=== PATIENT | male | born 1940 | race Caucasian/White ===

== ENCOUNTER 2020-07-24 15:45 | Outpatient (CLI) | payer OTHER, SELFPAY ==
--- NOTE | ~2020-07-24 | MR_ITS ---
EXAMINATION: MR hip RT wo con DATE: 07/24/2020 16:58 INDICATION: Right hip pain. TECHNIQUE: Magnetic resonance imaging (MRI) of the right hip was performed without intravenous contr ast. Sequences included full-field axial PD-weighted FS FSE and T1-weighted FSE, coronal of the pelvi s with PD-weighted FS FSE, small field of view of the affected hip with axial PD-weighted FS FSE, sa gittal PD-weighted FS FSE and coronal PD weighted FS FSE. Additional radial T1-weighted FGR oriented orthogonal to the acetabular rim were obtained for evaluation of the labrum. COMPARISON: Right hip radiographs dated 03/20/2020 FINDINGS: Bones/labrum/cartilage: Alignment is normal. No fracture, avascular necrosis or pathologic marrow replacing process. Severe lumbar spondylosis. There is delamination at the chondral labral junction beginning at the anterosupe rior labrum and extending to the posterior superior glenoid with more diffuse degenerative tearing of the right acetabular labrum. There is adjacent chondral fissuring along the superolateral aspect of the acetabulum and partial thickness cartilage loss with chondral surface regularity anterosuperiorly . Small marginal osteophytes about the acetabulum extending to the base of the labrum. Fluid: Symmetric physiologic amount of fluid within both hip joints. Soft tissues: There is mild fatty atrophy in the bilateral gluteus medius minimus muscles without evident associate d tendinopathy or tear. The iliopsoas, gluteal and proximal hamstring tendons are normal. Multiple di verticula along the sigmoid colon without adjacent inflammatory change to suggest diverticulitis. [place] ited evaluation of visceral organs of the pelvis is otherwise unremarkable. No pathologically enlarg ed pelvic/inguinal lymphadenopathy. IMPRESSION: 1. Mild right hip osteoarthritis with degenerative tearing of the labrum and delamination at the bernie dral labral junction. 2. Severe lumbar spondylosis. 3. Sigmoid diverticulosis. Reviewed, dictated and finalized at location H. SPRING INSPECTOR IMPRESSION: 1. Mild right hip osteoarthritis with degenerative tearing of the labrum and de lamination at the chondral labral junction. 2. Severe lumbar spondylosis. 3. Sigmoid diverticulosis.
== END 2020-07-24 15:46 | disposition home or self-care (01) ==
PROVIDERS: Visit Provider Nurse Practitioner Family
DX: M16.11 Unilateral primary osteoarthritis, right hip (principal); M47.896 Other spondylosis, lumbar region; K57.30 Diverticulosis of large intestine without perforation or abscess without bleeding
CPT/HCPCS: 73721

== ENCOUNTER 2020-07-29 13:51 | Outpatient (CLI) | payer OTHER, SELFPAY ==
--- NOTE | ~2020-07-29 | US_ITS ---
US art doppler w press LE BI INDICATION: Lower extremity edema TECHNIQUE: Segmental pressures and plethysmographic and Doppler waveforms of the brachial and lower e xtremity arteries were obtained. COMPARISON: None. FINDINGS: Right and left brachial artery pressures of 148 mm Hg and 138 mm Hg, respectively, are concordant (no rmal difference <= 30 mmHg). The right ankle-brachial index (MORGAN) is 1.08 (normal >= 0.9-1.0). The right great toe-brachial index (TBI) is 0.9 (normal >= 0.60). The left MORGAN is 1.04. The left TBI is 0.64. IMPRESSION: 1. Normal bilateral ankle-brachial indices. Reviewed, dictated and finalized at location A. DCAST MAINTENANCE TECHNICIAN
== END 2020-07-29 13:52 | disposition home or self-care (01) ==
PROVIDERS: PCP Internal Medicine; Visit Provider Internal Medicine
DX: R60.0 Localized edema (principal); I73.9 Peripheral vascular disease, unspecified
CPT/HCPCS: 93923

== ENCOUNTER 2020-08-07 11:08 | Outpatient (CLI) | payer OTHER, SELFPAY ==
--- NOTE | ~2020-08-07 | XR_ITS ---
EXAMINATION: XR lg joint inject/asp w image DATE: 08/07/2020 12:20 INDICATION: Right hip arthritis and pain. TECHNIQUE: A time-out was performed to verify the patient's name, date of , and procedure to b e performed. The procedure including the risks, benefits, and alternatives was discussed with the pat ient. Risks discussed included bleeding and infection. The patient understood the risks and agreed to proceed. The skin overlying the right hip joint was prepped and draped in usual sterile fashion. A nesthetic was administered with 1% lidocaine subcutaneously. A 22 G needle was advanced under fluoro scopic guidance into the joint. Injection of 1 mL of Omnipaque 240 confirmed intra-articular positio n of the needle. Subsequently, injectate consisting of 2 mL 0.5% bupivacaine and 1 mL 80 mg/mL was i nstilled. The needle was removed and the entry site was cleaned and dressed. There were no immediat e complications. Fluoroscopy exposure time was 0.0 minutes. The total number of images was 2. FINDINGS: Real-time fluoroscopy demonstrates the needle in the right hip joint. Patient's pain prior to procedure:2/10. Patient's pain following the procedure: 0/10. IMPRESSION: 1. Fluoroscopy guided right hip joint injection of local anesthetic and steroid with decrease in the patient's presenting pain. Reviewed, dictated and finalized at location A. IRATORY THERAPIST
== END 2020-08-07 11:09 | disposition home or self-care (01) ==
PROVIDERS: PCP Internal Medicine; Visit Provider Orthopaedic Surgery
DX: M16.11 Unilateral primary osteoarthritis, right hip (principal)
CPT/HCPCS: 20610; 77002; J1040; Q9966

== ENCOUNTER 2020-09-01 14:35 | Outpatient (CLI) | payer OTHER, SELFPAY ==
--- NOTE | ~2020-09-01 | MR_ITS ---
EXAMINATION: MR lumbar spine wo [facility] EXAM DATE: 09/01/2020 15:53 INDICATION: Right sided low back pain, cory buttock pain since 10/2019, no trauma. TECHNIQUE: Multi-sequential, multiplanar MR images of the lumbar spine were obtained without contrast . Sagittal T1, T2, T2 fat saturation images. Axial T2 weighted images. There is no prior study for comparison. FINDINGS: There is severe disc disease at L2-3 with 3 mm retrolisthesis, moderate to severe disc dise ase at L3-4. There is moderate disc disease L4-5 with 4 mm anterolisthesis. Mild to moderate disc dis ease L1-2 and L5-S1. The conus medullaris terminates at the L1/2 level and has normal signal intensit y and morphology. Mild diffuse loss of vertebral body heights, chronic compressions. There are no sagrario picious marrow signal abnormalities. Paraspinal soft tissue is unremarkable. Level by level evaluation: T12-L1: There is a minimal diffuse disc bulge. Facet arthropathy: Mild to moderate bilateral. Neural foraminal stenosis: No stenosis. Central canal stenosis: No stenosis. L1-L2: There is a mild diffuse disc bulge. Facet arthropathy: Mild to moderate. Neural foraminal stenosis: Mild bilateral. Central canal stenosis: Mild. L2-L3: There is a moderate diffuse disc bulge. Facet arthropathy: Moderate. Neural foraminal stenosis: Moderate bilateral. Central canal stenosis: Mild to moderate. L3-L4: There is a moderate diffuse disc bulge. Facet arthropathy: Moderate to severe . Ligamentum flavum enlargement. Neural foraminal stenosis: Moderate bilateral. Central canal stenosis: Moderate. L4-L5: There is a moderate to large diffuse disc bulge. Facet arthropathy: Severe right, moderate to severe left. Neural foraminal stenosis: Moderate to severe right, moderate left. Central canal stenosis: Moderate, particularly right lateral recess. L5-S1: There is a moderate diffuse disc bulge. Facet arthropathy: Mild to moderate. Neural foraminal stenosis: Moderate to severe right, moderate left. Central canal stenosis: Mild to moderate. IMPRESSION: 1. Moderate to severe lumbar spondylosis. 2. Right L4-5 and L5-S1 neural foramen most narrowed on exam. Reviewed, dictated and finalized at location D. CLEANER OPERATOR
== END 2020-09-01 14:36 | disposition home or self-care (01) ==
PROVIDERS: PCP Internal Medicine; Visit Provider Nurse Practitioner Family
DX: M47.896 Other spondylosis, lumbar region (principal)
CPT/HCPCS: 72148

== ENCOUNTER 2020-12-18 09:11 | Outpatient (CLI) | payer OTHER, SELFPAY ==
--- NOTE | ~2020-12-18 | XR_ITS ---
EXAMINATION: XR lumbar spine min 4V EXAM DATE: 12/18/2020 10:20 INDICATION: Neurogenic claudication due to lumbar spinal stenosis. TECHNIQUE: Lumber spine frontal, lateral, bilateral oblique projections. Coned down frontal and lat eral L5-S1 lumbar projections for interpretation. Additional lateral flexion and lateral extension p rojections obtained. Correlation was made with lumbar MRI examination 09/01/2020. FINDINGS: There is mild lumbar dextroscoliosis. Moderate to severe disc disease at L1-S2 and L5-S1, m oderate at the other lumbar levels. Again there is grade 1 anterolisthesis L4 on L5, without spondylo lysis suspected. Difficult to appreciate any additional subluxation between the lateral extension and flexion projections. There is severe lumbar facet arthropathy. There are no acute fractures identifi ed. Sacrum, sacroiliac joints, sacral arcuate lines are intact. IMPRESSION: 1. Moderate to severe lumbar spondylosis. 2. Grade 1 anterolisthesis L4 on L5. Reviewed, dictated and finalized at location A.
--- NOTE | 2020-12-18 11:30 | NEURO_ITS ---
Impression: # Complains of pain and numbness lower extremities. 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 # Asymmetrical sensory responses. # Needle/EMG exam revealed decreased motor unit potentials but no active denervation. # Most likely neuropathy with superimposed higher involvement. Nerve Conduction Studies Anti Sensory Summary Table Stim Site NR Peak (ms) P-T Amp (?V) Site1 Site2 Delta-P (ms) Dist (cm) Brandin (m/s) Left Sup Fibular Anti Sensory (Ant Lat Mall) 14 cm 3.9 24.0 14 cm Ant Lat Mall 3.9 16.0 41 Right Sup Fibular Anti Sensory (Ant Lat Mall) NO RESPONSE 14 cm NR 14 cm Ant Lat Mall 16.0 Left Sural Anti Sensory (Lat Mall) NO RESPONSE Calf NR Calf Lat Mall 16.0 Right Sural Anti Sensory (Lat Mall) NO RESPONSE Calf NR Calf Lat Mall 16.0 Motor Summary Table Stim Site NR Onset (ms) O-P Amp (mV) Site1 Site2 Delta-0 (ms) Dist (cm) Brandin (m/s) Left Peroneal Motor (Vastus Med) MINIMAL RESPONSE Ankle NR Popit Ankle 0.0 Popit NR Right Peroneal Motor (Vastus Med) Ankle 4.8 1.5 Popit Ankle 10.7 39.0 36 Popit 15.5 1.5 Left Tibial Motor (Abd Cole Brev) Ankle 5.2 3.2 Knee Ankle 12.1 46.0 38 Knee 17.3 1.8 Right Tibial Motor (Abd Cole Brev) Ankle 4.9 0.9 Knee Ankle 11.4 42.0 37 Knee 16.3 0.9 F Wave Studies NR F-Lat (ms) L-R F-Lat (ms) Left Peroneal (Mrkrs) (EDB) DISPERSED RESPONSE NR Right Peroneal (Mrkrs) (EDB) 62.55 Left Tibial (Mrkrs) (Abd Hallucis) 63.56 0.01 Right Tibial (Mrkrs) (Abd Hallucis) 63.57 0.01 EMG Side Muscle Nerve Root Ins Act Fibs Amp Dur Recrt Comment Right AntTibialis Dp Br Fibular L4-5 Nml Nml Nml Nml Reduced Right Gastroc Tibial S1-2 Nml Nml Nml Nml Reduced Right Fibularis Long Sup Br Fibular L5-S1 Nml Nml Nml Nml Reduced Right Flex Dig Long Tibial L5-S2 Nml Nml Nml Nml Reduced Right Ext Dig Brev Dp Br Fibular L5, S1 Nml Nml Nml Nml Reduced Left AntTibialis Dp Br Fibular L4-5 Nml Nml Nml Nml Reduced Left Gastroc Tibial S1-2 Nml Nml Nml Nml Reduced Left Fibularis Long Sup Br Fibular L5-S1 Nml Nml Nml Nml Reduced Left Flex Dig Long Tibial L5-S2 Nml Nml Nml Nml Reduced Left Ext Dig Brev Dp Br Fibular L5, S1 Nml Nml Nml Nml Reduced Right QuadratusFem QuadFemoris L4-5, S1 Nml Nml Nml Nml Reduced Left QuadratusFem QuadFemoris L4-5, S1 Nml Nml Nml Nml Reduced MTDD
== END 2020-12-18 09:12 | disposition home or self-care (01) ==
PROVIDERS: PCP Internal Medicine; Visit Provider Neurological Surgery
DX: M48.062 Spinal stenosis, lumbar region with neurogenic claudication (principal); G62.9 Polyneuropathy, unspecified; M47.816 Spondylosis without myelopathy or radiculopathy, lumbar region
CPT/HCPCS: 72110; 95886; 95910

== ENCOUNTER 2021-05-06 13:48 | Outpatient (CLI) | payer OTHER, SELFPAY ==
--- NOTE | ~2021-05-06 | US_ITS ---
EXAMINATION: US art doppler w press LE DATE: 05/06/2021 14:39 INDICATION: Peripheral arterial disease. TECHNIQUE: Segmental pressures and plethysmographic and Doppler waveforms of the brachial and lower e xtremity arteries were obtained. COMPARISON: Segmental pressures and arterial Doppler 07/29/2020 FINDINGS: Right and left brachial artery pressures of 132 mm Hg and 140 mm Hg, respectively, are concordant (no rmal difference <= 30 mmHg). The right high-thigh pressure index is 1.25 (normal > 1.2). The right ankle-brachial index (MORGAN) is 1 .13 (normal >= 0.9-1.0). The right great toe-brachial index (TBI) is 0.70 (normal >= 0.65). Arterial Doppler waveforms are at least triphasic in common femoral artery and superficial femoral artery and biphasic in popliteal artery and at the ankle. The left high-thigh pressure index is 1.19. The left MORGAN is 0.99. The left TBI is 0.71. Arterial Dopp ler waveforms are at least triphasic in common femoral artery, biphasic from superficial femoral marta ry to posterior tibial artery, and triphasic in dorsalis pedis. IMPRESSION: 1. No significant arterial occlusive disease. Reviewed, dictated and finalized at location A.
== END 2021-05-06 13:49 | disposition home or self-care (01) ==
LOC: ANHIMG 13:53
PROVIDERS: PCP Internal Medicine; Visit Provider Registered Nurse
DX: R09.89 Other specified symptoms and signs involving the circulatory and respiratory systems (principal)
CPT/HCPCS: 93923

== ENCOUNTER 2023-11-11 09:32 | Outpatient (CLI) | payer OTHER, SELFPAY ==
--- NOTE | ~2023-11-11 | MR_ITS ---
MRI of the lumbar spine Clinical History: Radiculopathy Technique: Axial T2-weighted images, and sagittal T1-weighted, T2-weighted, and T2 fat-sat images wer e acquired. COMPARISON: 09/01/2020 Findings: No acute fracture seen. Stable grade 1 retrolisthesis of L2 over L3. Stable grade 1 anterol isthesis of L4 over L5. No suspicious bone marrow signal seen. There are reactive marrow signal prescott es due to degenerative disc disease. At L1-L2, there is moderate degenerative disc narrowing. There is mild disc bulge with moderate to se titus facet arthropathy. No central canal stenosis. There is moderate left neural foraminal narrowing, with minimal right neural foraminal narrowing. At L2-L3, there is severe degenerative disc narrowing. Disc bulge and advanced facet arthropathy are present, with minimal central canal stenosis. There is severe bilateral neural foraminal narrowing, l eft worse than right. At L3-L4, there is severe degenerative disc narrowing. Disc bulge and severe facet arthropathy result in moderate to severe spinal canal stenosis/thecal sac compression. There is severe bilateral neural foraminal compromise. At L4-L5, there is moderate degenerative disc narrowing. Disc bulge and severe facet arthropathy resu lt in mild central canal stenosis. There is severe right neural foraminal compromise, and minimal lef t neural foraminal compromise. At L5-S1, there is mild degenerative disc narrowing. There is disc bulge and moderate facet arthropat hy. No central canal stenosis. There is severe bilateral neural foraminal compromise. Paravertebral soft tissues are unremarkable. Impression: Severe degenerative spondylosis throughout the lumbar spine, as detailed above. Stable grade 1 listhesis, as above. Reviewed, dictated and finalized at [facility]. ING SEWING MACHINE OPERATOR Impression: Severe degenerative spondylosis throughout the lumbar spine, as detailed above. Stable grade 1 listhesis, as above.
== END 2023-11-11 09:33 | disposition home or self-care (01) ==
PROVIDERS: PCP Internal Medicine; Visit Provider Internal Medicine
DX: M47.26 Other spondylosis with radiculopathy, lumbar region (principal)
CPT/HCPCS: 72148

== ENCOUNTER 2024-09-28 16:18 | Emergency (ER) | payer OTHER, SELFPAY ==
[2024-09-28 16:22] VITALS: BP 130/46; PULSE 57; RESP 20; TEMP 36.4; O2SAT 98
--- OUTSIDE RECORDS SUMMARY | 2024-09-28 16:22 | XMS_ITS | Encounter Summary ---
Author Organization [facility] Address [address] [place] [address]. [place] [address] [place] [address] Care Team Providers Care Medical Management Trainer Name Role Phone Nolan Marcos MD Primary Care Provider [phone] Reason for Referral * Imaging (Emergency) - New Request Specialty Diagnoses / Procedures Referred By Contac t Referred To Contact RADIOLOGY Procedures CT PEL WO Anil Driscoll MD [address] [address] Phone: tel: fax: Referral ID Status Reason Start Date Expiration Date V isits Requested Visits Authorized [id number] New Request 09/27/2024 09/27/2025 1 1 R CRANE OPERATOR * Imaging (Emergency) - New Request Specialty Diagnoses / Procedures Referred By Contac t Referred To Contact RADIOLOGY Procedures CT LUMB SPINE WO Anil Driscoll MD [address] [address] Phone: tel: fax: Referral ID Status Reason Start Date Expiration Date V isits Requested Visits Authorized [id number] New Request 09/27/2024 09/27/2025 1 1 R CRANE OPERATOR Reason for Visit * Reason Comments Back Pain Encounter Details Date Type Department Care Team (Late st Contact Info) Description 09/27/2024 4:11 AM POWER CRANE OPERATOR - 09/27/2024 9:02 AM POWER CRANE OPERATOR Emergency [facility] Emergency [place] [address] Anil Ramirez MD [address] [id number] Back Pain Discharge Disposition: Home or Self Care (Routine Discharge) Social History Tobacco Use Types Packs/Day Years Used Date Smoking Tobacco: Every Day Cigarettes 0.3 60 Smokeless Tobacco: Never Comments:I now smoke 3 cigs per day Alcohol Use Standard Drinks/Week Comments No 0 (1 standard drink = 0.6 oz pur e alcohol) AUDIT-C Answer Date Recorded Frequency of Alcohol Consumption Never 11/07/2018 Average Number of Drinks Not on file 019 Frequency of Binge Drinking Not on file 01/2019 PHQ-2 Answer Date Recorded Patient Health Questionnaire-2 Score 0 10/20/2023 Sex and Gender Information Value Date Recorded Sex Assigned at Male 11/07/2018 3:30 PM POWER CRANE OPERATOR Legal Sex Male 5:59 PM CDT Gender Identity Male 11/07/2018 3:30 PM POWER CRANE OPERATOR Sexual Orientation Straight 11/07/2018 3: 30 PM POWER CRANE OPERATOR documented as of this encounter Last Filed Vital Signs Vital Sign Reading Time Taken Comments Blood Pressure 175/83 09/27/2024 3:55 AM POWER CRANE OPERATOR Pulse 61 09/27/2024 3:55 AM POWER CRANE OPERATOR Temperature 36.6 ??C (97.9 ??F) 09/27/2024 3:55 AM CS T Respiratory Rate 18 09/27/2024 3:55 AM POWER CRANE OPERATOR Oxygen Saturation 99% 09/27/2024 3:55 AM POWER CRANE OPERATOR Inhaled Oxygen Concentration - - Weight 103.4 kg (228 lb) 09/27/2024 3:55 AM POWER CRANE OPERATOR Height 180.3 cm (5' 11 ) 09/27/2024 3:55 AM POWER CRANE OPERATOR Body Mass Index 31.8 09/27/2024 3:55 AM POWER CRANE OPERATOR documented in this encounter Discharge Instructions * Discharge Instructions* Anil Ramirez MD - 09/27/2024 8:04 AM POWER CRANE OPERATOR Thank you for entrusting your health with me. I have obtained information about your health and reviewed your work-up. Please access [facility] to see my note and work-up. Medical care is complex and your health is important to me. I encourage you to ask questions for further understanding of today's visit and return if something changes. Sincerely, Dr. Ramirez R CRANE OPERATOR * Attachments The following attachments cannot be sent through Care Everywhere. * Low Back Pain ED (Slovak) documented in this encounter Medications at Time of Discharge CONTOUR NEXT TEST test stripIndications:Con trolled type 2 diabetes mellitus without complication, without long-term current use of insulin ([facility]) USE ONE STRIP IN METER THREE TIMES A DAY 100 strip 2 06/15/2024 cyclobenzaprine (FLEXERIL) 5 MG tabletIndications:Se titus low back pain Take 1 tablet (5 mg total) by mouth 3 (three) times daily as needed for Muscle Spasms. 30 tablet 09/18/2024 5 cycloSPORINE (RESTASIS) 0.05 % ophthalmic emulsion Place 1 drop into both eyes 2 (two) times daily. diazePAM (VALIUM) 5 MG tabletIndications:An xiety,Benign familial tremor TAKE 1 TABLET BY MOUTH EVERY 8 HOURS NEEDED FOR ANXIETY (USE SPARINGLY) 90 tablet 07/31/2024 DULoxetine (CYMBALTA) 60 MG capsuleIndications:P rimary osteoarthritis involving multiple joints TAKE 1 CAPSULE BY MOUTH EVERY DAY 30 capsule 5 09/11/2024 Glucose Blood (FREESTYLE LITE) test stripIndications:Typ e 2 diabetes mellitus with stage 3a chronic kidney disease, without long-term current use of insulin ([facility]) 1 strip by Other route daily. 100 strip 3 09/25/2024 hydroCHLOROthiazide (MICROZIDE) 12.5 MG capsuleIndications:G eneralized edema Take 1 capsule (12.5 mg total) by mouth every morning. 30 capsule 3 04/19/2024 HYDROcodone-acetamin ophen (NORCO) 7.5-325 MG tabletIndications:Ch ronic Pain Take 1 tablet by mouth every 8 (eight) hours as needed for Pain. Indications: Chronic Pain 30 tablet 09/14/2024 Lancets MiscIndications:Diab etes mellitus (CMS/HCC [facility]) Use 1 lancet TID 300 Container 1 07/25/2018 levothyroxine (SYNTHROID) 50 MCG tabletIndications:Hy pothyroidism TAKE 1 TABLET BY MOUTH EVERY DAY IN THE MORNING 90 tablet 1 07/10/2024 melatonin 5 MG tablet Take 1 tablet (5 mg total) by mouth daily. multi vitamin/minerals tablet Take 1 tablet by mouth daily. naproxen (NAPROSYN) 500 MG tabletIndications:Sp asmodic torticollis take 1 tablet by mouth twice a day with food 60 tablet 5 04/16/2024 tffqkwfn-xhrozbhzi-l examethasone (MAXITROL) 3.5-14990-2.1 Ointment APPLY A THIN LAYER INTO BOTH EYES EVERY NIGHT 01/14/2023 ofloxacin (FLOXIN) 0.3 % otic solution APPLY 4 DROPS INTO THE RIGHT EAR 2 TIMES PER DAY FOR 7 DAYS 10/30/2023 onabotulinumtoxinA (BOTULINUM TOXIN TYPE A) 100 units injection Inject 200 Units into the muscle. 01/19/2024 oxyCODONE-acetaminop hen (PERCOCET) 5-325 MG tabletIndications:Ac huslia Pain < 7 Day Supply Take 1 tablet by mouth every 8 (eight) hours as needed for Pain. Indications: Acute Pain < 7 Day Supply 10 tablet 09/19/2024 propranolol LA (INDERAL LA) 80 MG 24 hr capsuleIndications:B enign familial tremor take 1 capsule by mouth every day 30 capsule 11 03/14/2024 tamsulosin (FLOMAX) 0.4 MG CapIndications:Benig n prostatic hyperplasia, unspecified whether lower urinary tract symptoms present TAKE 1 CAPSULE BY MOUTH NIGHTLY AT BEDTIME. 30 capsule 8 08/13/2024 timolol 0.25 % ophthalmic solution Place 1 drop into both eyes daily. 2021 documented as of this encounter ED Notes * Carla Quinn RN - 09/27/2024 9:01 AM CST Provider discussed today's findings with the patient/family. The patient has been given informationregarding their treatment, follow up and concerning symptoms for which they should seek urgent or emergent attention. I have expressed the the importance of seeking attention should there be any new,or worsening symptoms or persistence of their condition. Patient verbalized understanding of the discharge instructions. R CRANE OPERATOR * Carla Quinn RN - 09/27/2024 8:56 AM CST Sister kierra coming to get pt from R CRANE OPERATOR * Carla Quinn RN - 09/27/2024 8:51 AM CST Called daughter twice, no answer, for pt ride home R CRANE OPERATOR * Anil Ramirez MD - 09/27/2024 6:41 AM CST Emergency Department Note Chief Complaint Patient presents with Back Pain 84-year-old male presenting to the emergency department with back pain. Patient reports to have hada fall 12 days ago in which he saw his PCP at that time. He states all of his X rays to be negativeand that he was prescribed hydrocodone for pain. Pain has worsened so he presents today for furtherevaluation. Patient reports pain to shoot across his lower back and to feel like a spasm. He reports pain to beworse with movement and standing. Hx of sciatica. Per medication at bedside, patient has hydrocodone, diazepam, and naproxen. No urinary incontinence. No saddle anesthesia. No fevers. No weakness. Hx obtained by pt. MEDICATIONS: Prior to Admission medications Medication Sig Start Date End Date Taking? Authorizing Provider CONTOUR NEXT TEST test strip USE ONE STRIP IN METER THREE TIMES A DAY 06/15/24 Nolan Marcos MD cyclobenzaprine (FLEXERIL) 5 MG tablet Take 1 tablet (5 mg total) by mouth 3 (three) times daily asneeded for Muscle Spasms. 09/18/24 09/28/24 Nolan Marcos MD cycloSPORINE (RESTASIS) 0.05 % ophthalmic emulsion Place 1 drop into both eyes 2 (two) times daily.Doc [facility] diazePAM (VALIUM) 5 MG tablet TAKE 1 TABLET BY MOUTH EVERY 8 HOURS NEEDED FOR ANXIETY (USE SPARINGLY) 07/31/24 Nolan Marcos MD DULoxetine (CYMBALTA) 60 MG capsule TAKE 1 CAPSULE BY MOUTH EVERY DAY 09/11/24 Nolan Marcos MD Glucose Blood (FREESTYLE LITE) test strip 1 strip by Other route daily. 09/25/24 Nolan Marcos MD hydroCHLOROthiazide (MICROZIDE) 12.5 MG capsule Take 1 capsule (12.5 mg total) by mouth every morning. 04/19/24 Nolan Marcos MD HYDROcodone-acetaminophen (NORCO) 7.5-325 MG tablet Take 1 tablet by mouth every 8 (eight) hours asneeded for Pain. Indications: Chronic Pain 09/14/24 RK Traore Lancets Misc Use 1 lancet TID 07/25/18 Nolan Marcos MD levothyroxine (SYNTHROID) 50 MCG tablet TAKE 1 TABLET BY MOUTH EVERY DAY IN THE MORNING 07/10/24 Nolan Marcos MD melatonin 5 MG tablet Take 1 tablet (5 mg total) by mouth daily. Doc [facility] multi vitamin/minerals tablet Take 1 tablet by mouth daily. Doc [facility] naproxen (NAPROSYN) 500 MG tablet take 1 tablet by mouth twice a day with food 04/16/24 Nolan Marcos MD huguqxxy-ioovcpwpc-gtiteqqlrfykf (MAXITROL) 3.5-97869-9.1 Ointment APPLY A THIN LAYER INTO BOTH EYES EVERY NIGHT 01/14/23 Default History Genericprovider ofloxacin (FLOXIN) 0.3 % otic solution APPLY 4 DROPS INTO THE RIGHT EAR 2 TIMES PER DAY FOR 7 DAYS 10/30/23 Default History Genericprovider onabotulinumtoxinA (BOTULINUM TOXIN TYPE A) 100 units injection Inject 200 Units into the muscle. 01/19/24 01/17/25 Default History Genericprovider oxyCODONE-acetaminophen (PERCOCET) 5-325 MG tablet Take 1 tablet by mouth every 8 (eight) hours as needed for Pain. Indications: Acute Pain < 7 Day Supply 09/19/24 Nolan Marcos MD propranolol LA (INDERAL LA) 80 MG 24 hr capsule take 1 capsule by mouth every day 03/14/24 Nolan Marcos MD tamsulosin (FLOMAX) 0.4 MG Cap TAKE 1 CAPSULE BY MOUTH NIGHTLY AT BEDTIME. 08/13/24 Nolan Marcos MD timolol 0.25 % ophthalmic solution Place 1 drop into both eyes daily. 06/01/21 Doc [facility] PAST MEDICAL HISTORY: Past Medical History: Diagnosis Date Anxiety disorder, unspecified Arthritis RHEUMATOID Depression Diabetes mellitus ([facility]) Glaucoma PAST SURGICAL HISTORY: Past Surgical History: Procedure Laterality Date APPENDECTOMY APPENDECTOMY BRAIN SURGERY CRANIOTOMY TO REMOVE CONGEALED BLOOD CATARACT EXTRACTION Bilateral JOINT REPLACEMENT Right KNEE REPLACEMENT KNEE SURGERY MYRINGOTOMY Bilateral OTHER PROCEDURE Left DUPYTRON RELEASE RING FINGER SEPTOPLASTY Vital 24 Hour Range Most Recent Value Temperature Temp Min: 97.9 ??F (36.6 ??C) Max: 97.9 ??F (36.6 ??C) 97.9 ??F (36.6 ??C) Pulse Pulse Min: 61 Max: 61 61 Respiratory Resp Min: 18 Max: 18 18 Blood Pressure BP Min: 175/83 Max: 175/83 (!) 175/83 Pulse Oximetry SpO2 Min: 99 % Max: 99 % 99 % O2 No data recorded Constitutional: Well developed, Well nourished, No acute distress, Non-toxic appearance. HEENT: Normocephalic, Atraumatic, Bilateral external ears normal, EOMI, Conjunctiva normal, No discharge.Oropharynx moist, Nose normal. Respiratory: Normal breath sounds, No respiratory distress. Cardiovascular: Normal heart rate, Normal rhythm GI: Soft, No tenderness Neck/back: Normal range of motion, No stridor, Mild lumbar tenderness on palpation Extremities: Intact distal pulses, No edema, No tenderness, Good range of motion in all major joints. Skin: Warm, Dry, No erythema, No rash. Neurologic: Alert & oriented x 3, Normal motor function, Normal sensory function, No focal deficits noted. Psychiatric: Affect normal, Judgment normal, Mood normal. Medical Decision Making/ ED course: Problem list: Lower back pain Differentials: Fracture, contusion, muscle strain, other Imaging: CT PEL WO CON Result Date: 09/27/2024 IMPRESSION: No appreciable acute fracture or dislocation. Degenerative changes of the lumbosacral spine, pelvis, and hips. Potential soft tissue contusion in the left hip region. Correlate with clinical exam. Ordered By: ANIL RAMIREZ Electronically Signed By: Toi Mar on 58:01 AM Interpreted By: Toi Mar, 09/27/2024 7:[address] LUMB SPINE WO CON Result Date: 09/27/2024 IMPRESSION: 1. No acute fracture or dislocation. Chronic healed fractures of the left transverse processes of L2 and L3. 2. 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 Moderate central canal stenosis at L2/L3. 3. Severe bilateral foraminal stenosis at L2/L3 L3/L4, L4/L5 and L5/S1. Moderate bilateral foraminal stenosis at L1/L2. 4. Osteopenia with 13 degrees of lumbar dextroscoliosis. Referred By: Interpreted By: Vivek Hood MD, 09/27/2024 7:28 AM My independent interpretation of labs/imaging: Imaging without signs of acute traumatic injuries. My independent interpretation of pulse ox: Normal Consults: no emergent consult indicated Communication: I discussed the workup as well as plan of care when possible. I discussed medications as well as other therapies as needed. Patient overall feeling much better after medications. Patient ambulatory in the ER with stable gait. Will plan to discharge patient with outpatient follow-up. Patient has prescriptions for benzos, [place], NSAIDs. Medications HYDROmorphone (DILAUDID) injection 1 mg (1 mg Intramuscular Given 09/27/24 0711) Clinical Impression Back pain (Primary) Current Discharge Medication List Disposition: Discharge Follow-Up: Nolan Marcos MD [address] [place] [id number] Call in 1 day Please excuse any grammatical or spelling errors as this chart was likely documented using a dictation software. I, Radha Arriola acting as a scribe, am personally taking down the notes in the presence of Dr. Anil Ramirez,*. Take no action on this note until reviewed and authenticated by the physician. Anil Ramirez MD 09/27/24 0891 R CRANE OPERATOR * Ashkan De La Cruz RN - 09/27/2024 3:50 AM CST Pt to the ed via ems with c/o lower back pain. Pt had a fall on 09/17 and was seen by PCP on 09/19. XR were negative at that time and pt was given script for 10 tablets of Oxy. Pt ambulatory to restroom on arrival to ED. Pt states the pain has worsened and he used up all of his pain meds. R CRANE OPERATOR documented in this encounter Plan of Treatment Upcoming Encounters Date Type Department Care Team (Late st Contact Info) Description 10/23/2024 2:40 PM POWER CRANE OPERATOR Office Visit [facility] Family [facility] Internal Medicine [address] [phone] Nolan Marcos MD [address] [place] [id number] documented as of this encounter Procedures Procedure Name Priority Date/Time Associated Diagnosis Comments CT PEL WO CON STAT 09/27/2024 7:03 AM POWER CRANE OPERATOR CT LUMB SPINE WO CON STAT 09/27/2024 7:03 AM POWER CRANE OPERATOR documented in this encounter Results * CT PEL WO CON (09/27/2024 7:03 AM POWER CRANE OPERATOR) Anatomical Region Laterality Modality Pelvis Computed Tomogra phy 09/27/2024 7:45 AM POWER CRANE OPERATOR Impressions 09/27/2024 8:01 AM POWER CRANE OPERATOR IMPRESSION: No appreciable acute fracture or dislocation. Degenerative changes of the lumbosacral spine, pelvis, and hips. Potential soft tissue contusion in the left hip region. Correlate with clinical exam. Ordered By: ANIL RAMIREZ Interpreted By: Toi Mar, 09/27/2024 7:45 AM Narrative 09/27/2024 8:01 AM POWER CRANE OPERATOR [address] [place], [place] [address] IMAGING STUDIES: ??CT PEL WO CON ? DATE: ??09/27/2024 6:40 AM HISTORY: ??trauma ? 84-year-old male. Patient reportedly fell on 09/17/2024 and evaluated by primary care provider on 09/19/2024 with reported negative radiographs at that time. Patient provided prescription for hydrocodone and has finished his medications. Patient reports shooting spasm-like pain across his lower back which is worse with movement and standing. Reported history of sciatica. COMPARISON: ??CT lumbar spine without contrast 09/27/2024. DISCUSSION: CT pelvis without intravenous contrast. Coronal and sagittal reconstructions. No enteric contrast. Automated exposure control with radiation dose reduction techniques used. Cardiovascular: Atherosclerotic calcification of the aorta, iliac arteries, and femoral arteries. Genitourinary: ??Prostate dystrophic calcifications. Mild indentation of the inferior urinary bladder by the prostate. No acute urinary bladder abnormality. Mild fat within the left inguinal canal. Lymphatic: No apparent adenopathy. Gastrointestinal: Colonic diverticulosis. No apparent bowel obstruction or focal inflammation. ??No free fluid in the pelvis. Musculoskeletal: Mild bilateral soft tissue edema. Slightly more prominent soft tissue edema in the left hip region (axial image [id number]) and clinical correlation recommended for contusion given the history of fall. Degenerative changes of the lumbosacral spine. Refer to dedicated lumbar spine CT. Degenerative changes symphysis pubis and bilateral sacroiliac joints. Degenerative changes bilateral hips. Hypertrophic changes at the femoral greater trochanters bilaterally, left greater than right. Procedure Note Toi Mar MD - 09/27/2024 [facility] [address] [address] IMAGING STUDIES: CT PEL WO CONDATE: 09/27/2024 6:40 AM HISTORY: trauma 84-year-old male. Patient reportedly fell on09/17/2024 and evaluated by primary care provider on 09/19/2024 withreported negative radiographs at that time. Patient provided prescriptionfor hydrocodone and has finished his medications. Patient reports shootingspasm-like pain across his lower back which is worse with movement andstanding. Reported history of sciatica. COMPARISON: CT lumbar spine without contrast 09/27/2024. DISCUSSION: CT pelvis without intravenous contrast. Coronal and sagittalreconstructions. No enteric contrast. Automated exposure control withradiation dose reduction techniques used. Cardiovascular: Atherosclerotic calcification of the aorta, iliacarteries, and femoral arteries. Genitourinary: Prostate dystrophic calcifications. Mild indentation ofthe inferior urinary bladder by the prostate. No acute urinary bladderabnormality. Mild fat within the left inguinal canal. Lymphatic: No apparent adenopathy. Gastrointestinal: Colonic diverticulosis. No apparent bowel obstruction orfocal inflammation. No free fluid in the pelvis. Musculoskeletal: Mild bilateral soft tissue edema. Slightly more prominentsoft tissue edema in the left hip region (axial image [id number]) andclinical correlation recommended for contusion given the history of fall. Degenerative changes of the lumbosacral spine. Refer to dedicated lumbarspine CT. Degenerative changes symphysis pubis and bilateral sacroiliac joints.Degenerative changes bilateral hips. Hypertrophic changes at the femoralgreater trochanters bilaterally, left greater than right. IMPRESSION: No appreciable acute fracture or dislocation. Degenerative changes of thelumbosacral spine, pelvis, and hips. Potential soft tissue contusion inthe left hip region. Correlate with clinical exam. Ordered By: ANIL RAMIREZ Interpreted By: Toi Mar, 09/27/2024 7:45 AM Anil Ramirez MD CT Final Result * CT LUMB SPINE WO CON (09/27/2024 7:03 AM POWER CRANE OPERATOR) Anatomical Region Laterality Modality Spine Computed Tomogra phy 09/27/2024 7:28 AM POWER CRANE OPERATOR Impressions 09/27/2024 7:35 AM POWER CRANE OPERATOR IMPRESSION: 1. ??No acute fracture or dislocation. ??Chronic healed fractures of the left transverse processes of L2 and L3. 2. ??Severe central canal stenosis at L3/L4. ??Moderate central canal stenosis at L2/L3. 3. ??Severe bilateral foraminal stenosis at L2/L3 L3/L4, L4/L5 and L5/S1. ??Moderate bilateral foraminal stenosis at L1/L2. 4. ??Osteopenia with 13 degrees of lumbar dextroscoliosis. Referred By: ?? Interpreted By: Vivek Hood MD, 09/27/2024 7:28 AM Narrative 09/27/2024 7:35 AM POWER CRANE OPERATOR [address] [address] EXAMINATION:Lumbar spine CT without contrast 09/27/2024 INDICATION:Lower back pain, fall on 09/17/2024 TECHNIQUE: Axial CT images of the lumbar spine were acquired without intravenous contrast. ??Sagittal coronal reformats were constructed. Radiation dose reduction techniques were used. COMPARISON: Lumbar radiographs 09/19/2024 FINDINGS:The last fully formed disc space is presumed represent L5/S1. ??The osseous structures appear diffusely demineralized. ??There is 13 degrees of lumbar dextroscoliosis, unchanged. ??There is preservation of vertebral body heights and disc spaces. There is 2 mm retrolisthesis at L1/L2, L2/L3 L3/L4. ??There is 5 mm anterolisthesis at L4/L5. No acute fracture or dislocation. ??The sacroiliac joint spaces are unremarkable. There is mild cortical regularity of the left transverse processes of L2 and L3 T11/T12: Disc space narrowing, facet arthropathy and moderate bilateral foraminal stenosis. T12/L1: Disc space narrowing with small right paracentral disc protrusion causing no significant stenosis L1/L2: Disc space narrowing and vacuum disc phenomena with grade 1 retrolisthesis and facet arthropathy causing moderate bilateral foraminal stenosis. L2/L3: Disc space narrowing with grade 1 retrolisthesis small posterior disc/osteophyte complex, facet arthropathy, thickening of ligamentum flavum and bilateral foraminal osteophytes causing moderate central canal stenosis and severe bilateral foraminal stenosis L3/4: Disc space narrowing, vacuum disc phenomena, posterior disc/osteophyte complex, facet arthropathy and bilateral foraminal osteophytes with thickening of the ligamentum flavum causing severe central canal stenosis and severe bilateral foraminal stenosis L4/L5: Disc space narrowing with grade 1 anterolisthesis, vacuum disc phenomena, facet arthropathy and bilateral foraminal disc/osteophyte complexes causing mild central canal stenosis and severe bilateral foraminal stenosis L5/S1: Disc space narrowing, facet arthropathy and bilateral foraminal disc/osteophyte complexes causing severe bilateral neural foraminal stenosis. Constipation is noted throughout the abdominal aorta. ??There is a 9 obstructing 5 mm calculus within the right kidney near the corticomedullary junction. Procedure Note Vivek Hood MD - 09/27/[address] [address] EXAMINATION:Lumbar spine CT without contrast 09/27/2024 INDICATION:Lower back pain, fall on 09/17/2024 TECHNIQUE: Axial CT images of the lumbar spine were acquired withoutintravenous contrast. Sagittal coronal reformats were constructed.Radiation dose reduction techniques were used. COMPARISON: Lumbar radiographs 09/19/2024 FINDINGS:The last fully formed disc space is presumed represent L5/S1.The osseous structures appear diffusely demineralized. There is 13degrees of lumbar dextroscoliosis, unchanged. There is preservation ofvertebral body heights and disc spaces. There is 2 mm retrolisthesis at L1/L2, L2/L3 L3/L4. There is 5 mmanterolisthesis at L4/L5. No acute fracture or dislocation. The sacroiliac joint spaces areunremarkable. There is mild cortical regularity of the left transverse processes of L2and L3 T11/T12: Disc space narrowing, facet arthropathy and moderate bilateralforaminal stenosis. T12/L1: Disc space narrowing with small right paracentral disc protrusioncausing no significant stenosis L1/L2: Disc space narrowing and vacuum disc phenomena with grade 1retrolisthesis and facet arthropathy causing moderate bilateral foraminalstenosis. L2/L3: Disc space narrowing with grade 1 retrolisthesis small posteriordisc/osteophyte complex, facet arthropathy, thickening of ligamentumflavum and bilateral foraminal osteophytes causing moderate central canalstenosis and severe bilateral foraminal stenosis L3/4: Disc space narrowing, vacuum disc phenomena, posteriordisc/osteophyte complex, facet arthropathy and bilateral foraminalosteophytes with thickening of the ligamentum flavum causing severecentral canal stenosis and severe bilateral foraminal stenosis L4/L5: Disc space narrowing with grade 1 anterolisthesis, vacuum discphenomena, facet arthropathy and bilateral foraminal disc/osteophytecomplexes causing mild central canal stenosis and severe bilateralforaminal stenosis L5/S1: Disc space narrowing, facet arthropathy and bilateral foraminaldisc/osteophyte complexes causing severe bilateral neural foraminalstenosis. Constipation is noted throughout the abdominal aorta. There is a 9obstructing 5 mm calculus within the right kidney near thecorticomedullary junction. IMPRESSION: 1. No acute fracture or dislocation. Chronic healed fractures of theleft transverse processes of L2 and L3. 2. 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 Moderate central canalstenosis at L2/L3. 3. 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 4. Osteopenia with 13 degrees of lumbar dextroscoliosis. Referred By: Interpreted By: Vivek Hood MD, 09/27/2024 7:28 AM us Anil Ramirez MD CT Final Result documented in this encounter Visit Diagnoses Diagnosis Back pain- Primary Backache, unspecified documented in this encounter Administered Medications Inactive Administered Medications - up to 3 most recent administrations Medication Order MAR Action Action Date Dose Rate Site HYDROmorphone (DILAUDID) injection 1 mg 1 mg, Intramuscular, Once, 1 dose, On Kelly 09/27/24 at 0645, Administer slowly over at least 2-3 minutes. Given 09/27/2024 7:11 AM POWER CRANE OPERATOR 1 mg Right Dorsal Gluteal documented in this encounter Active and Recently Administered Medications Times are shown in POWER CRANE OPERATOR. Scheduled Medication Order 09/25/2024 09/26/2024 09/27/2024 HYDROmorphone (DILAUDID) injection 1 mg (COMPLETED) 1 mg, Intramuscular, Once, 1 dose, On Kelly 09/27/24 at 0645, Administer slowly over at least 2-3 minutes. 0711 (Given - Provid er: Carla Quinn RN) documented in this encounter Additional Health Concerns Assessment Noted Time PHQ-9 Depression Total Score: 8 02/17/20 23 2:09 PM CDT documented as of this encounter Care Teams Medical Management Trainer Relationship Specialty Start Date End Date Nolan Marcos MD [address] [place] [id number] PCP - General INTERNAL MEDICINE 08/31/18 documented as of this encounter
--- OUTSIDE RECORDS SUMMARY | 2024-09-28 16:22 | XMS_ITS | Encounter Summary ---
Author Organization [facility] Address [facility] [place] [address] [place] [address] Care Team Providers Care Quality Assurance Group Leader Name Role Phone Nolan Marcos MD Primary Care Provider [phone] Encounter Details Date Type Department Care Team (Latest Contact Info) Description 09/27/2024 Travel Social History Tobacco Use Types Packs/Day Years [...] Sex Assigned at Male 11/07/2018 3:30 PM CREDIT INTERN Legal Sex Male 5:59 PM CDT Gender Identity Male 11/07/2018 3:30 PM CREDIT INTERN Sexual Orientation Straight 11/07/2018 3: 30 PM CREDIT INTERN documented as of this encounter Plan of Treatment Upcoming Encounters Date Type Department Care Team (Late st Contact Info) Description 10/23/2024 2:40 PM CREDIT INTERN Office Visit [facility] Family & Internal Medicine [id number] [place] [address] Nolan Marcos MD [address] [place] [id number] documented as of this encounter Visit Diagnoses Not on filedocumented in this encounter Additional Health Concerns Assessment Noted Time PHQ-9 Depression Total Score: 8 02/17/20 23 2:09 PM CDT documented as of this encounter Care Teams Quality Assurance Group Leader Relationship Specialty Start Date End Date Nolan Marcos MD [address] [place] [id number] PCP - General INTERNAL MEDICINE 08/31/18 documented as of this encounter
--- OUTSIDE RECORDS SUMMARY | 2024-09-28 16:22 | XMS_ITS | Encounter Summary ---
Author Organization [facility] Address [facility] [facility] [place] [address] [place] [address] Care Team Providers Care Cardiology Coordinator Name Role Phone Nolan Marcos MD Primary Care Provider [phone] Encounter Details Date Type Department Care Team (Latest Contact Info) Description 05/05/2018 Abstract [facility] , Enrrique Gould MD Social History Tobacco Use Types Packs/Day Years Used Date Smoking Tobacco: Never Assessed Sex and Gender Information Value Date Recorded Sex Assigned at Male 11/07/2018 3:30 PM KILN PULLER Legal Sex Male 5:59 PM CDT Gender Identity Male 11/07/2018 3:30 PM KILN PULLER Sexual Orientation Straight 11/07/2018 3: 30 PM KILN PULLER documented as of this encounter Plan of Treatment Upcoming Encounters Date Type Department Care Team (Late st Contact Info) Description 10/23/2024 2:40 PM KILN PULLER Office Visit [facility] Family & Internal Medicine [facility] [address] [place] [address] Nolan Marcos MD [address] [place] [address] documented as of this encounter Visit Diagnoses Not on filedocumented in this encounter Care Teams Cardiology Coordinator Relationship Specialty Start Date End Date Nolan Marcos MD [address] [place] [id number] PCP - General INTERNAL MEDICINE 08/31/18 documented as of this encounter
--- OUTSIDE RECORDS SUMMARY | 2024-09-28 16:22 | XMS_ITS | Clinical Summary ---
Author Organization [facility] Address [facility] [place] [address] [place] [address] Care Team Providers Care Finish Rolls Operator Name Role Phone Nolan Marcos MD Primary Care Provider [phone] Allergies Active Allergy Reactions Criticality Noted Date Comments Penicillins Dizziness,Hives,Itching 09/24/2015 Medications Lancets MiscIndications:D iabetes mellitus ([facility]) Use 1 lancet TID 300 Container 1 07/25/20 18 Active multi vitamin/minerals tablet Take 1 tablet by mouth daily. Active melatonin 5 MG tablet Take 1 tablet (5 mg total) by mouth daily. Active timolol 0.25 % ophthalmic solution Place 1 drop into both eyes daily. 06/01/20 21 Active cycloSPORINE (RESTASIS) 0.05 % ophthalmic emulsion Place 1 drop into both eyes 2 (two) times daily. Active neomycin-polymyxi n-dexamethasone (MAXITROL) 3.5-10341-2.1 Ointment APPLY A THIN LAYER INTO BOTH EYES EVERY NIGHT 01/15/20 23 Active ofloxacin (FLOXIN) 0.3 % otic solution APPLY 4 DROPS INTO THE RIGHT EAR 2 TIMES PER DAY FOR 7 DAYS 10/30/19 24 Active onabotulinumtoxin A (BOTULINUM TOXIN TYPE A) 100 units injection Inject 200 Units into the muscle. 01/19/20 24 025 Active propranolol LA (INDERAL LA) 80 MG 24 hr capsuleIndication s:Benign familial tremor take 1 capsule by mouth every day 30 capsule 11 03/14/20 24 Active naproxen (NAPROSYN) 500 MG tabletIndications :Spasmodic torticollis take 1 tablet by mouth twice a day with food 60 tablet 5 04/16/20 24 Active hydroCHLOROthiazi de (MICROZIDE) 12.5 MG capsuleIndication s:Generalized edema Take 1 capsule (12.5 mg total) by mouth every morning. 30 capsule 3 04/19/20 24 Active CONTOUR NEXT TEST test stripIndications: Controlled type 2 diabetes mellitus without complication, without long-term current use of insulin ([facility]) USE ONE STRIP IN METER THREE TIMES A DAY 100 strip 2 06/15/20 24 Active levothyroxine (SYNTHROID) 50 MCG tabletIndications :Hypothyroidism TAKE 1 TABLET BY MOUTH EVERY DAY IN THE MORNING 90 tablet 1 07/10/20 24 Active diazePAM (VALIUM) 5 MG tabletIndications :Anxiety,Benign familial tremor TAKE 1 TABLET BY MOUTH EVERY 8 HOURS NEEDED FOR ANXIETY (USE SPARINGLY) 90 tablet 07/31/20 24 Active tamsulosin (FLOMAX) 0.4 MG CapIndications:Be nign prostatic hyperplasia, unspecified whether lower urinary tract symptoms present TAKE 1 CAPSULE BY MOUTH NIGHTLY AT BEDTIME. 30 capsule 8 08/13/20 24 Active DULoxetine (CYMBALTA) 60 MG capsuleIndication s:Primary osteoarthritis involving multiple joints TAKE 1 CAPSULE BY MOUTH EVERY DAY 30 capsule 5 09/11/19 25 Active HYDROcodone-aceta minophen (NORCO) 7.5-325 MG tabletIndications :Chronic Pain Take 1 tablet by mouth every 8 (eight) hours as needed for Pain. Indication s: Chronic Pain 30 tablet 09/14/19 25 Active cyclobenzaprine (FLEXERIL) 5 MG tabletIndications :Severe low back pain Take 1 tablet (5 mg total) by mouth 3 (three) times daily as needed for Muscle Spasms. 30 tablet 09/18/19 25 025 Active oxyCODONE-acetami nophen (PERCOCET) 5-325 MG tabletIndications :Acute Pain < 7 Day Supply Take 1 tablet by mouth every 8 (eight) hours as needed for Pain. Indication s: Acute Pain < 7 Day Supply 10 tablet 09/19/19 25 Active Glucose Blood (FREESTYLE LITE) test stripIndications: Type 2 diabetes mellitus with stage 3a chronic kidney disease, without long-term current use of insulin ([facility]) 1 strip by Other route daily. 100 strip 3 09/25/19 25 Active DULoxetine (CYMBALTA) 60 MG capsuleIndication s:Primary osteoarthritis involving multiple joints take 1 capsule by mouth every day 30 capsule 5 03/14/20 24 025 Discontinued oxyCODONE-acetami nophen (PERCOCET) 5-325 MG tabletIndications :Acute Pain < 7 Day Supply Take 1 tablet by mouth every 8 (eight) hours as needed for Pain. Indication s: Acute Pain < 7 Day Supply 10 tablet 03/26/20 24 025 Discontinued(R eorder) diazePAM (VALIUM) 5 MG tabletIndications :Anxiety,Benign familial tremor TAKE 1 TABLET BY MOUTH EVERY 8 HOURS NEEDED FOR ANXIETY (USE SPARINGLY) 90 tablet 08/01/20 24 025 Discontinued(D uplicate Med) HYDROcodone-aceta minophen (NORCO) 7.5-325 MG tabletIndications :Chronic Pain Take 1 tablet by mouth every 8 (eight) hours as needed for Pain. Indication s: Chronic Pain 30 tablet 08/14/20 24 025 Discontinued(R eorder) Blood Glucose Monitoring Suppl (FREESTYLE LITE) w/Device KitIndications:Ty pe 2 diabetes mellitus with stage 3a chronic kidney disease, without long-term current use of insulin ([facility]) 1 Device by Does not apply route once for 1 dose. 1 kit 09/21/19 25 025 Discontinued Glucose Blood (FREESTYLE LITE) test stripIndications: Type 2 diabetes mellitus with stage 3a chronic kidney disease, without long-term current use of insulin ([facility]) 1 strip by Other route daily. 100 strip 3 09/21/19 25 025 Discontinued Blood Glucose Monitoring Suppl (FREESTYLE LITE) w/Device KitIndications:Ty pe 2 diabetes mellitus with stage 3a chronic kidney disease, without long-term current use of insulin ([facility]) 1 Device by Does not apply route once for 1 dose. 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 ([facility]) 07/15/2022 Primary osteoarthritis involving multiple joints 05/22/2020 Primary insomnia 10/03/2018 Spasmodic torticollis 07/18/2017 Dystonia 04/22/2017 Allergic rhinitis 10/21/2016 Obstructive sleep apnea 04/20/2016 Benign familial tremor 09/24/2015 Arthritis 09/24/2015 BPH (benign prostatic hyperplasia) 09/24/2015 Type 2 diabetes mellitus wit h chronic kidney disease, without long-term current use of insulin ([facility]) 09/24/2015 Glaucoma 09/24/2015 Gout 09/24/2015 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 Resolved Problems Problem Noted Date Diagnosed Date Resolved Date Screening PSA (prostate specific antigen) 04/20/2016 11/15/2019 Encounters Date Type Department Care Team Description 09/28/2024 Patient Outreach [facility] Family & Internal [address] [phone] Tila Moreno BSW ER F/U 09/27/2024 4:11 AM TITLE CURATOR - 09/27/2024 9:02 AM [facility] Emergency [facility] [place] [address] Anil Ramirez MD Back Pain Discharge Disposition: Home or Self Care (Routine Discharge) 09/27/2024 Travel 09/20/2024 Telephone [facility] & Internal [address] [address] Nolan Marcos MD Medication Problem (Contour Next Test Strips) 09/19/2024 1:40 PM TITLE CURATOR Office Visit [facility] & Internal [address] [phone] Nolan Marcos MD Fall (Patient c/o fall 2 days. Having pain on RT side buttocks and across low back. ) 09/19/2024 Travel 09/18/2024 Telephone [facility] Internal [address] [address] Nolan Marcos MD Prior Authorization (cyclobenzaprine (FLEXERIL) 5 MG tablet) 09/17/2024 Telephone [facility] Internal [address] [address] Nolan Marcos MD Medication Request 09/14/2024 Weibuhart Message Enc [facility] Internal [address] [phone] Oriana Card, JULIANONP Hydrocodone-acetamin 08/09/2024 Scan [facility] INFO SRVCS Scanned, [facility] 07/31/[address] [phone] Nolan Marcos MD Medication Request 07/31/2024 Telephone [facility] Internal [address] [phone] Nolan Marcos MD Lab Results 07/17/2024 Scan [facility] HEALTH INFO SRVCS Scanned, [facility] 07/16/2024 Orders Only [address] [phone] Nolan Marcos MD 07/16/2024 GetBack Message Enc [facility] Internal [address] [address] Nolan Marcos MD MEDS 07/06/[address] [phone] Nolan Marcos MD Referral Request from Last 3 Months Immunizations Name Administration Dates Next Due Arexvy Respiratory Syncytial Virus (RSV, adjuvanted) 0.5 mL, PF 04/16/2024 Fluzone 6 Months+ Quad (0.5 mL Prefilled Syringe) 11/03/2023 Fluzone High Dose - >Age 65 (Prefilled Syringe) 07/15/2022,05/23/2020,06/29/2018,2015 Influenza (Generic) 07/16/2014,07/27/2013,2011 Influenza Adult (Generic) 08/10/2024,07/06/2019 MODERNA COVID-19 (12+) MRNA, LNP-S, PF, 100 MCG/ 0.5 ML DOSE 08/09/2024 PFIZER COVID-19 (JUAN CAP), MRNA, LNP-S, PF, 30 MCG/0.3 ML SANAZ-SUCROSE, IM 04/14/2022 PFIZER COVID-19 (ORIGINAL FORMULATION, PURPLE CAP) mRNA, LNP-S, PF, 30 MCG/0.3 ML DOSE 09/28/2021,11/06/2020 Pneumococcal (Pneumovax 23) 05/10/2019 Pneumococcal (Prevnar 13) 06/08/2016 Zoster (Zostavax) 68553 Unt/0.65Ml 10/21/2013 Family History Medical History Relation Comments Diabetes Brother Heart Disease Brother Neurological Disease Brother Tremor Heart Disease Father Cancer Mother stomach cancer Diabetes Mother Neurological Disease Mother tremor Relation Status Comments Brother Father Mother Social History Tobacco Use Types Packs/Day Years Used Date Smoking Tobacco: Every Day Cigarettes 0.3 60 Smokeless Tobacco: Never Tobacco Cessation:Ready to Q uit: No; Counseling Given: Yes Comments:I now smoke 3 cigs per day [...] Sex Assigned at Male 11/07/2018 3:30 PM TITLE CURATOR Legal Sex Male 5:59 PM CDT Gender Identity Male 11/07/2018 3:30 PM TITLE CURATOR Sexual Orientation Straight 11/07/2018 3: 30 PM TITLE CURATOR Last Filed Vital Signs Vital Sign Reading Time Taken Comments Blood Pressure 175/83 09/27/2024 3:55 AM TITLE CURATOR Pulse 61 09/27/2024 3:55 AM TITLE CURATOR Temperature 36.6 ??C (97.9 ??F) 09/27/2024 3:55 AM CS T Respiratory Rate 18 09/27/2024 3:55 AM TITLE CURATOR Oxygen Saturation 99% 09/27/2024 3:55 AM TITLE CURATOR Inhaled Oxygen Concentration - - Weight 103.4 kg (228 lb) 09/27/2024 3:55 AM TITLE CURATOR Height 180.3 cm (5' 11 ) 09/27/2024 3:55 AM TITLE CURATOR Body Mass Index 31.8 09/27/2024 3:55 AM TITLE CURATOR Plan of Treatment Upcoming Encounters Date Type Department Care Team (Late st Contact Info) Description 10/23/2024 2:40 PM TITLE CURATOR Office Visit [facility] Family & Internal Medicine - [address] [phone] Nolan Marcos MD [address] [place] [phone] Health Maintenance Due Date Last Done Comments Annual Medicare Wellness Visit 2005 Diabetes: Retinopathy Eye Exam 08/25/2022 08/25/2021, 2021, 11/19/2019 PHQ-2 (Physician [place]) 09/05/2024 10/20/2023 COVID-19 Vaccine ( season) 2024 08/09/2024, 04/14/2022, 09/28/2021, Additional history exists Hemoglobin A1C 10/20/2024 04/19/2024, 10/06, 02/16/2023, Additional history exists DTaP, Tdap and Td Vaccines (1 - Tdap) 11/02/2024 Postponed from 1959 (No Insurance Coverage) Zoster Vaccines (2 of 3) 11/02/2024 10/21/2013 Pos tponed from 12/16/2013 (Going to Outside Clinic) Kidney Health Evaluation 04/23/2025 04/23/2024 Lipid Panel 04/23/2025 04/23/2024, 02/04, 12/31/2021, Additional history exists Pneumococcal Vaccine: 65+ Years Completed 05/10/2019, 06/08/2016 RSV Immunization or 60+ Years Completed 04/16/2024 Influenza Adult Completed 08/10/2024, 01/2024, 11/03/2023, Additional history exists Meningococcal B Vaccine Aged Out No l onger eligible based on patient's age to complete this topic Meningococcal Vaccine Aged Out No alfreda mi eligible based on patient's age to complete this topic RSV Immunizations Under 20 Months Aged Out No longer eligible based on patient's age to complete this topic Procedures Procedure Name Priority Date/Time Associated Diagnosis Comments CT PEL WO CON STAT 09/27/2024 7:[address] LUMB SPINE WO CON STAT 09/27/2024 7:03 AM TITLE CURATOR XR LUMB SPINE 3V Routine 09/19/2024 3:11 PM TITLE CURATOR Fall, initial encounter Low back pain XR PELVIS AP+RT HIP 2V Routine 09/19/2024 3:11 PM TITLE CURATOR Fall, initial encounter Acute buttock pain THYROID STIM HORMONE TSH Routine 07/16/2024 3:46 PM TITLE CURATOR THYROXINE, FREE (FT4) Routine 07/16/2024 3:46 PM TITLE CURATOR LIPID PANEL Routine 04/23/2024 11:10 AM CDT Type 2 diabetes mellitus with stage 3a chronic kidney disease, without long-term current use of insulin ([facility]/HCC) HEMOGLOBIN, GLYCOSYLATED Routine 04/19/2024 Type 2 diabetes mellitus with stage 3a chronic kidney disease, without long-term current use of insulin ([facility]) DIABETIC RETINOPATHY EXAM (NEGATIVE)(SCAN ORDER) Routine 08/25/2021 from Last 3 Months or Most Recently Relevant to Health Maintenance Results * CT PEL WO CON (09/27/2024 7:03 AM TITLE CURATOR) Anatomical Region Laterality Modality Pelvis Computed Tomogra phy 09/27/2024 7:45 AM TITLE CURATOR Impressions 09/27/2024 8:01 AM TITLE CURATOR IMPRESSION: No appreciable acute fracture or dislocation. Degenerative changes of the lumbosacral spine, pelvis, and hips. Potential soft tissue contusion in the left hip region. Correlate with clinical exam. Ordered By: ANIL RAMIREZ Interpreted By: Toi Mar, 09/27/2024 7:45 AM Narrative 09/27/2024 8:01 AM TITLE CURATOR [address] [address] IMAGING STUDIES: ??CT PEL WO CON ? [...] Procedure Note Toi Mar MD - 09/27/2024 [facility] [address] [place], [place] [address] IMAGING STUDIES: CT PEL WO CONDATE: 09/27/2024 [...] Interpreted By: Toi Mar, 09/27/2024 7:45 AM us Anil Ramirez MD CT Final Result * CT LUMB SPINE WO CON (09/27/2024 7:03 AM TITLE CURATOR) Anatomical Region Laterality Modality Spine Computed Tomogra phy 09/27/2024 7:28 AM TITLE CURATOR Impressions 09/27/2024 7:35 AM TITLE CURATOR IMPRESSION: 1. ??No acute fracture or dislocation. [...] 09/27/2024 7:28 AM Narrative 09/27/2024 7:35 AM TITLE CURATOR [address] [address] EXAMINATION:Lumbar spine CT without contrast 09/27/2024 INDICATION:Lower [...] Procedure Note Vivek Hood MD - 09/27/[address] [address] EXAMINATION:Lumbar spine CT without contrast 09/27/2024 INDICATION:Lower [...] us Anil Ramirez MD CT Final Result * XR PELVIS AP+RT HIP 2V (09/19/2024 3:11 PM TITLE CURATOR) Anatomical Region Laterality Modality Pelvis, Hip Radiographic Rocío ging 09/20/2024 2:02 PM TITLE CURATOR Impressions 09/20/2024 2:03 PM TITLE CURATOR IMPRESSION: No acute abnormality. Ordered By: NOLAN MARCOS Interpreted By: Dipesh Draper MD, 09/20/2024 2:02 PM Narrative 09/20/2024 2:03 PM TITLE CURATOR [facility] Family and Internal Medicine [address] ??[address] Examination: XR PELVIS AP+RT HIP 2V Exam time: 09/19/2024 2:53 PM Clinical history: Fall. Right posterior buttock pain. Comparison: 07/06/2021 right hip Technique: AP view of the pelvis and each hip joint was obtained. Small [id number]-[id number] AP and lateral right hip joint. Findings: Sacroiliac joints and pubic symphysis appear within normal limits. No evidence of fracture or acute osseous abnormality throughout the pelvis. Single AP view left hip joint is unremarkable. Prominent degenerative changes lumbar spine. No evidence of fracture or acute osseous abnormality right acetabulum or right proximal femur. Right hip joint space maintained. Chronic appearing calcifications are present within each inguinal region. Rounded calcifications are present within the pelvis and are indeterminate, although, may represent phleboliths. Procedure Note Dipesh Draper MD - 09/20/2024 [facility] - [address] [address] Examination: XR PELVIS AP+RT HIP 2V Exam time: 09/19/2024 2:53 PM Clinical history: Fall. Right posterior buttock pain. Comparison: 07/06/2021 right hip Technique: AP view of the pelvis and each hip joint was obtained. Kkusntkkys-pe-hsuj AP and lateral right hip joint. Findings: Sacroiliac joints and pubic symphysis appear within normallimits. No evidence of fracture or acute osseous abnormality throughoutthe pelvis. Single AP view left hip joint is unremarkable. Prominent degenerative changes lumbar spine. No evidence of fracture or acute osseous abnormality right acetabulum orright proximal femur. Right hip joint space maintained. Chronic appearingcalcifications are present within each inguinal region. Roundedcalcifications are present within the pelvis and are indeterminate,although, may represent phleboliths. IMPRESSION: No acute abnormality. Ordered By: NOLAN MARCOS Interpreted By: Dipesh Draper MD, 09/20/2024 2:02 PM Nolan Marcos MD GENERAL IMAGING Final Result * XR LUMB SPINE 3V (09/19/2024 3:11 PM TITLE CURATOR) Anatomical Region Laterality Modality Spine Radiographic Rocío ging 09/20/2024 1:59 PM TITLE CURATOR Impressions 09/20/2024 2:01 PM TITLE CURATOR IMPRESSION: 1. No evidence of fracture or acute osseous abnormality. 2. Degenerative changes as described. Ordered By: NOLAN MARCOS Interpreted By: Dipesh Draper MD, 09/20/2024 1:59 PM Narrative 09/20/2024 2:01 PM TITLE CURATOR [facility] Family and Internal Medicine - [address] ??[address] Examination: XR LUMB SPINE 3V Exam time: 09/19/2024 2:53 PM Clinical history: Fall. Low back pain. Comparison: No prior exam Technique: AP, lateral, lumbosacral views Findings: There are 5 lumbar-type vertebra. There is prominent spondylosis throughout the lumbar spine. Intervertebral disc heights are maintained at the T12-L1 and L1-2 levels, although, there is anterior vertebral body endplate spurring at each level. Vacuum disc phenomenon is present consistent with disc degeneration at the L1-2 level. There is prominent decrease intervertebral disc heights from the L2-3 level inferiorly to the L5-S1 level with vacuum disc phenomenon at each level consistent with disc degeneration. Anterior and posterior vertebral body endplate spurring is present. There is prominent facet joint arthropathy at the L4-5 and L5-S1 levels with minimal anterolisthesis of L4 on L5 which most likely secondary to facet joint arthropathy. Sacroiliac joints appear unremarkable. Visualized sacral ala appear intact. No evidence of fracture or acute osseous abnormality. Procedure Note Dipesh Draper MD - 09/20/2024 [facility] Family [place] [address] Examination: XR LUMB SPINE 3V Exam time: 09/19/2024 2:53 PM Clinical history: Fall. Low back pain. Comparison: No prior exam Technique: AP, lateral, lumbosacral views Findings: There are 5 lumbar-type vertebra. There is prominent spondylosisthroughout the lumbar spine. Intervertebral disc heights are maintained atthe T12-L1 and L1-2 levels, although, there is anterior vertebral bodyendplate spurring at each level. Vacuum disc phenomenon is presentconsistent with disc degeneration at the L1-2 level. There is prominent decrease intervertebral disc heights from the L2-3level inferiorly to the L5-S1 level with vacuum disc phenomenon at eachlevel consistent with disc degeneration. Anterior and posterior vertebralbody endplate spurring is present. There is prominent facet jointarthropathy at the L4-5 and L5-S1 levels with minimal anterolisthesis ofL4 on L5 which most likely secondary to facet joint arthropathy. Sacroiliac joints appear unremarkable. Visualized sacral ala appearintact. No evidence of fracture or acute osseous abnormality. IMPRESSION: 1. No evidence of fracture or acute osseous abnormality. 2. Degenerative changes as described. Ordered By: NOLAN MARCOS Interpreted By: Dipesh Draper MD, 09/20/2024 1:59 PM Nolan Marcos MD GENERAL IMAGING Final Result * THYROXINE, FREE (FT4) (07/16/2024 3:46 PM TITLE CURATOR) FREE T4 1.0 0.8 - 1.8 ng/dL [employer] [facility], [place] 07/16/2024 3:46 PM TITLE CURATOR 07/16/2024 3:48 PM TITLE CURATOR Narrative Resulting Agency Comment Performing Organization Information: ?Site ID: SL ?Name: [facility] ?Address: [address] [place] [address] [place] [address] ?Director: Charity Kruger Nolan Marcos MD LABORATORY Final Result Performing Organization Address City/[facility]/ZIP Co de Phone Number [employer] [facility] - [place] [address] [phone] * THYROID STIM HORMONE TSH (07/16/2024 3:46 PM TITLE CURATOR) Pathologist [facility] TSH 0.87 0.40 - 4.50 mIU/L [place] 07/16/2024 3:46 PM TITLE CURATOR 07/16/2024 3:48 PM TITLE CURATOR Narrative Resulting Agency Comment Performing Organization Information: ?Site ID: SL ?Name: [facility] ?Address: [facility] [address] [place] [address] ?Director: Charity Kruger Nolan Marcos MD LABORATORY Final Result Performing Organization Address [facility] Co de Phone Number [employer] [facility] [place] [address] [phone] * (ABNORMAL) LIPID PANEL (04/23/2024 11:10 AM CDT) CHOLESTEROL 171 <200 MG/DL 04/23/2024 2:47 PM CDT [facility] [place] TRIGLYCERIDES 142 <150 MG/DL 04/23/2024 2:47 PM CDT [facility] [place] HDL 39(L) >40 MG/DL 04/23/2024 2:47 PM CDT [facility] LDL-C 104(H) <100 MG/DL 04/23/2024 2:47 PM CDT [facility] EASTRTHUClarisa [place] VLDL CALCULATION 28 5 - 28 MG/DL 04/23/2024 2:47 PM CDT [facility] CHOL/HDL RATIO 4.4(H) 0.0 - 4.0 04/23/2024 2:47 PM CDT [facility] [place] LDL/HDL 2.7(H) 0.41 - 2.13 04/23/2024 2:47 PM CDT [facility] [place] NON HDL CHOLESTEROL 132 <140 MG/DL 04/23/2024 2:47 PM CDT [facility] HARVEY [place] 04/23/2024 11:1 0 AM CDT Nolan Marcos MD LABORATORY Final Result Performing Organization Address City/[facility]/ZIP Co de Phone Number [facility] [address] [place] [address], * HEMOGLOBIN, GLYCOSYLATED (04/19/2024) HGB A1C 5.7 % [facility] 04/19/2024 Nolan Marcos MD LABORATORY Final Result Performing Organization Address City/[facility]/ZIP Co de Phone Number [facility] [address] [place] [address], [place] * DIABETIC RETINOPATHY EXAM (NEGATIVE)(SCAN) (08/25/2021) Documents Scanned SCANNING Final Result [facility] ONBASE from Last 3 Months or Most Recently Relevant to Health Maintenance Insurance [employer] Care Teams Finish Rolls Operator Relationship Specialty Start Date End Date Nolan Marcos MD [address] [place] [phone] PCP - General INTERNAL MEDICINE 08/31/18
--- OUTSIDE RECORDS SUMMARY | 2024-09-28 16:22 | XMS_ITS | Continuity of Care Document ---
Author Organization [facility] Address [address] [place] [address] Phone Care Team Providers Care Preparation Plant Supervisor Name Role Phone Altman OD, Braden Unavailable Unavailable Procedures Procedure Date Visual Field Examination(s) Eye Exam & Treatment Refraction Visual Field Examination(s) Eye Exam, New Patient Refraction Advance Directives Directive Yes / No Effective Date File Name No Information Encounters Encounter Description Practice Location Reason(s) For Visit Diagnoses Date Provider Providers Copied on Encounter [facility], [id number] [place] [address] [address], [place], [place], [address], tel:[phone] [facility] No Information 9-201 0 Altman OD Braden. [address] , [address], [place], [place], [facility], . tel:[phone] Referring Provider: Braden Agapito OD A, [address], [place], [place], [facility]. tel:[phone] 8419 [facility], [address], [place], [place], [address], tel:[phone] [facility] No Information 0-201 0 Altman OD Braden. [address] , [address], [place], [place], [facility], . tel:[phone] Referring Provider: Guille Cameron MD F, [address] [place], [address]. tel:[phone] [facility], [address] [place], [place] [address] [address], [place], [place], [address], tel:[phone] [place] [address] No Information Nov-0 2-200 9 Krishnasmateo Earnest. [address] [place] [address], [facility], . tel:[phone] Referring Provider: Earnest العراقي, [address] [place] [address], [place], [facility]. tel:[phone] 5714 [facility], [address] [place] [address] [facility], [place], [place], [address], tel:[phone] [place] [address] No Information Sep-0 2-200 9 Krishnasamy Earnest. [address] [place] [address], [facility], . tel:[phone] Family History Family Member Type Diagnosis Age At Onset No Information Payers Payer name Insurance type Covered libertarian ID Authoriza tion(s) [employer] Adv CI [id number] Social History Type Description Quantity Date Captured Comments Sex Male Smoking Status No Information Chief Complaint And Reason For Visit No Information Reason For Referral Reason For Referral No Information History Of Present Illness Encounter Date Complaint History Of Prese nt Illness No Information Functional Status Date Functional Assessmen t No Information Instructions Date Instruction Additional Infor mation No Information Assessments Type Assessment Date No Information Patient Care Teams Name Effective Dates (start - stop) Status Members No Information
--- OUTSIDE RECORDS SUMMARY | 2024-09-28 16:22 | XMS_ITS | Continuity of Care Document ---
Author Organization [facility] Address [address] [place] [address] Phone Care Team Providers Care Auto Damage Estimator Name Role Phone Vivek Abbasi MD Unavailable Unavailable Allergies, Adverse Reactions, Alerts Substance Reaction Status Criticality penicillin G Other Active No Information Medications Medication Instructions Dosage Effective Dates (start - stop) Status Comments METFORMIN HCL ER 500 MG TAB 2 DAILY - Active ATENOLOL 50 MG TABLET 1 QD-daily - Act jareth NAPROSYN 500 MG TABLET 1 BID - Act jareth INDOMETHACIN 50 MG CAPSULE 1 TID - Active Advance Directives Directive Yes / No Effective Date File Name No Information Encounters Encounter Description Practice Location Reason(s) For Visit Diagnoses Date Provider Providers Copied on Encounter [facility], [address], [place], [place], [address] , tel: [phone] [facility] No Information 3 Elroy Doyle. [address] [place] [address], [address], [place], [place], [address], . tel:[phone] [facility], [address], [place], [place], [address] , tel: [phone] Conversion Department No Information 1 Conversion Doctor. [facility] [place], [address], . [facility], [address], [place], [place], [address] , tel: [phone] [facility] SCRN MALIG NEOP-PROSTATETEST ICULAR HYPOFUNC NECBENIGN HYPERTENSIONTRAUM ATIC BRAIN HEM NECDMII WO CMP NT ST UNCNTR 8 Elroy Doyle. [address] [place] [address], [address], [place], [place], [address], [place]. tel: [phone] [facility], [address], [place], [place], [address] , tel: [phone] [facility] DERMATITIS DUE TO PLANT 8 Conversion Doctor. [facility], [facility] [place], [place], [facility], . [facility], [address], [place], [place], [address] , [place] tel: [phone] [facility] JOINT PAIN-SHLDER Sep-0 200 8 Elroy Doyle. [address] [place] [address], [address], [place], [place], [address], [place]. tel: [phone] [facility], [address], [place], [place], [address] , [place] tel: [phone] [facility] OTITIS MEDIA NOS 8 Elroy Doyle. [address] [place] [address], [address], [place], [place], [address], [place]. tel: [phone] [facility], [address], [place], [place], [address] , [place] tel:[phone] [facility] GOUT NOS 8 Conversion Doctor. [address] [place] [address], [address], [place]. [facility], [address], [place], [place], [address] , [place] tel: [phone] [facility] ABN INVOLUN MOVEMENT NECHYPERLIPIDEMIA NEC/NOSCHRO KIDNEY DIS STAGE IIMALAISE AND FATIGUE NECDMII RENL NT ST UNCNTRLD Nov0 200 7 Elroy Doyle. [address] [place] [address], [address], [place], [place], [address], [place]. tel: [phone] [facility], [address], [place], [place], [address] , [place] tel: [phone] [facility] DERMATITIS NOS 2-200 7 Conversion Doctor. [address] [place] [address], [facility], . [facility], [address], [place], [place], [address] , [place] tel: [phone] [facility] IMPOTENCE, ORGANIC ORIGNPURE HYPERCHOLESTEROLE MSLEEP APNEA NOS 6 Abbasilouise Doyle. [address] [place] [address], [address], [place], [place], [address], . tel:[phone] [facility], [address], [place], [place], [address] , tel: [phone] [facility] ND VAC STRPTCS PNEUMNI BLOC PRIM OSTEOART-L/LEGGEN ERAL OSTEOARTHROSISROU BLANCA MEDICAL EXAMABNORMAL GLUCOSE NEC 6 Abbasilouise Doyle. [address] [place] [address], [address], [place], [place], [address], . tel:[phone] [facility], [address], [place], [place], [address] , tel: [phone] [facility] THROMBOCYTOPENIA NOSJOINT PAIN-L/LEG 5 Abbasilouise Doyle. [address] [place] [address], [address] , [place], [place], [address], . tel:[phone] [facility], [address], [place], [place], [address] , tel: [phone] [facility] MIXED HYPERLIPIDEMIA 4 Abbasi Vivek. [address] [place] [address], [address], [place], [place], [address], . tel:[phone] Family History Family Member Type Diagnosis Age At Onset No Information Immunizations Vaccine Date Status Comments 65320 - Pneumococcal_PPV23 administered S ource: Source Unspecified Payers Payer name Insurance type Covered alliance party ID Authoriza tion(s) No Information Social History Type Description Quantity Date Captured [...]
--- OUTSIDE RECORDS SUMMARY | 2024-09-28 16:22 | XMS_ITS | Encounter Summary ---
Author Organization [facility] Address [facility] [place] [address] [place] [address] Care Team Providers Care Slat Basket Top Maker Name Role Phone Nolan Marcos MD Primary Care Provider [phone] Reason for Visit * Reason Onset Date Comments ER F/U 09/28/2024 Encounter Details Date Type Department Care Team (Late st Contact Info) Description 09/28/2024 Patient Outreach [facility] Family & Internal Medicine [address] [address] Tila Moreno, MIXING MACHINE ATTENDANT [address] [place], [place] [address] ER F/U Social History Tobacco Use Types Packs/Day Years [...] Sex Assigned at Male 11/07/2018 3:30 PM MOLDING MACHINE OPERATOR Legal Sex Male 5:59 PM CDT Gender Identity Male 11/07/2018 3:30 PM MOLDING MACHINE OPERATOR Sexual Orientation Straight 11/07/2018 3: 30 PM MOLDING MACHINE OPERATOR documented as of this encounter Progress Notes * Tila Jones Tiffanie, MIXING MACHINE ATTENDANT - 09/28/2024 1:39 PM CST Emergency Room Visit Follow Up Phone Call Date of ER Visit: 09/27/24 Location: [facility] Brief Description of ER Visit: Patient presented to the ED with back pain. Please see notes for details. PCP: Priti Review D/C instructions: No, patient refused to review AVS with with commercial real estate underwriter stated that he is stillin excruciating pain and is getting ready to return to the ER. Follow up appointments: No Follow up appointments made: Yes. See below Future Appointments Date Time Provider Department Center 10/23/2024 2:40 PM Nolan Marcos MD [id number] Follow up labs needed: No none Medication changes: No Current Outpatient Medications Medication Sig Dispense Refill CONTOUR NEXT TEST test strip USE ONE STRIP IN METER THREE TIMES A DAY 100 strip 2 cyclobenzaprine (FLEXERIL) 5 MG tablet Take 1 tablet (5 mg total) by mouth 3 (three) times daily asneeded for Muscle Spasms. 30 tablet 0 cycloSPORINE (RESTASIS) 0.05 % ophthalmic emulsion Place 1 drop into both eyes 2 (two) times daily. diazePAM (VALIUM) 5 MG tablet TAKE 1 TABLET BY MOUTH EVERY 8 HOURS NEEDED FOR ANXIETY (USE SPARINGLY) 90 tablet 0 DULoxetine (CYMBALTA) 60 MG capsule TAKE 1 CAPSULE BY MOUTH EVERY DAY 30 capsule 5 Glucose Blood (FREESTYLE LITE) test strip 1 strip by Other route daily. 100 strip 3 hydroCHLOROthiazide (MICROZIDE) 12.5 MG capsule Take 1 capsule (12.5 mg total) by mouth every morning. 30 capsule 3 HYDROcodone-acetaminophen (NORCO) 7.5-325 MG tablet Take 1 tablet by mouth every 8 (eight) hours asneeded for Pain. Indications: Chronic Pain 30 tablet 0 Lancets Misc Use 1 lancet TID 300 Container 1 levothyroxine (SYNTHROID) 50 MCG tablet TAKE 1 TABLET BY MOUTH EVERY DAY IN THE MORNING 90 tablet 1 melatonin 5 MG tablet Take 1 tablet (5 mg total) by mouth daily. multi vitamin/minerals tablet Take 1 tablet by mouth daily. naproxen (NAPROSYN) 500 MG tablet take 1 tablet by mouth twice a day with food 60 tablet 5 axieomck-vlrsoooxw-lnbvemtsycnvl (MAXITROL) 3.5-60734-8.1 Ointment APPLY A THIN LAYER INTO BOTH EYES EVERY NIGHT ofloxacin (FLOXIN) 0.3 % otic solution APPLY 4 DROPS INTO THE RIGHT EAR 2 TIMES PER DAY FOR 7 DAYS onabotulinumtoxinA (BOTULINUM TOXIN TYPE A) 100 units injection Inject 200 Units into the muscle. oxyCODONE-acetaminophen (PERCOCET) 5-325 MG tablet Take 1 tablet by mouth every 8 (eight) hours as needed for Pain. Indications: Acute Pain < 7 Day Supply 10 tablet 0 propranolol LA (INDERAL LA) 80 MG 24 hr capsule take 1 capsule by mouth every day 30 capsule 11 tamsulosin (FLOMAX) 0.4 MG Cap TAKE 1 CAPSULE BY MOUTH NIGHTLY AT BEDTIME. 30 capsule 8 timolol 0.25 % ophthalmic solution Place 1 drop into both eyes daily. No current facility-administered medications for this visit. Medications needing refills: No Explain appropriateness of ER use and alternatives: Yes Educate on use of [facility] Facilities: Yes Barriers to successful self-management as listed below Transportation: no Financial: no Medical equipment or service: no Home and personal safety: no Behavioral health: no Medication adherence: no Other: no Transition Patient To CDM: No Follow up phone call: No Plan of Care: Follow up with PCP. ING MACHINE OPERATOR documented in this encounter Plan of Treatment Upcoming Encounters Date Type Department Care Team (Late st Contact Info) Description 10/23/2024 2:40 PM MOLDING MACHINE OPERATOR Office Visit [facility] Family & Internal Medicine [address] [address] Nolan Marcos MD [address] [place] [address] documented as of this encounter Visit Diagnoses Not on filedocumented in this encounter Additional Health Concerns Assessment Noted Time PHQ-9 Depression Total Score: 8 02/17/20 23 2:09 PM CDT documented as of this encounter Care Teams Slat Basket Top Maker Relationship Specialty Start Date End Date Nolan Marcos MD [address] [place] [address] PCP - General INTERNAL MEDICINE 08/31/18 documented as of this encounter
--- OUTSIDE RECORDS SUMMARY | 2024-09-28 16:22 | XMS_ITS | Clinical Summary ---
Author Organization [facility] Address [address] [place] [address] Care Team Providers Care Supervisor Insulation Name Role Phone Nolan Marcos MD Primary Care Provider [phone] Allergies Active Allergy Reactions Criticality Noted Date Comments Penicillins Hives,Itching High 09/30/2020 Medications propranoloL (INDERAL) 80 mg tablet Take 80 mg by mouth daily after breakfast. Active naproxen (NAPROSYN) 500 mg tablet Take 500 mg by mouth 2 times daily with meals. Active diazePAM (VALIUM) 5 mg tablet Take 5 mg by mouth 3 times daily as needed for Anxiety. Active dorzolamide (TRUSOPT) 2 % solution Administer 1 Drop in both eyes 2 times daily. Active tamsulosin (FLOMAX) 0.4 mg capsule Take 0.4 mg by mouth daily before supper. Active clindamycin HCL (CLEOCIN) 300 mg Capsule Take 300 mg by mouth 1 time daily as needed. Prior to dental procedures Active HYDROcodone-teresa taminophen (NORCO) 7.5-325 mg Tablet Take 1 Tablet by mouth every 8 hours as needed for Pain, Moderate. Only takes as needed Active gabapentin (Neurontin) 300 mg capsule Take 1 Capsule (300 mg) by mouth 3 times daily. 60 Capsule Active DULoxetine (CYMBALTA) 60 mg Capsule, Delayed Release(E.C.) Take 60 mg by mouth daily. 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 09/30/2020 Spondylolisthesis at L4-L5 level 09/30/2020 Degeneration of lumbar intervertebral disc 09/30 Social History Tobacco Use Types Packs/Day Years Used Date Smoking Tobacco: Every Day Cigarettes Smokeless Tobacco: Never Tobacco Cessation:Ready to Q uit: No; Counseling Given: Yes Comments:3 cigarettes per day Alcohol Use Standard Drinks/Week Comments Never 0 (1 standard drink = 0.6 oz pur e alcohol) Sex and Gender Information Value Date Recorded Sex Assigned at Not on file Legal Sex Male 2:42 PM MANAGEMENT ADVISOR Gender Identity Not on file Sexual Orientation Not on file Last Filed Vital Signs Vital Sign Reading Time Taken Comments Blood Pressure - - Pulse - - Temperature - - Respiratory Rate - - Oxygen Saturation - - Inhaled Oxygen Concentration - - Weight 102.1 kg (225 lb) 09/30/2020 2:39 PM MANAGEMENT ADVISOR Height 182.9 cm (6') 09/30/2020 2:39 PM MANAGEMENT ADVISOR Body Mass Index 30.52 09/30/2020 2:39 PM MANAGEMENT ADVISOR Plan of Treatment Health Maintenance Due Date Last Done Comments DIABETES ANNUAL FOOT EXAM 1958 DIABETES ANNUAL RETINAL EXAM 1958 DIABETES MICROALBUMIN ANNUAL SCREEN 1958 LDL CHOLESTEROL ANNUAL 1958 DTAP/TDAP/TD VACCINES (1 - Tdap) 1959 ZOSTER VACCINE (1 of 2) 1990 RSV VACCINE (60+ or ) (1 - 1-dose 75+ series) 2015 DIABETES HBA1C Q 6 MONTHS 05/23/2021 11/20/2020, INFLUENZA VACCINE (#1) 2024 COVID-19 Vaccine (2 - season) 05/06/202412/2020 PNEUMOCOCCAL VACCINE 65+ YEARS Completed 05/10/2019 , 06/08/2016 Insurance [facility] Care Teams Supervisor Insulation Relationship Specialty Start Date End Date Nolan Marcos MD [address] [place] [address] PCP - General Internal Medicine 09/18/20
--- NOTE | 2024-09-28 16:32 | ECG_ITS ---
Test Date: 2024-09-28 17:14:04 Measurements Intervals [place] Rate: 58 P: 16 RI: 220 QRS: -19 QRSD: 110 T: 39 QT: 416 QTc: 411 Interpretive Statements SINUS BRADYCARDIA WITH FIRST DEGREE AV BLOCK INCOMPLETE RIGHT BUNDLE BRANCH BLOCK [90+ ms QRS DURATION, TERMINAL R IN V1/V2, 40+ ms S IN I/aVL/V4/V5/V6] SEPTAL MYOCARDIAL INFARCTION , OF INDETERMINATE AGE [40+ ms Q WAVE IN V1/V2] No previous ECG available for comparison Electronically Signed On 09-28-2024 23:50:59 TROUBLE TRACER by Aislinn Blanchard M.D.
--- NOTE | 2024-09-28 16:40 | ED_ITS ---
HPI - Back Pain/Injury General Chief Complaint: Back Pain/Injury <Liza Hernandez, ENERGY ATTORNEY - Last Filed: 09/28/24 19:51> Stated Complaint: chronic back pain flare <Liza Hernandez ENERGY ATTORNEY - Last Filed: 09/28/24 19:51> Time Seen by Provider: 09/28/24 16:30 <Liza Hernandez ENERGY ATTORNEY - Last Filed: 09/28/24 19:51> Focused HPI: Patient is an 84-year-old male who presents to the ER with back pain. She reports chronic back pain that has been going on for about 10 years. He reports slipped on the ice and fell backwards approximately 2 weeks ago which caused his back pain to become more acute. Patient reports he was seen at [facility] yesterday, where they did a lumbar CT and pelvis CT scan, which indicated no acute abnormalities per patient and his . He reports he took Aleve and hydrocodone at noon today. Patient reports he has a history of sciatica. He also states if I can get his pain under control and going to kill myself. Patient endorses he has had thoughts of hurting himself with the most recent being last night. He has not made any attempts to end his life. GENERAL: Well-appearing, well-nourished, and in no acute distress. HEAD: Normocephalic, atraumatic. CHEST: Clear to auscultation. ?No respiratory distress. HEART: Bradycardia, regular rhythm. ? NEURO: ?Alert and oriented x3. Patient is very hostile during time of examination. Patient screened in triage and initial orders placed.? ?Additional care and disposition to be based upon?diagnostic testing and treatment. <Liza Hernandez ENERGY ATTORNEY - Last Filed: 09/28/24 19:51> Focused HPI: Patient is an 84-year-old male who presents to the ER with back pain. She reports chronic back pain that has been going on for about 10 years. He reports slipped on the ice and fell backwards approximately 2 weeks ago which caused his back pain to become more acute. Patient reports he was seen at [facility] yesterday, where they did of lumbar CT and pelvis CT scan, which indicated no acute abnormalities per patient and his . He reports he took Aleve and hydrocodone at noon today. Patient reports he has a history of sciatica. He also states if I can get his pain under control and going to kill myself. Patient endorses he has had thoughts of hurting himself with the most recent being last night. He has not made any attempts to end his life. GENERAL: Well-appearing, well-nourished, and in no acute distress. HEAD: Normocephalic, atraumatic. CHEST: Clear to auscultation. ?No respiratory distress. HEART: Bradycardia, regular rhythm. ? NEURO: ?Alert and oriented x3. Patient is very hostile during time of examination. Patient screened in triage and initial orders placed.? ?Additional care and disposition to be based upon?diagnostic testing and treatment. <JIE Powell Last Filed: 09/29/24 01:23> Source: patient and family <JIE Powell Last Filed: 09/29/24 01:23> Mode of arrival: ambulatory <JIE Powell Last Filed: 09/29/24 01:23> Limitations: no limitations <JIE Powell Last Filed: 09/29/24 01:23> History of Present Illness HPI Narrative: Agree with above HPI. Daughter at bedside. Typically takes naproxen BID, norco, duloxetine. Sees pain management with [facility]. Denies numbness, weakness, saddle anesthesia, bowel or bladder incontinence. <JIE Powell Last Filed: 09/29/24 01:23> Related Data Home Medications: Home Medications ?Medication ?Instructions ?Recorded ?Confirmed ?Last Taken ?Type diazepam 5 mg tablet 5 mg PO BID PRN Anxiety 10/22/19 12/22/22 Unknown History naproxen 500 mg tablet 500 mg PO BID 10/22/19 12/22/22 Unknown History propranolol 80 mg capsule,24 80 mg PO DAILY 10/22/19 12/22/22 Unknown History hr,extended release tamsulosin 0.4 mg capsule 0.4 mg PO DAILY 10/22/19 12/22/22 Unknown History hydrocodone 7.5 mg-acetaminophen 1 tablet PO Q8H PRN Pain 03/20/20 12/22/22 Unknown History 325 mg tablet ([place]) cyclosporine 0.05 % eye drops 1 drp BID 12/22/22 12/22/22 Unknown History (Restasis MultiDose) duloxetine 60 mg capsule,delayed 60 mg PO DAILY 12/22/22 12/22/22 Unknown History release melatonin 5 mg tablet 5 mg PO HS PRN Sleep 12/22/22 12/22/22 Unknown History timolol maleate 0.25 % eye drops 1 drp QAM 12/22/22 12/22/22 Unknown History <Liza Hernandez APRN - Last Filed: 09/28/24 19:51> Allergies/Adverse Reactions: Allergies Allergy/AdvReac Type Severity Reaction Status Date / Time Penicillins Allergy Unknown Rash Verified 09/28/24 16:37 <Liza Hernandez APRN - Last Filed: 09/28/24 19:51> Review of Systems 2 Review of Systems: All systems reviewed & are unremarkable except as noted in HPI. 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 2013 History of right knee joint replacement 01/26/14 History of surgery Turbinate coblation, 07/05/12 Hx of myringotomy Bilateral, without tube, 02/01/12 Right ear with tube, 05/24/12 Hx of nasal septoplasty Endoscopic, bilateral, 11/25/11 H/O craniotomy left side, 07/17/08 History of hand surgery Dupytron's release left fourth digit. 2006 History of right knee surgery Cartilage removal, 1995 History of appendectomy 1953 <Liza Hernandez, ENERGY ATTORNEY - Last Filed: 09/28/24 19:51> Family History Family History: Family History Sibling Family history of diabetes mellitus in first degree relative Family history of heart disease in male family member before age 55 Mother Family history of diabetes mellitus in first degree relative Father Family history of diabetes mellitus in first degree relative Family history of heart disease in male family member before age 55 Other Arthritis Cancer <Liza Hernandez, ENERGY ATTORNEY - Last Filed: 09/28/24 19:51> Social History Social History: Social History Smoking status: Current every day smoker Tobacco type: cigarettes Second hand tobacco smoke exposure: Yes Additional smoking assessment comments: 1PK/DAY/50YRS, NOW 3 CIGARRETTES DAILY Alcohol intake: current Alcohol use details: 1 SHOT YEARLY ON Substance use: never Substance use type: does not use Living arrangements: alone Spiritual care concerns: No <Liza Hernandez, ENERGY ATTORNEY - Last Filed: 09/28/24 19:51> Exam 2 Narrative: GENERAL: Elderly, obese with BMI of 31.8, non-toxic, in no acute distress. HEAD: Normocephalic, atraumatic. RESPIRATORY: Airway patent, respirations nonlabored. Clear to auscultation bilaterally, no rales, rhonchi, wheezing. CARDIOVASCULAR: Regular rate and rhythm without murmurs, rubs, or gallops. MUSCULOSKELETAL: Moves all extremities. No gross deformities. Minimal tenderness throughout lumbosacral region. No significant midline spinal tenderness. No palpable bony deformities or step offs. Sensation intact. SKIN: Warm, dry, normal color. NEURO: A&O X3. Speech clear. Cranial nerves II-XII grossly intact. Steady gait. No ataxic movements. PSYCHIATRIC: Appropriate mood and affect. Normal interaction. <Chiquita Gomes PA-C - Last Filed: 09/29/24 01:23> Course Vital Signs Vital signs: Vital Signs Temperature 97.6 F 09/28/24 16:22 Pulse Rate 57 L 09/28/24 16:22 Respiratory Rate 20 09/28/24 16:22 Blood Pressure 130/46 L 09/28/24 16:22 Pulse Oximetry 98 09/28/24 16:22 Oxygen Delivery Room Air 09/28/24 16:22 Temperature 97.6 F 09/28/24 16:22 Pulse Rate 57 L 09/28/24 16:22 Respiratory Rate 20 09/28/24 16:22 Blood Pressure 130/46 L 09/28/24 16:22 Pulse Oximetry 98 09/28/24 16:22 Oxygen Delivery Room Air 09/28/24 16:22 <Liza Hernandez, ENERGY ATTORNEY - Last Filed: 09/28/24 19:51> Vital Signs Temperature 97.6 F 09/28/24 16:22 Pulse Rate 57 L 09/28/24 16:22 Respiratory Rate 20 09/28/24 16:22 Blood Pressure 130/46 L 09/28/24 16:22 Pulse Oximetry 98 09/28/24 16:22 Oxygen Delivery Room Air 09/28/24 16:22 Temperature 97.6 F 09/28/24 16:22 Pulse Rate 57 L 09/28/24 16:22 Respiratory Rate 20 09/28/24 16:22 Blood Pressure 130/46 L 09/28/24 16:22 Pulse Oximetry 98 09/28/24 16:22 Oxygen Delivery Room Air 09/28/24 16:22 <Chiquita Gomes PA-C - Last Filed: 09/29/24 01:23> MDM - Back Pain/Injury MDM Narrative Medical decision making narrative: Patient presented to ED with acute on chronic lower back pain after recent fall, reporting suicidal thoughts because this pain is unable to be controlled. Patient's vitals are stable upon arrival. Patient is neurologically intact. No focal deficits. No red flag symptoms, evidence of cord compression or cauda equina. Patient had CT imaging performed yesterday at outside hospital which did not show any acute abnormalities/fractures. He denies any injury since yesterday. Do not feel repeat imaging is necessary at this time. Symptoms are consistent with lumbar strain. No midline spinal tenderness appreciated on exam. Given pain medication in the ED with improvement of pain. He has been ambulatory to and from the bathroom without issue. ED psych workup was initiated. Laboratory studies are unremarkable. Patient is medically cleared to undergo psychiatric evaluation by crisis. Crisis team evaluated patient and determine him to meet criteria for safety plan and discharge home. I do feel this is appropriate disposition. Family at bedside is in agreement. Given plenty of resources. Discussed strict return precautions. Will discharge patient with lidocaine patches and muscle relaxers for continued home use in addition to continuing his naproxen and home [place]. Recommended that patient follow-up with his primary care doctor and painter and paperhanger apprentice for further evaluation. Given strict return precautions regarding back pain. D/C in stable condition. <Chiquita Gomes PA-C - Last Filed: 09/29/24 01:23> Medical Records Attestation: I reviewed the patient's medical records. <Chiquita Gomes PA-C - Last Filed: 09/29/24 01:23> Lab Data Attestation: I reviewed the patient's lab results. <Chiquita Gomes PA-C - Last Filed: 09/29/24 01:23> Result diagrams: 09/28/24 17:18 09/28/24 17:18 <Liza Hernandez APRN - Last Filed: 09/28/24 19:51> Labs: Lab Results 09/28/24 09/28/24 09/28/24 Range/Units 17:16 17:18 18:46 WBC 9.5 (4.5-10.0) K/mm3 RBC 4.38 L (4.6-6.20) M/mm3 Hgb 13.4 L (14.0-18.0) g/dL Hct 40.3 L (42.0-52.0) % MCV 92.0 (80-100) fl MCH 30.6 (26-34) pg MCHC 33.3 (32-36) g/dl RDW 13.1 (11.5-14.5) % Plt Count 164 (150-375) k/mm3 MPV 11.1 H (7.4-10.4) fl Immature Gran % (Auto) 0.4 (0-0.5) % Neut % (Auto) 83.0 H (45.5-73.1) % Lymph % (Auto) 7.9 L (18.3-44.2) % Motley % (Auto) 7.8 (2.6-8.5) % Eos % (Auto) 0.6 (0-4.4) % Baso % (Auto) 0.3 (0.2-1.2) % Lymph # (Auto) 0.75 L (0.9-3.2) K/mm3 Motley # (Auto) 0.7 H (0.1-0.6) K/mm3 Eos # (Auto) 0.1 (0-0.3) K/mm3 Baso # (Auto) 0.0 (0.0-0.1) K/mm3 Abs Immat Gran (auto) 0.04 H (0.00-0.031) K/mm3 Absolute Neuts (auto) 7.9 H (1.3-6.7) K/mm3 Absolute Nucleated RBC 0.000 (0.0-0.012) K/mm3 Nucleated RBC % 0.0 (0.0-0.2) % Sodium 135 L (137-145) mmol/L Potassium 4.7 (3.4-5.0) mmol/L Chloride 98 (98-107) mmol/L Carbon Dioxide 28 (22-30) mmol/L Anion Gap 9 (4-12) mmol/L BUN 27 H (9-20) mg/dL Creatinine 1.21 (0.7-1.3) mg/dL Estim Creat Clear Calc 50 ml/min Estimated GFR 57 L (59 - ) Glucose 104 (65-110) mg/dL POC Capillary Glucose 101 93 (65-105) mg/dl Calcium 8.6 (8.4-10.2) mg/dL Total Bilirubin 1.3 (0.2-1.3) mg/dL AST 34 (17-59) U/L ALT 29 (6-50) U/L Alkaline Phosphatase 136 H (38-126) U/L Total Protein 7.0 (6.3-8.2) g/dL Albumin 3.9 (3.5-5.1) g/dL TSH (Reflex) 1.740 (0.465-4.68) uIU/mL Urine Color Yellow (Yellow) Urine Appearance Clear (Clear) Urine pH 6.5 (5.0-9.0) Ur Specific [place] 1.020 (1.001-1.035) Urine Protein Negative (Negative) mg/dL Urine Glucose (UA) Negative (Negative) mg/dL Urine Ketones Negative (Negative) mg/dL Ur Blood (Man) Negative (Negative) Urine Nitrate Negative (Negative) Urine Bilirubin Negative (Negative) Urine Urobilinogen 1.0 (<2.0) mg/dL Leukocyte Esterase Rfl Negative (Negative) DIAMANTE/UL Urine Opiates Screen Positive A (Negative) Urine Methadone Screen Negative (Negative) Ur Barbiturates Screen Negative (Negative) Ur Phencyclidine Scrn Negative (Negative) Ur Amphetamine Screen Negative (Negative) U Benzodiazepines Scrn Positive A (Negative) Urine Cocaine Screen Negative (Negative) U Cannabinoids Screen Negative (Negative) Ethyl Alcohol < 10 (<10) mg/dL Influenza A (RT-PCR) Negative (Negative) Influenza B (RT-PCR) Negative (Negative) RSV (RT-PCR) Negative (Negative) SARS-CoV-2 RNA (RT-PCR) Negative (Negative) 09/28/24 Range/Units 21:43 WBC (4.5-10.0) K/mm3 RBC (4.6-6.20) M/mm3 Hgb (14.0-18.0) g/dL Hct (42.0-52.0) % MCV (80-100) fl MCH (26-34) pg MCHC (32-36) g/dl RDW (11.5-14.5) % Plt Count (150-375) k/mm3 MPV (7.4-10.4) fl Immature Gran % (Auto) (0-0.5) % Neut % (Auto) (45.5-73.1) % Lymph % (Auto) (18.3-44.2) % Motley % (Auto) (2.6-8.5) % Eos % (Auto) (0-4.4) % Baso % (Auto) (0.2-1.2) % Lymph # (Auto) (0.9-3.2) K/mm3 Motley # (Auto) (0.1-0.6) K/mm3 Eos # (Auto) (0-0.3) K/mm3 Baso # (Auto) (0.0-0.1) K/mm3 Abs Immat Gran (auto) (0.00-0.031) K/mm3 Absolute Neuts (auto) (1.3-6.7) K/mm3 Absolute Nucleated RBC (0.0-0.012) K/mm3 Nucleated RBC % (0.0-0.2) % Sodium (137-145) mmol/L Potassium (3.4-5.0) mmol/L Chloride (98-107) mmol/L Carbon Dioxide (22-30) mmol/L Anion Gap (4-12) mmol/L BUN (9-20) mg/dL Creatinine (0.7-1.3) mg/dL Estim Creat Clear Calc ml/min Estimated GFR (59 - ) Glucose (65-110) mg/dL POC Capillary Glucose 123 H (65-105) mg/dl Calcium (8.4-10.2) mg/dL Total Bilirubin (0.2-1.3) mg/dL AST (17-59) U/L ALT (6-50) U/L Alkaline Phosphatase (38-126) U/L Total Protein (6.3-8.2) g/dL Albumin (3.5-5.1) g/dL TSH (Reflex) (0.465-4.68) uIU/mL Urine Color (Yellow) Urine Appearance (Clear) Urine pH (5.0-9.0) Ur Specific [place] (1.001-1.035) Urine Protein (Negative) mg/dL Urine Glucose (UA) (Negative) mg/dL Urine Ketones (Negative) mg/dL Ur Blood (Man) (Negative) Urine Nitrate (Negative) Urine Bilirubin (Negative) Urine Urobilinogen (<2.0) mg/dL Leukocyte Esterase Rfl (Negative) DIAMANTE/UL Urine Opiates Screen (Negative) Urine Methadone Screen (Negative) Ur Barbiturates Screen (Negative) Ur Phencyclidine Scrn (Negative) Ur Amphetamine Screen (Negative) U Benzodiazepines Scrn (Negative) Urine Cocaine Screen (Negative) U Cannabinoids Screen (Negative) Ethyl Alcohol (<10) mg/dL Influenza A (RT-PCR) (Negative) Influenza B (RT-PCR) (Negative) RSV (RT-PCR) (Negative) SARS-CoV-2 RNA (RT-PCR) (Negative) <Liza Hernandez, ENERGY ATTORNEY - Last Filed: 09/28/24 19:51> Lab Results 09/28/24 09/28/24 09/28/24 Range/Units 17:16 17:18 18:46 WBC 9.5 (4.5-10.0) K/mm3 RBC 4.38 L (4.6-6.20) M/mm3 Hgb 13.4 L (14.0-18.0) g/dL Hct 40.3 L (42.0-52.0) % MCV 92.0 (80-100) fl MCH 30.6 (26-34) pg MCHC 33.3 (32-36) g/dl RDW 13.1 (11.5-14.5) % Plt Count 164 (150-375) k/mm3 MPV 11.1 H (7.4-10.4) fl Immature Gran % (Auto) 0.4 (0-0.5) % Neut % (Auto) 83.0 H (45.5-73.1) % Lymph % (Auto) 7.9 L (18.3-44.2) % [place] % (Auto) 7.8 (2.6-8.5) % Eos % (Auto) 0.6 (0-4.4) % Baso % (Auto) 0.3 (0.2-1.2) % Lymph # (Auto) 0.75 L (0.9-3.2) K/mm3 [place] # (Auto) 0.7 H (0.1-0.6) K/mm3 Eos # (Auto) 0.1 (0-0.3) K/mm3 Baso # (Auto) 0.0 (0.0-0.1) K/mm3 Abs Immat Gran (auto) 0.04 H (0.00-0.031) K/mm3 Absolute Neuts (auto) 7.9 H (1.3-6.7) K/mm3 Absolute Nucleated RBC 0.000 (0.0-0.012) K/mm3 Nucleated RBC % 0.0 (0.0-0.2) % Sodium 135 L (137-145) mmol/L Potassium 4.7 (3.4-5.0) mmol/L Chloride 98 (98-107) mmol/L Carbon Dioxide 28 (22-30) mmol/L Anion Gap 9 (4-12) mmol/L BUN 27 H (9-20) mg/dL Creatinine 1.21 (0.7-1.3) mg/dL Estim Creat Clear Calc 50 ml/min Estimated GFR 57 L (59 - ) Glucose 104 (65-110) mg/dL POC Capillary Glucose 101 93 (65-105) mg/dl Calcium 8.6 (8.4-10.2) mg/dL Total Bilirubin 1.3 (0.2-1.3) mg/dL AST 34 (17-59) U/L ALT 29 (6-50) U/L Alkaline Phosphatase 136 H (38-126) U/L Total Protein 7.0 (6.3-8.2) g/dL Albumin 3.9 (3.5-5.1) g/dL TSH (Reflex) 1.740 (0.465-4.68) uIU/mL Urine Color Yellow (Yellow) Urine Appearance Clear (Clear) Urine pH 6.5 (5.0-9.0) Ur Specific [place] 1.020 (1.001-1.035) Urine Protein Negative (Negative) mg/dL Urine Glucose (UA) Negative (Negative) mg/dL Urine Ketones Negative (Negative) mg/dL Ur Blood (Man) Negative (Negative) Urine Nitrate Negative (Negative) Urine Bilirubin Negative (Negative) Urine Urobilinogen 1.0 (<2.0) mg/dL Leukocyte Esterase Rfl Negative (Negative) DIAMANTE/UL Urine Opiates Screen Positive A (Negative) Urine Methadone Screen Negative (Negative) Ur Barbiturates Screen Negative (Negative) Ur Phencyclidine Scrn Negative (Negative) Ur Amphetamine Screen Negative (Negative) U Benzodiazepines Scrn Positive A (Negative) Urine Cocaine Screen Negative (Negative) U Cannabinoids Screen Negative (Negative) Ethyl Alcohol < 10 (<10) mg/dL Influenza A (RT-PCR) Negative (Negative) Influenza B (RT-PCR) Negative (Negative) RSV (RT-PCR) Negative (Negative) SARS-CoV-2 RNA (RT-PCR) Negative (Negative) 09/28/24 Range/Units 21:43 WBC (4.5-10.0) K/mm3 RBC (4.6-6.20) M/mm3 Hgb (14.0-18.0) g/dL Hct (42.0-52.0) % MCV (80-100) fl MCH (26-34) pg MCHC (32-36) g/dl RDW (11.5-14.5) % Plt Count (150-375) k/mm3 MPV (7.4-10.4) fl Immature Gran % (Auto) (0-0.5) % Neut % (Auto) (45.5-73.1) % Lymph % (Auto) (18.3-44.2) % [place] % (Auto) (2.6-8.5) % Eos % (Auto) (0-4.4) % Baso % (Auto) (0.2-1.2) % Lymph # (Auto) (0.9-3.2) K/mm3 [place] # (Auto) (0.1-0.6) K/mm3 Eos # (Auto) (0-0.3) K/mm3 Baso # (Auto) (0.0-0.1) K/mm3 Abs Immat Gran (auto) (0.00-0.031) K/mm3 Absolute Neuts (auto) (1.3-6.7) K/mm3 Absolute Nucleated RBC (0.0-0.012) K/mm3 Nucleated RBC % (0.0-0.2) % Sodium (137-145) mmol/L Potassium (3.4-5.0) mmol/L Chloride (98-107) mmol/L Carbon Dioxide (22-30) mmol/L Anion Gap (4-12) mmol/L BUN (9-20) mg/dL Creatinine (0.7-1.3) mg/dL Estim Creat Clear Calc ml/min Estimated GFR (59 - ) Glucose (65-110) mg/dL POC Capillary Glucose 123 H (65-105) mg/dl Calcium (8.4-10.2) mg/dL Total Bilirubin (0.2-1.3) mg/dL AST (17-59) U/L ALT (6-50) U/L Alkaline Phosphatase (38-126) U/L Total Protein (6.3-8.2) g/dL Albumin (3.5-5.1) g/dL TSH (Reflex) (0.465-4.68) uIU/mL Urine Color (Yellow) Urine Appearance (Clear) Urine pH (5.0-9.0) Ur Specific [place] (1.001-1.035) Urine Protein (Negative) mg/dL Urine Glucose (UA) (Negative) mg/dL Urine Ketones (Negative) mg/dL Ur Blood (Man) (Negative) Urine Nitrate (Negative) Urine Bilirubin (Negative) Urine Urobilinogen (<2.0) mg/dL Leukocyte Esterase Rfl (Negative) DIAMANTE/UL Urine Opiates Screen (Negative) Urine Methadone Screen (Negative) Ur Barbiturates Screen (Negative) Ur Phencyclidine Scrn (Negative) Ur Amphetamine Screen (Negative) U Benzodiazepines Scrn (Negative) Urine Cocaine Screen (Negative) U Cannabinoids Screen (Negative) Ethyl Alcohol (<10) mg/dL Influenza A (RT-PCR) (Negative) Influenza B (RT-PCR) (Negative) RSV (RT-PCR) (Negative) SARS-CoV-2 RNA (RT-PCR) (Negative) <Chiquita Gomes PA-C - Last Filed: 09/29/24 01:23> ECG Data EKG #1: Attestation: I personally reviewed and interpreted this ECG as follows: <Chiquita Gomes PA-C - Last Filed: 09/29/24 01:23> ECG completion date: 09/28/24 <Chiquita Gomes PA-C - Last Filed: 09/29/24 01:23> ECG completion time: 17:14 <JIE Powell Last Filed: 09/29/24 01:23> EKG Interpretation: bradycardia (58), sinus rhythm, non-specific ST changes, RBBB (incomplete) and other (first degree AV block) <Chiquita Gomes PA-C - Last Filed: 09/29/24 01:23> Discharge Plan Discharge Clinical Impression: Passive suicidal ideations Strain of lumbar region Qualifiers: Encounter type: initial encounter Qualified Code(s): S39.012A - Strain of muscle, fascia and tendon of lower back, initial encounter <Liza Hernandez APRN - Last Filed: 09/28/24 19:51> Patient Disposition: Home, Self-Care <Liza Hernandez APRN - Last Filed: 09/28/24 19:51> Condition: Stable <Liza Hernandez APRN - Last Filed: 09/28/24 19:51> Instructions: Antibiotic Form, Acute Low Back Pain (ED), Lumbar Radiculopathy (ED), Lower Back Exercises (ED) <Liza Hernandez APRN - Last Filed: 09/28/24 19:51> Additional Instructions: Continue Tylenol and Ibuprofen/naproxen as needed for pain. Continue your home [place] as needed for more severe pain. You may use ice/heat, lidocaine patches to area of pain. Take muscle relaxers as needed and prescribed. Recommend taking these at night as they may cause sedation. Do not drive, operate heavy machinery, drink alcohol while on muscle relaxers as this may cause further sedation. Follow-up with your primary care doctor and painter and paperhanger apprentice for further evaluation. Call offices to make appointment. Return to the ED if you experience worsening or severe pain, recurrent injury, numbness in groin or legs, going to the bathroom without meaning to, unable to keep down food or drink, thoughts of wanting to harm yourself or anyone else, or any other symptoms of concern. Follow safety plan and utilize resources given to you by crisis team. <Liaz Hernandez APRN - Last Filed: 09/28/24 19:51> Patient Language: Monegasque <Liza Hernandez APRN - Last Filed: 09/28/24 19:51> Prescriptions: New lidocaine 5 % adhesive patch,medicated 1 patch topical DAILY Qty: 15 0RF Rx Instructions: leave on most painful area for up to 12 hrs cyclobenzaprine 5 mg tablet 5 mg PO TID PRN (Reason: muscle spasm) Qty: 15 0RF No Action propranolol 80 mg capsule,extended release 24 hr 80 mg PO DAILY Patient Comments: TAKES AT 1200 NOON naproxen 500 mg tablet 500 mg PO BID diazepam 5 mg tablet 5 mg PO BID PRN (Reason: Anxiety) tamsulosin 0.4 mg capsule 0.4 mg PO DAILY hydrocodone-acetaminophen [[place]] 7.5-325 mg tablet 1 tablet PO Q8H PRN (Reason: Pain) timolol maleate 0.25 % drops 1 drp QAM Rx Instructions: EACH EYE duloxetine 60 mg capsule,delayed release(DR/EC) 60 mg PO DAILY Patient Comments: TAKES AT MIDNIGHT melatonin 5 mg Tablet 5 mg PO HS PRN (Reason: Sleep) Restasis MultiDose 0.05 % drops 1 drp BID Rx Instructions: EACH EYE <Liza Hernandez APRN - Last Filed: 09/28/24 19:51> Follow-up/Referrals: Priti,Nolan Cisneros MD [Primary Care Provider] - <Liza Hernandez APRN - Last Filed: 09/28/24 19:51> Time of Disposition: 01:17 <Liza Hernandez APRN - Last Filed: 09/28/24 19:51> 01:17 <Chiquita Gomes PA-C - Last Filed: 09/29/24 01:23>
[2024-09-28 17:27] LABS: Glucose Point of Care 101 mg/dl (65-105)
[2024-09-28 17:27] LABS: Basophils Percent Auto 0.3 % (0.2-1.2); Eosinophils Absolute Auto 0.1 K/mm3 (0-0.3); Eosinophils Percent Auto 0.6 % (0-4.4); Hematocrit 40.3 % (42.0-52.0); Hemoglobin 13.4 g/dL (14.0-18.0); Immature Granulocyte Absolute 0.04 K/mm3 (0.00-0.031); Immature Granulocyte Percent A 0.4 % (0-0.5); Lymphocytes Absolute Auto 0.75 K/mm3 (0.9-3.2); Lymphocytes Percent Auto 7.9 % (18.3-44.2); Mean Corpuscular HGB Conc 33.3 g/dl (32-36); Mean Corpuscular Hemoglobin 30.6 pg (26-34); Mean Platelet Volume 11.1 fl (7.4-10.4); Monocytes Absolute Auto 0.7 K/mm3 (0.1-0.6); Monocytes Percent Auto 7.8 % (2.6-8.5); Neutrophils Absolute Auto 7.9 K/mm3 (1.3-6.7); Platelet Count Result 164 k/mm3 (150-375); Red Blood Count 4.38 M/mm3 (4.6-6.20); Red Cell Distribution Width 13.1 % (11.5-14.5); White Blood Count 9.5 K/mm3 (4.5-10.0)
[2024-09-28 17:30] LABS: Add Urine Microscopic? NO; Appearance Urine Clear (Clear); Bilirubin Urine Negative (Negative); Blood Urine Negative (Negative); Color Urine Yellow (Yellow); Glucose Urine UA Negative (Negative); Ketones Urine Negative (Negative); Leukocyte Esterase Ur Negative LEU/UL (Negative); Nitrate Urine Negative (Negative); Protein Urine Negative (Negative); pH Urine 6.5 (5.0-9.0)
--- NOTE | 2024-09-28 17:36 | PC.NURSE ---
Patient states 'I want to because of this pain . Patient denies plan, but states he has history of depression and takes medication
[2024-09-28 17:40] LABS: Ethanol < 10 mg/dL (<10)
[2024-09-28 17:43] LABS: Alanine Aminotransferase 29 U/L (6-50); Albumin Level 3.9 g/dL (3.5-5.1); Alkaline Phosphatase 136 U/L (38-126); Anion Gap 9 mmol/L (4-12); Aspartate Amino Transferase 34 U/L (17-59); Bilirubin,Total 1.3 mg/dL (0.2-1.3); Blood Urea Nitrogen 27 mg/dL (9-20); Calcium 8.6 mg/dL (8.4-10.2); Carbon Dioxide 28 mmol/L (22-30); Chloride 98 mmol/L (98-107); Estimated CRCL calculation 50 ml/min; Estimated Glomerular Filt Rate 57; Glucose 104 mg/dL (65-110); Potassium 4.7 mmol/L (3.4-5.0); Sodium 135 mmol/L (137-145)
[2024-09-28 17:45] LABS: Amphetamine Screen Urine Negative (Negative); Barbiturate Screen Urine Negative (Negative); Benzodiazepines Screen Urine Positive (Negative); Cannabinoid Screen Urine Negative (Negative); Cocaine Screen Urine Negative (Negative); Methadone Screen Urine Negative (Negative); Opiate Screen Urine Positive (Negative); Phencyclidine Screen Urine Negative (Negative)
[2024-09-28 18:04] LABS: Influenza A QL RT-PCR Negative (Negative); Influenza B QL RT-PCR Negative (Negative); RSV RNA, RT-PCR Negative (Negative); SARS-CoV-2 RNA PCR Negative (Negative)
--- OUTSIDE RECORDS SUMMARY | 2024-09-28 18:27 | XMS_ITS | Encounter Summary ---
Author Organization [facility] Address [facility]ly [facility] [place] [address] [place] [address] Care Team Providers Care Shearer Printed Circuit Boards Name Role Phone Nolan Marcos MD Primary Care Provider [phone] Reason for Visit * Reason Onset Date Comments ER F/U 09/28/2024 Encounter Details Date Type Department Care Team (Late st Contact Info) Description 09/28/2024 Patient Outreach [facility] Family & Internal Medicine [address] [address] Tila Moreno, SITE MANAGER [address] [place], [place] [id number] ER F/U Social History Tobacco Use Types [...] Sex Assigned at Male 11/07/2018 3:30 PM AUTOMATION QA LEAD Legal Sex Male 5:59 PM CDT Gender Identity Male 11/07/2018 3:30 PM AUTOMATION QA LEAD Sexual Orientation Straight 11/07/2018 3: 30 PM AUTOMATION QA LEAD documented as of this encounter Progress Notes * Tila Jones Tiffanie, SITE MANAGER - 09/28/2024 1:39 PM CST Emergency Room Visit Follow Up Phone Call Date of ER Visit: 09/27/24 Location: [facility] Brief Description of ER Visit: Patient presented to the ED with back pain. Please see notes for details. PCP: Priti Review D/C instructions: No, patient refused to review AVS with with commercial loan underwriter stated that he is stillin excruciating [...] a day with food 60 tablet 5 gmxvxmqc-vrngkjrdq-utftnbpeadpxi (MAXITROL) 3.5-56690-5.1 Ointment APPLY A THIN LAYER INTO BOTH [...] and alternatives: Yes Educate on use of [facility] Facilities: Yes Barriers to successful self-management as listed below Transportation: no Financial: no Medical equipment or service: no Home and personal safety: no Behavioral health: no Medication adherence: no Other: no Transition Patient To CDM: No Follow up phone call: No Plan of Care: Follow up with PCP. MATION QA LEAD documented in this encounter Plan of Treatment Upcoming Encounters Date Type Department Care Team (Late st Contact Info) Description 10/23/2024 2:40 PM AUTOMATION QA LEAD Office Visit [facility] Family & Internal Medicine [address] [address] Nolan Marcos MD [address] [place] [address] documented as of this encounter Visit Diagnoses Not on filedocumented in this encounter Additional Health Concerns Assessment Noted Time PHQ-9 Depression Total Score: 8 02/17/20 23 2:09 PM CDT documented as of this encounter Care Teams [employer] Relationship Specialty Start Date End Date Nolan Marcos MD [address] [place] [address] PCP - General INTERNAL MEDICINE 08/31/18 documented as of this encounter
--- OUTSIDE RECORDS SUMMARY | 2024-09-28 18:27 | XMS_ITS | Continuity of Care Document ---
Author Organization [facility] Address [address] [place] [address] Phone Care Team Providers Care It Sales Representative Name Role Phone Altman OD, Braden Unavailable Unavailable Procedures Procedure Date Visual Field Examination(s) Eye Exam & Treatment Refraction Visual Field Examination(s) Eye Exam, New Patient Refraction Advance Directives Directive Yes / No Effective Date File Name No Information Encounters Encounter Description Practice Location Reason(s) For Visit Diagnoses Date Provider Providers Copied on Encounter [facility], [id number] [place] [address] [address], [place], [place], [address], tel:[phone] [facility] No Information 9-201 0 Altman OD Braden. [address], [place], [place], [facility], . tel:[phone] Referring Provider: Braden Agapito OD A, [address], [place], [place], [facility]. tel:[phone] 9543 [facility], [address], [place], [place], [address], tel:[phone] [facility] No Information 0-201 0 Altman OD Braden. [address] , [address], [place], [place], [facility], . tel:[phone] Referring Provider: Guille Cameron MD F, [address] [place], [address]. tel:[phone] [facility] Eye [facility], [address] [place], [place] [address] [address], [place], [place], [address], tel:[phone] [place] [address] No Information Nov-0 2-200 9 Krishnasmateo Earnest. [address] [place] [address], [facility], . tel:[phone] Referring Provider: Earnest العراقي, [address] [place] [address], [place], [facility]. tel:[phone] 8916 [facility], [address] [place] [address] [address], [place], [place], [address], tel:[phone] [place] [address] No Information Sep-0 2-200 9 Krishnasamy Earnest. [address] [place] [address], [facility], . tel:[phone] Family History Family Member Type Diagnosis Age At Onset No Information Payers Payer name Insurance type Covered libertarian ID Authoriza tion(s) [employer] Md[employer] Adv CI [id number] Social History Type Description Quantity Date Captured [...]
--- OUTSIDE RECORDS SUMMARY | 2024-09-28 18:27 | XMS_ITS | Clinical Summary ---
Author Organization [facility] Address [facility] [address] [place] [address] Care Team Providers Care Cable Splicer Apprentice Name Role Phone Nolan Marcos MD Primary Care Provider [phone] Allergies Active Allergy Reactions Criticality Noted Date Comments Penicillins Dizziness,Hives,Itching 09/24/2015 Medications Lancets MiscIndications:D iabetes mellitus ([facility]) Use 1 lancet TID 300 Container 1 [...] (two) times daily. Active neomycin-polymyxi n-dexamethasone (MAXITROL) 3.5-74766-2.1 Ointment APPLY A THIN LAYER INTO BOTH [...] complication, without long-term current use of insulin ([facility]) USE ONE STRIP IN METER THREE TIMES [...] disease, without long-term current use of insulin ([facility]) 1 strip by Other route daily. 100 [...] disease, without long-term current use of insulin ([facility]) 1 Device by Does not apply route once for 1 dose. 1 kit 09/21/19 25 025 Discontinued Glucose Blood (FREESTYLE LITE) test stripIndications: Type 2 diabetes mellitus with stage 3a chronic kidney disease, without long-term current use of insulin ([facility]) 1 strip by Other route daily. 100 strip 3 09/21/19 25 025 Discontinued Blood Glucose Monitoring Suppl (FREESTYLE LITE) w/Device KitIndications:Ty pe 2 diabetes mellitus with stage 3a chronic kidney disease, without long-term current use of insulin ([facility]) 1 Device by Does not apply route once for 1 dose. 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 ([facility]) 07/15/2022 Primary osteoarthritis involving multiple joints 05/22/2020 Primary insomnia 10/03/2018 Spasmodic torticollis 07/18/2017 Dystonia 04/22/2017 Allergic rhinitis 10/21/2016 Obstructive sleep apnea 04/20/2016 Benign familial tremor 09/24/2015 Arthritis 09/24/2015 BPH (benign prostatic hyperplasia) 09/24/2015 Type 2 diabetes mellitus wit h chronic kidney disease, without long-term current use of insulin ([facility]) 09/24/2015 Glaucoma 09/24/2015 Gout 09/24/2015 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 Resolved Problems Problem Noted Date Diagnosed Date Resolved Date Screening PSA (prostate specific antigen) 04/20/2016 11/15/2019 Encounters Date Type Department Care Team Description 09/28/2024 Telephone [facility] [place] [place] [address] [id number] Noa Byers RN Follow Up (/) 09/28/2024 Patient Outreach [facility] Family Internal [address] [address] Tila Moreno, GOLD LEAF GILDER ER F/U 09/27/2024 4:11 AM FOOD SAFETY SPECIALIST - 09/27/2024 9:02 AM FOOD SAFETY SPECIALIST Emergency [facility] [place] [address] Anil Ramirez MD Back Pain Discharge Disposition: Home or Self Care (Routine Discharge) 09/27/2024 Travel 09/20/2024 Telephone [facility] Internal [address] [address] Nolan Marcos MD Medication Problem (Contour Next Test Strips) 09/19/2024 1:40 PM FOOD SAFETY SPECIALIST Office Visit [facility] Family & Internal [address] [place] [address] Nolan Marcos MD Fall (Patient c/o fall 2 days. Having pain on RT side buttocks and across low back. ) 09/19/2024 Travel 09/18/2024 Telephone [facility] Family Internal [address] [address] Nolan Marcos MD Prior Authorization (cyclobenzaprine (FLEXERIL) 5 MG tablet) 09/17/2024 Telephone [facility] Internal [address] [address] Nolan Marcos MD Medication Request 09/14/2024 MyChart Message Enc [facility] Internal [address] [address] Oriana Card, JULIANONP Hydrocodone-acetamin 08/09/2024 Scan [facility] SRVCS Scanned, [facility] 07/31/2024 Telephone [facility] Internal [address] [address] Nolan Marcos MD Medication Request 07/31/[address] [address] Nolan Marcos MD Lab Results 07/17/2024 Scan [facility] INFO SRVCS Scanned, [facility] 07/16/2024 Orders Only [facility] [address] [address] Nolan Marcos MD 07/16/2024 MyChart Message Enc [facility] Internal [address] [address] Nolan Marcos MD MEDS 07/06/2024 Telephone [facility] Internal [address] [address] Nolan Marcos MD Referral Request from Last [...] 05/10/2019 Pneumococcal (Prevnar 13) 06/08/2016 Zoster (Zostavax) 99392 Unt/0.65Ml 10/21/2013 Family History Medical History Relation [...] Sex Assigned at Male 11/07/2018 3:30 PM FOOD SAFETY SPECIALIST Legal Sex Male 5:59 PM CDT Gender Identity Male 11/07/2018 3:30 PM FOOD SAFETY SPECIALIST Sexual Orientation Straight 11/07/2018 3: 30 PM FOOD SAFETY SPECIALIST Last Filed Vital Signs Vital Sign Reading Time Taken Comments Blood Pressure 175/83 09/27/2024 3:55 AM FOOD SAFETY SPECIALIST Pulse 61 09/27/2024 3:55 AM FOOD SAFETY SPECIALIST Temperature 36.6 ??C (97.9 ??F) 09/27/2024 3:55 AM CS T Respiratory Rate 18 09/27/2024 3:55 AM FOOD SAFETY SPECIALIST Oxygen Saturation 99% 09/27/2024 3:55 AM FOOD SAFETY SPECIALIST Inhaled Oxygen Concentration - - Weight 103.4 kg (228 lb) 09/27/2024 3:55 AM FOOD SAFETY SPECIALIST Height 180.3 cm (5' 11 ) 09/27/2024 3:55 AM FOOD SAFETY SPECIALIST Body Mass Index 31.8 09/27/2024 3:55 AM FOOD SAFETY SPECIALIST Plan of Treatment Upcoming Encounters Date Type Department Care Team (Late st Contact Info) Description 10/23/2024 2:40 PM FOOD SAFETY SPECIALIST Office Visit [facility] Family & Internal Medicine [address] [place] [address] Nolan Marcos MD [address] [place] [address] Health Maintenance Due Date Last Done Comments Annual Medicare Wellness Visit 2005 Diabetes: Retinopathy Eye Exam 08/25/2022 08/25/2021, 2021, 11/19/2019 PHQ-2 (Physician [place]) 09/05/2024 10/20/2023 COVID-19 Vaccine ( season) 2024 [...] PEL WO CON STAT 09/27/2024 7:[address] LUMB SPINE WO CON STAT 09/27/2024 7:03 AM FOOD SAFETY SPECIALIST XR LUMB SPINE 3V Routine 09/19/2024 3:11 PM FOOD SAFETY SPECIALIST Fall, initial encounter Low back pain XR PELVIS AP+RT HIP 2V Routine 09/19/2024 3:11 PM FOOD SAFETY SPECIALIST Fall, initial encounter Acute buttock pain THYROID STIM HORMONE TSH Routine 07/16/2024 3:46 PM FOOD SAFETY SPECIALIST THYROXINE, FREE (FT4) Routine 07/16/2024 3:46 PM FOOD SAFETY SPECIALIST LIPID PANEL Routine 04/23/2024 11:10 AM CDT Type 2 diabetes mellitus with stage 3a chronic kidney disease, without long-term current use of insulin ([facility]) HEMOGLOBIN, GLYCOSYLATED Routine 04/19/2024 Type 2 diabetes mellitus with stage 3a chronic kidney disease, without long-term current use of insulin ([facility]) DIABETIC RETINOPATHY EXAM (NEGATIVE)(SCAN ORDER) Routine 08/25/2021 from Last 3 Months or Most Recently Relevant to Health Maintenance Results * CT PEL WO CON (09/27/2024 7:03 AM FOOD SAFETY SPECIALIST) Anatomical Region Laterality Modality Pelvis Computed Tomogra phy 09/27/2024 7:45 AM FOOD SAFETY SPECIALIST Impressions 09/27/2024 8:01 AM FOOD SAFETY SPECIALIST IMPRESSION: No appreciable acute fracture or dislocation. Degenerative changes of the lumbosacral spine, pelvis, and hips. Potential soft tissue contusion in the left hip region. Correlate with clinical exam. Ordered By: ANIL RAMIREZ Interpreted By: Toi Mar, 09/27/2024 7:45 AM Narrative 09/27/2024 8:01 AM FOOD SAFETY SPECIALIST [address] [address] IMAGING STUDIES: ??CT PEL WO CON ? [...] Procedure Note Toi Mar MD - 09/27/[address] [address] IMAGING STUDIES: CT PEL WO CONDATE: 09/27/2024 [...] LUMB SPINE WO CON (09/27/2024 7:03 AM FOOD SAFETY SPECIALIST) Anatomical Region Laterality Modality Spine Computed Tomogra phy 09/27/2024 7:28 AM FOOD SAFETY SPECIALIST Impressions 09/27/2024 7:35 AM FOOD SAFETY SPECIALIST IMPRESSION: 1. ??No acute fracture or dislocation. [...] 09/27/2024 7:28 AM Narrative 09/27/2024 7:35 AM FOOD SAFETY SPECIALIST [address] [address] EXAMINATION:Lumbar spine CT without contrast 09/27/2024 INDICATION:Lower [...] Procedure Note Vivek Hood MD - 09/27/[address] [address] EXAMINATION:Lumbar spine CT without contrast 09/27/2024 INDICATION:Lower [...] PELVIS AP+RT HIP 2V (09/19/2024 3:11 PM FOOD SAFETY SPECIALIST) Anatomical Region Laterality Modality Pelvis, Hip Radiographic Rocío ging 09/20/2024 2:02 PM FOOD SAFETY SPECIALIST Impressions 09/20/2024 2:03 PM FOOD SAFETY SPECIALIST IMPRESSION: No acute abnormality. Ordered By: NOLAN MARCOS Interpreted By: Dipesh Draper MD, 09/20/2024 2:02 PM Narrative 09/20/2024 2:03 PM FOOD SAFETY SPECIALIST [facility] Family and Internal Medicine - [address] ??[address] Examination: XR PELVIS AP+RT HIP 2V Exam time: 09/19/2024 2:53 PM Clinical history: Fall. Right posterior buttock pain. Comparison: 07/06/2021 right hip Technique: AP view of the pelvis and each hip joint was obtained. Small hejaw-kh-iauf AP and lateral right hip joint. Findings: [...] Procedure Note Dipesh Draper MD - 09/20/2024 [facility] and Internal Medicine - [address] [address] Examination: XR PELVIS AP+RT HIP 2V Exam time: 09/19/2024 2:53 PM Clinical history: Fall. Right posterior buttock pain. Comparison: 07/06/2021 right hip Technique: AP view of the pelvis and each hip joint was obtained. Fnuzatodlt-by-hiss AP and lateral right hip joint. Findings: [...] XR LUMB SPINE 3V (09/19/2024 3:11 PM FOOD SAFETY SPECIALIST) Anatomical Region Laterality Modality Spine Radiographic Rocío ging 09/20/2024 1:59 PM FOOD SAFETY SPECIALIST Impressions 09/20/2024 2:01 PM FOOD SAFETY SPECIALIST IMPRESSION: 1. No evidence of fracture or acute osseous abnormality. 2. Degenerative changes as described. Ordered By: NOLAN MARCOS Interpreted By: Dipesh Draepr MD, 09/20/2024 1:59 PM Narrative 09/20/2024 2:01 PM FOOD SAFETY SPECIALIST [facility] Family and Internal Medicine - [address] ??[address] Examination: XR LUMB SPINE 3V Exam time: [...] Procedure Note Dipesh Draper MD - 09/20/2024 [facility] Family [place] [address] Examination: XR LUMB SPINE 3V Exam time: [...] By: Dipesh Draper MD, 09/20/2024 1:59 PM us Nolan Marcos MD GENERAL IMAGING Final Result * THYROXINE, FREE (FT4) (07/16/2024 3:46 PM FOOD SAFETY SPECIALIST) FREE T4 1.0 0.8 - 1.8 ng/dL [facility] [place] 07/16/2024 3:46 PM FOOD SAFETY SPECIALIST 07/16/2024 3:48 PM FOOD SAFETY SPECIALIST Narrative Resulting Agency Comment Performing Organization Information: ?Site ID: [id number] ?Name: [facility] ?Address: On license of [facility] [place] [address] ?Director: Charity Kruger Nolan Marcos MD LABORATORY Final Result Performing Organization Address City/[facility] Co de Phone Number Who Can [employer] My Car - EBER ORDERS [facility] [employer] Customer [employer] [address], [place] * THYROID STIM HORMONE TSH (07/16/2024 3:46 PM FOOD SAFETY SPECIALIST) Pathologist [facility] TSH 0.87 0.40 - 4.50 mIU/L [facility] Customer Support[place], [place] 07/16/2024 3:46 PM FOOD SAFETY SPECIALIST 07/16/2024 3:48 PM FOOD SAFETY SPECIALIST Narrative Resulting Agency Comment Performing Organization Information: ?Site ID: [id number] ?Name: [facility] ?Address: [address] [place] [address] [place] [address] ?Director: Charity Kruger Nolan Marcos MD LABORATORY Final Result [facility] - EBER ORDERS [employer] Can [employer] My Car[address] [address] * (ABNORMAL) LIPID PANEL (04/23/2024 11:10 AM CDT) CHOLESTEROL 171 <200 MG/DL 04/23/2024 2:47 PM CDT [facility] TRIGLYCERIDES 142 <150 MG/DL 04/23/2024 2:47 PM CDT [facility] HDL 39(L) >40 MG/DL 04/23/2024 2:47 PM CDT [facility] [place] LDL-C 104(H) <100 MG/DL 04/23/2024 2:47 PM CDT [facility] [place], [place] VLDL CALCULATION 28 5 - 28 MG/DL 04/23/2024 2:47 PM CDT [facility] [place] CHOL/HDL RATIO 4.4(H) 0.0 - 4.0 04/23/2024 2:47 PM CDT [facility] [place] LDL/HDL 2.7(H) 0.41 - 2.13 04/23/2024 2:47 PM CDT [facility] [place] NON HDL CHOLESTEROL 132 <140 MG/DL 04/23/2024 2:47 PM CDT [facility] 04/23/2024 11:1 0 AM CDT Nolan Marcos MD LABORATORY Final Result [facility] G[facility]RIEL [place] [address] [place] [address], * HEMOGLOBIN, GLYCOSYLATED (04/19/2024) HGB A1C 5.7 % [facility] 04/19/2024 Nolan Marcos MD LABORATORY Final Result [facility] [address] [place] [address], * DIABETIC RETINOPATHY EXAM (NEGATIVE)(SCAN) (08/25/2021) us Documents Scanned SCANNING Final Result [facility] ONBASE from Last 3 Months or Most Recently Relevant to Health Maintenance Insurance [employer] Care Teams Cable Splicer Apprentice Relationship Specialty Start Date End Date Nolan Marcos MD [address] [place] [phone] PCP - General INTERNAL MEDICINE 08/31/18
--- OUTSIDE RECORDS SUMMARY | 2024-09-28 18:27 | XMS_ITS | Continuity of Care Document ---
Author Organization [facility] Address [address] [place] [address] Phone Care Team Providers Care Petroleum Plant Operator Name Role Phone Vivek Abbasi MD Unavailable [...] Diagnoses Date Provider Providers Copied on Encounter [email or web address], [address], [place], [place], [address] , tel: [phone] [facility] No Information 3 Elroy Doyle. [address] [place] [address], [address], [place], [place], [address], . tel:[phone] [employer], [address], [place], [place], [address] , tel: [phone] Conversion Department No Information 1 Conversion Doctor. [place], [address], . [employer], [address], [place], [place], [address] , tel: [phone] [facility] SCRN MALIG NEOP-PROSTATETEST ICULAR HYPOFUNC NECBENIGN HYPERTENSIONTRAUM ATIC BRAIN HEM NECDMII WO CMP NT ST UNCNTR 8 Elroy Doyle[address] [place] [address], [address], [place], [place], [address], [place]. tel: [phone] [employer], [address], [place], [place], [address] , tel: [phone] [facility] DERMATITIS DUE TO PLANT 8 Conversion Doctor. [facility]4 [place], [place], [facility], . [facility], [address], [place], [place], [address] , [place] tel: [phone] [facility] JOINT PAIN-SHLDER Sep-0 200 8 Elroy Doyle. [address] [place] [address], [address], [place], [place], [address], [place]. tel: [phone] [facility], [address], [place], [place], [address] , [place] tel: [phone] [facility] OTITIS MEDIA NOS 8 Elroy Doyle. [address] [place] [address], [address], [place], [place], [address], [place]. tel: [phone] [facility], [address], [place], [place], [address] , [place] tel:[phone] [facility] GOUT NOS 8 Conversion Doctor. [address] [place] [address], [address], [place]. [facility], [address], [place], [place], [address] , [place] tel: [phone] [facility] ABN INVOLUN MOVEMENT NECHYPERLIPIDEMIA NEC/NOSCHRO KIDNEY DIS STAGE IIMALAISE AND FATIGUE NECDMII RENL NT ST UNCNTRLD Nov0 200 7 Elroy Doyle. [address] [place] [address], [address], [place], [place], [address], [place]. tel: [phone] [facility] [employer], [address], [place], [place], [address] , [place] tel: [phone] [facility] DERMATITIS NOS 2-200 7 Conversion Doctor. [address] [place] [address], [facility], . [employer], [address], [place], [place], [address] , [place] tel: [phone] [facility] IMPOTENCE, ORGANIC ORIGNPURE HYPERCHOLESTEROLE MSLEEP APNEA NOS 6 Abbasilouise Doyle. [address] [place] [address], [address], [place], [place], [address], . tel:[phone] [employer], [address], [place], [place], [address] , tel: [phone] [facility] ND VAC STRPTCS PNEUMNI BLOC PRIM OSTEOART-L/LEGGEN ERAL OSTEOARTHROSISROU BLANCA MEDICAL EXAMABNORMAL GLUCOSE NEC 6 Abbasilouise Doyle. [address] [place] [address], [address], [place], [place], [address], . tel:[phone] [employer], [address], [place], [place], [address] , tel: [phone] [facility] THROMBOCYTOPENIA NOSJOINT PAIN-L/LEG 5 Abbasilouise Doyle. [address] [place] [address], [address] , [place], [place], [address], . tel:[phone] [employer], [address], [place], [place], [address] , tel: [phone] [facility] MIXED HYPERLIPIDEMIA 4 Abbasi Vivek. [address] [place] [address], [address], [place], [place], [address], . tel:[phone] Family History Family Member Type Diagnosis Age At Onset No Information Immunizations Vaccine Date Status Comments 06454 - Pneumococcal_PPV23 administered S ource: Source Unspecified Payers Payer name Insurance type Covered libertarian ID Authoriza tion(s) No Information Social History [...]
--- OUTSIDE RECORDS SUMMARY | 2024-09-28 18:27 | XMS_ITS | Encounter Summary ---
Author Organization [facility] Address [facility]ly [facility] [place] [address] [place] [address] Care Team Providers Care Promotions Assistant Name Role Phone Nolan Marcos MD Primary Care Provider [phone] Encounter Details Date Type Department Care Team (Latest Contact Info) Description 05/05/2018 Abstract [facility] , Enrrique Gould MD Social History Tobacco Use Types Packs/Day Years Used Date Smoking Tobacco: Never Assessed Sex and Gender Information Value Date Recorded Sex Assigned at Male 11/07/2018 3:30 PM ORCHARD WORKER Legal Sex Male 5:59 PM CDT Gender Identity Male 11/07/2018 3:30 PM ORCHARD WORKER Sexual Orientation Straight 11/07/2018 3: 30 PM ORCHARD WORKER documented as of this encounter Plan of Treatment Upcoming Encounters Date Type Department Care Team (Late st Contact Info) Description 10/23/2024 2:40 PM ORCHARD WORKER Office Visit [facility] Family & Internal Medicine [facility] [address] [place] [address] Nolan Marcos MD [address] [place] [address] documented as of this encounter Visit Diagnoses Not on filedocumented in this encounter Care Teams Promotions Assistant Relationship Specialty Start Date End Date Nolan Marcos MD [address] [place] [address] PCP - General INTERNAL MEDICINE 08/31/18 documented as of this encounter
--- OUTSIDE RECORDS SUMMARY | 2024-09-28 18:27 | XMS_ITS | Encounter Summary ---
Author Organization [facility] Address [facility] [place] [address] [place] [address] Care Team Providers Care Supervisor [employer] Name Role Phone Nolan Marcos MD Primary Care Provider [phone] Encounter Details Date Type Department Care Team [...] Sex Assigned at Male 11/07/2018 3:30 PM IMAGE ARCHIVIST Legal Sex Male 5:59 PM CDT Gender Identity Male 11/07/2018 3:30 PM IMAGE ARCHIVIST Sexual Orientation Straight 11/07/2018 3: 30 PM IMAGE ARCHIVIST documented as of this encounter Plan of Treatment Upcoming Encounters Date Type Department Care Team (Late st Contact Info) Description 10/23/2024 2:40 PM IMAGE ARCHIVIST Office Visit [facility] Family & Internal Medicine [place] [address] [place] [address] Nolan Marcos MD [address] [place] [address] documented as of this encounter Visit Diagnoses Not on filedocumented in this encounter Additional Health Concerns Assessment Noted Time PHQ-9 Depression Total Score: 8 02/17/20 23 2:09 PM CDT documented as of this encounter Care Teams Supervisor [employer] Relationship Specialty Start Date End Date Nolan Marcos MD [address] [place] [address] PCP - General INTERNAL MEDICINE 08/31/18 documented as of this encounter
--- OUTSIDE RECORDS SUMMARY | 2024-09-28 18:27 | XMS_ITS | Encounter Summary ---
Author Organization [facility] Address [address] [place] [address]. [place] [address] [place] [address] Care Team Providers Care Nematology Teacher Name Role Phone Nolan Marcos MD Primary Care Provider [phone] Reason for Referral * Imaging (Emergency) - New Request Specialty Diagnoses / Procedures Referred By Contac t Referred To Contact RADIOLOGY Procedures CT PEL WO Anil Driscoll MD [address] [address] Phone: tel: fax: Referral ID Status Reason Start Date Expiration Date V isits Requested Visits Authorized [id number] New Request 09/27/2024 09/27/2025 1 1 GER PRODUCT DESIGN * Imaging (Emergency) - New Request Specialty Diagnoses / Procedures Referred By Contac t Referred To Contact RADIOLOGY Procedures CT LUMB SPINE WO Anil Driscoll MD [address] [address] Phone: tel: fax: Referral ID Status Reason Start Date Expiration Date V isits Requested Visits Authorized [id number] New Request 09/27/2024 09/27/2025 1 1 GER PRODUCT DESIGN Reason for Visit * Reason Comments Back Pain Encounter Details Date Type Department Care Team (Late st Contact Info) Description 09/27/2024 4:11 AM MANAGER PRODUCT DESIGN - 09/27/2024 9:02 AM MANAGER PRODUCT DESIGN Emergency [facility] [place] [address] Anil Ramirez MD [address] 8[address] Back Pain Discharge Disposition: Home or Self [...] Sex Assigned at Male 11/07/2018 3:30 PM MANAGER PRODUCT DESIGN Legal Sex Male 5:59 PM CDT Gender Identity Male 11/07/2018 3:30 PM MANAGER PRODUCT DESIGN Sexual Orientation Straight 11/07/2018 3: 30 PM MANAGER PRODUCT DESIGN documented as of this encounter Last Filed Vital Signs Vital Sign Reading Time Taken Comments Blood Pressure 175/83 09/27/2024 3:55 AM MANAGER PRODUCT DESIGN Pulse 61 09/27/2024 3:55 AM MANAGER PRODUCT DESIGN Temperature 36.6 ??C (97.9 ??F) 09/27/2024 3:55 AM CS T Respiratory Rate 18 09/27/2024 3:55 AM MANAGER PRODUCT DESIGN Oxygen Saturation 99% 09/27/2024 3:55 AM MANAGER PRODUCT DESIGN Inhaled Oxygen Concentration - - Weight 103.4 kg (228 lb) 09/27/2024 3:55 AM MANAGER PRODUCT DESIGN Height 180.3 cm (5' 11 ) 09/27/2024 3:55 AM MANAGER PRODUCT DESIGN Body Mass Index 31.8 09/27/2024 3:55 AM MANAGER PRODUCT DESIGN documented in this encounter Discharge Instructions * Discharge Instructions* Anil Ramirez MD - 09/27/2024 8:04 AM MANAGER PRODUCT DESIGN Thank you for entrusting your health with me. I have obtained information about your health and reviewed your work-up. Please access Qluet to see my note and work-up. Medical care is complex and your health is important to me. I encourage you to ask questions for further understanding of today's visit and return if something changes. Sincerely, Dr. Ramirez GER PRODUCT DESIGN * Attachments The following attachments cannot be sent through Care Everywhere. * Low Back Pain ED (Haitian) documented in this encounter Medications at Time of Discharge CONTOUR NEXT TEST test stripIndications:Con trolled type 2 diabetes mellitus without complication, without long-term current use of insulin ([facility] HHS/[facility]) USE ONE STRIP IN METER THREE TIMES [...] disease, without long-term current use of insulin ([facility] HHS/[facility]) 1 strip by Other route daily. 100 strip 3 09/25/2024 hydroCHLOROthiazide (MICROZIDE) 12.5 MG capsuleIndications:G eneralized edema Take 1 capsule (12.5 mg total) by mouth every morning. 30 capsule 3 04/19/2024 HYDROcodone-acetamin ophen (NORCO) 7.5-325 MG tabletIndications:Ch ronic Pain Take 1 tablet by mouth every 8 (eight) hours as needed for Pain. Indications: Chronic Pain 30 tablet 09/14/2024 Lancets MiscIndications:Diab etes mellitus (CMS/HCC [facility]) Use 1 lancet TID 300 Container 1 [...] day with food 60 tablet 5 04/16/2024 wadzhzlk-twbgjansn-h examethasone (MAXITROL) 3.5-50781-6.1 Ointment APPLY A THIN LAYER INTO BOTH EYES EVERY NIGHT 01/14/2023 ofloxacin (FLOXIN) 0.3 % otic solution APPLY 4 DROPS INTO THE RIGHT EAR 2 TIMES PER DAY FOR 7 DAYS 10/30/2023 onabotulinumtoxinA (BOTULINUM TOXIN TYPE A) 100 units injection Inject 200 Units into the muscle. 01/19/2024 oxyCODONE-acetaminop hen (PERCOCET) 5-325 MG tabletIndications:Ac [place] Pain < 7 Day Supply Take 1 [...] Patient verbalized understanding of the discharge instructions. GER PRODUCT DESIGN * Carla Quinn RN - 09/27/2024 8:56 AM CST Sister kierra coming to get pt from GER PRODUCT DESIGN * Carla Quinn RN - 09/27/2024 8:51 AM CST Called daughter twice, no answer, for pt ride home GER PRODUCT DESIGN * Anil Ramirez MD - 09/27/2024 6:41 [...] 1 CAPSULE BY MOUTH EVERY DAY 09/11/24 Noaln Marcos MD Glucose Blood (FREESTYLE LITE) test [...] day with food 04/16/24 Nolan Marcos MD kggsaocz-uffztiduf-jmxpqxvpxcqsa (MAXITROL) 3.5-45446-2.1 Ointment APPLY A THIN LAYER INTO BOTH [...] disorder, unspecified Arthritis RHEUMATOID Depression Diabetes mellitus ([facility]/HCC HHS/HCC) Glaucoma PAST SURGICAL HISTORY: Past Surgical [...] outpatient follow-up. Patient has prescriptions for benzos, [place], NSAIDs. Medications HYDROmorphone (DILAUDID) injection 1 mg (1 mg Intramuscular Given 09/27/24 0711) Clinical Impression Back pain (Primary) Current Discharge Medication List Disposition: Discharge Follow-Up: Nolan Marcos MD [address] [place] [address] Call in 1 day Please excuse any grammatical or spelling errors as this chart was likely documented using a dictation software. I, Radha Arriola acting as a scribe, am personally taking down the notes in the presence of Dr. Anil Ramirez,*. Take no action on this note until reviewed and authenticated by the physician. Anil Ramirez MD 09/27/24 0856 GER PRODUCT DESIGN * Ashkan De La Cruz RN - [...] used up all of his pain meds. GER PRODUCT DESIGN documented in this encounter Plan of Treatment Upcoming Encounters Date Type Department Care Team (Late st Contact Info) Description 10/23/2024 2:40 PM MANAGER PRODUCT DESIGN Office Visit [facility] Family & Internal Medicine [address] [address] Nolan Marcos MD [address] [place] [address] documented as of this encounter Procedures Procedure Name Priority Date/Time Associated Diagnosis Comments CT PEL WO CON STAT 09/27/2024 7:[address] LUMB SPINE WO CON STAT 09/27/2024 7:03 AM MANAGER PRODUCT DESIGN documented in this encounter Results * CT PEL WO CON (09/27/2024 7:03 AM MANAGER PRODUCT DESIGN) Anatomical Region Laterality Modality Pelvis Computed Tomogra phy 09/27/2024 7:45 AM MANAGER PRODUCT DESIGN Impressions 09/27/2024 8:01 AM MANAGER PRODUCT DESIGN IMPRESSION: No appreciable acute fracture or dislocation. Degenerative changes of the lumbosacral spine, pelvis, and hips. Potential soft tissue contusion in the left hip region. Correlate with clinical exam. Ordered By: ANIL RAMIREZ Interpreted By: Toi Mar, 09/27/2024 7:45 AM Narrative 09/27/2024 8:01 AM MANAGER PRODUCT DESIGN [address] [place], [place] [address] IMAGING STUDIES: ??CT PEL WO CON ? [...] Note Toi Mar MD - 09/27/2024 [facility] [address] [address] IMAGING STUDIES: CT PEL WO CONDATE: 09/27/2024 [...] LUMB SPINE WO CON (09/27/2024 7:03 AM MANAGER PRODUCT DESIGN) Anatomical Region Laterality Modality Spine Computed Tomogra phy 09/27/2024 7:28 AM MANAGER PRODUCT DESIGN Impressions 09/27/2024 7:35 AM MANAGER PRODUCT DESIGN IMPRESSION: 1. ??No acute fracture or dislocation. [...] 09/27/2024 7:28 AM Narrative 09/27/2024 7:35 AM MANAGER PRODUCT DESIGN [address] [address] EXAMINATION:Lumbar spine CT without contrast 09/27/2024 INDICATION:Lower [...] Procedure Note Vivek Hood MD - 09/27/[address] [address] EXAMINATION:Lumbar spine CT without contrast 09/27/2024 INDICATION:Lower [...] least 2-3 minutes. Given 09/27/2024 7:11 AM MANAGER PRODUCT DESIGN 1 mg Right Dorsal Gluteal documented in this encounter Active and Recently Administered Medications Times are shown in MANAGER PRODUCT DESIGN. Scheduled Medication Order 09/25/2024 09/26/2024 09/27/2024 HYDROmorphone [...] documented as of this encounter Care Teams Nematology Teacher Relationship Specialty Start Date End Date Nolan Marcos MD [address] [place] [address] PCP - General INTERNAL MEDICINE 08/31/18 documented as of this encounter
--- OUTSIDE RECORDS SUMMARY | 2024-09-28 18:27 | XMS_ITS | Clinical Summary ---
Author Organization [employer] [address] [facility] Address [address] [place] [address] Care Team Providers Care Vault Manager Name Role Phone Nolan Marcos MD Primary Care Provider [phone] Allergies Active Allergy Reactions Criticality Noted Date [...] on file Legal Sex Male 2:42 PM HEALTH SERVICE COORDINATOR Gender Identity Not on file Sexual Orientation Not on file Last Filed Vital Signs Vital Sign Reading Time Taken Comments Blood Pressure - - Pulse - - Temperature - - Respiratory Rate - - Oxygen Saturation - - Inhaled Oxygen Concentration - - Weight 102.1 kg (225 lb) 09/30/2020 2:39 PM HEALTH SERVICE COORDINATOR Height 182.9 cm (6') 09/30/2020 2:39 PM HEALTH SERVICE COORDINATOR Body Mass Index 30.52 09/30/2020 2:39 PM HEALTH SERVICE COORDINATOR Plan of Treatment Health Maintenance Due Date [...] 65+ YEARS Completed 05/10/2019 , 06/08/2016 Insurance [facility] Care Teams Vault Manager Relationship Specialty Start Date End Date Nolan Marcos MD [address] [place] [address] PCP - General Internal Medicine 09/18/20
--- OUTSIDE RECORDS SUMMARY | 2024-09-28 18:27 | XMS_ITS | Encounter Summary ---
Author Organization [facility] Address [address] [place] [address]. [place] [address] [place] [address] Care Team Providers Care Grooming Salon Manager Name Role Phone Nolan Marcos MD Primary Care Provider [phone] Reason for Visit * Reason Onset Date Comments Follow Up 09/28/2024 Encounter Details Date Type Department Care Team (Late st Contact Info) Description 09/28/2024 Telephone [facility] Interventional [place] [address] [phone] Noa Byers RN Follow Up (/) Social History Tobacco Use Types Packs/Day Years [...] Sex Assigned at Male 11/07/2018 3:30 PM ADVANCED ANALYTICS ASSOCIATE Legal Sex Male 5:59 PM CDT Gender Identity Male 11/07/2018 3:30 PM ADVANCED ANALYTICS ASSOCIATE Sexual Orientation Straight 11/07/2018 3: 30 PM ADVANCED ANALYTICS ASSOCIATE documented as of this encounter Progress Notes * Noa Byers RN - 09/28/2024 5:13 PM CST I CALLED HIM BACK AND LEFT VM THAT SOMEONE WILL CALL HIM BACK ON TUESDAY. NCED ANALYTICS ASSOCIATE documented in this encounter Plan of Treatment Upcoming Encounters Date Type Department Care Team (Late st Contact Info) Description 10/23/2024 2:40 PM ADVANCED ANALYTICS ASSOCIATE Office Visit [facility] Family & Internal Medicine [address] [address] Nolan Marcos MD [address] [place] [address] documented as of this encounter Visit Diagnoses Not on filedocumented in this encounter Additional Health Concerns Assessment Noted Time PHQ-9 Depression Total Score: 8 02/17/20 23 2:09 PM CDT documented as of this encounter Care Teams Grooming Salon Manager Relationship Specialty Start Date End Date Nolan Marcos MD [address] [place] [address] PCP - General INTERNAL MEDICINE 08/31/18 documented as of this encounter
[2024-09-28 18:49] LABS: Glucose Point of Care 93 mg/dl (65-105)
[2024-09-28 20:00] VITALS: BP 128/60; PULSE 66; RESP 17; O2SAT 98
[2024-09-28] MEDS: methylPREDNISolone SOD SUCC 125 MG VIAL IM (20:57)
[2024-09-28] MEDS: CYCLOBENZAPRINE HCL 5 MG TABLET PO (20:57)
[2024-09-28] MEDS: HYDROcodone/acetaminophen (*CRX) 5-325 MG TABLET 1 TAB PO (20:57)
[2024-09-28] MEDS: LIDOCAINE 5% PATCH 1 PATCH TRANSDERM (21:20)
[2024-09-28 21:52] LABS: Glucose Point of Care 123 mg/dl (65-105)
[2024-09-28 23:30] VITALS: BP 132/53; PULSE 62; RESP 18; O2SAT 99
--- NOTE | 2024-09-29 00:37 | PC.NURSE ---
Crisis here to evaluate patient.
[2024-09-29 02:01] VITALS: BP 133/62; PULSE 63; RESP 18; O2SAT 99
[2024-09-29 02:04] VITALS: BP 133/62; PULSE 63; RESP 18; O2SAT 99
== END 2024-09-29 02:05 | disposition home or self-care (01) ==
PROVIDERS: Registered Nurse; Emergency Provider Physician Assistant; PCP Internal Medicine
DX: S39.012A Strain of muscle, fascia and tendon of lower back, initial encounter (principal); R45.851 Suicidal ideations; Z11.52 Encounter for screening for COVID-19; M19.90 Unspecified osteoarthritis, unspecified site; G47.30 Sleep apnea, unspecified; G89.29 Other chronic pain; F32.A Depression, unspecified; F17.210 Nicotine dependence, cigarettes, uncomplicated; Z96.651 Presence of right artificial knee joint; Z79.899 Other long term (current) drug therapy; I44.0 Atrioventricular block, first degree; I45.10 Unspecified right bundle-branch block; R00.1 Bradycardia, unspecified; W00.0XXA Fall on same level due to ice and snow, initial encounter
CPT/HCPCS: 36415; 80053; 80307; 81003; 82077; 82948; 84443; 85025; 87637; 93005; 96372; 99283; A9270; J2919

== ENCOUNTER 2024-10-15 03:56 | Emergency (ER) | payer OTHER, SELFPAY ==
--- NOTE | ~2024-10-15 | CT_ITS ---
Noncontrast CT scan of the lumbar spine CLINICAL HISTORY: Bilateral sciatica TECHNIQUE: Axial noncontrast imaging of the lumbar spine was performed. Sagittal and coronal reformat jacquelyn images were constructed. Dose reduction technique was used on this scan by utilizing automated ex posure control and iterative reconstruction technique. The dose-length product (DLP) was 1291.64 mGy- cm. FINDINGS: No definite acute fracture identified. Probable mild chronic loss of height of L4. There is 6 mm anterolisthesis of L4 over L5. At L1-L2, there is severe degenerative disc 9. There is minimal disc bulge with moderate facet arthro jesus. There is mild central canal stenosis/thecal sac compression. There is severe right neural fora doreen narrowing, and mild to moderate left neural foraminal narrowing. At L2-L3, there is severe degenerative disc narrowing. There is moderate facet arthropathy. There is moderate central canal stenosis/thecal sac compression. There is severe bilateral neural foraminal na rrowing. At L3-L4, there is severe degenerative disc narrowing. Disc bulge and severe facet arthropathy result in severe spinal canal stenosis/thecal sac compression. There is severe bilateral neural foraminal c ompromise, right worse than left. At L4-L5, there is diffuse disc bulge with severe facet arthropathy. There is moderate to severe spin al canal stenosis/thecal sac compression. There is severe bilateral neural foraminal, otherwise, righ t worse than left. At L5-S1, there is moderate to advanced degenerative disc narrowing. There is mild disc bulge with mi ld facet arthropathy. No britt central canal stenosis. There is severe bilateral neural foraminal bj rowing. Paravertebral soft tissues are unremarkable. Impression: Severe degenerative spondylosis, as above, with multilevel spinal canal stenosis and neural foraminal narrowing. Probable mild chronic loss of height of L4. 6 mm anterolisthesis of L4 over L5. Reviewed, dictated and finalized at location M. TIC PARTS DESIGNER Impression: Severe degenerative spondylosis, as above, with multilevel spinal canal stenosi s and neural foraminal narrowing. Probable mild chronic loss of height of L4. 6 mm anterolisthesis of L4 over L5.
--- OUTSIDE RECORDS SUMMARY | 2024-10-15 03:58 | XMS_ITS | Clinical Summary ---
Author Organization [employer] [address] [facility] Address [address] [place] [address] Care Team Providers Care Communications Maintainer Name Role Phone Nolan Marcos MD Primary Care Provider [phone] Allergies Active Allergy Reactions Criticality Noted Date [...] on file Legal Sex Male 2:42 PM BALLOON DESIGN PRINTER Gender Identity Not on file Sexual Orientation Not on file Last Filed Vital Signs Vital Sign Reading Time Taken Comments Blood Pressure - - Pulse - - Temperature - - Respiratory Rate - - Oxygen Saturation - - Inhaled Oxygen Concentration - - Weight 102.1 kg (225 lb) 09/30/2020 2:39 PM BALLOON DESIGN PRINTER Height 182.9 cm (6') 09/30/2020 2:39 PM BALLOON DESIGN PRINTER Body Mass Index 30.52 09/30/2020 2:39 PM BALLOON DESIGN PRINTER Plan of Treatment Health Maintenance Due Date Last Done Comments DIABETES ANNUAL FOOT EXAM 1958 DIABETES ANNUAL RETINAL EXAM 1958 DIABETES MICROALBUMIN ANNUAL SCREEN 1958 LDL CHOLESTEROL ANNUAL 1958 DTAP/TDAP/TD VACCINES (1 - Tdap) 1959 ZOSTER VACCINE (1 of 2) 1990 RSV VACCINE (60+ or ) (1 - 1-dose 75+ series) 2015 DIABETES HBA1C Q 6 MONTHS 05/20/2021 11/17/2020 INFLUENZA VACCINE (#1) 2024 COVID-19 Vaccine (2 - 2023- season) 05/06/202412/2020 PNEUMOCOCCAL VACCINE 65+ YEARS Completed 05/10/2019 , 06/08/2016 Insurance [facility] Care Teams Communications Maintainer Relationship Specialty Start Date End Date Nolan Marcos MD [address] [place] [address] PCP - General Internal Medicine 09/18/20
--- OUTSIDE RECORDS SUMMARY | 2024-10-15 03:58 | XMS_ITS | Continuity of Care Document ---
Author Organization [facility] Address [address] [place] [address] Phone Care Team Providers Care Floral Merchandiser Name Role Phone Vivek Abbasi MD Unavailable Unavailable Allergies, Adverse Reactions, Alerts Substance Reaction Status Criticality penicillin G Other Active No Information Medications Medication Instructions Dosage Effective Dates (start - stop) Status Comments NAPROSYN 500 MG TABLET 1 BID - Act jareth ATENOLOL 50 MG TABLET 1 QD-daily - Act jareth METFORMIN HCL ER 500 MG TAB 2 DAILY - Active INDOMETHACIN 50 MG CAPSULE 1 TID - Active Advance Directives Directive Yes / No Effective Date File Name No Information Encounters Encounter Description Practice Location Reason(s) For Visit Diagnoses Date Provider Providers Copied on Encounter [facility], [address], [place], [place], [address] , tel: [phone] [facility] No Information 3 Elroy Doyle. [address] [place] [address], [address], [place], [place], [address], . tel:[phone] [facility], [address], [place], [place], [address] , tel: [phone] Conversion Department No Information 1 Conversion Doctor. [facility] [place], [address], . [facility], [address], [place], [place], [address] , tel: [phone] [facility] SCRN MALIG NEOP-PROSTATETEST ICULAR HYPOFUNC NECBENIGN HYPERTENSIONTRAUM ATIC BRAIN HEM NECDMII WO CMP NT ST UNCNTR [address] [place] [address], [address], [place], [place], [address], [place]. tel: [phone] [employer], [address], [place], [place], [address] , tel: [phone] [facility] DERMATITIS DUE TO PLANT 8 Conversion Doctor. [facility] [place], [place], [facility], . [facility], [address], [place], [place], [address] , [place] tel: [phone] [facility] JOINT PAIN-SHLDER Sep-0 200 8 Elroy Doyle. [address] [place] [address], [address], [place], [place], [address], [place]. tel: [phone] [facility], [address], [place], [place], [address] , [place] tel: [phone] [facility] OTITIS MEDIA NOS 8 Elroy Doyle. [address] [place] [address], [address], [place], [place], [address], [place]. tel: [phone] [facility], [address], [place], [place], [address] , [place] tel:[phone] [facility] GOUT NOS 8 Conversion Doctor. [address] [place] [address], [address], [place]. [facility], [address], [place], [place], [address] , [place] tel: [phone] [facility] ABN INVOLUN MOVEMENT NECHYPERLIPIDEMIA NEC/NOSCHRO KIDNEY DIS STAGE IIMALAISE AND FATIGUE NECDMII RENL NT ST UNCNTRLD Nov0 200 7 Elroy Doyle. [address] [place] [address], [address], [place], [place], [address], [place]. tel: [phone] [facility] [employer], [address], [place], [place], [address] , [place] tel: [phone] [facility] DERMATITIS NOS 2-200 7 Conversion Doctor. [address] [place] [address], [facility], . [employer], [address], [place], [place], [address] , [place] tel: [phone] [facility] IMPOTENCE, ORGANIC ORIGNPURE HYPERCHOLESTEROLE MSLEEP APNEA NOS 6 Abbasilouise Doyle. [address] [place] [address], [address], [place], [place], [address], . tel:[phone] [facility], [address], [place], [place], [address] , tel: [phone] [facility] ND VAC STRPTCS PNEUMNI BLOC PRIM OSTEOART-L/LEGGEN ERAL OSTEOARTHROSISROU BLANCA MEDICAL EXAMABNORMAL GLUCOSE NEC 6 Abbasilouise Doyle. [address] [place] [address], [address], [place], [place], [address], . tel:[phone] [facility], [address], [place], [place], [address] , tel: [phone] [facility] THROMBOCYTOPENIA NOSJOINT PAIN-L/LEG 5 Abbasilouise Doyle. [address] [place] [address], [address] , [place], [place], [address], . tel: [phone] [facility], [address], [place], [place], [address] , tel: [phone] [facility] MIXED HYPERLIPIDEMIA 4 Abbasi Vivek. [address] [place] [address], [address], [place], [place], [address], . tel:[phone] Family History Family Member Type Diagnosis Age At Onset No Information Immunizations Vaccine Date Status Comments 01575 - Pneumococcal_PPV23 administered S ource: Source Unspecified Payers Payer name Insurance type Covered constitution party ID Authoriza tion(s) No Information Social [...]
--- OUTSIDE RECORDS SUMMARY | 2024-10-15 03:58 | XMS_ITS | Continuity of Care Document ---
Author Organization [facility] Address [address] [place] [address] Phone Care Team Providers Care Pit Crew Support Worker Name Role Phone Altman OD, Braden Unavailable Unavailable Procedures Procedure Date Visual Field Examination(s) Eye Exam & Treatment Refraction Visual Field Examination(s) Eye Exam, New Patient Refraction Advance Directives Directive Yes / No Effective Date File Name No Information Encounters Encounter Description Practice Location Reason(s) For Visit Diagnoses Date Provider Providers Copied on Encounter [facility], [address] [place] [address] [address], [place], [place], [address], tel:[phone] [facility] No Information 9-201 0 Altman OD Braden. [address], [place], [place], [facility], . tel:[phone] Referring Provider: Braden Agapito OD A, [address], [place], [facility]. tel:[phone] 6027 [facility], [address], [place], [place], [address], tel:[phone] [facility] No Information 0-201 0 Altman OD Braden. [address] , [address], [place], [place], [facility], . tel:[phone] Referring Provider: Guille Cameron MD F, [address] [place], [address]. tel:[phone] 2820 [facility], [address] [place], [place] [address] [address], [place], [place], [address], tel:[phone] [place] [address] No Information Nov-0 2-200 9 Krishnasmateo Earnest. [address] [place] [address], [facility], . tel:[phone] Referring Provider: Earnest العراقي, [address] [place] [address], [place], [facility]. tel:[phone] 6761 [facility], [address] [place] [address] [facility] [address], [place], [place], [address], tel:[phone] [place] [address] No Information Sep-0 2-200 9 Krishnasamy Earnest. [address] [place] [address], [facility], . tel:[phone] Family History Family Member Type Diagnosis Age At Onset No Information Payers Payer name Insurance type Covered libertarian ID Authoriza tion(s) [employer] Adv CI [id number] Social History Type Description Quantity Date Captured [...]
--- OUTSIDE RECORDS SUMMARY | 2024-10-15 03:58 | XMS_ITS | Clinical Summary ---
Author Organization [facility] Address [facility] [place] [address] Care Team Providers Care Linen Room Houseperson Name Role Phone Nolan Marcos MD Primary Care Provider [phone] Allergies Active Allergy Reactions Criticality Noted Date Comments Penicillins Dizziness,Hives,Itching 09/24/2015 Medications Lancets MiscIndications:D iabetes mellitus ([facility]) Use 1 lancet TID 300 Container 1 [...] (two) times daily. Active neomycin-polymyxi n-dexamethasone (MAXITROL) 3.5-85233-7.1 Ointment APPLY A THIN LAYER INTO BOTH [...] complication, without long-term current use of insulin ([facility]) USE ONE STRIP IN METER THREE TIMES [...] DAY 30 capsule 5 09/11/19 25 Active oxyCODONE-acetami nophen (PERCOCET) 5-325 MG tabletIndications :Acute Pain < 7 Day Supply Take 1 tablet by mouth every 8 (eight) hours as needed for Pain. Indication s: Acute Pain < 7 Day Supply 10 tablet 09/19/19 25 Active Glucose Blood (FREESTYLE LITE) test stripIndications: Type 2 diabetes mellitus with stage 3a chronic kidney disease, without long-term current use of insulin ([facility]) 1 strip by Other route daily. 100 strip 3 09/25/19 25 Active HYDROcodone-aceta minophen (NORCO) 7.5-325 MG tabletIndications :Chronic Pain Take 1 tablet by mouth every 8 (eight) hours as needed for Pain. Indication s: Chronic Pain 30 tablet 10/04/19 25 Active oxyCODONE-acetami nophen (PERCOCET) 5-325 MG tabletIndications [...] s: Chronic Pain 30 tablet 09/14/19 25 025 Discontinued(R eorder) cyclobenzaprine (FLEXERIL) 5 MG tabletIndications :Severe low back pain Take 1 tablet (5 mg total) by mouth 3 (three) times daily as needed for Muscle Spasms. 30 tablet 09/18/19 25 025 Blood Glucose Monitoring Suppl (FREESTYLE LITE) w/Device KitIndications:Ty pe 2 diabetes mellitus with stage 3a chronic kidney disease, without long-term current use of insulin ([facility]) 1 Device by Does not apply route once for 1 dose. 1 kit 09/21/19 25 025 Discontinued Glucose Blood (FREESTYLE LITE) test stripIndications: Type 2 diabetes mellitus with stage 3a chronic kidney disease, without long-term current use of insulin ([facility]) 1 strip by Other route daily. 100 strip 3 09/21/19 25 025 Discontinued Blood Glucose Monitoring Suppl (FREESTYLE LITE) w/Device KitIndications:Ty pe 2 diabetes mellitus with stage 3a chronic kidney disease, without long-term current use of insulin ([facility]) 1 Device by Does not apply route once for 1 dose. 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 ([facility] HHS/HCC) 07/15/2022 Primary osteoarthritis involving multiple joints 05/22/2020 Primary insomnia 10/03/2018 Spasmodic torticollis 07/18/2017 Dystonia 04/22/2017 Allergic rhinitis 10/21/2016 Obstructive sleep apnea 04/20/2016 Benign familial tremor 09/24/2015 Arthritis 09/24/2015 BPH (benign prostatic hyperplasia) 09/24/2015 Type 2 diabetes mellitus wit h chronic kidney disease, without long-term current use of insulin ([facility]) 09/24/2015 Glaucoma 09/24/2015 Gout 09/24/2015 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 Resolved Problems Problem Noted Date Diagnosed Date Resolved Date Screening PSA (prostate specific antigen) 04/20/2016 11/15/2019 Encounters Date Type Department Care Team Description 09/28/2024 Scan [facility] Scanned, Doc [facility] Lab (SCAN) 09/28/2024 Scan [facility] Scanned, Doc [facility] Lab (SCAN) 09/28/2024 Telephone [facility] [place] [address] [id number] Noa Byers RN Follow Up (/) 09/28/2024 Patient Outreach [facility] Family & Internal [address] [phone] Tila Moreno BSW ER F/U 09/27/2024 4:11 AM HEALTH CARE ADMINISTRATOR - 09/27/2024 9:02 AM [facility] Emergency [facility] [place] [address] Anil Ramirez MD Back Pain Discharge Disposition: Home or Self Care (Routine Discharge) 09/27/2024 Travel 09/25/2024 Scan [facility] Scanned, Doc Med Group 09/20/2024 Telephone [facility] Internal [address] [phone] Nolan Marcos MD Medication Problem (Contour Next Test Strips) 09/19/2024 1:40 PM HEALTH CARE ADMINISTRATOR Office Visit [facility] Internal [address] [phone] Nolan Marcos MD Fall (Patient c/o fall 2 days. Having pain on RT side buttocks and across low back. ) 09/19/2024 Travel 09/18/[address] [phone] Nolan Marcos MD Prior Authorization (cyclobenzaprine (FLEXERIL) 5 MG tablet) 09/17/[address] [phone] Nolan Marcos MD Medication Request 09/14/2024 MyChart Message Enc [address] [phone] Oriana Card, APNP Hydrocodone-acetamin 08/09/2024 Scan [facility] Scanned, Doc Med Group 07/31/[address] [phone] Nolan Marcos MD Medication Request 07/31/[address] [phone] Nolan Marcos MD Lab Results 07/17/2024 Scan [facility] Scanned, Doc [facility] Group 07/16/2024 Orders Only [address] [phone] Nolan Marcos MD 07/16/2024 MyChart Message Enc [facility] Internal [address] [phone] Nolan Marcos MD MY MEDS from Last 3 Months Immunizations Name Administration [...] 05/10/2019 Pneumococcal (Prevnar 13) 06/08/2016 Zoster (Zostavax) 24186 Unt/0.65Ml 10/21/2013 Family History Medical History Relation [...] Sex Assigned at Male 11/07/2018 3:30 PM HEALTH CARE ADMINISTRATOR Legal Sex Male 5:59 PM CDT Gender Identity Male 11/07/2018 3:30 PM HEALTH CARE ADMINISTRATOR Sexual Orientation Straight 11/07/2018 3: 30 PM HEALTH CARE ADMINISTRATOR Last Filed Vital Signs Vital Sign Reading Time Taken Comments Blood Pressure 175/83 09/27/2024 3:55 AM HEALTH CARE ADMINISTRATOR Pulse 61 09/27/2024 3:55 AM HEALTH CARE ADMINISTRATOR Temperature 36.6 C (97.9 F) 09/27/2024 3:55 AM HEALTH CARE ADMINISTRATOR Respiratory Rate 18 09/27/2024 3:55 AM HEALTH CARE ADMINISTRATOR Oxygen Saturation 99% 09/27/2024 3:55 AM HEALTH CARE ADMINISTRATOR Inhaled Oxygen Concentration - - Weight 103.4 kg (228 lb) 09/27/2024 3:55 AM HEALTH CARE ADMINISTRATOR Height 180.3 cm (5' 11 ) 09/27/2024 3:55 AM HEALTH CARE ADMINISTRATOR Body Mass Index 31.8 09/27/2024 3:55 AM HEALTH CARE ADMINISTRATOR Plan of Treatment Upcoming Encounters Date Type Department Care Team (Late st Contact Info) Description 10/23/2024 2:40 PM HEALTH CARE ADMINISTRATOR Office Visit [facility] Medical Group Family & Internal Medicine [address] [phone] Nolan Marcos MD [address] [place] [address] [phone] Health Maintenance Due Date Last Done Comments Annual Medicare Wellness Visit 2005 Diabetes: Retinopathy Eye Exam 08/25/2022 08/25/2021, 2021, 11/19/2019 PHQ-2 (Physician Council) 09/05/2024 10/20/2023 COVID-19 Vaccine ( season) 2024 [...] Procedure Name Priority Date/Time Associated Diagnosis Comments OUTSIDE LAB COVID-19 (SCAN ORDER) Routine 09/28/2024 OUTSIDE LAB (SCAN ORDER) 09/28/2024 OUTSIDE LAB (SCAN ORDER) 09/28/2024 OUTSIDE LAB (SCAN ORDER) 09/28/2024 OUTSIDE LAB (SCAN ORDER) 09/28/2024 OUTSIDE LAB (SCAN ORDER) 09/28/2024 OUTSIDE LAB (SCAN ORDER) 09/28/2024 OUTSIDE LAB (SCAN ORDER) 09/28/2024 CT PEL WO CON STAT 09/27/2024 7:03 AM [address] ADMIN[address] LUMB SPINE WO CON STAT 09/27/2024 7:03 AM HEALTH CARE ADMINISTRATOR XR LUMB SPINE 3V Routine 09/19/2024 3:11 PM HEALTH CARE ADMINISTRATOR Fall, initial encounter Low back pain XR PELVIS AP+RT HIP 2V Routine 09/19/2024 3:11 PM HEALTH CARE ADMINISTRATOR Fall, initial encounter Acute buttock pain THYROID STIM HORMONE TSH Routine 07/16/2024 3:46 PM HEALTH CARE ADMINISTRATOR THYROXINE, FREE (FT4) Routine 07/16/2024 3:46 PM HEALTH CARE ADMINISTRATOR LIPID PANEL Routine 04/23/2024 11:10 AM CDT Type 2 diabetes mellitus with stage 3a chronic kidney disease, without long-term current use of insulin ([facility]) HEMOGLOBIN, GLYCOSYLATED Routine 04/19/2024 Type 2 diabetes mellitus with stage 3a chronic kidney disease, without long-term current use of insulin ([facility]) DIABETIC RETINOPATHY EXAM (NEGATIVE)(SCAN ORDER) Routine 08/25/2021 from Last 3 Months or Most Recently Relevant to Health Maintenance Results * OUTSIDE LAB COVID-19 (09/28/2024) CORONAVIRUS SARS COV 2 PCR (RESP) NOT DETECTED NOT DETECTED [facility] ONBASE 09/28/2024 Result [employer] Scanned SCANNING Final Resu lt [facility] ONBASE * OUTSIDE LAB (SCAN ORDER) (09/28/2024) Only the most recent of7 resultswithin the time period is included. 09/28/2024 [employer] Scanned SCANNING Final Resu lt * CT PEL WO CON (09/27/2024 7:03 AM HEALTH CARE ADMINISTRATOR) Anatomical Region Laterality Modality Pelvis Computed Tomogra phy 09/27/2024 7:45 AM HEALTH CARE ADMINISTRATOR Impressions 09/27/2024 8:01 AM HEALTH CARE ADMINISTRATOR IMPRESSION: No appreciable acute fracture or dislocation. Degenerative changes of the lumbosacral spine, pelvis, and hips. Potential soft tissue contusion in the left hip region. Correlate with clinical exam. Ordered By: ANIL RAMIREZ Interpreted By: Toi Mar, 09/27/2024 7:45 AM Narrative 09/27/2024 8:01 AM HEALTH CARE ADMINISTRATOR [address] [address] IMAGING STUDIES: CT PEL WO CON DATE: 09/27/2024 6:40 AM HISTORY: trauma 84-year-old male. Patient reportedly fell on 09/17/2024 and evaluated by primary care provider on 09/19/2024 with reported negative radiographs at that time. Patient provided prescription for hydrocodone and has finished his medications. Patient reports shooting spasm-like pain across his lower back which is worse with movement and standing. Reported history of sciatica. COMPARISON: CT lumbar spine without contrast 09/27/2024. DISCUSSION: CT pelvis without intravenous contrast. Coronal and sagittal reconstructions. No enteric contrast. Automated exposure control with radiation dose reduction techniques used. Cardiovascular: Atherosclerotic calcification of the aorta, iliac arteries, and femoral arteries. Genitourinary: Prostate dystrophic calcifications. Mild indentation of the inferior urinary bladder by the prostate. No acute urinary bladder abnormality. Mild fat within the left inguinal canal. Lymphatic: No apparent adenopathy. Gastrointestinal: Colonic diverticulosis. No apparent bowel obstruction or focal inflammation. No free fluid in the pelvis. [...] Procedure Note Toi Mar MD - 09/27/[address] [address] IMAGING STUDIES: CT PEL WO CONDATE: 09/27/2024 [...] LUMB SPINE WO CON (09/27/2024 7:03 AM HEALTH CARE ADMINISTRATOR) Anatomical Region Laterality Modality Spine Computed Tomogra phy 09/27/2024 7:28 AM HEALTH CARE ADMINISTRATOR Impressions 09/27/2024 7:35 AM HEALTH CARE ADMINISTRATOR IMPRESSION: 1. No acute fracture or dislocation. Chronic healed fractures of the left transverse processes of L2 and L3. 2. 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 Moderate central canal stenosis at L2/L3. 3. Severe bilateral foraminal stenosis at L2/L3 L3/L4, L4/L5 and L5/S1. Moderate bilateral foraminal stenosis at L1/L2. 4. Osteopenia with 13 degrees of lumbar dextroscoliosis. Referred By: Interpreted By: Vivke Hood MD, 09/27/2024 7:28 AM Narrative 09/27/2024 7:35 AM HEALTH CARE ADMINISTRATOR [address] [address] EXAMINATION:Lumbar spine CT without contrast 09/27/2024 INDICATION:Lower back pain, fall on 09/17/2024 TECHNIQUE: Axial CT images of the lumbar spine were acquired without intravenous contrast. Sagittal coronal reformats were constructed. Radiation dose reduction techniques were used. COMPARISON: Lumbar radiographs 09/19/2024 FINDINGS:The last fully formed disc space is presumed represent L5/S1. The osseous structures appear diffusely demineralized. There is 13 degrees of lumbar dextroscoliosis, unchanged. There is preservation of vertebral body heights and disc spaces. There is 2 mm retrolisthesis at L1/L2, L2/L3 L3/L4. There is 5 mm anterolisthesis at L4/L5. No acute fracture or dislocation. The sacroiliac joint spaces are unremarkable. There is [...] throughout the abdominal aorta. There is a 9 obstructing 5 mm calculus within the right kidney near the corticomedullary junction. Procedure Note Vivek Hood MD - 09/27/2024 [facility] [address] [place], [place] [address] EXAMINATION:Lumbar spine CT without contrast 09/27/2024 INDICATION:Lower [...] PELVIS AP+RT HIP 2V (09/19/2024 3:11 PM HEALTH CARE ADMINISTRATOR) Anatomical Region Laterality Modality Pelvis, Hip Radiographic Rocío ging 09/20/2024 2:02 PM HEALTH CARE ADMINISTRATOR Impressions 09/20/2024 2:03 PM HEALTH CARE ADMINISTRATOR IMPRESSION: No acute abnormality. Ordered By: NOLAN MARCOS Interpreted By: Dipesh Draper MD, 09/20/2024 2:02 PM Narrative 09/20/2024 2:03 PM HEALTH CARE ADMINISTRATOR [facility] Medical Group Family and Internal Medicine - [address] [address] Examination: XR PELVIS AP+RT HIP 2V Exam time: 09/19/2024 2:53 PM Clinical history: Fall. Right posterior buttock pain. Comparison: 07/06/2021 right hip Technique: AP view of the pelvis and each hip joint was obtained. Small khpja-[id number] AP and lateral right hip joint. Findings: [...] Procedure Note Dipesh Draper MD - 09/20/2024 [facility] Medical Group Family [place] [address] Examination: XR PELVIS AP+RT HIP 2V Exam time: 09/19/2024 2:53 PM Clinical history: Fall. Right posterior buttock pain. Comparison: 07/06/2021 right hip Technique: AP view of the pelvis and each hip joint was obtained. Zfvhenrffg-qa-[id number] AP and lateral right hip joint. Findings: [...] XR LUMB SPINE 3V (09/19/2024 3:11 PM HEALTH CARE ADMINISTRATOR) Anatomical Region Laterality Modality Spine Radiographic Rocío ging 09/20/2024 1:59 PM HEALTH CARE ADMINISTRATOR Impressions 09/20/2024 2:01 PM HEALTH CARE ADMINISTRATOR IMPRESSION: 1. No evidence of fracture or acute osseous abnormality. 2. Degenerative changes as described. Ordered By: NOLAN MARCOS Interpreted By: Dipesh Draper MD, 09/20/2024 1:59 PM Narrative 09/20/2024 2:01 PM HEALTH CARE ADMINISTRATOR [facility] Family [place] [address] Examination: XR LUMB SPINE 3V Exam time: [...] Procedure Note Dipesh Draper MD - 09/20/2024 [facility] Family and Internal [facility] [place] [address] Examination: XR LUMB SPINE 3V Exam time: [...] * THYROXINE, FREE (FT4) (07/16/2024 3:46 PM HEALTH CARE ADMINISTRATOR) FREE T4 1.0 0.8 - 1.8 ng/dL [facility], [place] 07/16/2024 3:46 PM HEALTH CARE ADMINISTRATOR 07/16/2024 3:48 PM HEALTH CARE ADMINISTRATOR Narrative Resulting Agency Comment Performing Organization Information: Site ID: Name: [email or web address] Address: [facility] [place] [address] Director: Charity Kruger Nolan Marcos MD LABORATORY Final Result Performing Organization Address City/[facility] Co de Phone Number [facility] [place] [facility] [phone] [place] [address] * THYROID STIM HORMONE TSH (07/16/2024 3:46 PM HEALTH CARE ADMINISTRATOR) TSH 0.87 0.40 - 4.50 mIU/L [facility] [place] 07/16/2024 3:46 PM HEALTH CARE ADMINISTRATOR 07/16/2024 3:48 PM HEALTH CARE ADMINISTRATOR Narrative Resulting Agency Comment Performing Organization Information: Site ID: Name: [email or web address] Address: [facility] [place] [address] Director: Charity Kruger Nolan Marcos MD LABORATORY Final Result Performing Organization Address City/[facility]/ZIP Co de Phone Number [facility] [place] [facility] [phone], [place] * (ABNORMAL) LIPID PANEL (04/23/2024 11:10 AM CDT) CHOLESTEROL 171 <200 MG/DL 04/23/2024 2:47 PM CDT [facility] TRIGLYCERIDES 142 <150 MG/DL 04/23/2024 2:47 PM CDT [facility] HDL 39(L) >40 MG/DL 04/23/2024 2:47 PM CDT [facility] LDL-C 104(H) <100 MG/DL 04/23/2024 2:47 PM CDT [facility] VLDL CALCULATION 28 5 - 28 MG/DL 04/23/2024 2:47 PM CDT [facility] CHOL/HDL RATIO 4.4(H) 0.0 - 4.0 04/23/2024 2:47 PM CDT [facility] LDL/HDL 2.7(H) 0.41 - 2.13 04/23/2024 2:47 PM CDT [facility] NON HDL CHOLESTEROL 132 <140 MG/DL 04/23/2024 2:47 PM CDT [facility] 04/23/2024 11:1 0 AM CDT Nolan Marcos MD LABORATORY Final Result [facility] [address] [place] [address], [place] [phone] * HEMOGLOBIN, GLYCOSYLATED (04/19/2024) HGB A1C 5.7 % [facility] 04/19/2024 Nolan Marcos MD LABORATORY Final Result [facility] [address] [place] [address], [place] * DIABETIC RETINOPATHY EXAM (NEGATIVE)(SCAN) (08/25/2021) us Documents Scanned SCANNING Final Result [facility] from Last 3 Months or Most Recently Relevant to Health Maintenance Insurance [employer] Care Teams Linen Room Houseperson Relationship Specialty Start Date End Date Nolan Marcos MD [address] [place] [id number] PCP - General INTERNAL MEDICINE 08/31/18
--- OUTSIDE RECORDS SUMMARY | 2024-10-15 03:58 | XMS_ITS | Encounter Summary ---
Author Organization [facility] Address [facility] [place] [address] Care Team Providers Care Director Of Clinical Services Name Role Phone Nolan Marcos MD Primary Care Provider [phone] Encounter Details Date Type Department Care Team (Latest Contact Info) Description 05/05/2018 Abstract [facility] , Enrrique Gould MD Social History Tobacco Use Types Packs/Day Years Used Date Smoking Tobacco: Never Assessed Sex and Gender Information Value Date Recorded Sex Assigned at Male 11/07/2018 3:30 PM SOCIAL MEDIA MANAGER Legal Sex Male 5:59 PM CDT Gender Identity Male 11/07/2018 3:30 PM SOCIAL MEDIA MANAGER Sexual Orientation Straight 11/07/2018 3: 30 PM SOCIAL MEDIA MANAGER documented as of this encounter Plan of Treatment Upcoming Encounters Date Type Department Care Team (Late st Contact Info) Description 10/23/2024 2:40 PM SOCIAL MEDIA MANAGER Office Visit [facility] Medical Group Family & Internal Medicine [address] [phone] Nolan Marcos MD [address] [place] [phone] documented as of this encounter Visit Diagnoses Not on filedocumented in this encounter Care Teams Director Of Clinical Services Relationship Specialty Start Date End Date Nolan Marcos MD [address] [place] [phone] PCP - General INTERNAL MEDICINE 08/31/18 documented as of this encounter
[2024-10-15 04:13] VITALS: BP 170/76; PULSE 62; RESP 19; TEMP 36.6; O2SAT 100
--- OUTSIDE RECORDS SUMMARY | 2024-10-15 04:29 | XMS_ITS | Clinical Summary ---
Author Organization [employer] [id number] [facility] Address [address] [place] [address] Care Team Providers Care Dietetic Assistant Name Role Phone Nolan Marcos MD Primary Care Provider [phone] Allergies Active Allergy Reactions Criticality Noted Date [...] on file Legal Sex Male 2:42 PM KIDNEY TRIMMER Gender Identity Not on file Sexual Orientation Not on file Last Filed Vital Signs Vital Sign Reading Time Taken Comments Blood Pressure - - Pulse - - Temperature - - Respiratory Rate - - Oxygen Saturation - - Inhaled Oxygen Concentration - - Weight 102.1 kg (225 lb) 09/30/2020 2:39 PM KIDNEY TRIMMER Height 182.9 cm (6') 09/30/2020 2:39 PM KIDNEY TRIMMER Body Mass Index 30.52 09/30/2020 2:39 PM KIDNEY TRIMMER Plan of Treatment Health Maintenance Due Date [...] 65+ YEARS Completed 05/10/2019 , 06/08/2016 Insurance [facility] MCR Care Teams Dietetic Assistant Relationship Specialty Start Date End Date Nolan Marcos MD [address] [place] [address] PCP - General Internal Medicine 09/18/20
--- OUTSIDE RECORDS SUMMARY | 2024-10-15 04:29 | XMS_ITS | Continuity of Care Document ---
Author Organization [facility] Address [address] [place] [address] Phone Care Team Providers Care Pocket Creaser Name Role Phone Vivek Abbasi MD Unavailable [...] Diagnoses Date Provider Providers Copied on Encounter [facility], [address], [place], [place], [address] , tel: [phone] [facility] No Information 3 Elroy Doyle. [address] [place] [address], [address], [place], [place], [address], . tel:[phone] [facility], [address], [place], [place], [address] , tel: [phone] Conversion Department No Information 1 Conversion Doctor. [facility] [place], [address], . [employer] [facility], [address], [place], [place], [address] , tel: [phone] [facility] SCRN MALIG NEOP-PROSTATETEST ICULAR HYPOFUNC NECBENIGN HYPERTENSIONTRAUM ATIC BRAIN HEM NECDMII WO CMP NT ST UNCNTR 8 Elroy Doyle[address] [place] [address], [address], [place], [place], [address], [place]. tel: [phone] [employer], [address], [place], [place], [address] , tel: [phone] [facility] DERMATITIS DUE TO PLANT 8 Conversion Doctor. [facility] [place], [place], [facility], . [facility], [address], [place], [place], [address] , [place] tel: [phone] [facility] JOINT PAIN-SHLDER Sep-0 200 8 Elroy Doyle. [address] [place] [address], [address], [place], [place], [address], [place]. tel: [phone] [facility], [address], [place], [place], [address] , [place] tel: [phone] [facility] OTITIS MEDIA NOS 8 Elroy Doyle. [address] [place] [address], [address], [place], [place], [address], [place]. tel: [phone] [facility], [address], [place], [place], [address] , [place] tel:[phone] [facility] GOUT NOS 8 Conversion Doctor. [address] [place] [address], [address], [place]. [facility], [address], [place], [place], [address] , [place] tel: [phone] [facility] ABN INVOLUN MOVEMENT NECHYPERLIPIDEMIA NEC/NOSCHRO KIDNEY DIS STAGE IIMALAISE AND FATIGUE NECDMII RENL NT ST UNCNTRLD Nov0 200 7 Elroy Doyle. [address] [place] [address], [address], [place], [place], [address], [place]. tel: [phone] [facility] [employer], [address], [place], [place], [address] , [place] tel: [phone] [facility] DERMATITIS NOS 2-200 7 Conversion Doctor. [address] [place] [address], [facility], . [employer], [address], [place], [place], [address] , [place] tel: [phone] [facility] IMPOTENCE, ORGANIC ORIGNPURE HYPERCHOLESTEROLE MSLEEP APNEA NOS 6 Abbasilouise Doyle. [address] [place] [address], [address], [place], [place], [address], . tel:[phone] [facility], [address], [place], [place], [address] , tel: [phone] [facility] ND VAC STRPTCS PNEUMNI BLOC PRIM OSTEOART-L/LEGGEN ERAL OSTEOARTHROSISROU BLANCA MEDICAL EXAMABNORMAL GLUCOSE NEC 6 Abbasilouise Doyle. [address] [place] [address], [address], [place], [place], [address], . tel:[phone] [facility], [address], [place], [place], [address] , tel: [phone] [facility] THROMBOCYTOPENIA NOSJOINT PAIN-L/LEG 5 Abbasilouise Doyle. [address] [place] [address], [address] , [place], [place], [address], . tel:[phone] [facility], [address], [place], [place], [address] , tel: [phone] [facility] MIXED HYPERLIPIDEMIA 4 Abbasi Vivek. [address] [place] [address], [address], [place], [place], [address], . tel:[phone] Family History Family Member Type Diagnosis Age At Onset No Information Immunizations Vaccine Date Status Comments 37111 - Pneumococcal_PPV23 administered S ource: Source Unspecified Payers Payer name Insurance type Covered republican ID Authoriza tion(s) No Information Social History [...]
--- OUTSIDE RECORDS SUMMARY | 2024-10-15 04:29 | XMS_ITS | Encounter Summary ---
Author Organization [facility] Address [facility] [place] [address] Care Team Providers Care District Wire Chief Name Role Phone Nloan Marcos MD Primary Care Provider Encounter Details Date Type Department Care Team (Latest Contact Info) Description 05/05/2018 Abstract [facility] , Enrrique Gould MD Social History Tobacco Use Types Packs/Day Years Used Date Smoking Tobacco: Never Assessed Sex and Gender Information Value Date Recorded Sex Assigned at Male 11/07/2018 3:30 PM PERSONAL BANKING OFFICER Legal Sex Male 5:59 PM CDT Gender Identity Male 11/07/2018 3:30 PM PERSONAL BANKING OFFICER Sexual Orientation Straight 11/07/2018 3: 30 PM PERSONAL BANKING OFFICER documented as of this encounter Plan of Treatment Upcoming Encounters Date Type Department Care Team (Late st Contact Info) Description 10/23/2024 2:40 PM PERSONAL BANKING OFFICER Office Visit [facility] Medical [facility] Family & Internal Medicine [address] [phone] Nolan Marcos MD [address] [place] [address] documented as of this encounter Visit Diagnoses Not on filedocumented in this encounter Care Teams District Wire Chief Relationship Specialty Start Date End Date Nolan Marcos MD [address] [place] [address] PCP - General INTERNAL MEDICINE 08/31/18 documented as of this encounter
--- OUTSIDE RECORDS SUMMARY | 2024-10-15 04:29 | XMS_ITS | Clinical Summary ---
Author Organization [facility] Address [facility] [place] [address] Care Team Providers Care Teaching Dietitian Name Role Phone Nolan Marcos MD Primary Care Provider [phone] Allergies Active Allergy Reactions Criticality Noted Date Comments Penicillins Dizziness,Hives,Itching 09/24/2015 Medications Lancets MiscIndications:D iabetes mellitus ([facility]) Use 1 lancet TID 300 [...] (two) times daily. Active neomycin-polymyxi n-dexamethasone (MAXITROL) 3.5-56638-3.1 Ointment APPLY A THIN LAYER INTO BOTH [...] complication, without long-term current use of insulin ([facility]) USE ONE STRIP IN METER [...] disease, without long-term current use of insulin ([facility]) 1 strip by Other route [...] disease, without long-term current use of insulin ([facility]) 1 Device by Does not apply route once for 1 dose. 1 kit 09/21/19 25 025 Discontinued Glucose Blood (FREESTYLE LITE) test stripIndications: Type 2 diabetes mellitus with stage 3a chronic kidney disease, without long-term current use of insulin ([facility]) 1 strip by Other route daily. 100 strip 3 09/21/19 25 025 Discontinued Blood Glucose Monitoring Suppl (FREESTYLE LITE) w/Device KitIndications:Ty pe 2 diabetes mellitus with stage 3a chronic kidney disease, without long-term current use of insulin ([facility]) 1 Device by Does not apply route once for 1 dose. 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 ([facility] HHS/HCC) 07/15/2022 Primary osteoarthritis involving multiple joints 05/22/2020 Primary insomnia 10/03/2018 Spasmodic torticollis 07/18/2017 Dystonia 04/22/2017 Allergic rhinitis 10/21/2016 Obstructive sleep apnea 04/20/2016 Benign familial tremor 09/24/2015 Arthritis 09/24/2015 BPH (benign prostatic hyperplasia) 09/24/2015 Type 2 diabetes mellitus wit h chronic kidney disease, without long-term current use of insulin ([facility]) 09/24/2015 Glaucoma 09/24/2015 Gout 09/24/2015 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 Resolved Problems Problem Noted Date Diagnosed Date Resolved Date Screening PSA (prostate specific antigen) 04/20/2016 11/15/2019 Encounters Date Type Department Care Team Description 09/28/2024 Scan [facility] Scanned, Doc [facility] Lab (SCAN) 09/28/2024 Scan [facility] INFO SRVCS Scanned, Doc [facility] Lab (SCAN) 09/28/2024 Telephone [facility] [place] [place] [address] [phone] Noa Byers RN Follow Up (/) 09/28/2024 Patient Outreach [facility] [address] [phone] Tila Moreno BSW ER F/U 09/27/2024 4:11 AM SUPPORT SERVICES COORDINATOR - 09/27/2024 9:02 AM [facility] Emergency [facility] [place] [address] Anil Ramirez MD Back Pain Discharge Disposition: Home or Self Care (Routine Discharge) 09/27/2024 Travel 09/25/2024 Scan [facility] INFO SRVCS Scanned, Doc Med Group 09/20/2024 Telephone [facility] [address] [phone] Nolan Marcos MD Medication Problem (Contour Next Test Strips) 09/19/2024 1:40 PM SUPPORT SERVICES COORDINATOR Office Visit [facility] Internal [address] [phone] Nolan Marcos MD Fall (Patient c/o fall 2 days. Having pain on RT side buttocks and across low back. ) 09/19/2024 Travel 09/18/[address] [phone] Nolan Marcos MD Prior Authorization (cyclobenzaprine (FLEXERIL) 5 MG tablet) 09/17/[address] [phone] Nolan Marcos MD Medication Request 09/14/2024 MyChart Message Enc [address] [phone] Oriana Card, APNP Hydrocodone-acetamin 08/09/2024 Scan [facility] SRVCS Scanned, Doc Med Group 07/31/[address] [phone] Nolan Marcos MD Medication Request 07/31/[address] [phone] Nolan Marcos MD Lab Results 07/17/2024 Scan [facility] INFO SRVCS Scanned, Doc Med Group 07/16/2024 Orders Only [address] [phone] Nolan Marcos MD 07/16/2024 MyChart Message Enc [facility] Internal [address] [phone] Nolan Marcos MD MY MEDS from Last [...] 05/10/2019 Pneumococcal (Prevnar 13) 06/08/2016 Zoster (Zostavax) 60561 Unt/0.65Ml 10/21/2013 Family History Medical History Relation [...] Sex Assigned at Male 11/07/2018 3:30 PM SUPPORT SERVICES COORDINATOR Legal Sex Male 5:59 PM CDT Gender Identity Male 11/07/2018 3:30 PM SUPPORT SERVICES COORDINATOR Sexual Orientation Straight 11/07/2018 3: 30 PM SUPPORT SERVICES COORDINATOR Last Filed Vital Signs Vital Sign Reading Time Taken Comments Blood Pressure 175/83 09/27/2024 3:55 AM SUPPORT SERVICES COORDINATOR Pulse 61 09/27/2024 3:55 AM SUPPORT SERVICES COORDINATOR Temperature 36.6 C (97.9 F) 09/27/2024 3:55 AM SUPPORT SERVICES COORDINATOR Respiratory Rate 18 09/27/2024 3:55 AM SUPPORT SERVICES COORDINATOR Oxygen Saturation 99% 09/27/2024 3:55 AM SUPPORT SERVICES COORDINATOR Inhaled Oxygen Concentration - - Weight 103.4 kg (228 lb) 09/27/2024 3:55 AM SUPPORT SERVICES COORDINATOR Height 180.3 cm (5' 11 ) 09/27/2024 3:55 AM SUPPORT SERVICES COORDINATOR Body Mass Index 31.8 09/27/2024 3:55 AM SUPPORT SERVICES COORDINATOR Plan of Treatment Upcoming Encounters Date Type Department Care Team (Late st Contact Info) Description 10/23/2024 2:40 PM SUPPORT SERVICES COORDINATOR Office Visit [facility] Medical Group Family & Internal Medicine [address] [phone] Nolan Marcos MD [address] [place] [address] [phone] Health Maintenance Due Date Last Done Comments Annual Medicare Wellness Visit 2005 Diabetes: Retinopathy Eye Exam 08/25/2022 08/25/2021, 2021, 11/19/2019 PHQ-2 (Physician Solomon) 09/05/2024 10/20/2023 COVID-19 Vaccine ( season) 2024 [...] PEL WO CON STAT 09/27/2024 7:03 AM SUPPORT SERVICES COORDINATOR CT LUMB SPINE WO CON STAT 09/27/2024 7:03 AM SUPPORT SERVICES COORDINATOR XR LUMB SPINE 3V Routine 09/19/2024 3:11 PM SUPPORT SERVICES COORDINATOR Fall, initial encounter Low back pain XR PELVIS AP+RT HIP 2V Routine 09/19/2024 3:11 PM SUPPORT SERVICES COORDINATOR Fall, initial encounter Acute buttock pain THYROID STIM HORMONE TSH Routine 07/16/2024 3:46 PM SUPPORT SERVICES COORDINATOR THYROXINE, FREE (FT4) Routine 07/16/2024 3:46 PM SUPPORT SERVICES COORDINATOR LIPID PANEL Routine 04/23/2024 11:10 AM CDT Type 2 diabetes mellitus with stage 3a chronic kidney disease, without long-term current use of insulin ([facility]) HEMOGLOBIN, GLYCOSYLATED Routine 04/19/2024 Type 2 diabetes mellitus with stage 3a chronic kidney disease, without long-term current use of insulin ([facility]) DIABETIC RETINOPATHY EXAM (NEGATIVE)(SCAN ORDER) Routine 08/25/2021 from Last 3 Months or Most Recently Relevant to Health Maintenance Results * OUTSIDE LAB COVID-19 (09/28/2024) CORONAVIRUS SARS COV 2 PCR (RESP) NOT DETECTED NOT DETECTED [facility] 09/28/2024 Result [employer] Scanned SCANNING Final Resu lt [facility] ONBASE * OUTSIDE LAB (SCAN ORDER) (09/28/2024) Only the most recent of7 resultswithin the time period is included. 09/28/2024 [employer] Scanned SCANNING Final Resu lt * CT PEL WO CON (09/27/2024 7:03 AM SUPPORT SERVICES COORDINATOR) Anatomical Region Laterality Modality Pelvis Computed Tomogra phy 09/27/2024 7:45 AM SUPPORT SERVICES COORDINATOR Impressions 09/27/2024 8:01 AM SUPPORT SERVICES COORDINATOR IMPRESSION: No appreciable acute fracture or dislocation. Degenerative changes of the lumbosacral spine, pelvis, and hips. Potential soft tissue contusion in the left hip region. Correlate with clinical exam. Ordered By: ANIL RAMIREZ Interpreted By: Toi Mar, 09/27/2024 7:45 AM Narrative 09/27/2024 8:01 AM SUPPORT SERVICES COORDINATOR [address] [address] IMAGING STUDIES: CT PEL WO CON DATE: [...] Procedure Note Toi Mar MD - 09/27/[address] [address] IMAGING STUDIES: CT PEL WO CONDATE: 09/27/2024 [...] LUMB SPINE WO CON (09/27/2024 7:03 AM SUPPORT SERVICES COORDINATOR) Anatomical Region Laterality Modality Spine Computed Tomogra phy 09/27/2024 7:28 AM SUPPORT SERVICES COORDINATOR Impressions 09/27/2024 7:35 AM SUPPORT SERVICES COORDINATOR IMPRESSION: 1. No acute fracture or dislocation. [...] 09/27/2024 7:28 AM Narrative 09/27/2024 7:35 AM SUPPORT SERVICES COORDINATOR [address] [address] EXAMINATION:Lumbar spine CT without contrast 09/27/2024 INDICATION:Lower [...] Procedure Note Vivek Hood MD - 09/27/2024 [facility] [address] [place], [place] [address] EXAMINATION:Lumbar spine CT without contrast 09/27/2024 INDICATION:Lower [...] PELVIS AP+RT HIP 2V (09/19/2024 3:11 PM SUPPORT SERVICES COORDINATOR) Anatomical Region Laterality Modality Pelvis, Hip Radiographic Rocío ging 09/20/2024 2:02 PM SUPPORT SERVICES COORDINATOR Impressions 09/20/2024 2:03 PM SUPPORT SERVICES COORDINATOR IMPRESSION: No acute abnormality. Ordered By: NOLAN MARCOS Interpreted By: Dipesh Draper MD, 09/20/2024 2:02 PM Narrative 09/20/2024 2:03 PM SUPPORT SERVICES COORDINATOR [facility] Medical Group Family and Internal Medicine - [address] [address] Examination: XR PELVIS AP+RT HIP 2V Exam time: 09/19/2024 2:53 PM Clinical history: Fall. Right posterior buttock pain. Comparison: 07/06/2021 right hip Technique: AP view of the pelvis and each hip joint was obtained. Small uvuvy-qo-bfuy AP and lateral right hip joint. Findings: [...] Procedure Note Dipesh Draper MD - 09/20/2024 [facility] Medical Group [place] [address] Examination: XR PELVIS AP+RT HIP 2V Exam time: 09/19/2024 2:53 PM Clinical history: Fall. Right posterior buttock pain. Comparison: 07/06/2021 right hip Technique: AP view of the pelvis and each hip joint was obtained. Ggdeauvoku-hd-vwdb AP and lateral right hip joint. Findings: [...] XR LUMB SPINE 3V (09/19/2024 3:11 PM SUPPORT SERVICES COORDINATOR) Anatomical Region Laterality Modality Spine Radiographic Rocío ging 09/20/2024 1:59 PM SUPPORT SERVICES COORDINATOR Impressions 09/20/2024 2:01 PM SUPPORT SERVICES COORDINATOR IMPRESSION: 1. No evidence of fracture or acute osseous abnormality. 2. Degenerative changes as described. Ordered By: NOLAN MARCOS Interpreted By: Dipesh Draper MD, 09/20/2024 1:59 PM Narrative 09/20/2024 2:01 PM SUPPORT SERVICES COORDINATOR [facility] [place] [address] Examination: XR LUMB SPINE 3V Exam time: [...] Procedure Note Dipesh Draper MD - 09/20/2024 [facility] [place] [address] Examination: XR LUMB SPINE 3V Exam time: [...] * THYROXINE, FREE (FT4) (07/16/2024 3:46 PM SUPPORT SERVICES COORDINATOR) FREE T4 1.0 0.8 - 1.8 ng/dL [place] 07/16/2024 3:46 PM SUPPORT SERVICES COORDINATOR 07/16/2024 3:48 PM SUPPORT SERVICES COORDINATOR Narrative Resulting Agency Comment Performing Organization Information: Site ID: Name: [facility] Address: [facility] [place] [address] Director: Charity Kruger Nolan Marcos MD LABORATORY Final Result Performing Organization Address City/[facility] Co de Phone Number [employer] - [place] [facility] [phone] [place] [address] * THYROID STIM HORMONE TSH (07/16/2024 3:46 PM SUPPORT SERVICES COORDINATOR) TSH 0.87 0.40 - 4.50 mIU/L [place] 07/16/2024 3:46 PM SUPPORT SERVICES COORDINATOR 07/16/2024 3:48 PM SUPPORT SERVICES COORDINATOR Narrative Resulting Agency Comment Performing Organization Information: Site ID: Name: [facility] Address: [facility] [place] [address] Director: Charity Kruger Nolan Marcos MD LABORATORY Final Result Performing Organization Address City/[facility]/ZIP Co de Phone Number [employer] - [place] [facility] [address], [place] * (ABNORMAL) LIPID PANEL (04/23/2024 11:10 AM CDT) CHOLESTEROL 171 <200 MG/DL 04/23/2024 2:47 PM CDT [facility] TRIGLYCERIDES 142 <150 MG/DL 04/23/2024 2:47 PM CDT [facility] HDL 39(L) >40 MG/DL 04/23/2024 2:47 PM CDT [facility] LDL-C 104(H) <100 MG/DL 04/23/2024 2:47 PM CDT [facility] VLDL CALCULATION 28 5 - 28 MG/DL 04/23/2024 2:47 PM CDT [facility] CHOL/HDL RATIO 4.4(H) 0.0 - 4.0 04/23/2024 2:47 PM CDT [facility] LDL/HDL 2.7(H) 0.41 - 2.13 04/23/2024 2:47 PM CDT [facility] NON HDL CHOLESTEROL 132 <140 MG/DL 04/23/2024 2:47 PM CDT [facility] 04/23/2024 11:1 0 AM CDT Nolan Marcos MD LABORATORY Final Result [facility] [address] [place] [address], [place] [phone] * HEMOGLOBIN, GLYCOSYLATED (04/19/2024) HGB A1C 5.7 % [facility] 04/19/2024 Nolan Marcso MD LABORATORY Final Result [facility] [address] [place] [address], [place] * DIABETIC RETINOPATHY EXAM (NEGATIVE)(SCAN) (08/25/2021) us Documents Scanned SCANNING Final Result [facility] from Last 3 Months or Most Recently Relevant to Health Maintenance Insurance [employer] Care Teams Teaching Dietitian Relationship Specialty Start Date End Date Nolan Marcos MD [address] [place] [id number] PCP - General INTERNAL MEDICINE 08/31/18
--- OUTSIDE RECORDS SUMMARY | 2024-10-15 04:29 | XMS_ITS | Continuity of Care Document ---
Author Organization [facility] Address [address] [place] [address] Phone Care Team Providers Care Gluing Machine Operator Automatic Name Role Phone Altman OD, Braden Unavailable Unavailable Procedures Procedure Date Visual Field Examination(s) Eye Exam & Treatment Refraction Visual Field Examination(s) Eye Exam, New Patient Refraction Advance Directives Directive Yes / No Effective Date File Name No Information Encounters Encounter Description Practice Location Reason(s) For Visit Diagnoses Date Provider Providers Copied on Encounter [facility], [address] [place] [address] [address], [place], [place], [address], tel:[phone] [facility] No Information 9-201 0 Altman OD Braden. [address] , [address], [place], [place], [facility], . tel:[phone] Referring Provider: Braden Agapito OD A, [address], [place], [place], [facility]. tel:[phone] 7509 [facility], [address], [place], [place], [address], tel:[phone] [facility] No Information 0-201 0 Altman OD Braden. [address] , [address], [place], [place], [facility], . tel:[phone] Referring Provider: Guille Cameron MD F, [address] [place], [address]. tel:[phone] [facility], [address] [place], [place] [address], [place], [place], [address], tel:[phone] [place] [address] No Information Nov-0 2-200 9 Krishnasmateo Earnest. [address] [place] [address], [facility], . tel:[phone] Referring Provider: Earnest العراقي, [address] [place] [address], [place], [facility]. tel:[phone] 2469 [facility], [address] [place] [address] [address], [place], [place], [address], tel:[phone] [place] [address] No Information Sep-0 2-200 9 Krishnasamy Earnest. [address] [place] [address], [facility], . tel:[phone] Family History Family Member Type Diagnosis Age At Onset No Information Payers Payer name Insurance type Covered libertarian ID Authoriza tion(s) [employer] Adv [place] [id number] Social History Type Description Quantity Date Captured [...]
--- NOTE | 2024-10-15 04:37 | ED.EXTPRO ---
HPI - Extremity Problem General Chief complaint: Extremity Problem,Nontraumatic Stated complaint: leg pain Time Seen by Provider: 10/15/24 04:10 Source: patient Mode of arrival: ambulatory Limitations: no limitations History of Present Illness HPI Narrative: Patient presents with bilateral low back pain/buttock pain with radiation into bilateral thighs, stopping before knees. States he sees/has previously seen Dr Katey Paul for pain epidurals in sciatic nerve as well as x4 pain epidurals in his back for chronic back pain. He tried calling but was unable to make an appointment. At home takes propranolol (asks 'is that for pain? ) and had been taking naproxen regularly BID but ran out. He was seen 2 weeks ago for this and prescribed lidocaine patches but they ran out. No history DVT or PE. Trauma approximately 1 month ago preceded this episode, no interval acute trauma. States this has been the worst pain ever. Denies incontinence of bowel/bladder. He has been experiencing paresthesias in his back but not in his groin or legs (No saddle anestesia). No history cancer, IVDU, fevers. Not on anticoagulation. Has some suprapubic tenderness occasionally when he urinates but no other abdominal pain. Related Data Home Medications ?Medication ?Instructions ?Recorded ?Confirmed ?Last Taken ?Type diazepam 5 mg tablet 5 mg PO BID PRN Anxiety 10/22/19 12/22/22 Unknown History naproxen 500 mg tablet 500 mg PO BID 10/22/19 12/22/22 Unknown History propranolol 80 mg capsule,24 80 mg PO DAILY 10/22/19 12/22/22 Unknown History hr,extended release tamsulosin 0.4 mg capsule 0.4 mg PO DAILY 10/22/19 12/22/22 Unknown History hydrocodone 7.5 mg-acetaminophen 1 tablet PO Q8H PRN Pain 03/20/20 12/22/22 Unknown History 325 mg tablet (Union) cyclosporine 0.05 % eye drops 1 drp BID 12/22/22 12/22/22 Unknown History (Restasis MultiDose) duloxetine 60 mg capsule,delayed 60 mg PO DAILY 12/22/22 12/22/22 Unknown History release melatonin 5 mg tablet 5 mg PO HS PRN Sleep 12/22/22 12/22/22 Unknown History timolol maleate 0.25 % eye drops 1 drp QAM 12/22/22 12/22/22 Unknown History Allergies Allergy/AdvReac Type Severity Reaction Status Date / Time Penicillins Allergy Unknown Rash Verified 09/28/24 16:37 [facility] Past Medical History Medical History Lumbar radiculopathy Right hip pain Arthritis Depression Urinary hesitancy Urinary frequency Sleep apnea Hearing loss Vision abnormalities Trochanteric bursitis of right hip Surgical History Surgical History H/O blepharoplasty 04/01/16 History of surgery 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 & May. 2013 History of right knee joint replacement 01/26/14 History of surgery Turbinate coblation, 07/05/12 Hx of myringotomy Bilateral, without tube, 02/01/12 Right ear with tube, 05/24/12 Hx of nasal septoplasty Endoscopic, bilateral, 11/25/11 H/O craniotomy left side, 07/17/08 History of hand surgery Dupytron's release left fourth digit. 2006 History of right knee surgery Cartilage removal, 1995 History of appendectomy 1953 Family History Family History Sibling Family history of diabetes mellitus in first degree relative Family history of heart disease in male family member before age 55 Mother Family history of diabetes mellitus in first degree relative Father Family history of diabetes mellitus in first degree relative Family history of heart disease in male family member before age 55 Other Arthritis Cancer Social History Social History (Updated 10/15/24 @ 08:38 by Kerrie Oseguera MD) Smoking status: Current every day smoker Tobacco type: cigarettes Second hand tobacco smoke exposure: Yes Additional smoking assessment comments: 1PK/DAY/50YRS, NOW 3 CIGARRETTES DAILY Alcohol intake: current Alcohol use details: 1 SHOT YEARLY ON NEW YEARS DAY Substance use: never Substance use type: does not use Other substance usage details: denies IVDU Living arrangements: alone Spiritual care concerns: No Exam Narrative: GENERAL: Well-appearing, well-nourished, and in no acute distress. HEAD: Normocephalic, atraumatic. EYES: Non injected, non icteric ENT: Nares clear, no rhinorrhea or epistaxis. NECK: Supple. CHEST: Speaking in full sentences. No respiratory distress. HEART: Regular rate and rhythm. . ABDOMEN: Soft, nondistended. BACK: Nontender to palpation of spinous processes which are midline. No tenderness to palpation of paraspinal muscles. Patient demonstrates flexion and extension as well as rotational movemement about lumbar spine but has reported increased pain with flexion. Unable to perform straight leg raise assessment as patient will not tolerate lying flat. EXTREMITIES: Normal range of motion. No lower extremity edema. SKIN: Warm, dry, no rash. Venous stasis bilateral anterior lower extremities. NEURO: No focal deficits. Alert and oriented x3. Sensation intact to gross touch throughout bilateral lower extremities including in thighs and calves. 5/5 strength bilateral dorsi/plantarflexion, knee flexion/extension, and hip flexion/abduction/adduction though states pain in left side is exacerbated by performing right hip flexion. PSYCH: Congruent mood and affect. Course Vital Signs Vital signs: Vital Signs Temperature 97.9 F 10/15/24 04:13 Pulse Rate 62 10/15/24 04:13 Respiratory Rate 19 10/15/24 04:13 Blood Pressure 170/76 H 10/15/24 04:13 Pulse Oximetry 100 10/15/24 04:13 Oxygen Delivery Room Air 10/15/24 04:13 Temperature 97.5 F L 10/15/24 08:17 Pulse Rate 56 L 10/15/24 08:17 Respiratory Rate 16 10/15/24 08:17 Blood Pressure 165/76 H 10/15/24 08:17 Pulse Oximetry 100 10/15/24 08:17 Oxygen Delivery Room Air 10/15/24 04:13 MDM - Extremity (Nontraumatic) MDM Narrative Medical decision making narrative: Patient with reported history of chronic back pain s/p multiple epidurals in sciatia and pain epidurals in the back presents with acute on chronic low back pain radiating into buttocks and bilateral posterior thighs terminating at the knees. In the emergency department he is afebrile with vital signs notable for hypertension. Back has no deformities, external skin changes, or signs of trauma. Curvature is within normal limits. No tenderness is noted on palpation of the spinous processes which are midline. Lumbar paraspinal muscles are not tender and are without spasm. States you can't re-create the pain just by pressing on it, but I can (procedes to flex at lumbar). Patient demonstrates flexion, extension, and [id number] rotation of the lumbar spine. Sensation to the lower extremities is normal bilaterally. Dorsi/plantar flexion is normal bilaterally. They do not have any other red flags for infection (e.g. spinal epidural abscess): no cancer, no fever, IV drug use. He does occasionally have suprapubic abdominal pain. However, this is his second presentation for the same and unable to assess Straight leg raise test due to pain. Will proceed with CT imaging and give norco. Patient urinated but there was unfortunately a significant delay in obtaining a post void residual at which time there was 100cc. For this reason, I do have low suspicion for cauda equina . He also has both urinary hesitancy and frequency listed in his PMH. Patient reassessed. States moving in the right direction but not quite there. Discussed multimodal pain management strategy and he is in agreement. Given Ketorolac IM, lidocaine patch, and Steroid in ED and provided Rx for OTC analgesic medications, lidcaine patches, and small dose muscle relaxer to use only at night after discussing that at increased risk of falls and thus to only take as directed. Verifies understanding. Advised to f/u with pain specialist he had been seeing and given ED return precautions. Medical Records Attestation: I reviewed the patient's medical records. Medical records narrative: Reviewed recent ED note that shows this episode had been preceded by trauma/fall and imaging had been done at outside location. No imaging performed when seen recently in [place] ED. Lab Data Labs: Lab Results 10/15/24 10/15/24 Range/Units 05:32 05:56 POC Capillary Glucose 109 H (65-105) mg/dl Urine Color Dark yellow (Yellow) Urine Appearance Clear (Clear) Urine pH 5.5 (5.0-9.0) Ur Specific Hamilton 1.033 (1.001-1.035) Urine Protein Trace (Negative) mg/dL Urine Glucose (UA) Negative (Negative) mg/dL Urine Ketones 1+ H (Negative) mg/dL Ur Blood (Man) Negative (Negative) Urine Nitrate Negative (Negative) Urine Bilirubin 1+ H (Negative) Urine Urobilinogen 1.0 (<2.0) mg/dL Leukocyte Esterase Rfl Negative (Negative) DIAMANTE/UL Urine RBC 0-2 (0-2) /hpf Urine WBC 0-5 (0-3) /hpf Ur Squamous Epith Cells None seen (Few) /hpf Urine Bacteria None seen /hpf Urine Casts 3-5 Imaging Data Radiologist's impression: Impressions Lumbar Spine CT 10/15/24 07:10 Impression: Severe degenerative spondylosis, as above, with multilevel spinal canal stenosis and neural foraminal narrowing. Probable mild chronic loss of height of L4. 6 mm anterolisthesis of L4 over L5. Discharge Plan Discharge Clinical Impression: Spondylosis, Spinal stenosis of lumbar region, Anterolisthesis of lumbar spine, Chronic low back pain with bilateral sciatica Patient Disposition: Home, Self-Care Condition: Stable Instructions: Antibiotic Form, Sciatica (ED), Lumbar Spinal Stenosis (ED), Lumbar Radiculopathy (ED), Chronic Back Pain (DC), Lower Back Exercises (ED) Additional Instructions: As we discussed, you are being prescribed combination of medications each work on different reasons why you may be having pain. There medications for pain, inflammation, muscle relaxation, and topical approaches. They are to be used in combination to help make your pain more manageable so that you can balance some rest with maintaining movement and strenghthening exercises. Follow-up with your primary care physician as well as Dr Katey Paul, the doctor who you have seen before for injections/pain management. Return to the ER if you have increased pain in your back, you develop lower extremity weakness/numbness/paralysis, you have numbness or tingling in your private parts, or you are unable to control your ability to urinate/stool. Patient Language: B[place] Prescriptions: New lidocaine 4 % adhesive patch,medicated 1 patch topical DAILY PRN (Reason: pain) Qty: 10 0RF methocarbamol 750 mg tablet 750 mg PO HS Qty: 7 0RF ibuprofen 600 mg tablet 600 mg PO TID PRN (Reason: pain) Qty: 30 0RF acetaminophen 500 mg capsule 1,000 mg PO Q6H PRN (Reason: pain) Qty: 30 0RF No Action propranolol 80 mg capsule,extended release 24 hr 80 mg PO DAILY Patient Comments: TAKES AT 1200 NOON naproxen 500 mg tablet 500 mg PO BID diazepam 5 mg tablet 5 mg PO BID PRN (Reason: Anxiety) tamsulosin 0.4 mg capsule 0.4 mg PO DAILY hydrocodone-acetaminophen [Union] 7.5-325 mg tablet 1 tablet PO Q8H PRN (Reason: Pain) timolol maleate 0.25 % drops 1 drp QAM Rx Instructions: EACH EYE duloxetine 60 mg capsule,delayed release(DR/EC) 60 mg PO DAILY Patient Comments: TAKES AT MIDNIGHT melatonin 5 mg Tablet 5 mg PO HS PRN (Reason: Sleep) Restasis MultiDose 0.05 % drops 1 drp BID Rx Instructions: EACH EYE lidocaine 5 % adhesive patch,medicated 1 patch topical DAILY Qty: 15 0RF Rx Instructions: leave on most painful area for up to 12 hrs cyclobenzaprine 5 mg tablet 5 mg PO TID PRN (Reason: muscle spasm) Qty: 15 0RF Follow-up/Referrals: Priti,Nolan Cisneros MD [Primary Care Provider] - Time of Disposition: 07:42
[2024-10-15] MEDS: HYDROcodone/acetaminophen (*CRX) 5-325 MG TABLET 1 TAB PO (05:33)
[2024-10-15 05:48] LABS: Add Urine Microscopic? YES; Appearance Urine Clear (Clear); Bacteria Urine None Seen /hpf; Bilirubin Urine 1+ (Negative); Blood Urine Negative (Negative); Color Urine Dark Yellow (Yellow); Glucose Urine UA Negative (Negative); Ketones Urine 1+ mg/dL (Negative); Leukocyte Esterase Ur Negative LEU/UL (Negative); Nitrate Urine Negative (Negative); Protein Urine Trace mg/dL (Negative); RBC Urine 0-2 /hpf (0-2); Specific Grav Ur 1.033 (1.001-1.035); Squamous Epithelial Cell Urine None Seen /hpf (Few); WBC Urine 0-5 /hpf (0-3); pH Urine 5.5 (5.0-9.0)
[2024-10-15 05:59] LABS: Glucose Point of Care 109 mg/dl (65-105)
[2024-10-15 07:01] VITALS: BP 173/77; PULSE 56; RESP 17; O2SAT 97
[2024-10-15] MEDS: KETOROLAC 30 MG/ML VIAL (*BKC) 5 MG IM (07:41)
[2024-10-15] MEDS: LIDOCAINE 5% PATCH 1 PATCH TRANSDERM (07:42)
[2024-10-15] MEDS: diazePAM (*CRX) 2.5 MG TABLET PO (07:42)
[2024-10-15] MEDS: predniSONE 20 MG TABLET PO (07:47)
[2024-10-15 08:17] VITALS: BP 165/76; PULSE 56; RESP 16; TEMP 36.4; O2SAT 100
[2024-10-15 08:31] VITALS: BP 165/76; PULSE 56; RESP 16; TEMP 36.4; O2SAT 100
== END 2024-10-15 08:32 | disposition home or self-care (01) ==
PROVIDERS: Emergency Provider Student in an Organized Health Care Education/Training Program; PCP Internal Medicine
DX: M47.816 Spondylosis without myelopathy or radiculopathy, lumbar region (principal); M48.061 Spinal stenosis, lumbar region without neurogenic claudication; M43.16 Spondylolisthesis, lumbar region; M54.42 Lumbago with sciatica, left side; M54.41 Lumbago with sciatica, right side; M19.90 Unspecified osteoarthritis, unspecified site; G47.30 Sleep apnea, unspecified; Z96.651 Presence of right artificial knee joint; F17.210 Nicotine dependence, cigarettes, uncomplicated; Z79.899 Other long term (current) drug therapy
CPT/HCPCS: 72131; 81001; 82948; 96372; 99284; A9270; J1885; J7512

== ENCOUNTER 2024-10-26 10:09 | Inpatient (IN) | payer OTHER, SELFPAY ==
[2024-10-26] VITALS (70 sets, daily range): BP systolic 124–194; BP diastolic 71–110; PULSE 92–123; RESP 12–39; TEMP 36.4; O2SAT 71–100
--- NOTE | ~2024-10-26 | XR_ITS ---
XR chest 1V portable 10/26/2024 13:30 Indication: Shortness of breath Procedure: AP portable chest Comparison: 02/15/2014 Findings: Shallow inspiration with crowding of the pulmonary vessels. No focal air space disease, pul monary edema, pleural effusion or suspected pneumothorax. Impression: 1: No acute cardiopulmonary disease. Reviewed, dictated and finalized at location L. PRESIDENT MARKETING [employer] DEVELOPMENT Impression: 1: No acute cardiopulmonary disease.
--- NOTE | ~2024-10-26 | CT_ITS ---
EXAMINATION: CT abdomen pelvis wo con DATE: 10/26/2024 14:12 INDICATION: Flank pain. TECHNIQUE: Computed tomography (CT) of the abdomen and pelvis was performed without intravenous contr ast. Automated exposure control and iterative reconstruction technique were employed. The dose-length product was 1355.25 mGy-cm. COMPARISON: CT lumbar spine 10/15/2024, MRI 11/11/2023 FINDINGS: The visualized portions of the lung bases demonstrate chronic appearing septal thickening w ith a peripheral predominance. There is mild bronchiectasis bilaterally. Calcified right lung nodules and calcified right hilar lymph nodes are consistent with old granulomatous disease. No pleural effu marco. There is a trace right pleural effusion. There is elevation of right hemidiaphragm. The heart s ize is normal. There are coronary artery calcifications. No pericardial effusion. The liver and splee n are normal. The gallbladder is distended. The pancreas and adrenal glands are normal. There is a 7 mm stone in right kidney. There is mild bilateral hydronephrosis and hydroureter. The bladder is kari edly distended. Stool distends the rectum. There is diverticulosis of the colon without evidence of d iverticulitis. There are no dilated loops of bowel. The appendix is not visualized. There are no path ologically enlarged lymph nodes. There is no free intraperitoneal fluid. There is a left inguinal her lopez containing fat. There is severe lumbar spondylosis. At L1-L2, there are erosions of L1 inferior e ndplate. There is a fracture of L2 superior endplate without significant height loss. There is worsen ed severe height loss of the L1-L2 disc. Again seen is vacuum disc phenomenon at L1-L2. There is para spinal soft tissue swelling at L1-L2. There are bridging endplate osteophytes at multiple levels in t he thoracic spine, consistent with diffuse idiopathic skeletal hyperostosis (DISH). IMPRESSION: 1. Discitis/osteomyelitis at L1-L2. 2. Mild bilateral hydronephrosis and hydroureter, new from 10/15/2024, which may be secondary to the m arkedly distended bladder. 3. Stool distends the rectum. 4. Gallbladder distention, which may be secondary to fasting. Correlate with physical exam to exclude acute cholecystitis. Reviewed, dictated and finalized at location A. ING AND ASSEMBLING SUPERVISOR IMPRESSION: 1. Discitis/osteomyelitis at L1-L2. 2. Mild bilateral hydronephrosis and hydroureter, new from 10/15/2024, which may be secondary to the markedly distended bladder. 3. Stool distends the rectum. 4. Gallbladder distention, which may be secondary to fasting. Correlate with ph ysical exam to exclude acute cholecystitis.
--- NOTE | ~2024-10-26 | US_ITS ---
Duplex Sonography of the left upper extremity: Indication: Swelling Sagittal and transverse B-mode images as well as color-flow imaging were performed on the left pr internship al jugular, subclavian, axillary, brachial, basilic, cephalic, radial, and ulnar veins. B-mode exami nation was done without and with compression in the transverse plane. There is good visualization of the internal jugular, subclavian, axillary, brachial, and basilic veins. There is thrombosis of the left cephalic vein, which is filled with echogenic clot. No fluoroscopy compressibility evident. Remaining venous structures seen in the left ovary showing demonstrate normal flow and compressibilit y.. Impression: Thrombosis involving the left cephalic vein. No other thromboses identified in the remaining visualized venous structures in the left upper extrem ity. Reviewed, dictated and finalized at [facility]. [place] [employer] Impression: Thrombosis involving the left cephalic vein. No other thromboses identified in the remaining visualized venous structures in the left upper extremity.
--- OUTSIDE RECORDS SUMMARY | 2024-10-26 10:46 | XMS_ITS | Clinical Summary ---
Author Organization [employer] [id number] [facility] Address [address] [place] [address] Care Team Providers Care Generator Repairer Name Role Phone Nolan Marcos MD Primary Care Provider [phone] Allergies Active Allergy Reactions Criticality Noted Date [...] on file Legal Sex Male 2:42 PM EPIC APPLICATION COORDINATOR Gender Identity Not on file Sexual Orientation Not on file Last Filed Vital Signs Vital Sign Reading Time Taken Comments Blood Pressure - - Pulse - - Temperature - - Respiratory Rate - - Oxygen Saturation - - Inhaled Oxygen Concentration - - Weight 102.1 kg (225 lb) 09/30/2020 2:39 PM EPIC APPLICATION COORDINATOR Height 182.9 cm (6') 09/30/2020 2:39 PM EPIC APPLICATION COORDINATOR Body Mass Index 30.52 09/30/2020 2:39 PM EPIC APPLICATION COORDINATOR Plan of Treatment Health Maintenance Due [...] 65+ YEARS Completed 05/10/2019 , 06/08/2016 Insurance [facility] MCR Care Teams Generator Repairer Relationship Specialty Start Date End Date Nolan Marcos MD [address] [place] [address] PCP - General Internal Medicine 09/18/20
--- OUTSIDE RECORDS SUMMARY | 2024-10-26 10:46 | XMS_ITS | Continuity of Care Document ---
Author Organization [facility] Address [address] [place] [address] Phone Care Team Providers Care Building Construction Engineer Name Role Phone Vivek Abbasi MD Unavailable [...] Diagnoses Date Provider Providers Copied on Encounter [email or web address], [address], [place], [place], [address] , tel: [phone] [facility] No Information 3 Elroy Doyle. [address] [place] [address], [address], [place], [place], [address], . tel:[phone] [email or web address], [address], [place], [place], [address] , tel: [phone] Conversion Department No Information 1 Conversion Doctor[place], [address], . [facility], [address], [place], [place], [address] , tel: [phone] [facility] SCRN MALIG NEOP-PROSTATETEST ICULAR HYPOFUNC NECBENIGN HYPERTENSIONTRAUM ATIC BRAIN HEM NECDMII WO CMP NT ST UNCNTR 8 Elroy Doyle. [address] [place] [address], [address], [place], [place], [address], [place]. tel: [phone] [employer], [address], [place], [place], [address] , tel: [phone] [facility] DERMATITIS DUE TO PLANT 8 Conversion Doctor. [facility] [place], [place], [facility], . [facility], [address], [place], [place], [address] , [place] tel: [phone] [facility] JOINT PAIN-SHLDER Sep-0 200 8 Elroy Doyle. [address] [place] [address], [address], [place], [place], [address], [place]. tel: [phone] [facility], [address], [place], [place], [address] , [place] tel: [phone] [facility] OTITIS MEDIA NOS 8 Elroy Doyle. [address] [place] [address], [address], [place], [place], [address], [place]. tel: [phone] [facility], [address], [place], [place], [address] , [place] tel:[phone] [facility] GOUT NOS 8 Conversion Doctor. [address] [place] [address], [address], [place]. [facility], [address], [place], [place], [address] , [place] tel: [phone] [facility] ABN INVOLUN MOVEMENT NECHYPERLIPIDEMIA NEC/NOSCHRO KIDNEY DIS STAGE IIMALAISE AND FATIGUE NECDMII RENL NT ST UNCNTRLD Nov0 200 7 Elroy Doyle. [address] [place] [address], [address], [place], [place], [address], [place]. tel: [phone] [facility] [employer], [address], [place], [place], [address] , [place] tel: [phone] [facility] DERMATITIS NOS 2-200 7 Conversion Doctor. [address] [place] [address], [facility], . [employer], [address], [place], [place], [address] , [place] tel: [phone] [facility] IMPOTENCE, ORGANIC ORIGNPURE HYPERCHOLESTEROLE MSLEEP APNEA NOS 6 Abbasilouise Doyle. [address] [place] [address], [address], [place], [place], [address], . tel:[phone] [email or web address], [address], [place], [place], [address] , tel: [phone] [facility] ND VAC STRPTCS PNEUMNI BLOC PRIM OSTEOART-L/LEGGEN ERAL OSTEOARTHROSISROU BLANCA MEDICAL EXAMABNORMAL GLUCOSE NEC 6 Abbasilouise Doyle. [address] [place] [address], [address], [place], [place], [address], . tel:[phone] [email or web address], [address], [place], [place], [address] , tel: [phone] [facility] THROMBOCYTOPENIA NOSJOINT PAIN-L/LEG 5 Abbasilouise Doyle. [address] [place] [address], [address] , [place], [place], [address], . tel: [phone] [employer], [address], [place], [place], [address] , tel: [phone] [facility] MIXED HYPERLIPIDEMIA 4 Abbasi Vivek. [address] [place] [address], [address], [place], [place], [address], . tel:[phone] Family History Family Member Type Diagnosis Age At Onset No Information Immunizations Vaccine Date Status Comments 60246 - Pneumococcal_PPV23 administered S ource: Source Unspecified Payers Payer name Insurance type Covered green party ID Authoriza tion(s) No Information Social [...]
--- OUTSIDE RECORDS SUMMARY | 2024-10-26 10:46 | XMS_ITS | Continuity of Care Document ---
Author Organization [facility] Address [address] [place] [address] Phone Care Team Providers Care Aviation Program Manager Name Role Phone Altman OD, Braden Unavailable Unavailable Procedures Procedure Date Visual Field Examination(s) Eye Exam & Treatment Refraction Visual Field Examination(s) Eye Exam, New Patient Refraction Advance Directives Directive Yes / No Effective Date File Name No Information Encounters Encounter Description Practice Location Reason(s) For Visit Diagnoses Date Provider Providers Copied on Encounter [facility], [address] [place] [address] [address], [place], [place], [address], tel:[phone] [facility] No Information 9-201 0 Altman OD Braden. [address], [place], [place], [facility], . tel:[phone] Referring Provider: Braden Agapito OD A, [address], [place], [place], [facility]. tel:[phone] 5801 [facility], [address], [place], [place], [address], tel:[phone] [facility] No Information 0-201 0 Altman OD Braden. [address] , [address], [place], [place], [facility], . tel:[phone] Referring Provider: Guille Cameron MD F, [address] [place], [address]. tel:[phone] [facility], [address] [place], [place] [address] [address], [place], [place], [address], tel:[phone] [place] [address] No Information Nov-0 2-200 9 Krishnasmateo Earnest. [address] [place] [address], [facility], . tel:[phone] Referring Provider: Earnest العراقي, [address] [place] [address] [address] [place], [facility]. tel:[phone] 4329 [facility], [address] [place] [address] [facility] [address], [place], [place], [address], tel:[phone] [place] [address] No Information Sep-0 2-200 9 Krishnasamy Earnest. [address] [place] [address], [facility], . tel:[phone] Family History Family Member Type Diagnosis Age At Onset No Information Payers Payer name Insurance type Covered alliance party ID Authoriza tion(s) [employer] [place] [id number] Social History Type Description Quantity Date Captured [...]
--- OUTSIDE RECORDS SUMMARY | 2024-10-26 12:00 | XMS_ITS | Clinical Summary ---
Author Organization [facility] Address [facility] [place] [address] Care Team Providers Care Gastroenterology Manager Name Role Phone Nolan Marcos MD Primary Care Provider [phone] Allergies Active Allergy Reactions Criticality Noted Date Comments Penicillins Dizziness,Hives,Itching 09/24/2015 Medications Lancets MiscIndications:D iabetes mellitus ([facility]) Use 1 lancet TID 300 Container [...] (two) times daily. Active neomycin-polymyxi n-dexamethasone (MAXITROL) 3.5-99910-1.1 Ointment APPLY A THIN LAYER INTO BOTH [...] day 30 capsule 11 03/14/20 24 Active hydroCHLOROthiazi de (MICROZIDE) 12.5 MG capsuleIndication s:Generalized edema Take 1 capsule (12.5 mg total) by mouth every morning. 30 capsule 3 04/19/20 24 Active CONTOUR NEXT TEST test stripIndications: Controlled type 2 diabetes mellitus without complication, without long-term current use of insulin ([facility] HHS/[facility]) USE ONE STRIP IN METER THREE [...] DAY 30 capsule 5 09/11/19 25 Active Glucose Blood (FREESTYLE LITE) test stripIndications: Type 2 diabetes mellitus with stage 3a chronic kidney disease, without long-term current use of insulin ([facility]) 1 strip by Other route daily. 100 strip 3 09/25/19 25 Active HYDROcodone-aceta minophen (NORCO) 7.5-325 MG tabletIndications :Chronic Pain Take 1 tablet by mouth every 8 (eight) hours as needed for Pain. Indication s: Chronic Pain 30 tablet 10/15/19 25 Active naproxen (NAPROSYN) 500 MG tabletIndications :Spasmodic torticollis TAKE 1 TABLET BY MOUTH TWICE A DAY WITH FOOD 60 tablet 1 10/15/19 25 Active oxyCODONE-acetami nophen (PERCOCET) 5-325 MG tabletIndications :Acute Pain < 7 Day Supply Take 1 tablet by mouth every 8 (eight) hours as needed for Pain. Indication s: Acute Pain < 7 Day Supply 10 tablet 10/22/19 25 Active naproxen (NAPROSYN) 500 MG tabletIndications :Spasmodic torticollis take 1 tablet by mouth twice a day with food 60 tablet 5 04/16/20 24 025 Discontinued HYDROcodone-aceta minophen (NORCO) 7.5-325 MG tabletIndications :Chronic Pain Take 1 tablet by mouth every 8 (eight) hours as needed for Pain. Indication s: Chronic Pain 30 tablet 09/14/19 25 025 Discontinued(R eorder) cyclobenzaprine (FLEXERIL) 5 MG tabletIndications :Severe low back pain Take 1 tablet (5 mg total) by mouth 3 (three) times daily as needed for Muscle Spasms. 30 tablet 09/18/19 25 025 oxyCODONE-acetami nophen (PERCOCET) 5-325 MG tabletIndications :Acute Pain < 7 Day Supply Take 1 tablet by mouth every 8 (eight) hours as needed for Pain. Indication s: Acute Pain < 7 Day Supply 10 tablet 09/19/19 25 025 Discontinued(R eorder) HYDROcodone-aceta minophen (NORCO) 7.5-325 MG tabletIndications :Chronic Pain Take 1 tablet by mouth every 8 (eight) hours as needed for Pain. Indication s: Chronic Pain 30 tablet 10/04/19 25 025 Discontinued(R eorder) predniSONE (DELTASONE) 20 MG tabletIndications :Severe low back pain Take 2 tablets (40 mg total) by mouth daily for 4 days, THEN 1 tablet (20 mg total) daily for 3 days. 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 ([facility]) 07/15/2022 Primary osteoarthritis involving multiple joints 05/22/2020 Primary insomnia 10/03/2018 Spasmodic torticollis 07/18/2017 Dystonia 04/22/2017 Allergic rhinitis 10/21/2016 Obstructive sleep apnea 04/20/2016 Benign familial tremor 09/24/2015 Arthritis 09/24/2015 BPH (benign prostatic hyperplasia) 09/24/2015 Type 2 diabetes mellitus wit h chronic kidney disease, without long-term current use of insulin ([facility]) 09/24/2015 Glaucoma 09/24/2015 Gout 09/24/2015 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 Resolved Problems Problem Noted Date Diagnosed Date Resolved Date Screening PSA (prostate specific antigen) 04/20/2016 11/15/2019 Encounters Date Type Department Care Team Description 10/23/2024 Travel 10/19/2024 Patient Outreach [facility] Family Internal [address] [address] Nolan Marcos MD Pre-visit Gap Closure 10/18/2024 Prep for Procedure [facility] [place] [address] [id number] Crissy Paul MD 10/18/[address] [phone] Nolan Marcos MD Information 10/15/2024 Scan [facility] SRVCS Scanned, [facility] Lab (SCAN); CT (SCAN) 09/28/2024 Scan [facility] INFO SRVCS Scanned, [facility] (SCAN) 09/28/2024 Scan [facility] INFO SRVCS Scanned, [facility] (SCAN) 09/28/2024 Telephone [facility] [place] [address] [id number] Noa Byers RN Follow Up (/) 09/28/2024 Patient Outreach [facility] Internal [address] [address] Tila Moreno BSW ER F/U 09/27/2024 4:11 AM MANAGER HEART - 09/27/2024 9:02 AM MANAGER HEART Emergency [facility] [place] [address] Anil Ramirez MD Back Pain Discharge Disposition: Home or Self Care (Routine Discharge) 09/27/2024 Travel 09/25/2024 Scan [facility] INFO SRVCS Scanned, [facility] 09/20/[address] [address] Nolan Marcos MD Medication Problem (Contour Next Test Strips) 09/19/2024 1:40 PM MANAGER HEART Office Visit [address] [phone] Nolan Marcos MD Fall (Patient c/o fall 2 days. Having pain on RT side buttocks and across low back. ) 09/19/2024 Travel 09/18/[address] [phone] Nolan Marcos MD Prior Authorization (cyclobenzaprine (FLEXERIL) 5 MG tablet) 09/17/[address] [phone] Nolan Marcso MD Medication Request 09/14/2024 [employer] Message Enc [address] [phone] Oriana Card, APNP Hydrocodone-acetamin 08/09/2024 Scan [facility] INFO SRVCS Scanned, [facility] 07/31/[address] [phone] Nolan Marcos MD Medication Request 07/31/[address] [phone] Nolan Marcos MD Lab Results from Last 3 Months Immunizations Name Administration Dates Next Due Arexvy Respiratory Syncytial Virus (RSV, adjuvanted) 0.5 mL, PF 04/16/2024 Fluzone 6 Months+ Quad (0.5 mL Prefilled Syringe) 11/03/2023 Fluzone High Dose (IIV, triv alent, 0.5mL) 08/09/2024 Fluzone High Dose - >Age 65 (Prefilled Syringe) 07/15/2022,05/23/2020,06/29/2018,2015 Influenza (Generic) 07/16/2014, 3,08/13/2012,2010 Influenza Adult (Generic) 08/10/2024,07/06/2019 MODERNA COVID-19 (12+) MRNA, LNP-S, PF, 100 MCG/ 0.5 ML DOSE 08/09/2024 MODERNA COVID-19 (12+), MRNA , LNP-S, PF, 50 MCG/0.5 ML (SPIKEVAX) 08/09/2024 PFIZER COVID-19 (JUAN CAP), MRNA, LNP-S, PF, 30 MCG/0.3 ML SANAZ-SUCROSE, IM 04/14/2022 PFIZER COVID-19 (ORIGINAL FORMULATION, PURPLE CAP) mRNA, LNP-S, PF, 30 MCG/0.3 ML DOSE 09/28/2021,11/06/2020 Pneumococcal (Pneumovax 23) 05/10/2019 Pneumococcal (Prevnar 13) 06/08/2016 Zoster (Zostavax) 570[address] Unt/0.65Ml 10/21/2013 Family History Medical History Relation [...] Assigned at Male 11/07/2018 3:30 PM MANAGER HEART Legal Sex Male 5:59 PM CDT Gender Identity Male 11/07/2018 3:30 PM MANAGER HEART Sexual Orientation Straight 11/07/2018 3: 30 PM MANAGER HEART Last Filed Vital Signs Vital Sign Reading Time Taken Comments Blood Pressure 175/83 09/27/2024 3:55 AM MANAGER HEART Pulse 61 09/27/2024 3:55 AM MANAGER HEART Temperature 36.6 C (97.9 F) 09/27/2024 3:55 AM MANAGER HEART Respiratory Rate 18 09/27/2024 3:55 AM MANAGER HEART Oxygen Saturation 99% 09/27/2024 3:55 AM MANAGER HEART Inhaled Oxygen Concentration - - Weight 103.4 kg (228 lb) 09/27/2024 3:55 AM MANAGER HEART Height 180.3 cm (5' 11 ) 09/27/2024 3:55 AM MANAGER HEART Body Mass Index 31.8 09/27/2024 3:55 AM MANAGER HEART Plan of Treatment Upcoming Encounters Date Type Department Care Team (Late st Contact Info) Description 10/30/2024 9:40 AM MANAGER HEART Appointment [facility] Interventional [place] [address] [phone] Jere Arnold, NURSING CLINICAL DIRECTOR [address] [phone] (Work) Health Maintenance Due Date Last Done Comments Annual Medicare Wellness Visit 2005 Diabetes: Retinopathy Eye Exam 08/25/2022 08/25/2021, 2021, 11/19/2019 PHQ-2 (Physician [place]) 09/05/2024 10/20/2023 COVID-19 Vaccine ( season) 2024 08/09/2024, 08/09/2024, 04/14/2022, Additional history exists Hemoglobin A1C 10/20/2024 04/19/2024, [...] Name Priority Date/Time Associated Diagnosis Comments CT GENERIC 10/15/2024 OUTSIDE LAB (SCAN ORDER) 10/15/2024 OUTSIDE LAB (SCAN ORDER) 10/15/2024 OUTSIDE LAB COVID-19 (SCAN ORDER) Routine 09/28/2024 OUTSIDE LAB (SCAN ORDER) 09/28/2024 OUTSIDE LAB (SCAN ORDER) 09/28/2024 OUTSIDE LAB (SCAN ORDER) 09/28/2024 OUTSIDE LAB (SCAN ORDER) 09/28/2024 OUTSIDE LAB (SCAN ORDER) 09/28/2024 OUTSIDE LAB (SCAN ORDER) 09/28/2024 OUTSIDE LAB (SCAN ORDER) 09/28/2024 CT PEL WO CON STAT 09/27/2024 7:[address] LUMB SPINE WO CON STAT 09/27/2024 7:03 AM MANAGER HEART XR LUMB SPINE 3V Routine 09/19/2024 3:11 PM MANAGER HEART Fall, initial encounter Low back pain XR PELVIS AP+RT HIP 2V Routine 09/19/2024 3:11 PM MANAGER HEART Fall, initial encounter Acute buttock pain LIPID PANEL Routine 04/23/2024 11:10 AM CDT Type 2 diabetes mellitus with stage 3a chronic kidney disease, without long-term current use of insulin ([facility] HHS/HCC) HEMOGLOBIN, GLYCOSYLATED Routine 04/19/2024 Type 2 diabetes mellitus with stage 3a chronic kidney disease, without long-term current use of insulin ([facility] HHS/HCC) DIABETIC RETINOPATHY EXAM (NEGATIVE)(SCAN ORDER) Routine 08/25/2021 from Last 3 Months or Most Recently Relevant to Health Maintenance Results * CT GENERIC (10/15/2024) Anatomical Region Laterality Modality Other 10/15/2024 Result [employer] Scanned SCANNING Final Resu lt * OUTSIDE LAB (SCAN ORDER) (10/15/2024) Only the most recent of9 resultswithin the time period is included. 10/15/2024 Result [employer] Scanned SCANNING Final Resu lt * OUTSIDE LAB COVID-19 (09/28/2024) CORONAVIRUS SARS COV 2 PCR (RESP) NOT DETECTED NOT DETECTED [facility] 09/28/2024 Result [employer] [facility] Scanned SCANNING Final Resu lt [facility] * CT PEL WO CON (09/27/2024 7:03 AM MANAGER HEART) Anatomical Region Laterality Modality Pelvis Computed Tomogra phy 09/27/2024 7:45 AM MANAGER HEART Impressions 09/27/2024 8:01 AM MANAGER HEART IMPRESSION: No appreciable acute fracture or dislocation. Degenerative changes of the lumbosacral spine, pelvis, and hips. Potential soft tissue contusion in the left hip region. Correlate with clinical exam. Ordered By: ANIL RAMIREZ Interpreted By: Toi Mar, 09/27/2024 7:45 AM Narrative 09/27/2024 8:01 AM MANAGER HEART [address] [address] IMAGING STUDIES: CT PEL WO CON DATE: [...] Procedure Note Toi Mar MD - 09/27/[address] [address] IMAGING STUDIES: CT PEL WO CONDATE: 09/27/2024 [...] SPINE WO CON (09/27/2024 7:03 AM MANAGER HEART) Anatomical Region Laterality Modality Spine Computed Tomogra phy 09/27/2024 7:28 AM MANAGER HEART Impressions 09/27/2024 7:35 AM MANAGER HEART IMPRESSION: 1. No acute fracture or dislocation. [...] 7:28 AM Narrative 09/27/2024 7:35 AM MANAGER HEART [address] [address] EXAMINATION:Lumbar spine CT without contrast 09/27/2024 INDICATION:Lower [...] Procedure Note Vivek Hood MD - 09/27/[address] [address] EXAMINATION:Lumbar spine CT without contrast 09/27/2024 INDICATION:Lower [...] By: Vivek Hood MD, 09/27/2024 7:28 AM Anil Ramirez MD CT Final Result * XR PELVIS AP+RT HIP 2V (09/19/2024 3:11 PM MANAGER HEART) Anatomical Region Laterality Modality Pelvis, Hip Radiographic Rocío ging 09/20/2024 2:02 PM MANAGER HEART Impressions 09/20/2024 2:03 PM MANAGER HEART IMPRESSION: No acute abnormality. Ordered By: NOLAN MARCOS Interpreted By: Dipesh Draper MD, 09/20/2024 2:02 PM Narrative 09/20/2024 2:03 PM MANAGER HEART [facility] [place] [address] Examination: XR PELVIS AP+RT HIP 2V Exam time: 09/19/2024 2:53 PM Clinical history: Fall. Right posterior buttock pain. Comparison: 07/06/2021 right hip Technique: AP view of the pelvis and each hip joint was obtained. Small [id number] AP and lateral right hip joint. Findings: [...] Procedure Note Dipesh Draper MD - 09/20/2024 [facility] [place] [address] Examination: XR PELVIS AP+RT HIP 2V Exam time: 09/19/2024 2:53 PM Clinical history: Fall. Right posterior buttock pain. Comparison: 07/06/2021 right hip Technique: AP view of the pelvis and each hip joint was obtained. Mptqeilamo-cg-[id number] AP and lateral right hip joint. Findings: [...] By: Dipesh Draper MD, 09/20/2024 2:02 PM us Nolan Marcos MD GENERAL IMAGING Final Result * XR LUMB SPINE 3V (09/19/2024 3:11 PM MANAGER HEART) Anatomical Region Laterality Modality Spine Radiographic Rocío ging 09/20/2024 1:59 PM MANAGER HEART Impressions 09/20/2024 2:01 PM MANAGER HEART IMPRESSION: 1. No evidence of fracture or acute osseous abnormality. 2. Degenerative changes as described. Ordered By: NOLAN MARCOS Interpreted By: Dipesh Draper MD, 09/20/2024 1:59 PM Narrative 09/20/2024 2:01 PM MANAGER HEART [facility] [place] [address] Examination: XR LUMB SPINE 3V Exam time: [...] Procedure Note Dipesh Draper MD - 09/20/2024 [facility] [place] [address] Examination: XR LUMB SPINE 3V Exam time: [...] Marcos MD GENERAL IMAGING Final Result * (ABNORMAL) LIPID PANEL (04/23/2024 11:10 AM CDT) CHOLESTEROL 171 <200 MG/DL 04/23/2024 2:47 PM CDT [facility] TRIGLYCERIDES 142 <150 MG/DL 04/23/2024 2:47 PM CDT [facility] HDL 39(L) >40 MG/DL 04/23/2024 2:47 PM CDT [facility] LDL-C 104(H) <100 MG/DL 04/23/2024 2:47 PM CDT [facility] VLDL CALCULATION 28 5 - 28 MG/DL 04/23/2024 2:47 PM CDT [facility] CHOL/HDL RATIO 4.4(H) 0.0 - 4.0 04/23/2024 2:47 PM CDT [facility] LDL/HDL 2.7(H) 0.41 - 2.13 04/23/2024 2:47 PM T [facility] NON HDL CHOLESTEROL 132 <140 MG/DL 04/23/2024 2:47 PM CDT [facility] [place] [place] 04/23/2024 11:1 0 AM CDT Nolan Marcos MD LABORATORY Final Result Performing Organization Address City/[facility]/ZIP Co de Phone Number [facility] [place] [address] [place] [address], * HEMOGLOBIN, GLYCOSYLATED (04/19/2024) HGB A1C 5.7 % [facility] 04/19/2024 Nolan Marcos MD LABORATORY Final Result Performing Organization Address City/[facility]/ZIP Co de Phone Number [facility] [address] [place] [address], [place] * DIABETIC RETINOPATHY EXAM (NEGATIVE)(SCAN) (08/25/2021) us Documents Scanned SCANNING Final Result Performing Organization Address City/[facility] Co de Phone Number [facility] from Last 3 Months or Most Recently Relevant to Health Maintenance Insurance [employer] Care Teams Gastroenterology Manager Relationship Specialty Start Date End Date Nolan Marcos MD [address] [place] [address] PCP - General INTERNAL MEDICINE 08/31/18
--- OUTSIDE RECORDS SUMMARY | 2024-10-26 12:00 | XMS_ITS | Clinical Summary ---
Author Organization [facility] [facility] Address [address] [place] [address] Care Team Providers Care Cheese Weigher Name Role Phone Nolan Marcos MD Primary Care Provider [phone] Allergies Active Allergy Reactions Criticality Noted Date [...] on file Legal Sex Male 2:42 PM [employer] MANAGER Gender Identity Not on file Sexual Orientation Not on file Last Filed Vital Signs Vital Sign Reading Time Taken Comments Blood Pressure - - Pulse - - Temperature - - Respiratory Rate - - Oxygen Saturation - - Inhaled Oxygen Concentration - - Weight 102.1 kg (225 lb) 09/30/2020 2:39 PM [employer] MANAGER Height 182.9 cm (6') 09/30/2020 2:39 PM [employer] MANAGER Body Mass Index 30.52 09/30/2020 2:39 PM [employer] MANAGER Plan of Treatment Health Maintenance Due Date [...] 65+ YEARS Completed 05/10/2019 , 06/08/2016 Insurance [facility] MCR Care Teams Cheese Weigher Relationship Specialty Start Date End Date Nolan Marcos MD [address] [place] [address] PCP - General Internal Medicine 09/18/20
--- OUTSIDE RECORDS SUMMARY | 2024-10-26 12:00 | XMS_ITS | Continuity of Care Document ---
Author Organization [facility] Address [address] [place] [address] Phone Care Team Providers Care Case Specialist Name Role Phone Vivek Abbasi MD Unavailable [...] Diagnoses Date Provider Providers Copied on Encounter [facility], [address], [place], [place], [address] , tel: [phone] [facility] No Information 3 Elroy Doyle. [address] [place] [address], [address], [place], [place], [address], . tel:[phone] [facility], [address], [place], [place], [address] , tel: [phone] Conversion Department No Information 1 Conversion Doctor. [facility] [place], [address], . [employer] [facility], [address], [place], [place], [address] , tel: [phone] [facility] SCRN MALIG NEOP-PROSTATETEST ICULAR HYPOFUNC NECBENIGN HYPERTENSIONTRAUM ATIC BRAIN HEM NECDMII WO CMP NT ST UNCNTR 8 Elroy Doyle[address] [place] [address], [address], [place], [place], [address], [place]. tel: [phone] [employer], [address], [place], [place], [address] , tel: [phone] [facility] DERMATITIS DUE TO PLANT 8 Conversion Doctor. Critical access hospital[facility] [place], [place], [facility], . [facility], [address], [place], [place], [address] , [place] tel: [phone] [facility] JOINT PAIN-SHLDER Sep-0 200 8 Elroy Doyle. [address] [place] [address], [address], [place], [place], [address], [place]. tel: [phone] [facility], [address], [place], [place], [address] , [place] tel: [phone] [facility] OTITIS MEDIA NOS 8 Elroy Doyle. [address] [place] [address], [address], [place], [place], [address], [place]. tel: [phone] [facility], [address], [place], [place], [address] , [place] tel:[phone] [facility] GOUT NOS 8 Conversion Doctor. [address] [place] [address], [address], [place]. [facility], [address], [place], [place], [address] , [place] tel: [phone] [facility] ABN INVOLUN MOVEMENT NECHYPERLIPIDEMIA NEC/NOSCHRO KIDNEY DIS STAGE IIMALAISE AND FATIGUE NECDMII RENL NT ST UNCNTRLD Nov0 200 7 Elroy Doyle. [address] [place] [address], [address], [place], [place], [address], [place]. tel: [phone] [facility], [address], [place], [place], [address] , [place] tel: [phone] [facility] DERMATITIS NOS 2-200 7 Conversion Doctor. [address] [place] [address], [facility], . [employer] [facility], [address], [place], [place], [address] , [place] tel: [phone] [facility] IMPOTENCE, ORGANIC ORIGNPURE HYPERCHOLESTEROLE MSLEEP APNEA NOS 6 Abbasilouise Doyle. [address] [place] [address], [address], [place], [place], [address], . tel:[phone] [facility], [address], [place], [place], [address] , tel: [phone] [facility] ND VAC STRPTCS PNEUMNI BLOC PRIM OSTEOART-L/LEGGEN ERAL OSTEOARTHROSISROU BLANCA MEDICAL EXAMABNORMAL GLUCOSE NEC 6 Abbasilouise Doyle. [address] [place] [address], [address], [place], [place], [address], . tel:[phone] [facility], [address], [place], [place], [address] , tel: [phone] [facility] THROMBOCYTOPENIA NOSJOINT PAIN-L/LEG 5 Abbasilouise Doyle. [address] [place] [address], [address] , [place], [place], [address], . tel:[phone] [facility], [address], [place], [place], [address] , tel: [phone] [facility] MIXED HYPERLIPIDEMIA 4 Abbasi Vivek. [address] [place] [address], [address], [place], [place], [address], . tel:[phone] Family History Family Member Type Diagnosis Age At Onset No Information Immunizations Vaccine Date Status Comments 65970 - Pneumococcal_PPV23 administered S ource: Source Unspecified [...]
--- OUTSIDE RECORDS SUMMARY | 2024-10-26 12:00 | XMS_ITS | Continuity of Care Document ---
Author Organization [facility] Address [address] [place] [address] Phone Care Team Providers Care Ham Smoker Name Role Phone Altman OD, Braden Unavailable Unavailable Procedures Procedure Date Visual Field Examination(s) Eye Exam & Treatment Refraction Visual Field Examination(s) Eye Exam, New Patient Refraction Advance Directives Directive Yes / No Effective Date File Name No Information Encounters Encounter Description Practice Location Reason(s) For Visit Diagnoses Date Provider Providers Copied on Encounter [facility], [id number] [place] [address] [address], [place], [place], [address], tel:[phone] [facility] No Information 9-201 0 Altman OD Braden. [address], [place], [place], [facility], . tel:[phone] Referring Provider: Braden Agapito OD A, [address], [place], [place], [facility]. tel:[phone] 9356 [facility], [address], [place], [place], [address], tel:[phone] [facility] No Information 0-201 0 Altman OD Braden. [address] , [address], [place], [place], [facility], . tel:[phone] Referring Provider: Guille Cameron MD F, [address] [place], [address]. tel:[phone] [facility], [address] [place], [place] [address], [place], [place], [address], tel:[phone] [place] [address] No Information Nov-0 2-200 9 Krishnasmateo Earnest. [address] [place] [address], [facility], . tel:[phone] Referring Provider: Earnest العراقي, [address] [place] [address], [place], [facility]. tel:[phone] 8035 [facility], [address] [place] [address] [facility] [address], [place], [place], [address], tel:[phone] [place] [address] No Information Sep-0 2-200 9 Krishnasamy Earnest. [address] [place] [address], [facility], . tel:[phone] Family History Family Member Type Diagnosis Age At Onset No Information Payers Payer name Insurance type Covered constitution party ID Authoriza tion(s) [employer] Md[employer] Adv CI [id number] Social History Type Description Quantity Date Captured [...]
--- OUTSIDE RECORDS SUMMARY | 2024-10-26 12:00 | XMS_ITS | Encounter Summary ---
Author Organization [facility] Address [facility] [place] [address] Care Team Providers Care Automatic Oven Operator Name Role Phone Nolan Marcos MD Primary Care Provider [phone] Encounter Details Date Type Department Care Team (Late st Contact Info) Description 10/18/2024 Prep for Procedure [facility] [place] [address] [id number] Crissy Paul MD [facility] [address] [place], [place] [id number] Social History Tobacco Use Types Packs/Day Years [...] Sex Assigned at Male 11/07/2018 3:30 PM PRACTICE MANAGEMENT CONSULTANT Legal Sex Male 5:59 PM CDT Gender Identity Male 11/07/2018 3:30 PM PRACTICE MANAGEMENT CONSULTANT Sexual Orientation Straight 11/07/2018 3: 30 PM PRACTICE MANAGEMENT CONSULTANT documented as of this encounter Plan of Treatment Upcoming Encounters Date Type Department Care Team (Late st Contact Info) Description 10/30/2024 9:40 AM PRACTICE MANAGEMENT CONSULTANT Appointment [facility] [place] [address] [id number] Jere Arnold, SCRIPT EDITOR [address] [facility] [address] [place] [address] [id number] (Work) documented as of this encounter Visit Diagnoses Not on filedocumented in this encounter Additional Health Concerns Assessment Noted Time PHQ-9 Depression Total Score: 8 02/17/20 23 2:09 PM CDT documented as of this encounter Care Teams Automatic Oven Operator Relationship Specialty Start Date End Date Nolan Marcos MD [address] [place] [id number] PCP - General INTERNAL MEDICINE 08/31/18 documented as of this encounter
--- OUTSIDE RECORDS SUMMARY | 2024-10-26 12:00 | XMS_ITS | Encounter Summary ---
Author Organization [facility] Address [facility] [place] [address] Care Team Providers Care Contact Center Agent Name Role Phone Nolan Marcos MD Primary Care Provider [phone] Encounter Details Date Type Department Care Team (Latest Contact Info) Description 05/05/2018 Abstract [facility] , Enrrique Gould MD Social History Tobacco Use Types Packs/Day Years Used Date Smoking Tobacco: Never Assessed Sex and Gender Information Value Date Recorded Sex Assigned at Male 11/07/2018 3:30 PM HEAD OF MARKETING Legal Sex Male 5:59 PM CDT Gender Identity Male 11/07/2018 3:30 PM HEAD OF MARKETING Sexual Orientation Straight 11/07/2018 3: 30 PM HEAD OF MARKETING documented as of this encounter Plan of Treatment Upcoming Encounters Date Type Department Care Team (Late st Contact Info) Description 10/30/2024 9:40 AM HEAD OF MARKETING Appointment [facility] Inter[facility] [address] [id number] Jere Arnold, LEASE OUT WORKER 3 [facility] [address] [place] [address] [id number] (Work) documented as of this encounter Visit Diagnoses Not on filedocumented in this encounter Care Teams Contact Center Agent Relationship Specialty Start Date End Date Nolan Marcos MD [address] [place] [id number] PCP - General INTERNAL MEDICINE 08/31/18 documented as of this encounter
[2024-10-26] MEDS: MORPHINE SULFATE (*CRX) 4 MG/ML INJ 2 MG IV PUSH (12:14)
[2024-10-26] MEDS: SODIUM CHLORIDE 0.9% IV 1,000 ML 999 ML IV CONT (12:15)
[2024-10-26 12:34] LABS: Basophils Percent Auto 0.1 % (0.2-1.2); Hematocrit 40.4 % (42.0-52.0); Hemoglobin 13.3 g/dL (14.0-18.0); Immature Granulocyte Absolute 0.16 K/mm3 (0.00-0.031); Immature Granulocyte Percent A 0.8 % (0-0.5); Lymphocytes Absolute Auto 0.66 K/mm3 (0.9-3.2); Lymphocytes Percent Auto 3.2 % (18.3-44.2); Mean Corpuscular HGB Conc 32.9 g/dl (32-36); Mean Corpuscular Hemoglobin 29.3 pg (26-34); Mean Platelet Volume 9.8 fl (7.4-10.4); Monocytes Percent Auto 4.6 % (2.6-8.5); Neutrophils Absolute Auto 18.7 K/mm3 (1.3-6.7); Neutrophils Percent Auto 91.3 % (45.5-73.1); Platelet Count Result 384 k/mm3 (150-375); Red Blood Count 4.54 M/mm3 (4.6-6.20); Red Cell Distribution Width 13.5 % (11.5-14.5); White Blood Count 20.5 K/mm3 (4.5-10.0)
--- NOTE | 2024-10-26 12:39 | ED.BACK ---
HPI - Back Pain/Injury General Chief Complaint: Back Pain/Injury <Jt Lewis MD - Last Filed: 10/26/24 17:39> Stated Complaint: low back pain, chronic <Jt Lewis MD - Last Filed: 10/26/24 17:39> Time Seen by Provider: 10/26/24 11:29 <Jt Lewis MD - Last Filed: 10/26/24 17:39> History of Present Illness HPI Narrative: Patient is an 84-year-old male who presents ER with low back pain. His been a chronic issue for several months. It is bilateral in the SI region where is sharp and will occasionally radiate down his legs. No saddle anesthesia. No difficulty with urination/defecation. Has not had pain control in 3 days. He is supposed to have an injection at his pain doctor soon. No fevers or chills. Patient reports dry mouth. Recently on antibiotics and steroids for UTI and his back pain. He took the steroids for 2 days before his blood sugar went up and he quit the medication. He has not had antibiotics in 5 days. <Jt Lewis MD - Last Filed: 10/26/24 17:39> Related Data Home Medications: Home Medications ?Medication ?Instructions ?Recorded ?Confirmed ?Last Taken ?Type diazepam 5 mg tablet 5 mg PO BID PRN Anxiety 10/22/19 10/27/24 10/26/24 History naproxen 500 mg tablet 500 mg PO BID 10/22/19 10/27/24 10/26/24 History propranolol 80 mg capsule,24 80 mg PO DAILY 10/22/19 10/27/24 10/26/24 History hr,extended release tamsulosin 0.4 mg capsule 0.4 mg PO DAILY 10/22/19 10/27/24 10/26/24 History hydrocodone 7.5 mg-acetaminophen 1 tablet PO Q8H PRN Pain 03/20/20 10/27/24 10/26/24 History 325 mg tablet (Nunica) cyclosporine 0.05 % eye drops 1 drp BID 12/22/22 12/22/22 10/26/24 History (Restasis MultiDose) duloxetine 60 mg capsule,delayed 60 mg PO DAILY 12/22/22 10/27/24 10/26/24 History release melatonin 5 mg tablet 5 mg PO HS PRN Sleep 04/19/23 02/22/25 02/21/25 History timolol maleate 0.25 % eye drops 1 drp QAM 12/22/22 12/22/22 10/26/24 History <Jt Lewis MD - Last Filed: 10/26/24 17:39> Allergies/Adverse Reactions: Allergies Allergy/AdvReac Type Severity Reaction Status Date / Time Penicillins Allergy Unknown Rash Verified 10/26/24 10:11 <Jt Lewis MD - Last Filed: 10/26/24 17:39> Review of Systems Review of Systems: All systems reviewed & are unremarkable except as noted in HPI and below <tJ Lewis MD - Last Filed: 10/26/24 17:39> Constitutional: Constitutional: Reports no additional constitutional complaints <Jt Lewis MD - Last Filed: 10/26/24 17:39> ENT: Reports system reviewed and no additional complaints, except as documented <Jt Lewis MD - Last Filed: 10/26/24 17:39> Cardiovascular: Cardiovascular: Reports no additional cardiovascular complaints <Jt Lewis MD - Last Filed: 10/26/24 17:39> Respiratory: Respiratory: Reports no additional respiratory complaints <Jt Lewis MD - Last Filed: 10/26/24 17:39> Gastrointestinal: Gastrointestinal: Reports no additional gastrointestinal complaints <Jt Lewis MD - Last Filed: 10/26/24 17:39> Musculoskeletal: Musculoskeletal: Reports no additional musculoskeletal complaints <Jt Lewis MD - Last Filed: 10/26/24 17:39> [facility] Past Medical History Medical History: Medical History Lumbar radiculopathy Right hip pain Arthritis Depression Urinary hesitancy Urinary frequency Sleep apnea Hearing loss Vision abnormalities Trochanteric bursitis of right hip <Jt Lewis MD - Last Filed: 10/26/24 17:39> Surgical History Surgical History: Surgical History H/O blepharoplasty 04/01/16 History of surgery 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 2013 History of right knee joint replacement 01/26/14 History of surgery Turbinate coblation, 07/05/12 Hx of myringotomy Bilateral, without tube, 02/01/12 Right ear with tube, 05/24/12 Hx of nasal septoplasty Endoscopic, bilateral, 11/25/11 H/O craniotomy left side, 07/17/08 History of hand surgery Dupytron's release left fourth digit. 2006 History of right knee surgery Cartilage removal, 1995 History of appendectomy 1953 <Jt Lewis MD - Last Filed: 10/26/24 17:39> Family History Family History: Family History Sibling Family history of diabetes mellitus in first degree relative Family history of heart disease in male family member before age 55 Mother Family history of diabetes mellitus in first degree relative Father Family history of diabetes mellitus in first degree relative Family history of heart disease in male family member before age 55 Other Arthritis Cancer <Jt Lewis MD - Last Filed: 10/26/24 17:39> Social History Social History: Social History (Updated 10/15/24 @ 08:38 by Kerrie Oseguera MD) Years smoked: 65 Smoking status: Current every day smoker Tobacco type: cigarettes Second hand tobacco smoke exposure: Yes Additional smoking assessment comments: 1PK/DAY/50YRS, NOW 3 CIGARRETTES DAILY Alcohol intake: current Alcohol use details: 1 SHOT YEARLY ON Substance use: never Substance use type: does not use Other substance usage details: denies IVDU Do You Feel Safe in your Home?: Yes Lack of Transportation: No Lack of Food: Never True Current Housing: I Have Housing Concerned About Future Housing: No Difficulty Paying Gas/Electric Bills: No Difficulty Paying for Meds: No Currently Unemployed: No Education: Master's Degree or Higher Difficulty w/ Childcare or Family Care: No Living arrangements: alone Spiritual care concerns: No <Jt Lewis MD - Last Filed: 10/26/24 17:39> Exam Narrative: GENERAL: Uncomfortable-appearing, well-nourished, and in no acute distress. HEAD: Normocephalic, atraumatic. ENT: Mucous membranes moist. CHEST: Clear to auscultation. No respiratory distress. HEART: Tachycardic and regular. Normal peripheral pulses. ABDOMEN: Soft, nontender, nondistended Back: No midline tenderness the T/L-spine. Bilateral SI region tenderness the reproduces patient's pain improved no soft tissue tenderness in the paraspinal areas superior to the SI. EXTREMITIES: Normal range of motion. No edema. SKIN: Warm, dry, no rash. NEURO: Alert and oriented x3. PSYCH: Normal mood and affect. <Jt Lewis MD - Last Filed: 10/26/24 17:39> Course Course Emergency Course: 1241: Urine is very dark. Will evaluate for infection hydrate. Also will provide pain control. Additionally hypoxia initially reported was just a poor reading and he does not require oxygen. 1445: Discussed with Dr. Montanez, recommends tertiary care eval with ID as consult. 1555: Discussed with Dr. Estrella at [facility], accepted for transfer. Recommends bone bx of spine here if possible. If not possible start broad spectrum abx. Discussed with Dr. Hernandez with radiology here and we do not biopsy the spine. Will start vancomycin, cefepime, and flagyl. 1730: Daughter present and updated on care plan. <Jt Lewis MD - Last Filed: 10/26/24 17:39> Reevaluation(s) Reevaluation #1: On re-evaluation patient is resting comfortably. Bed is still pending and [facility]. Patient has been in the emergency department for 24 hours. I discussed the case with the hospitalist patient was accepted up stairs while we continue to wait for a bed at [facility]. <Philippe Jaimes MD - Last Filed: 10/27/24 18:16> Vital Signs Vital signs: Vital Signs Temperature 97.5 F L 10/26/24 10:13 Pulse Rate 122 H 10/26/24 10:13 Respiratory Rate 16 10/26/24 10:13 Blood Pressure 124/71 10/26/24 10:13 Pulse Oximetry 96 10/26/24 10:13 Oxygen Delivery Room Air 10/26/24 10:13 Temperature 98.4 F 10/27/24 15:22 Pulse Rate 92 10/27/24 15:22 Respiratory Rate 20 10/27/24 15:22 Blood Pressure 164/87 H 10/27/24 15:22 Pulse Oximetry 97 10/27/24 15:22 Oxygen Delivery Room Air 10/27/24 14:07 Oxygen Flow Rate 3 10/26/24 12:43 <Jt Lewis MD - Last Filed: 10/26/24 17:39> Vital Signs Temperature 97.5 F L 10/26/24 10:13 Pulse Rate 122 H 10/26/24 10:13 Respiratory Rate 16 10/26/24 10:13 Blood Pressure 124/71 10/26/24 10:13 Pulse Oximetry 96 10/26/24 10:13 Oxygen Delivery Room Air 10/26/24 10:13 Temperature 98.4 F 10/27/24 15:22 Pulse Rate 92 10/27/24 15:22 Respiratory Rate 20 10/27/24 15:22 Blood Pressure 164/87 H 10/27/24 15:22 Pulse Oximetry 97 10/27/24 15:22 Oxygen Delivery Room Air 10/27/24 14:07 Oxygen Flow Rate 3 10/26/24 12:43 <Philippe Jaimes MD - Last Filed: 10/27/24 18:16> MDM - Back Pain/Injury Lab Data Result diagrams: 10/26/24 12:27 10/27/24 04:32 <Jt Lewis MD - Last Filed: 10/26/24 17:39> Labs: Lab Results 10/26/24 10/26/24 10/27/24 Range/Units 12:27 12:37 04:32 WBC 20.5 H (4.5-10.0) K/mm3 RBC 4.54 L (4.6-6.20) M/mm3 Hgb 13.3 L (14.0-18.0) g/dL Hct 40.4 L (42.0-52.0) % MCV 89.0 (80-100) fl MCH 29.3 (26-34) pg MCHC 32.9 (32-36) g/dl RDW 13.5 (11.5-14.5) % Plt Count 384 H D (150-375) k/mm3 MPV 9.8 (7.4-10.4) fl Immature Gran % (Auto) 0.8 H (0-0.5) % Neut % (Auto) 91.3 H (45.5-73.1) % Lymph % (Auto) 3.2 L (18.3-44.2) % Hanson % (Auto) 4.6 (2.6-8.5) % Eos % (Auto) 0.0 (0-4.4) % Baso % (Auto) 0.1 L (0.2-1.2) % Lymph # (Auto) 0.66 L (0.9-3.2) K/mm3 Hanson # (Auto) 1.0 H (0.1-0.6) K/mm3 Eos # (Auto) 0.0 (0-0.3) K/mm3 Baso # (Auto) 0.0 (0.0-0.1) K/mm3 Abs Immat Gran (auto) 0.16 H (0.00-0.031) K/mm3 Absolute Neuts (auto) 18.7 H (1.3-6.7) K/mm3 Absolute Nucleated RBC 0.000 (0.0-0.012) K/mm3 Nucleated RBC % 0.0 (0.0-0.2) % Methemoglobin 0.2 (0-1.5) %THb Sodium 140 (137-145) mmol/L Potassium 4.2 (3.4-5.0) mmol/L Chloride 101 (98-107) mmol/L Carbon Dioxide 22 (22-30) mmol/L Anion Gap 17 H (4-12) mmol/L BUN 48 H D (9-20) mg/dL Creatinine 1.68 H 1.08 (0.7-1.3) mg/dL Estim Creat Clear Calc 36 54 ml/min Estimated GFR 39 L > 60 (59 - ) Glucose 248 H (65-110) mg/dL Calcium 9.2 (8.4-10.2) mg/dL Total Bilirubin 1.9 H (0.2-1.3) mg/dL AST 86 H (17-59) U/L ALT 56 H (6-50) U/L Alkaline Phosphatase 156 H (38-126) U/L Total Protein 7.0 (6.3-8.2) g/dL Albumin 3.4 L (3.5-5.1) g/dL Urine Color Yellow (Yellow) Urine Appearance Cloudy H (Clear) Urine pH 5.5 (5.0-9.0) Ur Specific Media 1.018 (1.001-1.035) Urine Protein 1+ H (Negative) mg/dL Urine Glucose (UA) Trace H (Negative) mg/dL Urine Ketones 1+ H (Negative) mg/dL Ur Blood (Man) 3+ H (Negative) Urine Nitrate Negative (Negative) Urine Bilirubin Negative (Negative) Urine Urobilinogen 1.0 (<2.0) mg/dL Leukocyte Esterase Rfl Trace H (Negative) DIAMANTE/UL Urine RBC 21-50 H (0-2) /hpf Urine WBC 6-10 H (0-3) /hpf Ur Squamous Epith Cells Occasional (Few) /hpf Urine Bacteria None seen /hpf Urine Casts 3-5 <Jt Lewis MD - Last Filed: 10/26/24 17:39> Lab Results 10/26/24 10/26/24 10/27/24 Range/Units 12:27 12:37 04:32 WBC 20.5 H (4.5-10.0) K/mm3 RBC 4.54 L (4.6-6.20) M/mm3 Hgb 13.3 L (14.0-18.0) g/dL Hct 40.4 L (42.0-52.0) % MCV 89.0 (80-100) fl MCH 29.3 (26-34) pg MCHC 32.9 (32-36) g/dl RDW 13.5 (11.5-14.5) % Plt Count 384 H D (150-375) k/mm3 MPV 9.8 (7.4-10.4) fl Immature Gran % (Auto) 0.8 H (0-0.5) % Neut % (Auto) 91.3 H (45.5-73.1) % Lymph % (Auto) 3.2 L (18.3-44.2) % Hanson % (Auto) 4.6 (2.6-8.5) % Eos % (Auto) 0.0 (0-4.4) % Baso % (Auto) 0.1 L (0.2-1.2) % Lymph # (Auto) 0.66 L (0.9-3.2) K/mm3 Hanson # (Auto) 1.0 H (0.1-0.6) K/mm3 Eos # (Auto) 0.0 (0-0.3) K/mm3 Baso # (Auto) 0.0 (0.0-0.1) K/mm3 Abs Immat Gran (auto) 0.16 H (0.00-0.031) K/mm3 Absolute Neuts (auto) 18.7 H (1.3-6.7) K/mm3 Absolute Nucleated RBC 0.000 (0.0-0.012) K/mm3 Nucleated RBC % 0.0 (0.0-0.2) % Methemoglobin 0.2 (0-1.5) %THb Sodium 140 (137-145) mmol/L Potassium 4.2 (3.4-5.0) mmol/L Chloride 101 (98-107) mmol/L Carbon Dioxide 22 (22-30) mmol/L Anion Gap 17 H (4-12) mmol/L BUN 48 H D (9-20) mg/dL Creatinine 1.68 H 1.08 (0.7-1.3) mg/dL Estim Creat Clear Calc 36 54 ml/min Estimated GFR 39 L > 60 (59 - ) Glucose 248 H (65-110) mg/dL Calcium 9.2 (8.4-10.2) mg/dL Total Bilirubin 1.9 H (0.2-1.3) mg/dL AST 86 H (17-59) U/L ALT 56 H (6-50) U/L Alkaline Phosphatase 156 H (38-126) U/L Total Protein 7.0 (6.3-8.2) g/dL Albumin 3.4 L (3.5-5.1) g/dL Urine Color Yellow (Yellow) Urine Appearance Cloudy H (Clear) Urine pH 5.5 (5.0-9.0) Ur Specific Media 1.018 (1.001-1.035) Urine Protein 1+ H (Negative) mg/dL Urine Glucose (UA) Trace H (Negative) mg/dL Urine Ketones 1+ H (Negative) mg/dL Ur Blood (Man) 3+ H (Negative) Urine Nitrate Negative (Negative) Urine Bilirubin Negative (Negative) Urine Urobilinogen 1.0 (<2.0) mg/dL Leukocyte Esterase Rfl Trace H (Negative) DIAMANTE/UL Urine RBC 21-50 H (0-2) /hpf Urine WBC 6-10 H (0-3) /hpf Ur Squamous Epith Cells Occasional (Few) /hpf Urine Bacteria None seen /hpf Urine Casts 3-5 <Philippe Jaimes MD - Last Filed: 10/27/24 18:16> Imaging Data Radiologist's impression: ITS Impressions Chest X-Ray 10/26/24 13:56 Impression: 1: No acute cardiopulmonary disease. Abdomen/Pelvis CT 10/26/24 14:16 IMPRESSION: 1. Discitis/osteomyelitis at L1-L2. 2. Mild bilateral hydronephrosis and hydroureter, new from 10/15/2024, which may be secondary to the markedly distended bladder. 3. Stool distends the rectum. 4. Gallbladder distention, which may be secondary to fasting. Correlate with physical exam to exclude acute cholecystitis. <Jt Lewis MD - Last Filed: 10/26/24 17:39> Critical Care Time Critical Care Time Critical Care Time: Yes <Jt Lewis MD - Last Filed: 10/26/24 17:39> Total Critical Care Time: 45 <Jt Lewis MD - Last Filed: 10/26/24 17:39> Discharge Plan Discharge Clinical Impression: Acute osteomyelitis of lumbar spine, Discitis of lumbar region <Jt Lewis MD - Last Filed: 10/26/24 17:39> Patient Disposition: Acute Care Hospital <Jt Lewis MD - Last Filed: 10/26/24 17:39> Condition: Stable <Jt Lewis MD - Last Filed: 10/26/24 17:39>
[2024-10-26 12:41] LABS: Alveolar/Arterial O2 Gradient 79.1 mmHg; Base Excess ABG -3.4 mEq/l (+/-2.0); Carboxyhemoglobin 0.8 % THb (0-2.0); Fractional Inspired Oxygen 32 %; HCO3 ABG 19.9 mEq/l (22.0-26.0); Methemoglobin ABG 0.2 %THb (0-1.5); Oxygen Content ABG 18.7 %vol (16.0-22.0); Oxygen Saturation ABG 98.3 % (95.0-100.0); Oxyhemoglobin 97.5 % THb (90.0-100.0); PCO2 ABG 30.6 mmHg (35.0-45.0); PO2 ABG 113.3 mmHg (80.0-100.0); PO2 FiO2 Ratio Arterial Blood 3.54 %; Reduced Hemoglobin 1.5 %THb (0-5.0); Total Hemoglobin 13.5 g/dL (12.0-18.0)
[2024-10-26 12:42] LABS: Device NASAL CANNULA; Modified Allen's Test Pass; Site Drawn LEFT RADIAL
[2024-10-26 12:50] LABS: Add Urine Microscopic? YES; Appearance Urine Cloudy (Clear); Bacteria Urine None Seen /hpf; Bilirubin Urine Negative (Negative); Blood Urine 3+ (Negative); Color Urine Yellow (Yellow); Glucose Urine UA Trace mg/dL (Negative); Ketones Urine 1+ mg/dL (Negative); Leukocyte Esterase Ur Trace LEU/UL (Negative); Nitrate Urine Negative (Negative); Protein Urine 1+ mg/dL (Negative); RBC Urine 21-50 /hpf (0-2); Specific Grav Ur 1.018 (1.001-1.035); Squamous Epithelial Cell Urine Occasional /hpf (Few); pH Urine 5.5 (5.0-9.0)
[2024-10-26 13:06] LABS: Alanine Aminotransferase 56 U/L (6-50); Albumin Level 3.4 g/dL (3.5-5.1); Alkaline Phosphatase 156 U/L (38-126); Anion Gap 17 mmol/L (4-12); Aspartate Amino Transferase 86 U/L (17-59); Bilirubin,Total 1.9 mg/dL (0.2-1.3); Blood Urea Nitrogen 48 mg/dL (9-20); Calcium 9.2 mg/dL (8.4-10.2); Carbon Dioxide 22 mmol/L (22-30); Chloride 101 mmol/L (98-107); Estimated CRCL calculation 36 ml/min; Estimated Glomerular Filt Rate 39; Glucose 248 mg/dL (65-110); Potassium 4.2 mmol/L (3.4-5.0); Sodium 140 mmol/L (137-145)
[2024-10-26] MEDS: CEFEPIME 2 GM/NS 50 ML 2 GM/50 ML BAG IVPB (16:36)
[2024-10-26] MEDS: metroNIDAZOLE 500 MG/ISO 100ML 500 MG/100 ML BAG 100 MG IVPB (17:07)
[2024-10-26] MEDS: VANCOMYCIN 1,500 MG/NS 500 ML 1,500 MG/500 ML BAG 250 MG IVPB (18:44)
[2024-10-27] VITALS (15 sets, daily range): BP systolic 151–200; BP diastolic 84–105; PULSE 88–100; RESP 16–22; TEMP 36.4–36.9; O2SAT 92–100; BMI 27.1
[2024-10-27] MEDS: metroNIDAZOLE 500 MG/ISO 100ML 500 MG/100 ML BAG 100 MG IVPB ×3 (02:57→17:47)
--- NOTE | 2024-10-27 03:13 | PC.NURSE ---
This RN spoke to [facility] transfer line and updated about pt POC
[2024-10-27 04:52] LABS: Estimated CRCL calculation 54 ml/min; Estimated Glomerular Filt Rate > 60
[2024-10-27] MEDS: CEFEPIME 2 GM/NS 50 ML 2 GM/50 ML BAG IVPB ×2 (04:55→18:02)
--- NOTE | 2024-10-27 10:29 | P.HP_ITS ---
H&P: HPI History of Present Illness Date/Time: 10/27/24 10:29 Chief Complaint: Back pain Narrative: Patient has a chronic back pain for which he has multiple ED visits. His last visit on 10/15 he presented with bilateral low back pain/buttock pain with radiation into bilateral thighs, stopping before knees. States he sees/has previously seen Dr Katey Paul for pain epidurals in sciatic nerve as well as x4 pain epidurals in his back for chronic back pain. He tried calling but was unable to make an appointment. During discharge on 09/28 he was prescribed lidocaine patches but they ran out. No history DVT or PE. Trauma approximately 1 month ago preceded this episode, no interval acute trauma. States this has been the worst pain ever. Denies incontinence of bowel/bladder. He has been experiencing paresthesias in his back but not in his groin or legs (No saddle anestesia). No history cancer, IVDU, fevers. Not on anticoagulation. Has some suprapubic tenderness occasionally when he urinates but no other abdominal pain. Today again he presented with the same symptom.It is bilateral in the SI region where is sharp and will occasionally radiate down his legs. No saddle anesthesia. No difficulty with urination/defecation. Has not had pain control in 3 days. He is supposed to have an injection at his pain doctor soon. No fevers or chills. Patient reports dry mouth. Recently on antibiotics and steroids for UTI and his back pain. He took the steroids for 2 days before his blood sugar went up and he quit the medication. He has not had antibiotics in 5 days. Pertinent ED labs: WBC 20.5, hemoglobin 13.3, platelet 384, sodium 140, potassium 4.2, BUN 48, creatinine 1.08, AST 86 ALT 56, ALP 156 UA: Trace leukocyte esterase, nitrates negative, WBC 6-10 Abdominal/pelvic CT: Diskitis/osteomyelitis at L1-L2.Mild bilateral hydronephrosis and hydroureter, new from 10/15/2024, which may be secondary to the markedly distended bladder.Stool distends the rectum. Gallbladder distention, which may be secondary to fasting. Correlate with physical exam to exclude acute cholecystitis. Patient admitted in the setting of diskitis/osteomyelitis at L1-L2. Patient has been currently receiving cefepime and vancomycin for broader coverage including [employer]. Patient has been accepted at [facility]. Review of Systems Review of Systems: All systems reviewed & are unremarkable except as noted in HPI and below Constitutional: Constitutional: Reports no additional constitutional complaints ENT: Reports system reviewed and no additional complaints, except as documented Cardiovascular: Cardiovascular: Reports no additional cardiovascular complaints Respiratory: Respiratory: Reports no additional respiratory complaints Gastrointestinal: Gastrointestinal: Reports no additional gastrointestinal complaints Musculoskeletal: Musculoskeletal: Reports no additional musculoskeletal complaints [facility] Past Medical History Medical History Lumbar radiculopathy Right hip pain Arthritis Depression Urinary hesitancy Urinary frequency Sleep apnea Hearing loss Vision abnormalities Trochanteric bursitis of right hip Surgical History Surgical History H/O blepharoplasty 04/01/16 History of surgery 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 2013 History of right knee joint replacement 01/26/14 History of surgery Turbinate coblation, 07/05/12 Hx of myringotomy Bilateral, without tube, 02/01/12 Right ear with tube, 05/24/12 Hx of nasal septoplasty Endoscopic, bilateral, 11/25/11 H/O craniotomy left side, 07/17/08 History of hand surgery Dupytron's release left fourth digit. 2006 History of right knee surgery Cartilage removal, 1995 History of appendectomy 1953 Family History Family History Sibling Family history of diabetes mellitus in first degree relative Family history of heart disease in male family member before age 55 Mother Family history of diabetes mellitus in first degree relative Father Family history of diabetes mellitus in first degree relative Family history of heart disease in male family member before age 55 Other Arthritis Cancer Social History Social History (Updated 10/15/24 @ 08:38 by Kerrie Oseguera MD) Years smoked: 65 Smoking status: Current every day smoker Tobacco type: cigarettes Second hand tobacco smoke exposure: Yes Additional smoking assessment comments: 1PK/DAY/50YRS, NOW 3 CIGARRETTES DAILY Alcohol intake: current Alcohol use details: 1 SHOT YEARLY ON Substance use: never Substance use type: does not use Other substance usage details: denies IVDU Do You Feel Safe in your Home?: Yes Lack of Transportation: No Lack of Food: Never True Current Housing: I Have Housing Concerned About Future Housing: No Difficulty Paying Gas/Electric Bills: No Difficulty Paying for Meds: No Currently Unemployed: No Education: Master's Degree or Higher Difficulty w/ Childcare or Family Care: No Living arrangements: alone Spiritual care concerns: No Meds Home Medications and Allergies Home Medications ?Medication ?Instructions ?Recorded ?Confirmed ?Type diazepam 5 mg tablet 5 mg PO BID PRN Anxiety 10/22/19 10/27/24 History naproxen 500 mg tablet 500 mg PO BID 10/22/19 10/27/24 History propranolol 80 mg capsule,24 80 mg PO DAILY 10/22/19 10/27/24 History hr,extended release tamsulosin 0.4 mg capsule 0.4 mg PO DAILY 10/22/19 10/27/24 History hydrocodone 7.5 mg-acetaminophen 1 tablet PO Q8H PRN Pain 03/20/20 10/27/24 History 325 mg tablet ([place]) cyclosporine 0.05 % eye drops 1 drp BID 12/22/22 12/22/22 History (Restasis MultiDose) duloxetine 60 mg capsule,delayed 60 mg PO DAILY 12/22/22 10/27/24 History release melatonin 5 mg tablet 5 mg PO HS PRN Sleep 12/22/22 10/27/24 History timolol maleate 0.25 % eye drops 1 drp QAM 12/22/22 12/22/22 History Allergies Allergy/AdvReac Type Severity Reaction Status Date / Time Penicillins Allergy Unknown Rash Verified 10/26/24 10:11 Vital Signs Vital Signs - 24 hr 10/26/24 11:28 10/26/24 11:31 10/26/24 11:32 Pulse Rate 123 H 121 H 120 H Respiratory Rate 39 H 21 H 17 Blood Pressure 144/84 H 144/84 H Pulse Oximetry 84 L Oxygen Delivery Oxygen Flow Rate 10/26/24 11:35 10/26/24 11:36 10/26/24 11:45 Pulse Rate 120 H Respiratory Rate 20 Blood Pressure Pulse Oximetry 84 L 94 Oxygen Delivery Room Air Nasal Cannula Oxygen Flow Rate 2 10/26/24 11:46 10/26/24 12:01 10/26/24 12:02 Pulse Rate 117 H 115 H 115 H Respiratory Rate 29 H 25 H 24 H Blood Pressure 162/93 H 141/91 H Pulse Oximetry 86 L Oxygen Delivery Oxygen Flow Rate 10/26/24 12:15 10/26/24 12:16 10/26/24 12:31 Pulse Rate 119 H 117 H 114 H Respiratory Rate 26 H 23 H 26 H Blood Pressure 146/96 H Pulse Oximetry 99 100 100 Oxygen Delivery Oxygen Flow Rate 10/26/24 12:43 10/26/24 12:45 10/26/24 12:50 Pulse Rate 112 H Respiratory Rate 19 Blood Pressure Pulse Oximetry 100 99 100 Oxygen Delivery Nasal Cannula Room Air Oxygen Flow Rate 3 10/26/24 13:00 10/26/24 13:00 10/26/24 13:01 Pulse Rate 110 H 111 H Respiratory Rate 26 H 23 H Blood Pressure 147/85 H Pulse Oximetry 99 100 100 Oxygen Delivery Room Air Oxygen Flow Rate 10/26/24 13:15 10/26/24 13:16 10/26/24 13:30 Pulse Rate 112 H 113 H 110 H Respiratory Rate 24 H 19 21 H Blood Pressure 162/97 H 150/91 H Pulse Oximetry 96 100 98 Oxygen Delivery Oxygen Flow Rate 10/26/24 13:31 10/26/24 13:45 10/26/24 13:46 Pulse Rate 111 H 112 H 117 H Respiratory Rate 24 H 21 H 20 Blood Pressure 170/88 H Pulse Oximetry 99 Oxygen Delivery Oxygen Flow Rate 10/26/24 14:21 10/26/24 14:22 10/26/24 14:30 Pulse Rate 109 H 110 H 109 H Respiratory Rate 16 36 H 26 H Blood Pressure 151/95 H 169/110 H Pulse Oximetry 100 100 Oxygen Delivery Oxygen Flow Rate 10/26/24 15:09 10/26/24 15:15 10/26/24 15:16 Pulse Rate 112 H 109 H 110 H Respiratory Rate 20 18 25 H Blood Pressure 163/90 H Pulse Oximetry Oxygen Delivery Oxygen Flow Rate 10/26/24 15:30 10/26/24 15:31 10/26/24 16:01 Pulse Rate 109 H 110 H 107 H Respiratory Rate 15 17 20 Blood Pressure 180/98 H Pulse Oximetry Oxygen Delivery Oxygen Flow Rate 10/26/24 16:15 10/26/24 16:16 10/26/24 17:00 Pulse Rate 108 H 105 H 106 H Respiratory Rate 25 H 13 26 H Blood Pressure 147/92 H Pulse Oximetry 99 100 Oxygen Delivery Oxygen Flow Rate 10/26/24 17:01 10/26/24 17:15 10/26/24 17:16 Pulse Rate 108 H 107 H 109 H Respiratory Rate 24 H 13 23 H Blood Pressure 155/96 H Pulse Oximetry 88 L Oxygen Delivery Oxygen Flow Rate 10/26/24 17:30 10/26/24 17:31 10/26/24 17:45 Pulse Rate 105 H 108 H 104 H Respiratory Rate 22 H 14 18 Blood Pressure 153/85 H 149/96 H Pulse Oximetry 99 98 Oxygen Delivery Oxygen Flow Rate 10/26/24 17:46 10/26/24 18:05 10/26/24 18:15 Pulse Rate 106 H 108 H 104 H Respiratory Rate 20 23 H 22 H Blood Pressure 166/94 H Pulse Oximetry 100 100 96 Oxygen Delivery Oxygen Flow Rate 10/26/24 18:16 10/26/24 18:30 10/26/24 18:31 Pulse Rate 103 H 102 H 106 H Respiratory Rate 24 H 22 H 24 H Blood Pressure 161/85 H Pulse Oximetry 99 97 100 Oxygen Delivery Oxygen Flow Rate 10/26/24 18:45 10/26/24 18:46 10/26/24 19:00 Pulse Rate 108 H 108 H 102 H Respiratory Rate 18 24 H 21 H Blood Pressure 184/97 H 164/91 H Pulse Oximetry 97 100 99 Oxygen Delivery Oxygen Flow Rate 10/26/24 19:01 10/26/24 19:15 10/26/24 19:16 Pulse Rate 101 H 97 100 Respiratory Rate 20 28 H 21 H Blood Pressure 169/83 H Pulse Oximetry 100 100 100 Oxygen Delivery Oxygen Flow Rate 10/26/24 19:30 10/26/24 19:31 10/26/24 19:45 Pulse Rate 97 98 97 Respiratory Rate 17 20 16 Blood Pressure 178/88 H Pulse Oximetry 100 100 Oxygen Delivery Oxygen Flow Rate 10/26/24 19:46 10/26/24 20:00 10/26/24 20:02 Pulse Rate 99 95 96 Respiratory Rate 14 14 12 Blood Pressure 159/90 H 163/92 H Pulse Oximetry 71 L Oxygen Delivery Oxygen Flow Rate 10/26/24 20:34 10/26/24 20:45 10/26/24 20:47 Pulse Rate 101 H 99 96 Respiratory Rate 13 15 14 Blood Pressure 184/78 H Pulse Oximetry Oxygen Delivery Oxygen Flow Rate 10/26/24 21:00 10/26/24 21:01 10/26/24 21:15 Pulse Rate 98 99 93 Respiratory Rate 17 17 22 H Blood Pressure 180/93 H Pulse Oximetry Oxygen Delivery Oxygen Flow Rate 10/26/24 21:16 10/26/24 22:10 10/26/24 22:15 Pulse Rate 95 92 95 Respiratory Rate 19 17 20 Blood Pressure 170/102 H 194/89 H Pulse Oximetry Oxygen Delivery Oxygen Flow Rate 10/26/24 22:16 10/27/24 03:11 10/27/24 06:49 Pulse Rate 93 90 91 Respiratory Rate 21 H 16 17 Blood Pressure 178/87 H Pulse Oximetry 98 99 Oxygen Delivery Oxygen Flow Rate 10/27/24 08:00 Pulse Rate 94 Respiratory Rate 16 Blood Pressure 189/105 H Pulse Oximetry 98 Oxygen Delivery Oxygen Flow Rate Exam Narrative: GENERAL: Uncomfortable-appearing, well-nourished, and in no acute distress. HEAD: Normocephalic, atraumatic. ENT: Mucous membranes moist. CHEST: Clear to auscultation. No respiratory distress. HEART: Tachycardic and regular. Normal peripheral pulses. ABDOMEN: Soft, nontender, nondistended Back: No midline tenderness the T/L-spine. Bilateral SI region tenderness the reproduces patient's pain improved no soft tissue tenderness in the paraspinal areas superior to the SI. EXTREMITIES: Normal range of motion. No edema. SKIN: Warm, dry, no rash. NEURO: Alert and oriented x3. PSYCH: Normal mood and affect. H&P: Results Labs Labs: Short CBC 10/26/24 Range/Units 12:27 WBC 20.5 H (4.5-10.0) K/mm3 Hgb 13.3 L (14.0-18.0) g/dL Hct 40.4 L (42.0-52.0) % Plt Count 384 H D (150-375) k/mm3 [facility] 10/26/24 10/27/24 12:27 04:32 Sodium 140 Potassium 4.2 Chloride 101 Carbon Dioxide 22 BUN 48 H D Creatinine 1.68 H 1.08 Glucose 248 H Calcium 9.2 Liver Function 10/26/24 Range/Units 12:27 Total Bilirubin 1.9 H (0.2-1.3) mg/dL AST 86 H (17-59) U/L ALT 56 H (6-50) U/L Alkaline Phosphatase 156 H (38-126) U/L Albumin 3.4 L (3.5-5.1) g/dL Urine 10/26/24 Range/Units 12:27 Urine Color Yellow (Yellow) Urine Appearance Cloudy H (Clear) Urine pH 5.5 (5.0-9.0) Ur Specific [place] 1.018 (1.001-1.035) Urine Protein 1+ H (Negative) mg/dL Urine Glucose (UA) Trace H (Negative) mg/dL Assessment and Plan Assessment and plan (1) Acute osteomyelitis of lumbar spine: Code(s): M46.26 - Osteomyelitis of vertebra, lumbar region Status: Acute (2) Discitis of lumbar region: Code(s): M46.46 - Discitis, unspecified, lumbar region Status: Acute (3) Lumbar radiculopathy: Code(s): M54.16 - Radiculopathy, lumbar region Status: Acute Plan Lumbar Discitis/Osteomyelitis - F/U Dr Katey Paul for pain epidurals in sciatic nerve as well as x4 pain epidurals in his back for chronic back pain. -Abdominal/pelvic CT: Diskitis/osteomyelitis at L1-L2.Mild bilateral hydronephrosis and hydroureter, new from 10/15/2024, which may be secondary to the markedly distended bladder.Stool distends the rectum. Gallbladder distention, which may be secondary to fasting. Correlate with physical exam to exclude acute cholecystitis. -Lumbar spine CT:Severe degenerative spondylosis, as above, with multilevel spinal canal stenosis and neural foraminal narrowing.Probable mild chronic loss of height of L4. 6 mm anterolisthesis of L4 over L5. -Currently on cefepime and vancomycin -Ordered nasal MRSA -Accepted at [facility], pending bed -continue home pain med -no evidence of cord compression -pending blood culture Holding propranolol 80 mg, patient unable to verify Quality VTE Prophylaxis VTE prophylaxis: pharmacologic ordered Hospitalist [facility] Advance Care Plan I have confirmed that the patient's Advanced Care Plan is present, code status is documented, or surrogate decision maker is listed in patient medical record.: Yes Medication Reconciliation I have utilized all available resources to obtain, update and review the patients current medications (includes all prescriptions, OTC, herbals, cannabis, and nutritional supplements).: Yes
[2024-10-27] MEDS: ENOXAPARIN 40 MG/0.4 ML SYRINGE SUB-Q (10:54)
[2024-10-27] MEDS: MORPHINE SULFATE (*CRX) 2 MG/ML INJ IV PUSH (10:54)
[2024-10-27] MEDS: HYDROcodone/acetaminophen (*CRX) 7.5-325 MG TABLET 1 TAB PO ×2 (15:45→23:56)
[2024-10-27] MEDS: VANCOMYCIN 1,500 MG/NS 500 ML 1,500 MG/500 ML BAG 250 MG IVPB (20:40)
[2024-10-27] MEDS: diazePAM (*CRX) 5 MG TABLET PO (20:45)
[2024-10-27] MEDS: MELATONIN 5 MG TABLET PO (23:56)
[2024-10-27] MEDS: DULoxetine HCL 60 MG CAPSULE.DR PO (23:56)
[2024-10-28] VITALS (16 sets, daily range): BP systolic 129–183; BP diastolic 84–96; PULSE 75–97; RESP 18–20; TEMP 35.9–36.8; O2SAT 99–100
[2024-10-28] MEDS: metroNIDAZOLE 500 MG/ISO 100ML 500 MG/100 ML BAG 100 MG IVPB ×3 (02:33→18:40)
[2024-10-28] MEDS: CEFEPIME 2 GM/NS 50 ML 2 GM/50 ML BAG IVPB ×2 (03:48→15:03)
[2024-10-28 05:09] LABS: MRSA (PCR) NOT DETECTED (NOT DETECTE)
[2024-10-28 05:10] LABS: Hematocrit 37.7 % (42.0-52.0); Hemoglobin 12.2 g/dL (14.0-18.0); Mean Corpuscular HGB Conc 32.4 g/dl (32-36); Mean Corpuscular Volume 89.8 fl (80-100); Mean Platelet Volume 10.2 fl (7.4-10.4); Platelet Count Result 217 k/mm3 (150-375); Red Cell Distribution Width 13.3 % (11.5-14.5); White Blood Count 7.9 K/mm3 (4.5-10.0)
[2024-10-28 05:39] LABS: Alanine Aminotransferase 58 U/L (6-50); Albumin Level 2.9 g/dL (3.5-5.1); Alkaline Phosphatase 167 U/L (38-126); Anion Gap 7 mmol/L (4-12); Aspartate Amino Transferase 68 U/L (17-59); Bilirubin,Total 1.2 mg/dL (0.2-1.3); Blood Urea Nitrogen 26 mg/dL (9-20); Calcium 8.4 mg/dL (8.4-10.2); Carbon Dioxide 31 mmol/L (22-30); Chloride 97 mmol/L (98-107); Estimated CRCL calculation 68 ml/min; Estimated Glomerular Filt Rate > 60; Glucose 208 mg/dL (65-110); Potassium 3.5 mmol/L (3.4-5.0); Sodium 135 mmol/L (137-145)
[2024-10-28] MEDS: HYDROcodone/acetaminophen (*CRX) 7.5-325 MG TABLET 1 TAB PO ×2 (08:00→15:35)
[2024-10-28] MEDS: TAMSULOSIN HCL 0.4 MG CAPSULE PO (08:00)
[2024-10-28] MEDS: diazePAM (*CRX) 5 MG TABLET PO (08:00)
[2024-10-28] MEDS: ENOXAPARIN 40 MG/0.4 ML SYRINGE SUB-Q (08:01)
[2024-10-28] MEDS: hydrALAZINE HCL 20 MG/ML VIAL 10 MG IV PUSH ×2 (10:00→23:48)
--- NOTE | 2024-10-28 12:02 | PM.IMPN ---
Progress Note: A&P Assessment and Plan (1) Acute osteomyelitis of lumbar spine: Code(s): M46.26 - Osteomyelitis of vertebra, lumbar region Status: Acute (2) Discitis of lumbar region: Code(s): M46.46 - Discitis, unspecified, lumbar region Status: Acute (3) Lumbar radiculopathy: Code(s): M54.16 - Radiculopathy, lumbar region Status: Acute Plan Lumbar Discitis/Osteomyelitis - F/U Dr Katey Paul for pain epidurals in sciatic nerve as well as x4 pain epidurals in his back for chronic back pain. -Abdominal/pelvic CT: Diskitis/osteomyelitis at L1-L2.Mild bilateral hydronephrosis and hydroureter, new from 10/15/2024, which may be secondary to the markedly distended bladder.Stool distends the rectum. Gallbladder distention, which may be secondary to fasting. Correlate with physical exam to exclude acute cholecystitis. -Lumbar spine CT:Severe degenerative spondylosis, as above, with multilevel spinal canal stenosis and neural foraminal narrowing.Probable mild chronic loss of height of L4. 6 mm anterolisthesis of L4 over L5. -Currently on cefepime and vancomycin -Ordered nasal MRSA -Accepted at [facility], pending bed -continue home pain med -no evidence of cord compression -pending blood culture HTN Started Amlodipine 10 mg PO QD Hydralazine 10 mg IV q 6hrs PRN Holding propranolol 80 mg, patient unable to verify Subjective Date/time seen: 10/28/24 12:02 Interval history: Pending [facility] transfer. No acute events overnight.Discussed with his daughter. Review of Systems Review of Systems: All systems reviewed & are unremarkable except as noted in HPI and below Constitutional: Constitutional: Reports no additional constitutional complaints ENT: Reports system reviewed and no additional complaints, except as documented Cardiovascular: Cardiovascular: Reports no additional cardiovascular complaints Respiratory: Respiratory: Reports no additional respiratory complaints Gastrointestinal: Gastrointestinal: Reports no additional gastrointestinal complaints Musculoskeletal: Musculoskeletal: Reports no additional musculoskeletal complaints Exam Narrative: GENERAL: Uncomfortable-appearing, well-nourished, and in no acute distress. HEAD: Normocephalic, atraumatic. ENT: Mucous membranes moist. CHEST: Clear to auscultation. No respiratory distress. HEART: Tachycardic and regular. Normal peripheral pulses. ABDOMEN: Soft, nontender, nondistended Back: No midline tenderness the T/L-spine. Bilateral SI region tenderness the reproduces patient's pain improved no soft tissue tenderness in the paraspinal areas superior to the SI. EXTREMITIES: Normal range of motion. No edema. SKIN: Warm, dry, no rash. NEURO: Alert and oriented x3. PSYCH: Normal mood and affect. Objective Data Vital Signs Vital Signs: Vital Signs - 24 hr 10/27/24 12:33 10/27/24 14:00 10/27/24 14:07 Temperature 97.6 F Pulse Rate 92 92 92 Respiratory Rate 22 H 22 H Blood Pressure 200/93 H Pulse Oximetry 100 100 Oxygen Delivery Room Air 10/27/24 14:07 10/27/24 15:22 10/27/24 18:00 Temperature 98.4 F Pulse Rate 92 92 92 Respiratory Rate 20 Blood Pressure 164/87 H Pulse Oximetry 97 Oxygen Delivery 10/27/24 19:24 10/27/24 20:00 10/27/24 20:00 Temperature 97.7 F Pulse Rate 94 96 Respiratory Rate 18 Blood Pressure 151/84 H Pulse Oximetry 92 Oxygen Delivery Room Air 10/27/24 22:00 10/27/24 23:51 10/28/24 00:00 Temperature 97.8 F Pulse Rate 90 88 82 Respiratory Rate 18 Blood Pressure 155/84 H Pulse Oximetry 100 Oxygen Delivery 10/28/24 00:00 10/28/24 02:00 10/28/24 03:36 Temperature Pulse Rate 81 Respiratory Rate Blood Pressure Pulse Oximetry Oxygen Delivery Room Air Room Air 10/28/24 03:56 10/28/24 04:00 10/28/24 06:00 Temperature 98.2 F Pulse Rate 86 83 82 Respiratory Rate 18 Blood Pressure 148/88 H Pulse Oximetry 100 Oxygen Delivery 10/28/24 07:57 10/28/24 08:00 10/28/24 08:00 Temperature 97.0 F L Pulse Rate 76 75 Respiratory Rate 20 Blood Pressure 183/96 H Pulse Oximetry 100 Oxygen Delivery Room Air 10/28/24 10:00 10/28/24 10:00 Temperature Pulse Rate 89 Respiratory Rate Blood Pressure 168/86 H Pulse Oximetry Oxygen Delivery Intake/Output Intake/Output: Intake & Output 10/25/24 10/26/24 10/27/24 10/28/24 23:59 23:59 23:59 23:59 Intake Total 1650 1520 568 Output Total 400 300 Balance 1650 1120 268 Meds/Results Medications: Active Medications Generic Name Dose Route Start Last Admin Trade Name Freq PRN Reason Stop Dose Admin Hydrocodone Bitart/Acetaminophen 1 tab 10/27/24 10:42 10/28/24 08:00 Hydrocodone/Acetaminophen (*Crx) 7.5-325 Mg Tablet PO 1 tab Q8H PRN Administration Pain Amlodipine Besylate 10 mg 10/29/24 09:00 Amlodipine Besylate 10 Mg Tablet PO DAILY [place] Diazepam 5 mg 10/27/24 10:42 10/28/24 08:00 Diazepam (*Crx) 5 Mg Tablet PO 5 mg BID PRN Administration Anxiety Duloxetine HCl 60 mg 10/28/24 00:00 10/27/24 23:56 Duloxetine Hcl 60 Mg Capsule.Dr PO 60 mg Q24H [place] Administration Enoxaparin Sodium 40 mg 10/27/24 09:00 10/28/24 08:01 Enoxaparin 40 Mg/0.4 Ml Syringe SUB-Q 40 mg DAILY [place] Administration Hydralazine HCl 10 mg 10/28/24 09:10 10/28/24 10:00 Hydralazine Hcl 20 Mg/Ml Vial IV PUSH 10 mg Q6H PRN Administration Blood Pressure - High Cefepime HCl 2 gm in 50 mls @ 100 mls/hr 10/27/24 04:00 10/28/24 04:18 Maxipime 2 Gm/Ns 50 Ml IVPB Infused Q12H [place] Infusion Metronidazole 500 mg in 100 mls @ 100 mls/hr 10/27/24 02:00 10/28/24 11:01 Flagyl 500 Mg/Iso Soln 100 Ml IVPB Infused Q8H [place] Infusion Vancomycin HCl 1,500 mg in 500 mls @ 250 mls/hr 10/27/24 19:00 10/27/24 22:40 Vancomycin 1,500 Mg/Ns 500 Ml IVPB Infused Q24H [place] Infusion Melatonin 5 mg 10/27/24 10:42 10/27/24 23:56 Melatonin 5 Mg Tablet PO 5 mg HS PRN Administration Sleep Tamsulosin HCl 0.4 mg 10/28/24 09:00 10/28/24 08:00 Tamsulosin Hcl 0.4 Mg Capsule PO 0.4 mg DAILY [place] Administration Radiology Results: ITS Impressions Chest X-Ray 10/26/24 13:56 Impression: 1: No acute cardiopulmonary disease. Abdomen/Pelvis CT 10/26/24 14:16 IMPRESSION: 1. Discitis/osteomyelitis at L1-L2. 2. Mild bilateral hydronephrosis and hydroureter, new from 10/15/2024, which may be secondary to the markedly distended bladder. 3. Stool distends the rectum. 4. Gallbladder distention, which may be secondary to fasting. Correlate with physical exam to exclude acute cholecystitis. Labs Labs: Laboratory Results - last 24 hr 10/28/24 10/28/24 03:50 04:24 WBC 7.9 RBC 4.20 L Hgb 12.2 L Hct 37.7 L MCV 89.8 MCH 29.0 MCHC 32.4 RDW 13.3 Plt Count 217 MPV 10.2 Sodium 135 L Potassium 3.5 Chloride 97 L Carbon Dioxide 31 H Anion Gap 7 BUN 26 H D Creatinine 0.74 Estim Creat Clear Calc 68 Estimated GFR > 60 Glucose 208 H Calcium 8.4 Total Bilirubin 1.2 AST 68 H ALT 58 H Alkaline Phosphatase 167 H Total Protein 6.0 L Albumin 2.9 L Nasal MRSA (PCR) Not detected Quality VTE Prophylaxis VTE prophylaxis: pharmacologic ordered Hospitalist [facility] Advance Care Plan I have confirmed that the patient's Advanced Care Plan is present, code status is documented, or surrogate decision maker is listed in patient medical record.: Yes Medication Reconciliation I have utilized all available resources to obtain, update and review the patients current medications (includes all prescriptions, OTC, herbals, cannabis, and nutritional supplements).: Yes
[2024-10-28 19:08] LABS: Vancomycin Trough 6.5 ug/mL (10.0-20.0)
[2024-10-28] MEDS: VANCOMYCIN 1,500 MG/NS 500 ML 1,500 MG/500 ML BAG 250 MG IVPB (20:20)
[2024-10-28] MEDS: MELATONIN 5 MG TABLET PO (20:25)
[2024-10-28] MEDS: DULoxetine HCL 60 MG CAPSULE.DR PO (23:44)
[2024-10-29] VITALS (14 sets, daily range): BP systolic 128–166; BP diastolic 74–89; PULSE 53–107; RESP 18–202; TEMP 35.9–36.7; O2SAT 96–100
[2024-10-29] MEDS: metroNIDAZOLE 500 MG/ISO 100ML 500 MG/100 ML BAG 100 MG IVPB ×2 (02:04→09:34)
[2024-10-29] MEDS: CEFEPIME 2 GM/NS 50 ML 2 GM/50 ML BAG IVPB ×2 (04:19→15:33)
[2024-10-29 04:53] LABS: Hematocrit 41.6 % (42.0-52.0); Hemoglobin 13.7 g/dL (14.0-18.0); Mean Corpuscular HGB Conc 32.9 g/dl (32-36); Mean Corpuscular Hemoglobin 29.1 pg (26-34); Mean Corpuscular Volume 88.5 fl (80-100); Mean Platelet Volume 10.4 fl (7.4-10.4); Platelet Count Result 191 k/mm3 (150-375); Red Cell Distribution Width 13.2 % (11.5-14.5); White Blood Count 8.3 K/mm3 (4.5-10.0)
[2024-10-29 05:08] LABS: Alanine Aminotransferase 53 U/L (6-50); Albumin Level 2.9 g/dL (3.5-5.1); Alkaline Phosphatase 158 U/L (38-126); Anion Gap 4 mmol/L (4-12); Aspartate Amino Transferase 46 U/L (17-59); Bilirubin,Total 1.1 mg/dL (0.2-1.3); Blood Urea Nitrogen 17 mg/dL (9-20); Calcium 8.7 mg/dL (8.4-10.2); Carbon Dioxide 32 mmol/L (22-30); Chloride 95 mmol/L (98-107); Estimated CRCL calculation 74 ml/min; Estimated Glomerular Filt Rate > 60; Glucose 201 mg/dL (65-110); Potassium 3.8 mmol/L (3.4-5.0); Sodium 131 mmol/L (137-145)
[2024-10-29] MEDS: LEVOTHYROXINE SODIUM 50 MCG TABLET PO (06:18)
--- NOTE | 2024-10-29 08:38 | P.PNIM_ITS ---
Progress Note: A&P Assessment and Plan (1) Acute osteomyelitis of lumbar spine: Code(s): M46.26 - Osteomyelitis of vertebra, lumbar region Status: Acute (2) Discitis of lumbar region: Code(s): M46.46 - Discitis, unspecified, lumbar region Status: Acute (3) Lumbar radiculopathy: Code(s): M54.16 - Radiculopathy, lumbar region Status: Acute Plan Lumbar Discitis/Osteomyelitis - F/U Dr Katey Paul for pain epidurals in sciatic nerve as well as x4 pain epidurals in his back for chronic back pain. -Abdominal/pelvic CT: Diskitis/osteomyelitis at L1-L2.Mild bilateral hydronephrosis and hydroureter, new from 10/15/2024, which may be secondary to the markedly distended bladder.Stool distends the rectum. Gallbladder distention, which may be secondary to fasting. Correlate with physical exam to exclude acute cholecystitis. -Lumbar spine CT:Severe degenerative spondylosis, as above, with multilevel spinal canal stenosis and neural foraminal narrowing.Probable mild chronic loss of height of L4. 6 mm anterolisthesis of L4 over L5. -Currently on cefepime and vancomycin -Ordered nasal MRSA -Accepted at [facility], pending bed -continue home pain med -no evidence of cord compression -pending blood culture HTN Started Amlodipine 10 mg PO QD Hydralazine 10 mg IV q 6hrs PRN Holding propranolol 80 mg, patient unable to verify Hypothyroid Levothyroxine 50 mcg po QD TSH 1.74 Subjective Date/time seen: 10/29/24 08:38 Interval history: No acute events overnight.Pending [facility] transfer. Review of Systems Review of Systems: All systems reviewed & are unremarkable except as noted in HPI and below Constitutional: Constitutional: Reports no additional constitutional complaints ENT: Reports system reviewed and no additional complaints, except as documented Cardiovascular: Cardiovascular: Reports no additional cardiovascular complaints Respiratory: Respiratory: Reports no additional respiratory complaints Gastrointestinal: Gastrointestinal: Reports no additional gastrointestinal complaints Musculoskeletal: Musculoskeletal: Reports no additional musculoskeletal complaints Exam Narrative: GENERAL: Uncomfortable-appearing, well-nourished, and in no acute distress. HEAD: Normocephalic, atraumatic. ENT: Mucous membranes moist. CHEST: Clear to auscultation. No respiratory distress. HEART: Tachycardic and regular. Normal peripheral pulses. ABDOMEN: Soft, nontender, nondistended Back: No midline tenderness the T/L-spine. Bilateral SI region tenderness the reproduces patient's pain improved no soft tissue tenderness in the paraspinal areas superior to the SI. EXTREMITIES: Normal range of motion. No edema. SKIN: Warm, dry, no rash. NEURO: Alert and oriented x3. PSYCH: Normal mood and affect. Objective Data Vital Signs Vital Signs: Vital Signs - 24 hr 10/28/24 10:00 10/28/24 10:00 10/28/24 11:41 Temperature 96.7 F L Pulse Rate 89 89 Respiratory Rate 18 Blood Pressure 168/86 H 155/89 H Pulse Oximetry 99 Oxygen Delivery 10/28/24 12:00 10/28/24 12:00 10/28/24 14:00 Temperature Pulse Rate 94 93 Respiratory Rate Blood Pressure Pulse Oximetry Oxygen Delivery Room Air 10/28/24 15:50 10/28/24 16:00 10/28/24 16:00 Temperature 97.6 F Pulse Rate 87 88 Respiratory Rate 20 Blood Pressure 129/87 Pulse Oximetry 100 Oxygen Delivery Room Air 10/28/24 18:00 10/28/24 20:00 10/28/24 20:00 Temperature 97.5 F L Pulse Rate 97 88 Respiratory Rate 18 Blood Pressure 150/84 H Pulse Oximetry 99 Oxygen Delivery Room Air 10/28/24 20:00 10/28/24 22:00 10/29/24 00:00 Temperature 97.6 F Pulse Rate 89 88 93 Respiratory Rate 18 Blood Pressure 166/89 H Pulse Oximetry 100 Oxygen Delivery 10/29/24 00:00 10/29/24 00:00 10/29/24 02:00 Temperature Pulse Rate 95 97 Respiratory Rate Blood Pressure Pulse Oximetry Oxygen Delivery Room Air 10/29/24 03:59 10/29/24 04:00 10/29/24 04:00 Temperature 97.4 F L Pulse Rate 99 102 H Respiratory Rate 202 H Blood Pressure 143/77 H Pulse Oximetry 96 Oxygen Delivery Room Air 10/29/24 05:50 10/29/24 08:00 Temperature 96.6 F L Pulse Rate 101 H 53 L Respiratory Rate 18 Blood Pressure 139/74 Pulse Oximetry 98 Oxygen Delivery Intake/Output Intake/Output: Intake & Output 10/26/24 10/27/24 10/28/24 02/24/25 23:59 23:59 23:59 23:59 Intake Total 1650 1520 1310 268 Output Total 400 1100 600 Balance 1650 1120 210 -332 Meds/Results Medications: Active Medications Generic Name Dose Route Start Last Admin Trade Name Freq PRN Reason Stop Dose Admin Hydrocodone Bitart/Acetaminophen 1 tab 10/27/24 10:42 10/28/24 15:35 Hydrocodone/Acetaminophen (*Crx) 7.5-325 Mg Tablet PO 1 tab Q8H PRN Administration Pain Amlodipine Besylate 10 mg 10/29/24 09:00 Amlodipine Besylate 10 Mg Tablet PO DAILY [facility] Diazepam 5 mg 10/27/24 10:42 10/28/24 08:00 Diazepam (*Crx) 5 Mg Tablet PO 5 mg BID PRN Administration Anxiety Duloxetine HCl 60 mg 10/28/24 00:00 10/28/24 23:44 Duloxetine Hcl 60 Mg Capsule.Dr PO 60 mg Q24H [place] Administration Enoxaparin Sodium 40 mg 10/27/24 09:00 10/28/24 08:01 Enoxaparin 40 Mg/0.4 Ml Syringe SUB-Q 40 mg DAILY [place] Administration Hydralazine HCl 10 mg 10/28/24 09:10 10/28/24 23:48 Hydralazine Hcl 20 Mg/Ml Vial IV PUSH 10 mg Q6H PRN Administration Blood Pressure - High Cefepime HCl 2 gm in 50 mls @ 100 mls/hr 10/27/24 04:00 10/29/24 04:19 Maxipime 2 Gm/Ns 50 Ml IVPB 100 mls/hr Q12H [place] Administration Metronidazole 500 mg in 100 mls @ 100 mls/hr 10/27/24 02:00 10/29/24 02:04 Flagyl 500 Mg/Iso Soln 100 Ml IVPB 100 mls/hr Q8H [place] Administration Vancomycin HCl 1,500 mg in 500 mls @ 250 mls/hr 10/28/24 21:00 10/28/24 20:20 Vancomycin 1,500 Mg/Ns 500 Ml IVPB 250 mls/hr Q12H [place] Administration Levothyroxine Sodium 50 mcg 10/29/24 06:30 10/29/24 06:18 Levothyroxine Sodium 50 Mcg Tablet PO 50 mcg DAILY@0630 [facility] Administration Melatonin 5 mg 10/27/24 10:42 10/28/24 20:25 Melatonin 5 Mg Tablet PO 5 mg HS PRN Administration Sleep Polyethylene Glycol 17 gm 10/29/24 09:00 Polyethylene Glycol 3350 17 Gm Powd.Pack PO QAM [facility] Tamsulosin HCl 0.4 mg 10/28/24 09:00 10/28/24 08:00 Tamsulosin Hcl 0.4 Mg Capsule PO 0.4 mg DAILY [place] Administration Radiology Results: ITS Impressions Chest X-Ray 10/26/24 13:56 Impression: 1: No acute cardiopulmonary disease. Abdomen/Pelvis CT 10/26/24 14:16 IMPRESSION: 1. Discitis/osteomyelitis at L1-L2. 2. Mild bilateral hydronephrosis and hydroureter, new from 10/15/2024, which may be secondary to the markedly distended bladder. 3. Stool distends the rectum. 4. Gallbladder distention, which may be secondary to fasting. Correlate with physical exam to exclude acute cholecystitis. Labs Labs: Laboratory Results - last 24 hr 10/28/24 10/29/24 18:29 04:02 WBC 8.3 RBC 4.70 Hgb 13.7 L Hct 41.6 L MCV 88.5 MCH 29.1 MCHC 32.9 RDW 13.2 Plt Count 191 MPV 10.4 Sodium 131 L Potassium 3.8 Chloride 95 L Carbon Dioxide 32 H Anion Gap 4 BUN 17 Creatinine 0.68 L Estim Creat Clear Calc 74 Estimated GFR > 60 Glucose 201 H Calcium 8.7 Total Bilirubin 1.1 AST 46 ALT 53 H Alkaline Phosphatase 158 H Total Protein 6.0 L Albumin 2.9 L Vancomycin Trough 6.5 L Quality VTE Prophylaxis VTE prophylaxis: pharmacologic ordered Hospitalist [facility] Advance Care Plan I have confirmed that the patient's Advanced Care Plan is present, code status is documented, or surrogate decision maker is listed in patient medical record.: Yes Medication Reconciliation I have utilized all available resources to obtain, update and review the patients current medications (includes all prescriptions, OTC, herbals, cannabis, and nutritional supplements).: Yes
[2024-10-29] MEDS: HYDROcodone/acetaminophen (*CRX) 7.5-325 MG TABLET 1 TAB PO ×2 (09:18→17:19)
[2024-10-29] MEDS: VANCOMYCIN 1,500 MG/NS 500 ML 1,500 MG/500 ML BAG 250 MG IVPB ×2 (09:20→20:33)
[2024-10-29] MEDS: TAMSULOSIN HCL 0.4 MG CAPSULE PO (09:20)
[2024-10-29] MEDS: amLODIPine BESYLATE 10 MG TABLET PO (09:20)
[2024-10-29] MEDS: ENOXAPARIN 40 MG/0.4 ML SYRINGE SUB-Q (09:20)
[2024-10-29] MEDS: polyethylene glycoL 3350 17 GM POWD.PACK PO (09:20)
[2024-10-29] MEDS: diazePAM (*CRX) 5 MG TABLET PO (18:12)
--- NOTE | 2024-10-29 21:20 | PC.NURSE ---
Patient transferring to room 309. SBAR faxed and verbal report given to Ani THOMAS.
--- NOTE | 2024-10-29 21:48 | PC.NURSE ---
transferred to room 309 via bed with all belongings. no change from previous assessment.
[2024-10-29] MEDS: MORPHINE SULFATE (*CRX) 2 MG/ML INJ IV PUSH (22:12)
[2024-10-29] MEDS: DULoxetine HCL 60 MG CAPSULE.DR PO (23:30)
[2024-10-29] MEDS: MELATONIN 5 MG TABLET PO (23:30)
[2024-10-30] MEDS: HYDROcodone/acetaminophen (*CRX) 7.5-325 MG TABLET 1 TAB PO ×3 (03:21→20:17)
[2024-10-30] MEDS: CEFEPIME 2 GM/NS 50 ML 2 GM/50 ML BAG IVPB ×2 (03:21→16:40)
[2024-10-30] MEDS: LEVOTHYROXINE SODIUM 50 MCG TABLET PO (05:41)
[2024-10-30 06:00] VITALS: BP 137/83; PULSE 99; RESP 18; TEMP 36.4; O2SAT 96
[2024-10-30 06:57] LABS: Vancomycin Trough 15.4 ug/mL (10.0-20.0)
--- NOTE | 2024-10-30 08:18 | P.PNIM_ITS ---
Progress Note: A&P Assessment and Plan (1) Acute osteomyelitis of lumbar spine: Code(s): M46.26 - Osteomyelitis of vertebra, lumbar region Status: Acute (2) Discitis of lumbar region: Code(s): M46.46 - Discitis, unspecified, lumbar region Status: Acute (3) Lumbar radiculopathy: Code(s): M54.16 - Radiculopathy, lumbar region Status: Acute (4) Bacteremia: Code(s): R78.81 - Bacteremia Status: Acute Plan Lumbar Discitis/Osteomyelitis - F/U Dr Katey Paul for pain epidurals in sciatic nerve as well as x4 pain epidurals in his back for chronic back pain. -Abdominal/pelvic CT: Diskitis/osteomyelitis at L1-L2.Mild bilateral hydronephrosis and hydroureter, new from 10/15/2024, which may be secondary to the markedly distended bladder.Stool distends the rectum. Gallbladder distention, which may be secondary to fasting. Correlate with physical exam to exclude acute cholecystitis. -Lumbar spine CT:Severe degenerative spondylosis, as above, with multilevel spinal canal stenosis and neural foraminal narrowing.Probable mild chronic loss of height of L4. 6 mm anterolisthesis of L4 over L5. -Currently on cefepime and vancomycin -Ordered nasal MRSA -Accepted at [facility], pending bed -continue home pain med -no evidence of cord compression -pending blood culture Bacteremia Peptomstreptococcus micros Possible contamination Since both sets are positive ,will repeat BC HTN Started Amlodipine 10 mg PO QD Hydralazine 10 mg IV q 6hrs PRN Holding propranolol 80 mg, patient unable to verify Hypothyroid Levothyroxine 50 mcg po QD TSH 1.74 Subjective Date/time seen: 10/30/24 08:18 Interval history: Pending for [facility] transfer. Following PT OT. Continue current antibiotic for 6 weeks total. Review of Systems Review of Systems: All systems reviewed & are unremarkable except as noted in HPI and below Constitutional: Constitutional: Reports no additional constitutional complaints ENT: Reports system reviewed and no additional complaints, except as documented Cardiovascular: Cardiovascular: Reports no additional cardiovascular complaints Respiratory: Respiratory: Reports no additional respiratory complaints Gastrointestinal: Gastrointestinal: Reports no additional gastrointestinal complaints Musculoskeletal: Musculoskeletal: Reports no additional musculoskeletal complaints Exam Narrative: GENERAL: Uncomfortable-appearing, well-nourished, and in no acute distress. HEAD: Normocephalic, atraumatic. ENT: Mucous membranes moist. CHEST: Clear to auscultation. No respiratory distress. HEART: Tachycardic and regular. Normal peripheral pulses. ABDOMEN: Soft, nontender, nondistended Back: No midline tenderness the T/L-spine. Bilateral SI region tenderness the reproduces patient's pain improved no soft tissue tenderness in the paraspinal areas superior to the SI. EXTREMITIES: Normal range of motion. No edema. SKIN: Warm, dry, no rash. NEURO: Alert and oriented x3. PSYCH: Normal mood and affect. Objective Data Vital Signs Vital Signs: Vital Signs - 24 hr 10/29/24 10:00 10/29/24 11:41 10/29/24 12:00 Temperature 98.1 F Pulse Rate 91 98 Respiratory Rate 20 Blood Pressure 128/74 Pulse Oximetry 100 Oxygen Delivery Room Air 10/29/24 12:00 10/29/24 14:00 10/29/24 15:30 Temperature 98.0 F Pulse Rate 97 99 100 Respiratory Rate 22 H Blood Pressure 139/75 Pulse Oximetry 99 Oxygen Delivery 10/29/24 16:00 10/29/24 18:00 10/29/24 19:44 Temperature Pulse Rate 99 102 H Respiratory Rate Blood Pressure Pulse Oximetry 98 Oxygen Delivery Room Air 10/29/24 20:00 10/30/24 06:00 Temperature 97.6 F Pulse Rate 100 99 Respiratory Rate 18 Blood Pressure 137/83 Pulse Oximetry 96 Oxygen Delivery Intake/Output Intake/Output: Intake & Output 10/27/24 10/28/24 10/29/24 10/30/24 23:59 23:59 23:59 23:59 Intake Total 1520 1810 1565 200 Output Total 400 1100 1100 400 Balance 1120 710 465 -200 Meds/Results Medications: Active Medications Generic Name Dose Route Start Last Admin Trade Name Freq PRN Reason Stop Dose Admin Hydrocodone Bitart/Acetaminophen 1 tab 10/27/24 10:42 10/30/24 03:21 Hydrocodone/Acetaminophen (*Crx) 7.5-325 Mg Tablet PO 1 tab Q8H PRN Administration Pain Amlodipine Besylate 10 mg 10/29/24 09:00 10/29/24 09:20 Amlodipine Besylate 10 Mg Tablet PO 10 mg DAILY [place] Administration Diazepam 5 mg 10/27/24 10:42 10/29/24 18:12 Diazepam (*Crx) 5 Mg Tablet PO 5 mg BID PRN Administration Anxiety Duloxetine HCl 60 mg 10/28/24 00:00 10/29/24 23:30 Duloxetine Hcl 60 Mg Capsule.Dr PO 60 mg Q24H [place] Administration Enoxaparin Sodium 40 mg 10/27/24 09:00 10/29/24 09:20 Enoxaparin 40 Mg/0.4 Ml Syringe SUB-Q 40 mg DAILY [place] Administration Hydralazine HCl 10 mg 10/28/24 09:10 10/28/24 23:48 Hydralazine Hcl 20 Mg/Ml Vial IV PUSH 10 mg Q6H PRN Administration Blood Pressure - High Cefepime HCl 2 gm in 50 mls @ 100 mls/hr 10/27/24 04:00 10/30/24 03:21 Maxipime 2 Gm/Ns 50 Ml IVPB 100 mls/hr Q12H [place] Administration Vancomycin HCl 1,500 mg in 500 mls @ 250 mls/hr 10/28/24 21:00 10/29/24 20:33 Vancomycin 1,500 Mg/Ns 500 Ml IVPB 250 mls/hr Q12H [place] Administration Levothyroxine Sodium 50 mcg 10/29/24 06:30 10/30/24 05:41 Levothyroxine Sodium 50 Mcg Tablet PO 50 mcg DAILY@0630 [facility] Administration Melatonin 5 mg 10/27/24 10:42 10/29/24 23:30 Melatonin 5 Mg Tablet PO 5 mg HS PRN Administration Sleep Polyethylene Glycol 17 gm 10/29/24 09:00 10/29/24 09:20 Polyethylene Glycol 3350 17 Gm Powd.Pack PO 17 gm QAM [place] Administration Tamsulosin HCl 0.4 mg 10/28/24 09:00 10/29/24 09:20 Tamsulosin Hcl 0.4 Mg Capsule PO 0.4 mg DAILY [place] Administration Radiology Results: ITS Impressions Chest X-Ray 10/26/24 13:56 Impression: 1: No acute cardiopulmonary disease. Abdomen/Pelvis CT 10/26/24 14:16 IMPRESSION: 1. Discitis/osteomyelitis at L1-L2. 2. Mild bilateral hydronephrosis and hydroureter, new from 10/15/2024, which may be secondary to the markedly distended bladder. 3. Stool distends the rectum. 4. Gallbladder distention, which may be secondary to fasting. Correlate with physical exam to exclude acute cholecystitis. Labs Labs: Laboratory Results - last 24 hr 10/30/24 06:16 Vancomycin Trough 15.4 Quality VTE Prophylaxis VTE prophylaxis: pharmacologic ordered Hospitalist [facility] Advance Care Plan I have confirmed that the patient's Advanced Care Plan is present, code status is documented, or surrogate decision maker is listed in patient medical record.: Yes Medication Reconciliation I have utilized all available resources to obtain, update and review the patients current medications (includes all prescriptions, OTC, herbals, canna bis, and nutritional supplements).: Yes
[2024-10-30 08:30] LABS: Hematocrit 37.2 % (42.0-52.0); Hemoglobin 12.3 g/dL (14.0-18.0); Mean Corpuscular HGB Conc 33.1 g/dl (32-36); Mean Corpuscular Hemoglobin 29.6 pg (26-34); Mean Corpuscular Volume 89.6 fl (80-100); Platelet Count Result 201 k/mm3 (150-375); Red Blood Count 4.15 M/mm3 (4.6-6.20); Red Cell Distribution Width 13.2 % (11.5-14.5); White Blood Count 8.1 K/mm3 (4.5-10.0)
[2024-10-30 08:39] LABS: Alanine Aminotransferase 39 U/L (6-50); Albumin Level 2.6 g/dL (3.5-5.1); Alkaline Phosphatase 133 U/L (38-126); Anion Gap 3 mmol/L (4-12); Aspartate Amino Transferase 35 U/L (17-59); Bilirubin,Total 0.9 mg/dL (0.2-1.3); Blood Urea Nitrogen 17 mg/dL (9-20); Calcium 8.4 mg/dL (8.4-10.2); Carbon Dioxide 30 mmol/L (22-30); Chloride 96 mmol/L (98-107); Estimated CRCL calculation 75 ml/min; Estimated Glomerular Filt Rate > 60; Glucose 201 mg/dL (65-110); Potassium 4.2 mmol/L (3.4-5.0); Sodium 129 mmol/L (137-145)
[2024-10-30] MEDS: VANCOMYCIN 1,500 MG/NS 500 ML 1,500 MG/500 ML BAG 250 MG IVPB ×2 (10:25→20:18)
[2024-10-30] MEDS: polyethylene glycoL 3350 17 GM POWD.PACK PO (10:26)
[2024-10-30] MEDS: amLODIPine BESYLATE 10 MG TABLET PO (10:26)
[2024-10-30] MEDS: ENOXAPARIN 40 MG/0.4 ML SYRINGE SUB-Q (10:26)
[2024-10-30] MEDS: TAMSULOSIN HCL 0.4 MG CAPSULE PO (10:26)
[2024-10-30 14:00] VITALS: BP 154/87; PULSE 100; RESP 20; TEMP 35.9; O2SAT 97
[2024-10-30] MEDS: SODIUM CHLORIDE 0.9% IV 1,000 ML 75 ML IV CONT (16:40)
[2024-10-30] MEDS: MELATONIN 5 MG TABLET PO (20:18)
[2024-10-30 21:27] VITALS: BP 147/71; PULSE 104; RESP 22; TEMP 36.4; O2SAT 97
[2024-10-30] MEDS: DULoxetine HCL 60 MG CAPSULE.DR PO (23:45)
[2024-10-31] MEDS: CEFEPIME 2 GM/NS 50 ML 2 GM/50 ML BAG IVPB ×2 (04:25→17:34)
[2024-10-31] MEDS: HYDROcodone/acetaminophen (*CRX) 7.5-325 MG TABLET 1 TAB PO ×3 (05:37→22:32)
[2024-10-31] MEDS: LEVOTHYROXINE SODIUM 50 MCG TABLET PO (05:37)
[2024-10-31 06:00] VITALS: BP 144/81; PULSE 96; RESP 18; TEMP 36.4; O2SAT 99
[2024-10-31 07:06] LABS: Hematocrit 36.8 % (42.0-52.0); Hemoglobin 12.1 g/dL (14.0-18.0); Mean Corpuscular HGB Conc 32.9 g/dl (32-36); Mean Corpuscular Hemoglobin 29.3 pg (26-34); Mean Corpuscular Volume 89.1 fl (80-100); Mean Platelet Volume 10.8 fl (7.4-10.4); Platelet Count Result 179 k/mm3 (150-375); Red Blood Count 4.13 M/mm3 (4.6-6.20); Red Cell Distribution Width 13.4 % (11.5-14.5); White Blood Count 6.9 K/mm3 (4.5-10.0)
[2024-10-31 07:18] LABS: Alanine Aminotransferase 37 U/L (6-50); Albumin Level 2.6 g/dL (3.5-5.1); Alkaline Phosphatase 139 U/L (38-126); Anion Gap 4 mmol/L (4-12); Aspartate Amino Transferase 34 U/L (17-59); Bilirubin,Total 0.8 mg/dL (0.2-1.3); Blood Urea Nitrogen 15 mg/dL (9-20); Calcium 8.1 mg/dL (8.4-10.2); Carbon Dioxide 29 mmol/L (22-30); Chloride 95 mmol/L (98-107); Estimated CRCL calculation 76 ml/min; Estimated Glomerular Filt Rate > 60; Glucose 209 mg/dL (65-110); Potassium 4.5 mmol/L (3.4-5.0); Sodium 128 mmol/L (137-145)
[2024-10-31] MEDS: polyethylene glycoL 3350 17 GM POWD.PACK PO (09:06)
[2024-10-31] MEDS: ENOXAPARIN 40 MG/0.4 ML SYRINGE SUB-Q (09:06)
[2024-10-31] MEDS: amLODIPine BESYLATE 10 MG TABLET PO (09:06)
[2024-10-31] MEDS: TAMSULOSIN HCL 0.4 MG CAPSULE PO (09:06)
[2024-10-31] MEDS: SODIUM CHLORIDE 0.9% IV 1,000 ML 75 ML IV CONT (09:06)
[2024-10-31] MEDS: VANCOMYCIN 1,500 MG/NS 500 ML 1,500 MG/500 ML BAG 250 MG IVPB ×2 (09:07→21:02)
[2024-10-31] MEDS: diazePAM (*CRX) 5 MG TABLET PO ×2 (09:12→17:34)
--- NOTE | 2024-10-31 09:30 | P.PNIM_ITS ---
Progress Note: A&P Assessment and Plan (1) Acute osteomyelitis of lumbar spine: Code(s): M46.26 - Osteomyelitis of vertebra, lumbar region Status: Acute (2) Discitis of lumbar region: Code(s): M46.46 - Discitis, unspecified, lumbar region Status: Acute (3) Lumbar radiculopathy: Code(s): M54.16 - Radiculopathy, lumbar region Status: Acute (4) Bacteremia: Code(s): R78.81 - Bacteremia Status: Acute Plan Lumbar Discitis/Osteomyelitis - F/U Dr Katey Paul for pain epidurals in sciatic nerve as well as x4 pain epidurals in his back for chronic back pain. -Abdominal/pelvic CT: Diskitis/osteomyelitis at L1-L2.Mild bilateral hydronephrosis and hydroureter, new from 10/15/2024, which may be secondary to the markedly distended bladder.Stool distends the rectum. Gallbladder distention, which may be secondary to fasting. Correlate with physical exam to exclude acute cholecystitis. -Lumbar spine CT:Severe degenerative spondylosis, as above, with multilevel spinal canal stenosis and neural foraminal narrowing.Probable mild chronic loss of height of L4. 6 mm anterolisthesis of L4 over L5. -Currently on cefepime and vancomycin -Ordered nasal MRSA -Accepted at [facility], pending bed -continue home pain med -no evidence of cord compression -pending blood culture Bacteremia Peptomstreptococcus micros Possible contamination Since both sets are positive ,will repeat BC HTN Started Amlodipine 10 mg PO QD Hydralazine 10 mg IV q 6hrs PRN Holding propranolol 80 mg, patient unable to verify Hypothyroid Levothyroxine 50 mcg po QD TSH 1.74 Subjective Date/time seen: 10/31/24 09:30 Interval history: Continue cefepime and vancomycin for 6 weeks. Pending transfer to [facility] Review of Systems Review of Systems: All systems reviewed & are unremarkable except as noted in HPI and below Constitutional: Constitutional: Reports no additional constitutional complaints ENT: Reports system reviewed and no additional complaints, except as documented Cardiovascular: Cardiovascular: Reports no additional cardiovascular complaints Respiratory: Respiratory: Reports no additional respiratory complaints Gastrointestinal: Gastrointestinal: Reports no additional gastrointestinal complaints Musculoskeletal: Musculoskeletal: Reports no additional musculoskeletal complaints Exam Narrative: GENERAL: Uncomfortable-appearing, well-nourished, and in no acute distress. HEAD: Normocephalic, atraumatic. ENT: Mucous membranes moist. CHEST: Clear to auscultation. No respiratory distress. HEART: Tachycardic and regular. Normal peripheral pulses. ABDOMEN: Soft, nontender, nondistended Back: No midline tenderness the T/L-spine. Bilateral SI region tenderness the reproduces patient's pain improved no soft tissue tenderness in the paraspinal areas superior to the SI. EXTREMITIES: Normal range of motion. No edema. SKIN: Warm, dry, no rash. NEURO: Alert and oriented x3. PSYCH: Normal mood and affect. Objective Data Vital Signs Vital Signs: Vital Signs - 24 hr 10/30/24 10:25 10/30/24 13:00 10/30/24 14:00 Temperature 96.7 F L Pulse Rate 100 Respiratory Rate 20 Blood Pressure 154/87 H Pulse Oximetry 97 Oxygen Delivery Room Air Room Air 10/30/24 20:00 10/30/24 21:27 10/31/24 06:00 Temperature 97.6 F 97.5 F L Pulse Rate 104 H 96 Respiratory Rate 22 H 18 Blood Pressure 147/71 H 144/81 H Pulse Oximetry 97 99 Oxygen Delivery Room Air Intake/Output Intake/Output: Intake & Output 10/28/24 10/29/24 10/30/24 10/31/24 23:59 23:59 23:59 23:59 Intake Total 1810 2065 2520 1300 Output Total 1100 1100 1000 850 Balance 737 414 1595 450 Meds/Results Medications: Active Medications Generic Name Dose Route Start Last Admin Trade Name Freq PRN Reason Stop Dose Admin Hydrocodone Bitart/Acetaminophen 1 tab 10/27/24 10:42 10/31/24 05:37 Hydrocodone/Acetaminophen (*Crx) 7.5-325 Mg Tablet PO 1 tab Q8H PRN Administration Pain Amlodipine Besylate 10 mg 10/29/24 09:00 10/31/24 09:06 Amlodipine Besylate 10 Mg Tablet PO 10 mg DAILY [place] Administration Diazepam 5 mg 10/27/24 10:42 10/31/24 09:12 Diazepam (*Crx) 5 Mg Tablet PO 5 mg BID PRN Administration Anxiety Duloxetine HCl 60 mg 10/28/24 00:00 10/30/24 23:45 Duloxetine Hcl 60 Mg Capsule.Dr PO 60 mg Q24H [place] Administration Enoxaparin Sodium 40 mg 10/27/24 09:00 10/31/24 09:06 Enoxaparin 40 Mg/0.4 Ml Syringe SUB-Q 40 mg DAILY [place] Administration Hydralazine HCl 10 mg 10/28/24 09:10 10/28/24 23:48 Hydralazine Hcl 20 Mg/Ml Vial IV PUSH 10 mg Q6H PRN Administration Blood Pressure - High Cefepime HCl 2 gm in 50 mls @ 100 mls/hr 10/27/24 04:00 10/31/24 04:55 Maxipime 2 Gm/Ns 50 Ml IVPB Infused Q12H [facility] Infusion Vancomycin HCl 1,500 mg in 500 mls @ 250 mls/hr 10/28/24 21:00 10/31/24 09:07 Vancomycin 1,500 Mg/Ns 500 Ml IVPB 250 mls/hr Q12H [place] Administration Sodium Chloride 1,000 mls @ 75 mls/hr 10/30/24 13:50 10/31/24 09:06 Normal Saline Iv IV CONT 75 mls/hr .[id number] [place] Administration Levothyroxine Sodium 50 mcg 10/29/24 06:30 10/31/24 05:37 Levothyroxine Sodium 50 Mcg Tablet PO 50 mcg DAILY@0630 [place] Administration Melatonin 5 mg 10/27/24 10:42 10/30/24 20:18 Melatonin 5 Mg Tablet PO 5 mg HS PRN Administration Sleep Polyethylene Glycol 17 gm 10/29/24 09:00 10/31/24 09:06 Polyethylene Glycol 3350 17 Gm Powd.Pack PO 17 gm QAM [place] Administration Tamsulosin HCl 0.4 mg 10/28/24 09:00 10/31/24 09:06 Tamsulosin Hcl 0.4 Mg Capsule PO 0.4 mg DAILY [place] Administration Radiology Results: ITS Impressions Chest X-Ray 10/26/24 13:56 Impression: 1: No acute cardiopulmonary disease. Abdomen/Pelvis CT 10/26/24 14:16 IMPRESSION: 1. Discitis/osteomyelitis at L1-L2. 2. Mild bilateral hydronephrosis and hydroureter, new from 10/15/2024, which may be secondary to the markedly distended bladder. 3. Stool distends the rectum. 4. Gallbladder distention, which may be secondary to fasting. Correlate with physical exam to exclude acute cholecystitis. Labs Labs: Laboratory Results - last 24 hr 10/31/24 10/31/24 06:37 06:38 WBC 6.9 RBC 4.13 L Hgb 12.1 L Hct 36.8 L MCV 89.1 MCH 29.3 MCHC 32.9 RDW 13.4 Plt Count 179 MPV 10.8 H Sodium 128 L Potassium 4.5 Chloride 95 L Carbon Dioxide 29 Anion Gap 4 BUN 15 Creatinine 0.66 L Estim Creat Clear Calc 76 Estimated GFR > 60 Glucose 209 H Calcium 8.1 L Total Bilirubin 0.8 AST 34 ALT 37 Alkaline Phosphatase 139 H Total Protein 6.0 L Albumin 2.6 L Quality VTE Prophylaxis VTE prophylaxis: pharmacologic ordered Hospitalist [facility] Advance Care Plan I have confirmed that the patient's Advanced Care Plan is present, code status is documented, or surrogate decision maker is listed in patient medical record.: Yes Medication Reconciliation I have utilized all available resources to obtain, update and review the patients current medications (includes all prescriptions, OTC, herbals, cannabis, and nutritional supplements).: Yes
[2024-10-31] MEDS: SODIUM CHLORIDE 1 GM TABLET PO ×2 (11:28→17:34)
[2024-10-31] MEDS: MORPHINE SULFATE (*CRX) 2 MG/ML INJ 1 MG IV PUSH (11:29)
[2024-10-31 14:00] VITALS: BP 140/85; PULSE 94; RESP 20; TEMP 36.8; O2SAT 97
[2024-10-31 19:26] LABS: IFOB Positive Control Positive; Immunochemical Fecal Occult Bl Positive (N)
[2024-10-31] MEDS: MORPHINE SULFATE (*CRX) 2 MG/ML INJ IV PUSH (21:05)
[2024-10-31 22:00] VITALS: BP 156/78; PULSE 100; RESP 18; TEMP 36.4; O2SAT 98
[2024-11-01] MEDS: DULoxetine HCL 60 MG CAPSULE.DR PO ×2 (00:29→23:21)
[2024-11-01] MEDS: MELATONIN 5 MG TABLET PO (00:29)
[2024-11-01] MEDS: CEFEPIME 2 GM/NS 50 ML 2 GM/50 ML BAG IVPB ×2 (04:00→16:09)
[2024-11-01 06:00] VITALS: BP 133/75; PULSE 99; RESP 18; TEMP 36.7; O2SAT 98
[2024-11-01] MEDS: LEVOTHYROXINE SODIUM 50 MCG TABLET PO (06:34)
[2024-11-01 06:55] LABS: Estimated CRCL calculation 77 ml/min; Estimated Glomerular Filt Rate > 60
[2024-11-01 08:09] VITALS: O2SAT 98
--- NOTE | 2024-11-01 08:11 | PM.IMPN ---
Progress Note: A&P Assessment and Plan (1) Acute osteomyelitis of lumbar spine: Code(s): M46.26 - Osteomyelitis of vertebra, lumbar region Status: Acute (2) Discitis of lumbar region: Code(s): M46.46 - Discitis, unspecified, lumbar region Status: Acute (3) Lumbar radiculopathy: Code(s): M54.16 - Radiculopathy, lumbar region Status: Acute (4) Bacteremia: Code(s): R78.81 - Bacteremia Status: Acute Plan Lumbar Discitis/Osteomyelitis - F/U Dr Katey Paul for pain epidurals in sciatic nerve as well as x4 pain epidurals in his back for chronic back pain. -Abdominal/pelvic CT: Diskitis/osteomyelitis at L1-L2.Mild bilateral hydronephrosis and hydroureter, new from 10/15/2024, which may be secondary to the markedly distended bladder.Stool distends the rectum. Gallbladder distention, which may be secondary to fasting. Correlate with physical exam to exclude acute cholecystitis. -Lumbar spine CT:Severe degenerative spondylosis, as above, with multilevel spinal canal stenosis and neural foraminal narrowing.Probable mild chronic loss of height of L4. 6 mm anterolisthesis of L4 over L5. -Currently on cefepime and vancomycin -Ordered nasal MRSA -Accepted at [facility], pending bed -continue home pain med -no evidence of cord compression -pending blood culture Bacteremia Peptomstreptococcus micros Possible contamination Since both sets are positive ,will repeat BC HTN Started Amlodipine 10 mg PO QD Hydralazine 10 mg IV q 6hrs PRN Holding propranolol 80 mg, patient unable to verify Hypothyroid Levothyroxine 50 mcg po QD TSH 1.74 Subjective Date/time seen: 11/01/24 08:11 Interval history: Nineteen reported evidence of bloody stool. Will monitor H&H and stool. If necessary will consult GI. Recommend continuing cefepime and vancomycin for total of 6 weeks. Patient is pending transfer to [facility] Review of Systems Review of Systems: All systems reviewed & are unremarkable except as noted in HPI and below Constitutional: Constitutional: Reports no additional constitutional complaints ENT: Reports system reviewed and no additional complaints, except as documented Cardiovascular: Cardiovascular: Reports no additional cardiovascular complaints Respiratory: Respiratory: Reports no additional respiratory complaints Gastrointestinal: Gastrointestinal: Reports no additional gastrointestinal complaints Musculoskeletal: Musculoskeletal: Reports no additional musculoskeletal complaints Exam Narrative: GENERAL: Uncomfortable-appearing, well-nourished, and in no acute distress. HEAD: Normocephalic, atraumatic. ENT: Mucous membranes moist. CHEST: Clear to auscultation. No respiratory distress. HEART: Tachycardic and regular. Normal peripheral pulses. ABDOMEN: Soft, nontender, nondistended Back: No midline tenderness the T/L-spine. Bilateral SI region tenderness the reproduces patient's pain improved no soft tissue tenderness in the paraspinal areas superior to the SI. EXTREMITIES: Normal range of motion. No edema. SKIN: Warm, dry, no rash. NEURO: Alert and oriented x3. PSYCH: Normal mood and affect. Objective Data Vital Signs Vital Signs: Vital Signs - 24 hr 10/31/24 09:09 10/31/24 14:00 10/31/24 20:00 Temperature 98.2 F Pulse Rate 94 Respiratory Rate 20 Blood Pressure 140/85 Pulse Oximetry 97 Oxygen Delivery Room Air Room Air 10/31/24 22:00 11/01/24 06:00 11/01/24 08:09 Temperature 97.5 F L 98.1 F Pulse Rate 100 99 Respiratory Rate 18 18 Blood Pressure 156/78 H 133/75 Pulse Oximetry 98 98 98 Oxygen Delivery Room Air Intake/Output Intake/Output: Intake & Output 10/29/24 10/30/24 10/31/24 11/01/24 23:59 23:59 23:59 23:59 Intake Total 2065 2520 2830 200 Output Total 1100 1000 1700 1075 Balance 965 1520 1130 -875 Meds/Results Medications: Active Medications Generic Name Dose Route Start Last Admin Trade Name Freq PRN Reason Stop Dose Admin Acetaminophen 650 mg 10/31/24 20:53 Acetaminophen 325 Mg Tablet PO Q4H PRN Mild Pain (1-3) or Fever Hydrocodone Bitart/Acetaminophen 1 tab 10/27/24 10:42 10/31/24 22:32 Hydrocodone/Acetaminophen (*Crx) 7.5-325 Mg Tablet PO 1 tab Q8H PRN Administration Pain Amlodipine Besylate 10 mg 10/29/24 09:00 10/31/24 09:06 Amlodipine Besylate 10 Mg Tablet PO 10 mg DAILY [place] Administration Diazepam 5 mg 10/27/24 10:42 10/31/24 17:34 Diazepam (*Crx) 5 Mg Tablet PO 5 mg BID PRN Administration Anxiety Duloxetine HCl 60 mg 10/28/24 00:00 11/01/24 00:29 Duloxetine Hcl 60 Mg Capsule.Dr PO 60 mg Q24H [place] Administration Enoxaparin Sodium 40 mg 10/27/24 09:00 10/31/24 09:06 Enoxaparin 40 Mg/0.4 Ml Syringe SUB-Q 40 mg DAILY [place] Administration Hydralazine HCl 10 mg 10/28/24 09:10 10/28/24 23:48 Hydralazine Hcl 20 Mg/Ml Vial IV PUSH 10 mg Q6H PRN Administration Blood Pressure - High Cefepime HCl 2 gm in 50 mls @ 100 mls/hr 10/27/24 04:00 11/01/24 04:00 Maxipime 2 Gm/Ns 50 Ml IVPB 100 mls/hr Q12H [place] Administration Vancomycin HCl 1,500 mg in 500 mls @ 250 mls/hr 10/28/24 21:00 10/31/24 21:02 Vancomycin 1,500 Mg/Ns 500 Ml IVPB 250 mls/hr Q12H [place] Administration Sodium Chloride 1,000 mls @ 75 mls/hr 10/30/24 13:50 10/31/24 09:06 Normal Saline Iv IV CONT 75 mls/hr .[id number] [place] Administration Levothyroxine Sodium 50 mcg 10/29/24 06:30 11/01/24 06:34 Levothyroxine Sodium 50 Mcg Tablet PO 50 mcg DAILY@0630 [facility] Administration Melatonin 5 mg 10/27/24 10:42 11/01/24 00:29 Melatonin 5 Mg Tablet PO 5 mg HS PRN Administration Sleep Morphine Sulfate 2 mg 10/31/24 20:53 10/31/24 21:05 Morphine Sulfate (*Crx) 2 Mg/Ml Inj IV PUSH 2 mg Q4H PRN Administration Pain Rated 7-10 Polyethylene Glycol 17 gm 10/29/24 09:00 10/31/24 09:06 Polyethylene Glycol 3350 17 Gm Powd.Pack PO 17 gm QAM [place] Administration Sodium Chloride 1 gm 10/31/24 09:35 10/31/24 17:34 Sodium Chloride 1 Gm Tablet PO 1 gm BID [place] Administration Tamsulosin HCl 0.4 mg 10/28/24 09:00 10/31/24 09:06 Tamsulosin Hcl 0.4 Mg Capsule PO 0.4 mg DAILY [place] Administration Radiology Results: ITS Impressions Chest X-Ray 10/26/24 13:56 Impression: 1: No acute cardiopulmonary disease. Abdomen/Pelvis CT 10/26/24 14:16 IMPRESSION: 1. Discitis/osteomyelitis at L1-L2. 2. Mild bilateral hydronephrosis and hydroureter, new from 10/15/2024, which may be secondary to the markedly distended bladder. 3. Stool distends the rectum. 4. Gallbladder distention, which may be secondary to fasting. Correlate with physical exam to exclude acute cholecystitis. Labs Labs: Laboratory Results - last 24 hr 10/31/24 11/01/24 19:05 06:14 Creatinine 0.65 L Estim Creat Clear Calc 77 Estimated GFR > 60 Stl Occult Blood (IFOB) Positive H Quality VTE Prophylaxis VTE prophylaxis: pharmacologic ordered Hospitalist MIPS Advance Care Plan I have confirmed that the patient's Advanced Care Plan is present, code status is documented, or surrogate decision maker is listed in patient medical record.: Yes Medication Reconciliation I have utilized all available resources to obtain, update and review the patients current medications (includes all prescriptions, OTC, herbals, cannabis, and nutritional supplements).: Yes
[2024-11-01 09:38] LABS: Alanine Aminotransferase 38 U/L (6-50); Albumin Level 2.4 g/dL (3.5-5.1); Alkaline Phosphatase 155 U/L (38-126); Anion Gap 5 mmol/L (4-12); Aspartate Amino Transferase 41 U/L (17-59); Bilirubin,Total 0.8 mg/dL (0.2-1.3); Blood Urea Nitrogen 14 mg/dL (9-20); Calcium 8.2 mg/dL (8.4-10.2); Carbon Dioxide 27 mmol/L (22-30); Chloride 96 mmol/L (98-107); Estimated CRCL calculation 77 ml/min; Estimated Glomerular Filt Rate > 60; Glucose 203 mg/dL (65-110); Potassium 4.2 mmol/L (3.4-5.0); Sodium 128 mmol/L (137-145)
[2024-11-01] MEDS: polyethylene glycoL 3350 17 GM POWD.PACK PO (09:41)
[2024-11-01] MEDS: HYDROcodone/acetaminophen (*CRX) 7.5-325 MG TABLET 1 TAB PO ×2 (09:41→20:25)
[2024-11-01] MEDS: ENOXAPARIN 40 MG/0.4 ML SYRINGE SUB-Q (09:41)
[2024-11-01] MEDS: SODIUM CHLORIDE 1 GM TABLET PO ×2 (09:41→16:13)
[2024-11-01] MEDS: TAMSULOSIN HCL 0.4 MG CAPSULE PO (09:41)
[2024-11-01] MEDS: amLODIPine BESYLATE 10 MG TABLET PO (09:41)
[2024-11-01] MEDS: VANCOMYCIN 1,500 MG/NS 500 ML 1,500 MG/500 ML BAG 250 MG IVPB ×2 (09:42→20:26)
[2024-11-01 09:44] LABS: Mean Corpuscular HGB Conc 33.3 g/dl (32-36); Mean Corpuscular Hemoglobin 29.7 pg (26-34); Mean Corpuscular Volume 89.1 fl (80-100); Mean Platelet Volume 10.9 fl (7.4-10.4); Platelet Count Result 200 k/mm3 (150-375); Red Blood Count 4.04 M/mm3 (4.6-6.20); Red Cell Distribution Width 13.6 % (11.5-14.5); White Blood Count 6.8 K/mm3 (4.5-10.0)
--- NOTE | 2024-11-01 11:02 | PCNWS ---
Weekly nutritional screen. Patient is tolerating current Heart healthy diet with adequate intake, mostly 90-100%. No weight loss reported. No nutritional needs at this time.
--- NOTE | 2024-11-01 11:57 | PCPTNOTE ---
On 11/01/24, the student, BENITA Alegria, provided care and completed [facility] documentation on this patient. I have reviewed the student's documentation and agree with the findings.
[2024-11-01] MEDS: diazePAM (*CRX) 5 MG TABLET PO (13:31)
[2024-11-01 14:00] VITALS: BP 145/72; PULSE 102; RESP 18; TEMP 36.1; O2SAT 99
[2024-11-01] MEDS: SODIUM CHLORIDE 0.9% IV 1,000 ML 75 ML IV CONT (16:12)
[2024-11-01] MEDS: MORPHINE SULFATE (*CRX) 2 MG/ML INJ IV PUSH (16:13)
[2024-11-01 20:48] VITALS: BP 135/70; PULSE 97; RESP 18; TEMP 36.2; O2SAT 98
[2024-11-02] MEDS: CEFEPIME 2 GM/NS 50 ML 2 GM/50 ML BAG IVPB ×3 (04:07→21:21)
[2024-11-02 05:30] VITALS: BP 145/73; PULSE 96; RESP 20; TEMP 36.4; O2SAT 95
[2024-11-02] MEDS: LEVOTHYROXINE SODIUM 50 MCG TABLET PO (05:32)
[2024-11-02] MEDS: HYDROcodone/acetaminophen (*CRX) 7.5-325 MG TABLET 1 TAB PO ×2 (06:13→12:36)
[2024-11-02 08:04] LABS: Hematocrit 34.9 % (42.0-52.0); Hemoglobin 11.5 g/dL (14.0-18.0); Mean Corpuscular Volume 88.1 fl (80-100); Mean Platelet Volume 10.4 fl (7.4-10.4); Platelet Count Result 182 k/mm3 (150-375); Red Blood Count 3.96 M/mm3 (4.6-6.20); Red Cell Distribution Width 13.4 % (11.5-14.5); White Blood Count 6.4 K/mm3 (4.5-10.0)
[2024-11-02 09:07] LABS: Vancomycin Trough 18.5 ug/mL (10.0-20.0)
[2024-11-02 09:20] LABS: Alanine Aminotransferase 34 U/L (6-50); Albumin Level 2.5 g/dL (3.5-5.1); Alkaline Phosphatase 160 U/L (38-126); Anion Gap 3 mmol/L (4-12); Aspartate Amino Transferase 34 U/L (17-59); Bilirubin,Total 0.8 mg/dL (0.2-1.3); Blood Urea Nitrogen 13 mg/dL (9-20); Calcium 8.3 mg/dL (8.4-10.2); Carbon Dioxide 29 mmol/L (22-30); Chloride 95 mmol/L (98-107); Estimated CRCL calculation 79 ml/min; Estimated Glomerular Filt Rate > 60; Glucose 193 mg/dL (65-110); Sodium 127 mmol/L (137-145)
[2024-11-02] MEDS: SODIUM CHLORIDE 1 GM TABLET PO ×2 (09:25→17:38)
[2024-11-02] MEDS: ENOXAPARIN 40 MG/0.4 ML SYRINGE SUB-Q (09:25)
[2024-11-02] MEDS: TAMSULOSIN HCL 0.4 MG CAPSULE PO (09:25)
[2024-11-02] MEDS: polyethylene glycoL 3350 17 GM POWD.PACK PO (09:25)
[2024-11-02] MEDS: SODIUM CHLORIDE 0.9% IV 1,000 ML 75 ML IV CONT (09:25)
[2024-11-02] MEDS: amLODIPine BESYLATE 10 MG TABLET PO (09:25)
[2024-11-02] MEDS: VANCOMYCIN 1,500 MG/NS 500 ML 1,500 MG/500 ML BAG 250 MG IVPB (10:35)
--- NOTE | 2024-11-02 10:59 | PCPTNOTE ---
Attempted to see pt for PT this morning. Pt stated that he would like to have pain medication before attempting therapy. Pt is in between medication times and would like to wait for next dose. Will continue to follow per PT POC.
[2024-11-02 14:00] VITALS: BP 113/68; PULSE 97; RESP 18; TEMP 36.4; O2SAT 98
--- NOTE | 2024-11-02 14:23 | P.PNIM_ITS ---
Progress Note: A&P Assessment and Plan (1) Acute osteomyelitis of lumbar spine: Code(s): M46.26 - Osteomyelitis of vertebra, lumbar region Status: Acute (2) Discitis of lumbar region: Code(s): M46.46 - Discitis, unspecified, lumbar region Status: Acute (3) Lumbar radiculopathy: Code(s): M54.16 - Radiculopathy, lumbar region Status: Acute (4) Bacteremia: Code(s): R78.81 - Bacteremia Status: Acute Plan Lumbar Discitis/Osteomyelitis - F/U Dr Katey Paul for pain epidurals in sciatic nerve as well as x4 pain epidurals in his back for chronic back pain. -Abdominal/pelvic CT: Diskitis/osteomyelitis at L1-L2.Mild bilateral hydronephrosis and hydroureter, new from 10/15/2024, which may be secondary to the markedly distended bladder.Stool distends the rectum. Gallbladder distention, which may be secondary to fasting. Correlate with physical exam to exclude acute cholecystitis. -Lumbar spine CT:Severe degenerative spondylosis, as above, with multilevel spinal canal stenosis and neural foraminal narrowing.Probable mild chronic loss of height of L4. 6 mm anterolisthesis of L4 over L5. -Currently on cefepime and vancomycin -Ordered nasal MRSA -Accepted at [facility], pending bed -continue home pain med -no evidence of cord compression -pending blood culture Bacteremia Peptomstreptococcus micros Possible contamination Since both sets are positive ,will repeat BC HTN Started Amlodipine 10 mg PO QD Hydralazine 10 mg IV q 6hrs PRN Holding propranolol 80 mg, patient unable to verify Hypothyroid Levothyroxine 50 mcg po QD TSH 1.74 Subjective Date/time seen: 11/02/24 14:23 Interval history: No acute events overnight. Review of Systems Review of Systems: All systems reviewed & are unremarkable except as noted in HPI and below Constitutional: Constitutional: Reports no additional constitutional complaints ENT: Reports system reviewed and no additional complaints, except as documented Cardiovascular: Cardiovascular: Reports no additional cardiovascular complaints Respiratory: Respiratory: Reports no additional respiratory complaints Gastrointestinal: Gastrointestinal: Reports no additional gastrointestinal complaints Musculoskeletal: Musculoskeletal: Reports no additional musculoskeletal complaints Exam Narrative: GENERAL: Uncomfortable-appearing, well-nourished, and in no acute distress. HEAD: Normocephalic, atraumatic. ENT: Mucous membranes moist. CHEST: Clear to auscultation. No respiratory distress. HEART: Tachycardic and regular. Normal peripheral pulses. ABDOMEN: Soft, nontender, nondistended Back: No midline tenderness the T/L-spine. Bilateral SI region tenderness the reproduces patient's pain improved no soft tissue tenderness in the paraspinal areas superior to the SI. EXTREMITIES: Normal range of motion. No edema. SKIN: Warm, dry, no rash. NEURO: Alert and oriented x3. PSYCH: Normal mood and affect. Objective Data Vital Signs Vital Signs: Vital Signs - 24 hr 11/01/24 20:48 11/02/24 05:30 Temperature 97.2 F L 97.5 F L Pulse Rate 97 96 Respiratory Rate 18 20 Blood Pressure 135/70 145/73 H Pulse Oximetry 98 95 Intake/Output Intake/Output: Intake & Output 10/30/24 10/31/24 11/01/24 11/02/24 23:59 23:59 23:59 23:59 Intake Total 2520 4330 2252 1540 Output Total 1000 1700 2225 850 Balance 1520 2630 27 690 Meds/Results Medications: Active Medications Generic Name Dose Route Start Last Admin Trade Name Freq PRN Reason Stop Dose Admin Acetaminophen 650 mg 10/31/24 20:53 Acetaminophen 325 Mg Tablet PO Q4H PRN Mild Pain (1-3) or Fever Hydrocodone Bitart/Acetaminophen 1 tab 11/02/24 12:12 11/02/24 12:36 Hydrocodone/Acetaminophen (*Crx) 7.5-325 Mg Tablet PO 1 tab Q6H PRN Administration Pain Rated 4-6 Amlodipine Besylate 10 mg 10/29/24 09:00 11/02/24 09:25 Amlodipine Besylate 10 Mg Tablet PO 10 mg DAILY [place] Administration Diazepam 5 mg 10/27/24 10:42 11/01/24 13:31 Diazepam (*Crx) 5 Mg Tablet PO 5 mg BID PRN Administration Anxiety Duloxetine HCl 60 mg 10/28/24 00:00 11/01/24 23:21 Duloxetine Hcl 60 Mg Capsule.Dr PO 60 mg Q24H [place] Administration Enoxaparin Sodium 40 mg 10/27/24 09:00 11/02/24 09:25 Enoxaparin 40 Mg/0.4 Ml Syringe SUB-Q 40 mg DAILY [place] Administration Hydralazine HCl 10 mg 10/28/24 09:10 10/28/24 23:48 Hydralazine Hcl 20 Mg/Ml Vial IV PUSH 10 mg Q6H PRN Administration Blood Pressure - High Vancomycin HCl 1,500 mg in 500 mls @ 250 mls/hr 10/28/24 21:00 11/01/24 22:26 Vancomycin 1,500 Mg/Ns 500 Ml IVPB Infused Q12H [facility] Infusion Sodium Chloride 1,000 mls @ 75 mls/hr 10/30/24 13:50 11/02/24 09:25 Normal Saline Iv IV CONT 75 mls/hr .[id number] [place] Administration Cefepime HCl 2 gm in 50 mls @ 100 mls/hr 11/02/24 13:00 Maxipime 2 Gm/Ns 50 Ml IVPB Q8HR [place] Levothyroxine Sodium 50 mcg 10/29/24 06:30 11/02/24 05:32 Levothyroxine Sodium 50 Mcg Tablet PO 50 mcg DAILY@0630 [place] Administration Melatonin 5 mg 10/27/24 10:42 11/01/24 00:29 Melatonin 5 Mg Tablet PO 5 mg HS PRN Administration Sleep Morphine Sulfate 2 mg 10/31/24 20:53 11/01/24 16:13 Morphine Sulfate (*Crx) 2 Mg/Ml Inj IV PUSH 2 mg Q4H PRN Administration Pain Rated 7-10 Oxycodone/Acetaminophen 1 tablet 11/02/24 12:09 Oxycodone/Acetaminophen (*Crx) 5-325 Mg Tablet PO Q4H PRN Breakthrough Pain Polyethylene Glycol 17 gm 10/29/24 09:00 11/02/24 09:25 Polyethylene Glycol 3350 17 Gm Powd.Pack PO 17 gm QAM [place] Administration Sodium Chloride 1 gm 10/31/24 09:35 11/02/24 09:25 Sodium Chloride 1 Gm Tablet PO 1 gm BID [place] Administration Tamsulosin HCl 0.4 mg 10/28/24 09:00 11/02/24 09:25 Tamsulosin Hcl 0.4 Mg Capsule PO 0.4 mg DAILY [place] Administration Radiology Results: ITS Impressions Chest X-Ray 10/26/24 13:56 Impression: 1: No acute cardiopulmonary disease. Abdomen/Pelvis CT 10/26/24 14:16 IMPRESSION: 1. Discitis/osteomyelitis at L1-L2. 2. Mild bilateral hydronephrosis and hydroureter, new from 10/15/2024, which may be secondary to the markedly distended bladder. 3. Stool distends the rectum. 4. Gallbladder distention, which may be secondary to fasting. Correlate with physical exam to exclude acute cholecystitis. Labs Labs: Laboratory Results - last 24 hr 11/02/24 07:56 WBC 6.4 RBC 3.96 L Hgb 11.5 L Hct 34.9 L MCV 88.1 MCH 29.0 MCHC 33.0 RDW 13.4 Plt Count 182 MPV 10.4 Sodium 127 L Potassium 4.0 Chloride 95 L Carbon Dioxide 29 Anion Gap 3 L BUN 13 Creatinine 0.63 L Estim Creat Clear Calc 79 Estimated GFR > 60 Glucose 193 H Calcium 8.3 L Total Bilirubin 0.8 AST 34 ALT 34 Alkaline Phosphatase 160 H Total Protein 6.0 L Albumin 2.5 L Vancomycin Trough 18.5 Quality VTE Prophylaxis VTE prophylaxis: pharmacologic ordered Hospitalist MIPS Advance Care Plan I have confirmed that the patient's Advanced Care Plan is present, code status is documented, or surrogate decision maker is listed in patient medical record.: Yes Medication Reconciliation I have utilized all available resources to obtain, update and review the patients current medications (includes all prescriptions, OTC, herbals, cannabis, and nutritional supplements).: Yes
[2024-11-02] MEDS: oxyCODONE/ACETAMINOPHEN (*CRX) 5-325 MG TABLET 1 TABLET PO (14:56)
--- NOTE | 2024-11-02 15:52 | PCPTNOTE ---
On 11/02/24, the student, BENITA Alegria, provided care and completed [facility] documentation on this patient. I have reviewed the student's documentation and agree with the findings.
[2024-11-02] MEDS: VANCOMYCIN 1,500 MG/NS 500 ML 1,500 MG/500 ML BAG 200 MG IVPB (22:30)
[2024-11-02 22:34] VITALS: BP 124/65; PULSE 102; RESP 20; TEMP 36.3; O2SAT 98
[2024-11-03] MEDS: DULoxetine HCL 60 MG CAPSULE.DR PO (00:18)
[2024-11-03 05:32] VITALS: BP 134/71; PULSE 107; RESP 20; TEMP 36.8; O2SAT 95
[2024-11-03] MEDS: CEFEPIME 2 GM/NS 50 ML 2 GM/50 ML BAG IVPB ×2 (06:05→14:47)
[2024-11-03] MEDS: LEVOTHYROXINE SODIUM 50 MCG TABLET PO (06:37)
[2024-11-03] MEDS: SODIUM CHLORIDE 0.9% IV 1,000 ML 75 ML IV CONT ×3 (06:37→22:11)
--- NOTE | 2024-11-03 07:53 | P.PNIM_ITS ---
Progress Note: A&P Assessment and Plan (1) Acute osteomyelitis of lumbar spine: Code(s): M46.26 - Osteomyelitis of vertebra, lumbar region Status: Acute (2) Discitis of lumbar region: Code(s): M46.46 - Discitis, unspecified, lumbar region Status: Acute (3) Lumbar radiculopathy: Code(s): M54.16 - Radiculopathy, lumbar region Status: Acute (4) Bacteremia: Code(s): R78.81 - Bacteremia Status: Acute Plan Lumbar Discitis/Osteomyelitis - F/U Dr Katey Pual for pain epidurals in sciatic nerve as well as x4 pain epidurals in his back for chronic back pain. -Abdominal/pelvic CT: Diskitis/osteomyelitis at L1-L2.Mild bilateral hydronephrosis and hydroureter, new from 10/15/2024, which may be secondary to the markedly distended bladder.Stool distends the rectum. Gallbladder distention, which may be secondary to fasting. Correlate with physical exam to exclude acute cholecystitis. -Lumbar spine CT:Severe degenerative spondylosis, as above, with multilevel spinal canal stenosis and neural foraminal narrowing.Probable mild chronic loss of height of L4. 6 mm anterolisthesis of L4 over L5. -Currently on cefepime and vancomycin -Ordered nasal MRSA -Accepted at [facility], pending bed -continue home pain med -no evidence of cord compression -pending blood culture Bacteremia Peptomstreptococcus micros Possible contamination Since both sets are positive ,will repeat BC HTN Started Amlodipine 10 mg PO QD Hydralazine 10 mg IV q 6hrs PRN Holding propranolol 80 mg, patient unable to verify Hypothyroid Levothyroxine 50 mcg po QD TSH 1.74 Subjective Date/time seen: 11/03/24 07:53 Interval history: Continue IV antibiotics. No Acute events. Review of Systems Review of Systems: All systems reviewed & are unremarkable except as noted in HPI and below Constitutional: Constitutional: Reports no additional constitutional complaints ENT: Reports system reviewed and no additional complaints, except as documented Cardiovascular: Cardiovascular: Reports no additional cardiovascular complaints Respiratory: Respiratory: Reports no additional respiratory complaints Gastrointestinal: Gastrointestinal: Reports no additional gastrointestinal complaints Musculoskeletal: Musculoskeletal: Reports no additional musculoskeletal complaints Exam Narrative: GENERAL: Uncomfortable-appearing, well-nourished, and in no acute distress. HEAD: Normocephalic, atraumatic. ENT: Mucous membranes moist. CHEST: Clear to auscultation. No respiratory distress. HEART: Tachycardic and regular. Normal peripheral pulses. ABDOMEN: Soft, nontender, nondistended Back: No midline tenderness the T/L-spine. Bilateral SI region tenderness the reproduces patient's pain improved no soft tissue tenderness in the paraspinal areas superior to the SI. EXTREMITIES: Normal range of motion. No edema. SKIN: Warm, dry, no rash. NEURO: Alert and oriented x3. PSYCH: Normal mood and affect. Objective Data Vital Signs Vital Signs: Vital Signs - 24 hr 11/02/24 14:00 11/02/24 22:34 11/03/24 05:32 Temperature 97.5 F L 97.3 F L 98.3 F Pulse Rate 97 102 H 107 H Respiratory Rate 18 20 20 Blood Pressure 113/68 124/65 134/71 Pulse Oximetry 98 98 95 Intake/Output Intake/Output: Intake & Output 10/31/24 11/01/24 11/02/24 11/03/24 23:59 23:59 23:59 23:59 Intake Total 4330 2252 4120 300 Output Total 1700 2225 1950 1150 Balance 2630 27 2170 -850 Meds/Results Medications: Active Medications Generic Name Dose Route Start Last Admin Trade Name Freq PRN Reason Stop Dose Admin Acetaminophen 650 mg 10/31/24 20:53 Acetaminophen 325 Mg Tablet PO Q4H PRN Mild Pain (1-3) or Fever Hydrocodone Bitart/Acetaminophen 1 tab 11/02/24 12:12 11/02/24 12:36 Hydrocodone/Acetaminophen (*Crx) 7.5-325 Mg Tablet PO 1 tab Q6H PRN Administration Pain Rated 4-6 Amlodipine Besylate 10 mg 10/29/24 09:00 11/02/24 09:25 Amlodipine Besylate 10 Mg Tablet PO 10 mg DAILY [place] Administration Diazepam 5 mg 10/27/24 10:42 11/01/24 13:31 Diazepam (*Crx) 5 Mg Tablet PO 5 mg BID PRN Administration Anxiety Duloxetine HCl 60 mg 10/28/24 00:00 11/03/24 00:18 Duloxetine Hcl 60 Mg Capsule.Dr PO 60 mg Q24H [place] Administration Enoxaparin Sodium 40 mg 10/27/24 09:00 11/02/24 09:25 Enoxaparin 40 Mg/0.4 Ml Syringe SUB-Q 40 mg DAILY [place] Administration Hydralazine HCl 10 mg 10/28/24 09:10 10/28/24 23:48 Hydralazine Hcl 20 Mg/Ml Vial IV PUSH 10 mg Q6H PRN Administration Blood Pressure - High Vancomycin HCl 1,500 mg in 500 mls @ 250 mls/hr 10/28/24 21:00 11/02/24 22:30 Vancomycin 1,500 Mg/Ns 500 Ml IVPB 200 mls/hr Q12H [place] Administration Sodium Chloride 1,000 mls @ 75 mls/hr 10/30/24 13:50 11/03/24 06:37 Normal Saline Iv IV CONT 75 mls/hr .[id number] [place] Administration Cefepime HCl 2 gm in 50 mls @ 100 mls/hr 11/02/24 13:00 11/03/24 06:05 Maxipime 2 Gm/Ns 50 Ml IVPB 100 mls/hr Q8HR [place] Administration Levothyroxine Sodium 50 mcg 10/29/24 06:30 11/03/24 06:37 Levothyroxine Sodium 50 Mcg Tablet PO 50 mcg DAILY@0630 [place] Administration Melatonin 5 mg 10/27/24 10:42 11/01/24 00:29 Melatonin 5 Mg Tablet PO 5 mg HS PRN Administration Sleep Morphine Sulfate 2 mg 10/31/24 20:53 11/01/24 16:13 Morphine Sulfate (*Crx) 2 Mg/Ml Inj IV PUSH 2 mg Q4H PRN Administration Pain Rated 7-10 Oxycodone/Acetaminophen 1 tablet 11/02/24 12:09 11/02/24 14:56 Oxycodone/Acetaminophen (*Crx) 5-325 Mg Tablet PO 1 tablet Q4H PRN Administration Breakthrough Pain Polyethylene Glycol 17 gm 10/29/24 09:00 11/02/24 09:25 Polyethylene Glycol 3350 17 Gm Powd.Pack PO 17 gm QAM [place] Administration Sodium Chloride 1 gm 10/31/24 09:35 11/02/24 17:38 Sodium Chloride 1 Gm Tablet PO 1 gm BID [place] Administration Tamsulosin HCl 0.4 mg 10/28/24 09:00 11/02/24 09:25 Tamsulosin Hcl 0.4 Mg Capsule PO 0.4 mg DAILY [place] Administration Radiology Results: ITS Impressions Chest X-Ray 10/26/24 13:56 Impression: 1: No acute cardiopulmonary disease. Abdomen/Pelvis CT 10/26/24 14:16 IMPRESSION: 1. Discitis/osteomyelitis at L1-L2. 2. Mild bilateral hydronephrosis and hydroureter, new from 10/15/2024, which may be secondary to the markedly distended bladder. 3. Stool distends the rectum. 4. Gallbladder distention, which may be secondary to fasting. Correlate with physical exam to exclude acute cholecystitis. Labs Labs: Laboratory Results - last 24 hr 11/02/24 07:56 WBC 6.4 RBC 3.96 L Hgb 11.5 L Hct 34.9 L MCV 88.1 MCH 29.0 MCHC 33.0 RDW 13.4 Plt Count 182 MPV 10.4 Sodium 127 L Potassium 4.0 Chloride 95 L Carbon Dioxide 29 Anion Gap 3 L BUN 13 Creatinine 0.63 L Estim Creat Clear Calc 79 Estimated GFR > 60 Glucose 193 H Calcium 8.3 L Total Bilirubin 0.8 AST 34 ALT 34 Alkaline Phosphatase 160 H Total Protein 6.0 L Albumin 2.5 L Vancomycin Trough 18.5 Quality VTE Prophylaxis VTE prophylaxis: pharmacologic ordered Hospitalist MIPS Advance Care Plan I have confirmed that the patient's Advanced Care Plan is present, code status is documented, or surrogate decision maker is listed in patient medical record.: Yes Medication Reconciliation I have utilized all available resources to obtain, update and review the patients current medications (includes all prescriptions, OTC, herbals, cannabis, and nutritional supplements).: Yes
[2024-11-03] MEDS: TAMSULOSIN HCL 0.4 MG CAPSULE PO (08:32)
[2024-11-03] MEDS: polyethylene glycoL 3350 17 GM POWD.PACK PO (08:32)
[2024-11-03] MEDS: amLODIPine BESYLATE 10 MG TABLET PO (08:32)
[2024-11-03] MEDS: SODIUM CHLORIDE 1 GM TABLET PO ×2 (08:32→17:42)
[2024-11-03] MEDS: VANCOMYCIN 1,500 MG/NS 500 ML 1,500 MG/500 ML BAG 200 MG IVPB ×2 (08:38→22:05)
[2024-11-03] MEDS: ENOXAPARIN 40 MG/0.4 ML SYRINGE SUB-Q (08:38)
[2024-11-03] MEDS: HYDROcodone/acetaminophen (*CRX) 7.5-325 MG TABLET 1 TAB PO ×2 (11:20→18:37)
[2024-11-03 14:00] VITALS: BP 160/67; PULSE 95; RESP 16; TEMP 36.4; O2SAT 99
[2024-11-03] MEDS: LIDOCAINE 1% PF INJ 5 ML VIAL INFILTRATE (14:05)
[2024-11-03 17:17] LABS: Glucose Point of Care 216 mg/dl (65-105)
[2024-11-03 20:14] LABS: Glucose Point of Care 230 mg/dl (65-105)
[2024-11-03 21:44] VITALS: BP 145/77; PULSE 103; RESP 20; TEMP 36.4; O2SAT 99
[2024-11-03] MEDS: INSULIN ASPART (*BKC) 100 UNITS/ML SUB-Q (22:06)
[2024-11-03] MEDS: CENTRAL LINE FLUSH 10 ML IV PUSH (22:12)
[2024-11-04] MEDS: DULoxetine HCL 60 MG CAPSULE.DR PO (01:00)
[2024-11-04] MEDS: HYDROcodone/acetaminophen (*CRX) 7.5-325 MG TABLET 1 TAB PO ×3 (01:00→22:11)
[2024-11-04] MEDS: CEFEPIME 2 GM/NS 50 ML 2 GM/50 ML BAG IVPB ×3 (01:05→17:01)
[2024-11-04 04:57] LABS: Hematocrit 32.7 % (42.0-52.0); Hemoglobin 10.9 g/dL (14.0-18.0); Mean Corpuscular HGB Conc 33.3 g/dl (32-36); Mean Corpuscular Hemoglobin 29.7 pg (26-34); Mean Corpuscular Volume 89.1 fl (80-100); Mean Platelet Volume 10.4 fl (7.4-10.4); Platelet Count Result 210 k/mm3 (150-375); Red Blood Count 3.67 M/mm3 (4.6-6.20); Red Cell Distribution Width 13.7 % (11.5-14.5); White Blood Count 5.2 K/mm3 (4.5-10.0)
[2024-11-04 05:16] LABS: Alanine Aminotransferase 29 U/L (6-50); Albumin Level 2.5 g/dL (3.5-5.1); Alkaline Phosphatase 183 U/L (38-126); Anion Gap 2 mmol/L (4-12); Aspartate Amino Transferase 28 U/L (17-59); Bilirubin,Total 0.7 mg/dL (0.2-1.3); Blood Urea Nitrogen 14 mg/dL (9-20); Calcium 8.2 mg/dL (8.4-10.2); Carbon Dioxide 29 mmol/L (22-30); Chloride 98 mmol/L (98-107); Estimated CRCL calculation 89 ml/min; Estimated Glomerular Filt Rate > 60; Glucose 168 mg/dL (65-110); Potassium 3.8 mmol/L (3.4-5.0); Sodium 129 mmol/L (137-145)
[2024-11-04 05:21] VITALS: BP 130/75; PULSE 94; RESP 16; TEMP 36.6; O2SAT 99
[2024-11-04] MEDS: LEVOTHYROXINE SODIUM 50 MCG TABLET PO (05:49)
[2024-11-04] MEDS: CENTRAL LINE FLUSH 10 ML IV PUSH ×2 (05:53→22:14)
[2024-11-04 07:48] LABS: Glucose Point of Care 174 mg/dl (65-105)
[2024-11-04] MEDS: SODIUM CHLORIDE 1 GM TABLET PO ×2 (08:35→17:04)
[2024-11-04] MEDS: amLODIPine BESYLATE 10 MG TABLET PO (08:35)
[2024-11-04] MEDS: ENOXAPARIN 40 MG/0.4 ML SYRINGE SUB-Q (08:35)
[2024-11-04] MEDS: polyethylene glycoL 3350 17 GM POWD.PACK PO (08:35)
[2024-11-04] MEDS: TAMSULOSIN HCL 0.4 MG CAPSULE PO (08:35)
[2024-11-04 11:39] LABS: Vancomycin Trough 16.4 ug/mL (10.0-20.0)
[2024-11-04 12:14] LABS: Glucose Point of Care 213 mg/dl (65-105)
[2024-11-04] MEDS: VANCOMYCIN 1,500 MG/NS 500 ML 1,500 MG/500 ML BAG 250 MG IVPB (12:48)
--- NOTE | 2024-11-04 13:47 | P.PNIM_ITS ---
Progress Note: A&P Assessment and Plan (1) Acute osteomyelitis of lumbar spine: Code(s): M46.26 - Osteomyelitis of vertebra, lumbar region Status: Acute (2) Discitis of lumbar region: Code(s): M46.46 - Discitis, unspecified, lumbar region Status: Acute (3) Lumbar radiculopathy: Code(s): M54.16 - Radiculopathy, lumbar region Status: Acute (4) Bacteremia: Code(s): R78.81 - Bacteremia Status: Acute Plan Lumbar Discitis/Osteomyelitis - F/U Dr Katey Pual for pain epidurals in sciatic nerve as well as x4 pain epidurals in his back for chronic back pain. -Abdominal/pelvic CT: Diskitis/osteomyelitis at L1-L2.Mild bilateral hydronephrosis and hydroureter, new from 10/15/2024, which may be secondary to the markedly distended bladder.Stool distends the rectum. Gallbladder distention, which may be secondary to fasting. Correlate with physical exam to exclude acute cholecystitis. -Lumbar spine CT:Severe degenerative spondylosis, as above, with multilevel spinal canal stenosis and neural foraminal narrowing.Probable mild chronic loss of height of L4. 6 mm anterolisthesis of L4 over L5. -Currently on cefepime and vancomycin -Ordered nasal MRSA -Accepted at [facility], pending bed -continue home pain med -no evidence of cord compression -pending blood culture Bacteremia Peptomstreptococcus micros Possible contamination Since both sets are positive ,will repeat BC HTN Started Amlodipine 10 mg PO QD Hydralazine 10 mg IV q 6hrs PRN Holding propranolol 80 mg, patient unable to verify Hypothyroid Levothyroxine 50 mcg po QD TSH 1.74 Subjective Date/time seen: 11/04/24 13:47 Interval history: No acute events reported. Review of Systems Review of Systems: All systems reviewed & are unremarkable except as noted in HPI and below Constitutional: Constitutional: Reports no additional constitutional complaints ENT: Reports system reviewed and no additional complaints, except as documented Cardiovascular: Cardiovascular: Reports no additional cardiovascular complaints Respiratory: Respiratory: Reports no additional respiratory complaints Gastrointestinal: Gastrointestinal: Reports no additional gastrointestinal complaints Musculoskeletal: Musculoskeletal: Reports no additional musculoskeletal complaints Exam Narrative: GENERAL: Uncomfortable-appearing, well-nourished, and in no acute distress. HEAD: Normocephalic, atraumatic. ENT: Mucous membranes moist. CHEST: Clear to auscultation. No respiratory distress. HEART: Tachycardic and regular. Normal peripheral pulses. ABDOMEN: Soft, nontender, nondistended Back: No midline tenderness the T/L-spine. Bilateral SI region tenderness the reproduces patient's pain improved no soft tissue tenderness in the paraspinal areas superior to the SI. EXTREMITIES: Normal range of motion. No edema. SKIN: Warm, dry, no rash. NEURO: Alert and oriented x3. PSYCH: Normal mood and affect. Objective Data Vital Signs Vital Signs: Vital Signs - 24 hr 11/03/24 14:00 11/03/24 20:00 11/03/24 21:44 Temperature 97.5 F L 97.6 F Pulse Rate 95 103 H Respiratory Rate 16 20 Blood Pressure 160/67 H 145/77 H Pulse Oximetry 99 99 Oxygen Delivery Room Air 11/04/24 05:21 11/04/24 08:35 Temperature 97.8 F Pulse Rate 94 Respiratory Rate 16 Blood Pressure 130/75 Pulse Oximetry 99 Oxygen Delivery Room Air Intake/Output Intake/Output: Intake & Output 11/01/24 11/02/24 11/03/24 11/04/24 23:59 23:59 23:59 23:59 Intake Total 2252 4120 3115.6 390 Output Total 2225 1950 1150 900 Balance 27 2170 1965.6 -510 Meds/Results Medications: Active Medications Generic Name Dose Route Start Last Admin Trade Name Freq PRN Reason Stop Dose Admin Acetaminophen 650 mg 10/31/24 20:53 Acetaminophen 325 Mg Tablet PO Q4H PRN Mild Pain (1-3) or Fever Hydrocodone Bitart/Acetaminophen 1 tab 11/02/24 12:12 11/04/24 11:00 Hydrocodone/Acetaminophen (*Crx) 7.5-325 Mg Tablet PO 1 tab Q6H PRN Administration Pain Rated 4-6 Amlodipine Besylate 10 mg 10/29/24 09:00 11/04/24 08:35 Amlodipine Besylate 10 Mg Tablet PO 10 mg DAILY [place] Administration Dextrose 12.5 gm 11/03/24 17:55 Dextrose 50% 25 Gm/50 Ml Syringe IV PUSH PRN PRN Hypoglycemia Protocol Diazepam 5 mg 10/27/24 10:42 11/01/24 13:31 Diazepam (*Crx) 5 Mg Tablet PO 5 mg BID PRN Administration Anxiety Duloxetine HCl 60 mg 10/28/24 00:00 11/04/24 01:00 Duloxetine Hcl 60 Mg Capsule.Dr PO 60 mg Q24H [facility] Administration Enoxaparin Sodium 40 mg 10/27/24 09:00 11/04/24 08:35 Enoxaparin 40 Mg/0.4 Ml Syringe SUB-Q 40 mg DAILY [place] Administration Glucagon 1 mg 11/03/24 17:55 Glucagon For Inj 1 Mg Vial IM PRN PRN Hypoglycemia Protocol Glucose 15 gm 11/03/24 17:55 Glucose Oral Gel 15 Gm Of Glucse In 37.5 Gm Tube PO PRN PRN Hypoglycemia Protocol Hydralazine HCl 10 mg 10/28/24 09:10 10/28/24 23:48 Hydralazine Hcl 20 Mg/Ml Vial IV PUSH 10 mg Q6H PRN Administration Blood Pressure - High Sodium Chloride 1,000 mls @ 75 mls/hr 10/30/24 13:50 11/03/24 22:11 Normal Saline Iv IV CONT 75 mls/hr .[id number] [place] Administration Dextrose 1,000 mls @ 100 mls/hr 11/03/24 17:55 Dextrose 5% 1,000 Ml IVPB PRN PRN Hypoglycemia Protocol Cefepime HCl 2 gm in 50 mls @ 100 mls/hr 11/04/24 00:00 11/04/24 08:35 Maxipime 2 Gm/Ns 50 Ml IVPB 100 mls/hr Q8H [place] Administration Vancomycin HCl 1,500 mg in 500 mls @ 250 mls/hr 11/04/24 13:00 Vancomycin 1,500 Mg/Ns 500 Ml IVPB Q12H [facility] Insulin Aspart 2 - 5 units 11/04/24 08:00 11/04/24 08:29 Insulin Aspart (*Bkc) 100 Units/Ml SUB-Q Not Given TIDWM [facility] Protocol Insulin Aspart 1 - 2 units 11/03/24 21:00 11/03/24 22:06 Insulin Aspart (*Bkc) 100 Units/Ml SUB-Q 1 units HS [facility] Administration Protocol Levothyroxine Sodium 50 mcg 10/29/24 06:30 11/04/24 05:49 Levothyroxine Sodium 50 Mcg Tablet PO 50 mcg DAILY@0630 [facility] Administration Melatonin 5 mg 10/27/24 10:42 11/01/24 00:29 Melatonin 5 Mg Tablet PO 5 mg HS PRN Administration Sleep Morphine Sulfate 2 mg 10/31/24 20:53 11/01/24 16:13 Morphine Sulfate (*Crx) 2 Mg/Ml Inj IV PUSH 2 mg Q4H PRN Administration Pain Rated 7-10 Oxycodone/Acetaminophen 1 tablet 11/02/24 12:09 11/02/24 14:56 Oxycodone/Acetaminophen (*Crx) 5-325 Mg Tablet PO 1 tablet Q4H PRN Administration Breakthrough Pain Polyethylene Glycol 17 gm 10/29/24 09:00 11/04/24 08:35 Polyethylene Glycol 3350 17 Gm Powd.Pack PO 17 gm QAM [facility] Administration Sodium Chloride 1 gm 10/31/24 09:35 11/04/24 08:35 Sodium Chloride 1 Gm Tablet PO 1 gm BID [place] Administration Sodium Chloride 10 ml 11/03/24 22:00 11/04/24 05:53 Central Line Flush IV PUSH 10 ml Q8HR [place] Administration Sodium Chloride 10 ml 11/03/24 14:50 Central Line Flush IV PUSH PRN PRN with TPN bag changes Sodium Chloride 20 ml 11/03/24 14:50 Central Line Flush IV PUSH PRN PRN after blood draws Tamsulosin HCl 0.4 mg 10/28/24 09:00 11/04/24 08:35 Tamsulosin Hcl 0.4 Mg Capsule PO 0.4 mg DAILY [place] Administration Radiology Results: ITS Impressions Chest X-Ray 10/26/24 13:56 Impression: 1: No acute cardiopulmonary disease. Abdomen/Pelvis CT 10/26/24 14:16 IMPRESSION: 1. Discitis/osteomyelitis at L1-L2. 2. Mild bilateral hydronephrosis and hydroureter, new from 10/15/2024, which may be secondary to the markedly distended bladder. 3. Stool distends the rectum. 4. Gallbladder distention, which may be secondary to fasting. Correlate with physical exam to exclude acute cholecystitis. Venous Doppler Study 11/04/24 12:00 Impression: Thrombosis involving the left cephalic vein. No other thromboses identified in the remaining visualized venous structures in the left upper extremity. Labs Labs: Laboratory Results - last 24 hr 11/03/24 11/03/24 11/04/24 16:54 19:34 04:39 WBC 5.2 RBC 3.67 L Hgb 10.9 L Hct 32.7 L MCV 89.1 MCH 29.7 MCHC 33.3 RDW 13.7 Plt Count 210 MPV 10.4 Sodium 129 L Potassium 3.8 Chloride 98 Carbon Dioxide 29 Anion Gap 2 L BUN 14 Creatinine 0.64 L Estim Creat Clear Calc 89 Estimated GFR > 60 Glucose 168 H POC Capillary Glucose 216 H 230 H Calcium 8.2 L Total Bilirubin 0.7 AST 28 ALT 29 Alkaline Phosphatase 183 H Total Protein 6.0 L Albumin 2.5 L Vancomycin Trough 11/04/24 11/04/24 11/04/24 07:36 11:04 11:55 WBC RBC Hgb Hct MCV MCH MCHC RDW Plt Count MPV Sodium Potassium Chloride Carbon Dioxide Anion Gap BUN Creatinine Estim Creat Clear Calc Estimated GFR Glucose POC Capillary Glucose 174 H 213 H Calcium Total Bilirubin AST ALT Alkaline Phosphatase Total Protein Albumin Vancomycin Trough 16.4 Quality VTE Prophylaxis VTE prophylaxis: pharmacologic ordered Hospitalist [facility] Advance Care Plan I have confirmed that the patient's Advanced Care Plan is present, code status is documented, or surrogate decision maker is listed in patient medical record.: Yes Medication Reconciliation I have utilized all available resources to obtain, update and review the patients current medications (includes all prescriptions, OTC, herbals, cannabis, and nutritional supplements).: Yes
[2024-11-04] MEDS: INSULIN ASPART (*BKC) 100 UNITS/ML SUB-Q ×2 (15:00→20:59)
[2024-11-04 15:47] VITALS: BP 124/70; PULSE 100; RESP 16; TEMP 36.1; O2SAT 100
[2024-11-04 16:51] LABS: Glucose Point of Care 195 mg/dl (65-105)
[2024-11-04] MEDS: SODIUM CHLORIDE 0.9% IV 1,000 ML 75 ML IV CONT (20:54)
[2024-11-04 21:31] VITALS: BP 136/67; PULSE 103; RESP 16; TEMP 37.1; O2SAT 100
[2024-11-04] MEDS: MELATONIN 5 MG TABLET PO (22:12)
[2024-11-04 22:21] LABS: Glucose Point of Care 201 mg/dl (65-105)
[2024-11-05] MEDS: CEFEPIME 2 GM/NS 50 ML 2 GM/50 ML BAG IVPB ×3 (00:37→17:09)
[2024-11-05] MEDS: VANCOMYCIN 1,500 MG/NS 500 ML 1,500 MG/500 ML BAG 250 MG IVPB ×2 (00:37→12:41)
[2024-11-05] MEDS: DULoxetine HCL 60 MG CAPSULE.DR PO (00:37)
[2024-11-05] MEDS: oxyCODONE/ACETAMINOPHEN (*CRX) 5-325 MG TABLET 1 TABLET PO (00:49)
[2024-11-05] MEDS: CENTRAL LINE FLUSH 10 ML IV PUSH ×3 (04:55→21:06)
[2024-11-05] MEDS: LEVOTHYROXINE SODIUM 50 MCG TABLET PO (04:55)
[2024-11-05 05:03] LABS: Hematocrit 33.3 % (42.0-52.0); Mean Corpuscular Hemoglobin 29.2 pg (26-34); Mean Corpuscular Volume 88.3 fl (80-100); Mean Platelet Volume 10.3 fl (7.4-10.4); Platelet Count Result 192 k/mm3 (150-375); Red Blood Count 3.77 M/mm3 (4.6-6.20); Red Cell Distribution Width 13.9 % (11.5-14.5); White Blood Count 4.6 K/mm3 (4.5-10.0)
[2024-11-05 05:20] LABS: Alanine Aminotransferase 27 U/L (6-50); Albumin Level 2.4 g/dL (3.5-5.1); Alkaline Phosphatase 186 U/L (38-126); Anion Gap 4 mmol/L (4-12); Aspartate Amino Transferase 30 U/L (17-59); Bilirubin,Total 0.7 mg/dL (0.2-1.3); Blood Urea Nitrogen 13 mg/dL (9-20); Carbon Dioxide 28 mmol/L (22-30); Chloride 98 mmol/L (98-107); Estimated CRCL calculation 91 ml/min; Estimated Glomerular Filt Rate > 60; Glucose 157 mg/dL (65-110); Potassium 3.7 mmol/L (3.4-5.0); Sodium 130 mmol/L (137-145)
[2024-11-05 05:35] VITALS: BP 147/85; PULSE 75; RESP 16; TEMP 35.9; O2SAT 100
[2024-11-05] MEDS: HYDROcodone/acetaminophen (*CRX) 7.5-325 MG TABLET 1 TAB PO (06:40)
[2024-11-05 08:11] LABS: Glucose Point of Care 175 mg/dl (65-105)
[2024-11-05] MEDS: SODIUM CHLORIDE 1 GM TABLET PO ×2 (08:28→17:11)
[2024-11-05] MEDS: MORPHINE SULFATE (*CRX) 2 MG/ML INJ IV PUSH ×3 (08:28→17:10)
[2024-11-05] MEDS: polyethylene glycoL 3350 17 GM POWD.PACK PO (08:28)
[2024-11-05] MEDS: TAMSULOSIN HCL 0.4 MG CAPSULE PO (08:28)
[2024-11-05] MEDS: amLODIPine BESYLATE 10 MG TABLET PO (08:28)
[2024-11-05] MEDS: ENOXAPARIN 40 MG/0.4 ML SYRINGE SUB-Q (08:41)
--- NOTE | 2024-11-05 09:51 | P.PNIM_ITS ---
Progress Note: A&P Assessment and Plan (1) Acute osteomyelitis of lumbar spine: Code(s): M46.26 - Osteomyelitis of vertebra, lumbar region Status: Acute (2) Discitis of lumbar region: Code(s): M46.46 - Discitis, unspecified, lumbar region Status: Acute (3) Lumbar radiculopathy: Code(s): M54.16 - Radiculopathy, lumbar region Status: Acute (4) Bacteremia: Code(s): R78.81 - Bacteremia Status: Acute Plan Lumbar Discitis/Osteomyelitis - F/U Dr Katey Paul for pain epidurals in sciatic nerve as well as x4 pain epidurals in his back for chronic back pain. -Abdominal/pelvic CT: Diskitis/osteomyelitis at L1-L2.Mild bilateral hydronephrosis and hydroureter, new from 10/15/2024, which may be secondary to the markedly distended bladder.Stool distends the rectum. Gallbladder distention, which may be secondary to fasting. Correlate with physical exam to exclude acute cholecystitis. -Lumbar spine CT:Severe degenerative spondylosis, as above, with multilevel spinal canal stenosis and neural foraminal narrowing.Probable mild chronic loss of height of L4. 6 mm anterolisthesis of L4 over L5. -Currently on cefepime and vancomycin -Ordered nasal MRSA -Accepted at [facility], pending bed -continue home pain med -no evidence of cord compression -pending blood culture Bacteremia Peptomstreptococcus micros Possible contamination Since both sets are positive ,will repeat BC HTN Started Amlodipine 10 mg PO QD Hydralazine 10 mg IV q 6hrs PRN Holding propranolol 80 mg, patient unable to verify Hypothyroid Levothyroxine 50 mcg po QD TSH 1.74 Subjective Date/time seen: 11/05/24 09:51 Interval history: Will continue IV antibiotics for 6 weeks due to osteomyelitis. Pending transfer to [facility] Review of Systems Review of Systems: All systems reviewed & are unremarkable except as noted in HPI and below Constitutional: Constitutional: Reports no additional constitutional complaints ENT: Reports system reviewed and no additional complaints, except as docu mented Cardiovascular: Cardiovascular: Reports no additional cardiovascular complaints Respiratory: Respiratory: Reports no additional respiratory complaints Gastrointestinal: Gastrointestinal: Reports no additional gastrointestinal complaints Musculoskeletal: Musculoskeletal: Reports no additional musculoskeletal complaints Exam Narrative: GENERAL: Uncomfortable-appearing, well-nourished, and in no acute distress. HEAD: Normocephalic, atraumatic. ENT: Mucous membranes moist. CHEST: Clear to auscultation. No respiratory distress. HEART: Tachycardic and regular. Normal peripheral pulses. ABDOMEN: Soft, nontender, nondistended Back: No midline tenderness the T/L-spine. Bilateral SI region tenderness the reproduces patient's pain improved no soft tissue tenderness in the paraspinal areas superior to the SI. EXTREMITIES: Normal range of motion. No edema. SKIN: Warm, dry, no rash. NEURO: Alert and oriented x3. PSYCH: Normal mood and affect. Objective Data Vital Signs Vital Signs: Vital Signs - 24 hr 11/04/24 15:47 11/04/24 20:00 11/04/24 21:31 Temperature 97.0 F L 98.7 F Pulse Rate 100 103 H Respiratory Rate 16 16 Blood Pressure 124/70 136/67 Pulse Oximetry 100 100 Oxygen Delivery Room Air 11/05/24 05:35 Temperature 96.7 F L Pulse Rate 75 Respiratory Rate 16 Blood Pressure 147/85 H Pulse Oximetry 100 Oxygen Delivery Intake/Output Intake/Output: Intake & Output 11/02/24 11/03/24 11/04/24 11/05/24 23:59 23:59 23:59 23:59 Intake Total 4120 3115.6 3430 50 Output Total 1950 1150 2150 1400 Balance 2170 1965.6 1280 -1350 Meds/Results Medications: Active Medications Generic Name Dose Route Start Last Admin Trade Name Freq PRN Reason Stop Dose Admin Acetaminophen 650 mg 10/31/24 20:53 Acetaminophen 325 Mg Tablet PO Q4H PRN Mild Pain (1-3) or Fever Hydrocodone Bitart/Acetaminophen 1 tab 11/02/24 12:12 11/05/24 06:40 Hydrocodone/Acetaminophen (*Crx) 7.5-325 Mg Tablet PO 1 tab Q6H PRN Administration Pain Rated 4-6 Amlodipine Besylate 10 mg 10/29/24 09:00 11/05/24 08:28 Amlodipine Besylate 10 Mg Tablet PO 10 mg DAILY [place] Administration Dextrose 12.5 gm 11/03/24 17:55 Dextrose 50% 25 Gm/50 Ml Syringe IV PUSH PRN PRN Hypoglycemia Protocol Diazepam 5 mg 10/27/24 10:42 11/01/24 13:31 Diazepam (*Crx) 5 Mg Tablet PO 5 mg BID PRN Administration Anxiety Duloxetine HCl 60 mg 10/28/24 00:00 11/05/24 00:37 Duloxetine Hcl 60 Mg Capsule.Dr PO 60 mg Q24H [place] Administration Enoxaparin Sodium 40 mg 10/27/24 09:00 11/05/24 08:41 Enoxaparin 40 Mg/0.4 Ml Syringe SUB-Q 40 mg DAILY [place] Administration Glucagon 1 mg 11/03/24 17:55 Glucagon For Inj 1 Mg Vial IM PRN PRN Hypoglycemia Protocol Glucose 15 gm 11/03/24 17:55 Glucose Oral Gel 15 Gm Of Glucse In 37.5 Gm Tube PO PRN PRN Hypoglycemia Protocol Hydralazine HCl 10 mg 10/28/24 09:10 10/28/24 23:48 Hydralazine Hcl 20 Mg/Ml Vial IV PUSH 10 mg Q6H PRN Administration Blood Pressure - High Sodium Chloride 1,000 mls @ 75 mls/hr 10/30/24 13:50 11/04/24 20:54 Normal Saline Iv IV CONT 75 mls/hr .[id number] [place] Administration Dextrose 1,000 mls @ 100 mls/hr 11/03/24 17:55 Dextrose 5% 1,000 Ml IVPB PRN PRN Hypoglycemia Protocol Cefepime HCl 2 gm in 50 mls @ 100 mls/hr 11/04/24 00:00 11/05/24 08:30 Maxipime 2 Gm/Ns 50 Ml IVPB 100 mls/hr Q8H [place] Administration Vancomycin HCl 1,500 mg in 500 mls @ 250 mls/hr 11/04/24 13:00 11/05/24 00:37 Vancomycin 1,500 Mg/Ns 500 Ml IVPB 250 mls/hr Q12H [place] Administration Insulin Aspart 2 - 5 units 11/04/24 08:00 11/05/24 08:29 Insulin Aspart (*Bkc) 100 Units/Ml SUB-Q Not Given TIDWM [facility] Protocol Insulin Aspart 1 - 2 units 11/03/24 21:00 11/04/24 20:59 Insulin Aspart (*Bkc) 100 Units/Ml SUB-Q 1 units HS [place] Administration Protocol Levothyroxine Sodium 50 mcg 10/29/24 06:30 11/05/24 04:55 Levothyroxine Sodium 50 Mcg Tablet PO 50 mcg DAILY@0630 [place] Administration Melatonin 5 mg 10/27/24 10:42 11/04/24 22:12 Melatonin 5 Mg Tablet PO 5 mg HS PRN Administration Sleep Morphine Sulfate 2 mg 10/31/24 20:53 11/05/24 08:28 Morphine Sulfate (*Crx) 2 Mg/Ml Inj IV PUSH 2 mg Q4H PRN Administration Pain Rated 7-10 Oxycodone/Acetaminophen 1 tablet 11/02/24 12:09 11/05/24 00:49 Oxycodone/Acetaminophen (*Crx) 5-325 Mg Tablet PO 1 tablet Q4H PRN Administration Breakthrough Pain Polyethylene Glycol 17 gm 10/29/24 09:00 11/05/24 08:28 Polyethylene Glycol 3350 17 Gm Powd.Pack PO 17 gm QAM [place] Administration Sodium Chloride 1 gm 10/31/24 09:35 11/05/24 08:28 Sodium Chloride 1 Gm Tablet PO 1 gm BID [place] Administration Sodium Chloride 10 ml 11/03/24 22:00 11/05/24 04:55 Central Line Flush IV PUSH 10 ml Q8HR [place] Administration Sodium Chloride 10 ml 11/03/24 14:50 Central Line Flush IV PUSH PRN PRN with TPN bag changes Sodium Chloride 20 ml 11/03/24 14:50 Central Line Flush IV PUSH PRN PRN after blood draws Tamsulosin HCl 0.4 mg 10/28/24 09:00 11/05/24 08:28 Tamsulosin Hcl 0.4 Mg Capsule PO 0.4 mg DAILY [place] Administration Radiology Results: ITS Impressions Chest X-Ray 10/26/24 13:56 Impression: 1: No acute cardiopulmonary disease. Abdomen/Pelvis CT 10/26/24 14:16 IMPRESSION: 1. Discitis/osteomyelitis at L1-L2. 2. Mild bilateral hydronephrosis and hydroureter, new from 10/15/2024, which may be secondary to the markedly distended bladder. 3. Stool distends the rectum. 4. Gallbladder distention, which may be secondary to fasting. Correlate with physical exam to exclude acute cholecystitis. Venous Doppler Study 11/04/24 12:00 Impression: Thrombosis involving the left cephalic vein. No other thromboses identified in the remaining visualized venous structures in the left upper extremity. Labs Labs: Laboratory Results - last 24 hr 11/04/24 11/04/24 11/04/24 11:04 11:55 16:40 WBC RBC Hgb Hct MCV MCH MCHC RDW Plt Count MPV Sodium Potassium Chloride Carbon Dioxide Anion Gap BUN Creatinine Estim Creat Clear Calc Estimated GFR Glucose POC Capillary Glucose 213 H 195 H Calcium Total Bilirubin AST ALT Alkaline Phosphatase Total Protein Albumin Vancomycin Trough 16.4 11/04/24 11/05/24 11/05/24 20:59 04:55 08:07 WBC 4.6 RBC 3.77 L Hgb 11.0 L Hct 33.3 L MCV 88.3 MCH 29.2 MCHC 33.0 RDW 13.9 Plt Count 192 MPV 10.3 Sodium 130 L Potassium 3.7 Chloride 98 Carbon Dioxide 28 Anion Gap 4 BUN 13 Creatinine 0.63 L Estim Creat Clear Calc 91 Estimated GFR > 60 Glucose 157 H POC Capillary Glucose 201 H 175 H Calcium 8.0 L Total Bilirubin 0.7 AST 30 ALT 27 Alkaline Phosphatase 186 H Total Protein 5.0 L Albumin 2.4 L Vancomycin Trough Quality VTE Prophylaxis VTE prophylaxis: pharmacologic ordered Hospitalist [facility] Advance Care Plan I have confirmed that the patient's Advanced Care Plan is present, code status is documented, or surrogate decision maker is listed in patient medical record.: Yes Medication Reconciliation I have utilized all available resources to obtain, update and review the patients current medications (includes all prescriptions, OTC, herbals, cannabis, and nutritional supplements).: Yes
[2024-11-05 12:05] LABS: Glucose Point of Care 219 mg/dl (65-105)
[2024-11-05] MEDS: INSULIN ASPART (*BKC) 100 UNITS/ML SUB-Q ×2 (12:42→17:16)
[2024-11-05 15:05] VITALS: BP 140/72
[2024-11-05 16:43] LABS: Glucose Point of Care 202 mg/dl (65-105)
[2024-11-05] MEDS: SODIUM CHLORIDE 0.9% IV 1,000 ML 75 ML IV CONT (17:13)
[2024-11-05 20:00] VITALS: PULSE 101; RESP 18; O2SAT 98
[2024-11-05 21:12] LABS: Glucose Point of Care 176 mg/dl (65-105)
[2024-11-05 21:35] VITALS: BP 146/72; PULSE 101; RESP 18; TEMP 35.9; O2SAT 98
[2024-11-06] MEDS: CEFEPIME 2 GM/NS 50 ML 2 GM/50 ML BAG IVPB ×3 (00:10→17:22)
[2024-11-06] MEDS: DULoxetine HCL 60 MG CAPSULE.DR PO (00:11)
[2024-11-06] MEDS: HYDROcodone/acetaminophen (*CRX) 7.5-325 MG TABLET 1 TAB PO ×2 (00:11→13:08)
[2024-11-06] MEDS: MELATONIN 5 MG TABLET PO (00:12)
[2024-11-06] MEDS: VANCOMYCIN 1,500 MG/NS 500 ML 1,500 MG/500 ML BAG 250 MG IVPB ×2 (01:09→13:09)
[2024-11-06] MEDS: oxyCODONE/ACETAMINOPHEN (*CRX) 5-325 MG TABLET 1 TABLET PO ×3 (01:12→15:13)
[2024-11-06 05:18] LABS: Hematocrit 32.7 % (42.0-52.0); Hemoglobin 10.7 g/dL (14.0-18.0); Mean Corpuscular HGB Conc 32.7 g/dl (32-36); Mean Corpuscular Hemoglobin 29.2 pg (26-34); Mean Corpuscular Volume 89.3 fl (80-100); Mean Platelet Volume 10.4 fl (7.4-10.4); Platelet Count Result 190 k/mm3 (150-375); Red Blood Count 3.66 M/mm3 (4.6-6.20); Red Cell Distribution Width 13.9 % (11.5-14.5); White Blood Count 4.3 K/mm3 (4.5-10.0)
[2024-11-06 05:29] LABS: Alanine Aminotransferase 26 U/L (6-50); Albumin Level 2.5 g/dL (3.5-5.1); Alkaline Phosphatase 196 U/L (38-126); Anion Gap 3 mmol/L (4-12); Aspartate Amino Transferase 29 U/L (17-59); Bilirubin,Total 0.7 mg/dL (0.2-1.3); Blood Urea Nitrogen 14 mg/dL (9-20); Carbon Dioxide 29 mmol/L (22-30); Chloride 98 mmol/L (98-107); Estimated CRCL calculation 92 ml/min; Estimated Glomerular Filt Rate > 60; Glucose 156 mg/dL (65-110); Potassium 3.8 mmol/L (3.4-5.0); Sodium 130 mmol/L (137-145)
[2024-11-06] MEDS: LEVOTHYROXINE SODIUM 50 MCG TABLET PO (05:43)
[2024-11-06 06:00] VITALS: BP 144/71; PULSE 109; RESP 18; TEMP 36; O2SAT 96
[2024-11-06 08:22] LABS: Glucose Point of Care 150 mg/dl (65-105)
[2024-11-06] MEDS: SODIUM CHLORIDE 0.9% IV 1,000 ML 75 ML IV CONT (08:56)
[2024-11-06] MEDS: SODIUM CHLORIDE 1 GM TABLET PO ×2 (08:57→17:22)
[2024-11-06] MEDS: TAMSULOSIN HCL 0.4 MG CAPSULE PO (08:57)
[2024-11-06] MEDS: amLODIPine BESYLATE 10 MG TABLET PO (08:57)
[2024-11-06] MEDS: polyethylene glycoL 3350 17 GM POWD.PACK PO (08:57)
[2024-11-06] MEDS: ENOXAPARIN 40 MG/0.4 ML SYRINGE SUB-Q (08:58)
[2024-11-06] MEDS: MORPHINE SULFATE (*CRX) 2 MG/ML INJ IV PUSH (10:59)
[2024-11-06 12:02] LABS: Glucose Point of Care 161 mg/dl (65-105)
[2024-11-06] MEDS: CENTRAL LINE FLUSH 10 ML IV PUSH (13:09)
--- NOTE | 2024-11-06 13:44 | PM.IMPN ---
Progress Note: A&P Assessment and Plan (1) Acute osteomyelitis of lumbar spine: Code(s): M46.26 - Osteomyelitis of vertebra, lumbar region Status: Acute (2) Discitis of lumbar region: Code(s): M46.46 - Discitis, unspecified, lumbar region Status: Acute (3) Lumbar radiculopathy: Code(s): M54.16 - Radiculopathy, lumbar region Status: Acute (4) Bacteremia: Code(s): R78.81 - Bacteremia Status: Acute Plan Lumbar Discitis/Osteomyelitis - F/U Dr Katey Paul for pain epidurals in sciatic nerve as well as x4 pain epidurals in his back for chronic back pain. -Abdominal/pelvic CT: Diskitis/osteomyelitis at L1-L2.Mild bilateral hydronephrosis and hydroureter, new from 10/15/2024, which may be secondary to the markedly distended bladder.Stool distends the rectum. Gallbladder distention, which may be secondary to fasting. Correlate with physical exam to exclude acute cholecystitis. -Lumbar spine CT:Severe degenerative spondylosis, as above, with multilevel spinal canal stenosis and neural foraminal narrowing.Probable mild chronic loss of height of L4. 6 mm anterolisthesis of L4 over L5. -Currently on cefepime and vancomycin -Ordered nasal MRSA -Accepted at [facility], pending bed -continue home pain med -no evidence of cord compression Bacteremia Peptomstreptococcus micros Possible contamination Since both sets are positive repeat blood culture negative HTN Started Amlodipine 10 mg PO QD Hydralazine 10 mg IV q 6hrs PRN Holding propranolol 80 mg, patient unable to verify Hypothyroid Levothyroxine 50 mcg po QD TSH 1.74 DVT prophylaxis on Sq Lovenox Awaiting transfer to [facility] Subjective Date/time seen: 11/06/24 13:44 Interval history: Comfortable at bedside . Pending transfer to [facility] Review of Systems Review of Systems: All systems reviewed & are unremarkable except as noted in HPI and below Constitutional: Constitutional: Reports no additional constitutional complaints ENT: Reports system reviewed and no additional complaints, except as documented Cardiovascular: Cardiovascular: Reports no additional cardiovascular complaints Respiratory: Respiratory: Reports no additional respiratory complaints Gastrointestinal: Gastrointestinal: Reports no additional gastrointestinal complaints Musculoskeletal: Musculoskeletal: Reports no additional musculoskeletal complaints Exam Narrative: GENERAL: Uncomfortable-appearing, well-nourished, and in no acute distress. HEAD: Normocephalic, atraumatic. ENT: Mucous membranes moist. CHEST: Clear to auscultation. No respiratory distress. HEART: Tachycardic and regular. Normal peripheral pulses. ABDOMEN: Soft, nontender, nondistended Back: No midline tenderness the T/L-spine. Bilateral SI region tenderness the reproduces patient's pain improved no soft tissue tenderness in the paraspinal areas superior to the SI. EXTREMITIES: Normal range of motion. No edema. SKIN: Warm, dry, no rash. NEURO: Alert and oriented x3. PSYCH: Normal mood and affect. Objective Data Vital Signs Vital Signs: Vital Signs - 24 hr 11/05/24 15:05 11/05/24 20:00 11/05/24 21:35 Temperature 96.6 F L Pulse Rate 101 H 101 H Respiratory Rate 18 18 Blood Pressure 140/72 146/72 H Pulse Oximetry 98 98 Oxygen Delivery Room Air 11/06/24 06:00 Temperature 96.8 F L Pulse Rate 109 H Respiratory Rate 18 Blood Pressure 144/71 H Pulse Oximetry 96 Oxygen Delivery Intake/Output Intake/Output: Intake & Output 11/03/24 11/04/24 11/05/24 11/06/24 23:59 23:59 23:59 23:59 Intake Total 3115.6 3430 3425 1800 Output Total 1150 2150 2550 Balance 1965.6 9269 199 4296 Meds/Results Medications: Active Medications Generic Name Dose Route Start Last Admin Trade Name Freq PRN Reason Stop Dose Admin Acetaminophen 650 mg 10/31/24 20:53 Acetaminophen 325 Mg Tablet PO Q4H PRN Mild Pain (1-3) or Fever Hydrocodone Bitart/Acetaminophen 1 tab 11/02/24 12:12 11/06/24 13:08 Hydrocodone/Acetaminophen (*Crx) 7.5-325 Mg Tablet PO 1 tab Q6H PRN Administration Pain Rated 4-6 Amlodipine Besylate 10 mg 10/29/24 09:00 11/06/24 08:57 Amlodipine Besylate 10 Mg Tablet PO 10 mg DAILY [place] Administration Dextrose 12.5 gm 11/03/24 17:55 Dextrose 50% 25 Gm/50 Ml Syringe IV PUSH PRN PRN Hypoglycemia Protocol Diazepam 5 mg 10/27/24 10:42 11/01/24 13:31 Diazepam (*Crx) 5 Mg Tablet PO 5 mg BID PRN Administration Anxiety Duloxetine HCl 60 mg 10/28/24 00:00 11/06/24 00:11 Duloxetine Hcl 60 Mg Capsule.Dr PO 60 mg Q24H [facility] Administration Enoxaparin Sodium 40 mg 10/27/24 09:00 11/06/24 08:58 Enoxaparin 40 Mg/0.4 Ml Syringe SUB-Q 40 mg DAILY [place] Administration Glucagon 1 mg 11/03/24 17:55 Glucagon For Inj 1 Mg Vial IM PRN PRN Hypoglycemia Protocol Glucose 15 gm 11/03/24 17:55 Glucose Oral Gel 15 Gm Of Glucse In 37.5 Gm Tube PO PRN PRN Hypoglycemia Protocol Hydralazine HCl 10 mg 10/28/24 09:10 10/28/24 23:48 Hydralazine Hcl 20 Mg/Ml Vial IV PUSH 10 mg Q6H PRN Administration Blood Pressure - High Sodium Chloride 1,000 mls @ 75 mls/hr 10/30/24 13:50 11/06/24 08:56 Normal Saline Iv IV CONT 75 mls/hr .[id number] [facility] Administration Dextrose 1,000 mls @ 100 mls/hr 11/03/24 17:55 Dextrose 5% 1,000 Ml IVPB PRN PRN Hypoglycemia Protocol Cefepime HCl 2 gm in 50 mls @ 100 mls/hr 11/04/24 00:00 11/06/24 09:28 Maxipime 2 Gm/Ns 50 Ml IVPB Infused Q8H [facility] Infusion Vancomycin HCl 1,500 mg in 500 mls @ 250 mls/hr 11/04/24 13:00 11/06/24 13:09 Vancomycin 1,500 Mg/Ns 500 Ml IVPB 250 mls/hr Q12H [facility] Administration Insulin Aspart 2 - 5 units 11/04/24 08:00 11/06/24 13:03 Insulin Aspart (*Bkc) 100 Units/Ml SUB-Q Not Given TIDWM [facility] Protocol Insulin Aspart 1 - 2 units 11/03/24 21:00 11/05/24 21:06 Insulin Aspart (*Bkc) 100 Units/Ml SUB-Q Not Given HS [facility] Protocol Levothyroxine Sodium 50 mcg 10/29/24 06:30 11/06/24 05:43 Levothyroxine Sodium 50 Mcg Tablet PO 50 mcg DAILY@0630 [facility] Administration Melatonin 5 mg 10/27/24 10:42 11/06/24 00:12 Melatonin 5 Mg Tablet PO 5 mg HS PRN Administration Sleep Morphine Sulfate 2 mg 10/31/24 20:53 11/06/24 10:59 Morphine Sulfate (*Crx) 2 Mg/Ml Inj IV PUSH 2 mg Q4H PRN Administration Pain Rated 7-10 Oxycodone/Acetaminophen 1 tablet 11/02/24 12:09 11/06/24 09:00 Oxycodone/Acetaminophen (*Crx) 5-325 Mg Tablet PO 1 tablet Q4H PRN Administration Breakthrough Pain Polyethylene Glycol 17 gm 10/29/24 09:00 11/06/24 08:57 Polyethylene Glycol 3350 17 Gm Powd.Pack PO 17 gm QAM [place] Administration Sodium Chloride 1 gm 10/31/24 09:35 11/06/24 08:57 Sodium Chloride 1 Gm Tablet PO 1 gm BID [place] Administration Sodium Chloride 10 ml 11/03/24 22:00 11/06/24 13:09 Central Line Flush IV PUSH 10 ml Q8HR [place] Administration Sodium Chloride 10 ml 11/03/24 14:50 Central Line Flush IV PUSH PRN PRN with TPN bag changes Sodium Chloride 20 ml 11/03/24 14:50 Central Line Flush IV PUSH PRN PRN after blood draws Tamsulosin HCl 0.4 mg 10/28/24 09:00 11/06/24 08:57 Tamsulosin Hcl 0.4 Mg Capsule PO 0.4 mg DAILY [place] Administration Radiology Results: ITS Impressions Chest X-Ray 10/26/24 13:56 Impression: 1: No acute cardiopulmonary disease. Abdomen/Pelvis CT 10/26/24 14:16 IMPRESSION: 1. Discitis/osteomyelitis at L1-L2. 2. Mild bilateral hydronephrosis and hydroureter, new from 10/15/2024, which may be secondary to the markedly distended bladder. 3. Stool distends the rectum. 4. Gallbladder distention, which may be secondary to fasting. Correlate with physical exam to exclude acute cholecystitis. Venous Doppler Study 11/04/24 12:00 Impression: Thrombosis involving the left cephalic vein. No other thromboses identified in the remaining visualized venous structures in the left upper extremity. Labs Labs: Laboratory Results - last 24 hr 11/05/24 11/05/24 11/06/24 16:38 21:03 05:01 WBC 4.3 L RBC 3.66 L Hgb 10.7 L Hct 32.7 L MCV 89.3 MCH 29.2 MCHC 32.7 RDW 13.9 Plt Count 190 MPV 10.4 Sodium 130 L Potassium 3.8 Chloride 98 Carbon Dioxide 29 Anion Gap 3 L BUN 14 Creatinine 0.63 L Estim Creat Clear Calc 92 Estimated GFR > 60 Glucose 156 H POC Capillary Glucose 202 H 176 H Calcium 8.0 L Total Bilirubin 0.7 AST 29 ALT 26 Alkaline Phosphatase 196 H Total Protein 5.0 L Albumin 2.5 L 11/06/24 11/06/24 08:13 11:59 WBC RBC Hgb Hct MCV MCH MCHC RDW Plt Count MPV Sodium Potassium Chloride Carbon Dioxide Anion Gap BUN Creatinine Estim Creat Clear Calc Estimated GFR Glucose POC Capillary Glucose 150 H 161 H Calcium Total Bilirubin AST ALT Alkaline Phosphatase Total Protein Albumin Quality VTE Prophylaxis VTE prophylaxis: pharmacologic ordered
[2024-11-06 14:00] VITALS: BP 138/64; PULSE 92; RESP 20; TEMP 36.5; O2SAT 98
[2024-11-06 19:58] LABS: Glucose Point of Care 196 mg/dl (65-105)
[2024-11-06 20:00] VITALS: PULSE 86; RESP 16; O2SAT 94
[2024-11-06] MEDS: INSULIN ASPART (*BKC) 100 UNITS/ML SUB-Q (20:52)
[2024-11-06 21:02] LABS: Glucose Point of Care 215 mg/dl (65-105)
[2024-11-06 21:19] VITALS: BP 133/70; PULSE 86; RESP 16; TEMP 36.3; O2SAT 94
[2024-11-07] MEDS: DULoxetine HCL 60 MG CAPSULE.DR PO (00:12)
[2024-11-07] MEDS: VANCOMYCIN 1,500 MG/NS 500 ML 1,500 MG/500 ML BAG 250 MG IVPB (00:12)
[2024-11-07] MEDS: CEFEPIME 2 GM/NS 50 ML 2 GM/50 ML BAG IVPB ×3 (00:16→17:35)
[2024-11-07] MEDS: CENTRAL LINE FLUSH 10 ML IV PUSH ×4 (00:17→20:29)
[2024-11-07] MEDS: HYDROcodone/acetaminophen (*CRX) 7.5-325 MG TABLET 1 TAB PO ×2 (00:18→12:57)
[2024-11-07] MEDS: LEVOTHYROXINE SODIUM 50 MCG TABLET PO (04:38)
[2024-11-07 04:59] LABS: Estimated CRCL calculation 93 ml/min; Estimated Glomerular Filt Rate > 60
[2024-11-07 05:33] VITALS: BP 140/66; PULSE 89; RESP 20; TEMP 36.3; O2SAT 94
[2024-11-07 07:51] LABS: Glucose Point of Care 149 mg/dl (65-105)
[2024-11-07] MEDS: TAMSULOSIN HCL 0.4 MG CAPSULE PO (09:30)
[2024-11-07] MEDS: polyethylene glycoL 3350 17 GM POWD.PACK PO (09:30)
[2024-11-07] MEDS: SODIUM CHLORIDE 1 GM TABLET PO ×2 (09:30→17:35)
[2024-11-07] MEDS: amLODIPine BESYLATE 10 MG TABLET PO (09:30)
[2024-11-07] MEDS: ENOXAPARIN 40 MG/0.4 ML SYRINGE SUB-Q (09:30)
[2024-11-07 11:47] LABS: Glucose Point of Care 185 mg/dl (65-105)
[2024-11-07 13:28] LABS: Vancomycin Trough 19.2 ug/mL (10.0-20.0)
[2024-11-07 14:00] VITALS: BP 136/66; PULSE 88; RESP 20; TEMP 36.3; O2SAT 100
--- NOTE | 2024-11-07 14:16 | PM.IMPN ---
Progress Note: A&P Assessment and Plan (1) Acute osteomyelitis of lumbar spine: Code(s): M46.26 - Osteomyelitis of vertebra, lumbar region Status: Acute (2) Discitis of lumbar region: Code(s): M46.46 - Discitis, unspecified, lumbar region Status: Acute (3) Lumbar radiculopathy: Code(s): M54.16 - Radiculopathy, lumbar region Status: Acute (4) Bacteremia: Code(s): R78.81 - Bacteremia Status: Acute Plan Lumbar Discitis/Osteomyelitis - F/U Dr Katey Paul for pain epidurals in sciatic nerve as well as x4 pain epidurals in his back for chronic back pain. -Abdominal/pelvic CT: Diskitis/osteomyelitis at L1-L2.Mild bilateral hydronephrosis and hydroureter, new from 10/15/2024, which may be secondary to the markedly distended bladder.Stool distends the rectum. Gallbladder distention, which may be secondary to fasting. Correlate with physical exam to exclude acute cholecystitis. -Lumbar spine CT:Severe degenerative spondylosis, as above, with multilevel spinal canal stenosis and neural foraminal narrowing.Probable mild chronic loss of height of L4. 6 mm anterolisthesis of L4 over L5. -Currently on cefepime and vancomycin -Ordered nasal MRSA -Accepted at [facility], pending bed -continue home pain med -no evidence of cord compression Bacteremia Peptomstreptococcus micros Possible contamination Since both sets are positive repeat blood culture negative HTN Started Amlodipine 10 mg PO QD Hydralazine 10 mg IV q 6hrs PRN Holding propranolol 80 mg, patient unable to verify Hypothyroid Levothyroxine 50 mcg po QD TSH 1.74 DVT prophylaxis on Sq Lovenox Awaiting transfer to [facility] Subjective Date/time seen: 11/07/24 14:16 Interval history: Comfortable at bedside . Pending transfer to [facility] Review of Systems Review of Systems: All systems reviewed & are unremarkable except as noted in HPI and below Constitutional: Constitutional: Reports no additional constitutional complaints ENT: Reports system reviewed and no additional complaints, except as documented Cardiovascular: Cardiovascular: Reports no additional cardiovascular complaints Respiratory: Respiratory: Reports no additional respiratory complaints Gastrointestinal: Gastrointestinal: Reports no additional gastrointestinal complaints Musculoskeletal: Musculoskeletal: Reports no additional musculoskeletal complaints Exam Narrative: GENERAL: Uncomfortable-appearing, well-nourished, and in no acute distress. HEAD: Normocephalic, atraumatic. ENT: Mucous membranes moist. CHEST: Clear to auscultation. No respiratory distress. HEART: Tachycardic and regular. Normal peripheral pulses. ABDOMEN: Soft, nontender, nondistended Back: No midline tenderness the T/L-spine. Bilateral SI region tenderness the reproduces patient's pain improved no soft tissue tenderness in the paraspinal areas superior to the SI. EXTREMITIES: Normal range of motion. No edema. SKIN: Warm, dry, no rash. NEURO: Alert and oriented x3. PSYCH: Normal mood and affect. Objective Data Vital Signs Vital Signs: Vital Signs - 24 hr 11/06/24 20:00 11/06/24 21:19 11/07/24 05:33 Temperature 97.3 F L 97.3 F L Pulse Rate 86 86 89 Respiratory Rate 16 16 20 Blood Pressure 133/70 140/66 Pulse Oximetry 94 94 94 Oxygen Delivery Room Air Intake/Output Intake/Output: Intake & Output 11/04/24 11/05/24 11/06/24 11/07/24 23:59 23:59 23:59 23:59 Intake Total 3430 3425 3208 418 Output Total 2150 2550 4800 2300 Balance 1280 875 1592 -2332 Meds/Results Medications: Active Medications Generic Name Dose Route Start Last Admin Trade Name Freq PRN Reason Stop Dose Admin Acetaminophen 650 mg 10/31/24 20:53 Acetaminophen 325 Mg Tablet PO Q4H PRN Mild Pain (1-3) or Fever Hydrocodone Bitart/Acetaminophen 1 tab 11/02/24 12:12 11/07/24 12:57 Hydrocodone/Acetaminophen (*Crx) 7.5-325 Mg Tablet PO 1 tab Q6H PRN Administration Pain Rated 4-6 Amlodipine Besylate 10 mg 10/29/24 09:00 11/07/24 09:30 Amlodipine Besylate 10 Mg Tablet PO 10 mg DAILY [place] Administration Dextrose 12.5 gm 11/03/24 17:55 Dextrose 50% 25 Gm/50 Ml Syringe IV PUSH PRN PRN Hypoglycemia Protocol Diazepam 5 mg 10/27/24 10:42 11/01/24 13:31 Diazepam (*Crx) 5 Mg Tablet PO 5 mg BID PRN Administration Anxiety Duloxetine HCl 60 mg 10/28/24 00:00 11/07/24 00:12 Duloxetine Hcl 60 Mg Capsule.Dr PO 60 mg Q24H [facility] Administration Enoxaparin Sodium 40 mg 10/27/24 09:00 11/07/24 09:30 Enoxaparin 40 Mg/0.4 Ml Syringe SUB-Q 40 mg DAILY [place] Administration Glucagon 1 mg 11/03/24 17:55 Glucagon For Inj 1 Mg Vial IM PRN PRN Hypoglycemia Protocol Glucose 15 gm 11/03/24 17:55 Glucose Oral Gel 15 Gm Of Glucse In 37.5 Gm Tube PO PRN PRN Hypoglycemia Protocol Hydralazine HCl 10 mg 10/28/24 09:10 10/28/24 23:48 Hydralazine Hcl 20 Mg/Ml Vial IV PUSH 10 mg Q6H PRN Administration Blood Pressure - High Dextrose 1,000 mls @ 100 mls/hr 11/03/24 17:55 Dextrose 5% 1,000 Ml IVPB PRN PRN Hypoglycemia Protocol Cefepime HCl 2 gm in 50 mls @ 100 mls/hr 11/04/24 00:00 11/07/24 00:45 Maxipime 2 Gm/Ns 50 Ml IVPB Infused Q8H [facility] Infusion Vancomycin HCl 1,250 mg in 250 mls @ 166.667 mls/hr 11/07/24 14:00 Vancomycin 1,250 Mg/Ns 250 Ml IVPB Q12H [facility] Insulin Aspart 2 - 5 units 11/04/24 08:00 11/06/24 17:22 Insulin Aspart (*Bkc) 100 Units/Ml SUB-Q Not Given TIDWM [facility] Protocol Insulin Aspart 1 - 2 units 11/03/24 21:00 11/06/24 20:52 Insulin Aspart (*Bkc) 100 Units/Ml SUB-Q 1 units HS [place] Administration Protocol Levothyroxine Sodium 50 mcg 10/29/24 06:30 11/07/24 04:38 Levothyroxine Sodium 50 Mcg Tablet PO 50 mcg DAILY@0630 [facility] Administration Melatonin 5 mg 10/27/24 10:42 11/06/24 00:12 Melatonin 5 Mg Tablet PO 5 mg HS PRN Administration Sleep Morphine Sulfate 2 mg 10/31/24 20:53 11/06/24 10:59 Morphine Sulfate (*Crx) 2 Mg/Ml Inj IV PUSH 2 mg Q4H PRN Administration Pain Rated 7-10 Oxycodone/Acetaminophen 1 tablet 11/02/24 12:09 11/06/24 15:13 Oxycodone/Acetaminophen (*Crx) 5-325 Mg Tablet PO 1 tablet Q4H PRN Administration Breakthrough Pain Polyethylene Glycol 17 gm 10/29/24 09:00 11/07/24 09:30 Polyethylene Glycol 3350 17 Gm Powd.Pack PO 17 gm QAM [facility] Administration Sodium Chloride 1 gm 10/31/24 09:35 11/07/24 09:30 Sodium Chloride 1 Gm Tablet PO 1 gm BID [place] Administration Sodium Chloride 10 ml 11/03/24 22:00 11/07/24 04:38 Central Line Flush IV PUSH 10 ml Q8HR [place] Administration Sodium Chloride 10 ml 11/03/24 14:50 Central Line Flush IV PUSH PRN PRN with TPN bag changes Sodium Chloride 20 ml 11/03/24 14:50 Central Line Flush IV PUSH PRN PRN after blood draws Tamsulosin HCl 0.4 mg 10/28/24 09:00 11/07/24 09:30 Tamsulosin Hcl 0.4 Mg Capsule PO 0.4 mg DAILY [place] Administration Radiology Results: ITS Impressions Chest X-Ray 10/26/24 13:56 Impression: 1: No acute cardiopulmonary disease. Abdomen/Pelvis CT 10/26/24 14:16 IMPRESSION: 1. Discitis/osteomyelitis at L1-L2. 2. Mild bilateral hydronephrosis and hydroureter, new from 10/15/2024, which may be secondary to the markedly distended bladder. 3. Stool distends the rectum. 4. Gallbladder distention, which may be secondary to fasting. Correlate with physical exam to exclude acute cholecystitis. Venous Doppler Study 11/04/24 12:00 Impression: Thrombosis involving the left cephalic vein. No other thromboses identified in the remaining visualized venous structures in the left upper extremity. Labs Labs: Laboratory Results - last 24 hr 11/06/24 11/06/24 11/07/24 16:23 19:40 04:28 Creatinine 0.62 L Estim Creat Clear Calc 93 Estimated GFR > 60 POC Capillary Glucose 196 H 215 H Vancomycin Trough 11/07/24 11/07/24 11/07/24 07:24 11:43 13:00 Creatinine Estim Creat Clear Calc Estimated GFR POC Capillary Glucose 149 H 185 H Vancomycin Trough 19.2 Quality VTE Prophylaxis VTE prophylaxis: pharmacologic ordered
[2024-11-07] MEDS: oxyCODONE/ACETAMINOPHEN (*CRX) 5-325 MG TABLET 1 TABLET PO (15:05)
[2024-11-07] MEDS: VANCOMYCIN 1,250 MG/NS 250 ML 1,250 MG/250 ML BAG 166.67 MG IVPB (15:07)
[2024-11-07 17:10] LABS: Glucose Point of Care 179 mg/dl (65-105)
[2024-11-07] MEDS: MORPHINE SULFATE (*CRX) 2 MG/ML INJ IV PUSH (20:29)
[2024-11-07 20:32] LABS: Glucose Point of Care 221 mg/dl (65-105)
[2024-11-07] MEDS: INSULIN ASPART (*BKC) 100 UNITS/ML SUB-Q (20:38)
[2024-11-07 21:35] VITALS: BP 145/87; PULSE 90; RESP 17; TEMP 36.2; O2SAT 99
[2024-11-08] MEDS: CEFEPIME 2 GM/NS 50 ML 2 GM/50 ML BAG IVPB ×3 (00:26→17:51)
[2024-11-08] MEDS: HYDROcodone/acetaminophen (*CRX) 7.5-325 MG TABLET 1 TAB PO ×3 (00:27→21:08)
[2024-11-08] MEDS: MELATONIN 5 MG TABLET PO (00:27)
[2024-11-08] MEDS: DULoxetine HCL 60 MG CAPSULE.DR PO (00:27)
[2024-11-08 00:34] VITALS: BP 158/77; PULSE 98; RESP 16; TEMP 36.2; O2SAT 100
[2024-11-08] MEDS: VANCOMYCIN 1,250 MG/NS 250 ML 1,250 MG/250 ML BAG 166.67 MG IVPB ×2 (01:17→13:48)
--- NOTE | 2024-11-08 01:19 | PC.NURSE ---
Notified charge preparation technician of difficulty flushing PICC line. At beginning of shift, purple lumen was difficult to flush and white lumen flushes with ease. When hooking abx up to purple lumen, white lumen noted to be difficult to flush, flushing with full 10cc but sluggish. Okay to administer cath yaneli per charge preparation technician.
[2024-11-08] MEDS: SODIUM CHLORIDE 0.9% INJ 10 ML (02:50)
[2024-11-08] MEDS: ALTEPLASE 2 MG VIAL (CATHFLO) IV PUSH (02:50)
--- NOTE | 2024-11-08 03:30 | PC.NURSE ---
0250-Cathflo administered to white lumen of PICC. Do not flush sticker placed on lumen. 0330- Attempted to aspirate blood with no success. Cathflo left in lumen. To be reattempted in 90 minutes.
[2024-11-08] MEDS: CENTRAL LINE FLUSH 10 ML IV PUSH ×3 (05:43→21:06)
[2024-11-08] MEDS: LEVOTHYROXINE SODIUM 50 MCG TABLET PO (05:43)
[2024-11-08 06:00] VITALS: BP 143/78; PULSE 96; RESP 16; TEMP 36.1; O2SAT 97
[2024-11-08 06:51] LABS: Basophils Percent Auto 0.5 % (0.2-1.2); Eosinophils Absolute Auto 0.1 K/mm3 (0-0.3); Eosinophils Percent Auto 3.5 % (0-4.4); Hematocrit 33.1 % (42.0-52.0); Hemoglobin 10.8 g/dL (14.0-18.0); Immature Granulocyte Absolute 0.02 K/mm3 (0.00-0.031); Immature Granulocyte Percent A 0.5 % (0-0.5); Lymphocytes Absolute Auto 0.51 K/mm3 (0.9-3.2); Lymphocytes Percent Auto 13.6 % (18.3-44.2); Mean Corpuscular HGB Conc 32.6 g/dl (32-36); Mean Corpuscular Hemoglobin 29.1 pg (26-34); Mean Corpuscular Volume 89.2 fl (80-100); Mean Platelet Volume 10.2 fl (7.4-10.4); Monocytes Absolute Auto 0.4 K/mm3 (0.1-0.6); Monocytes Percent Auto 9.6 % (2.6-8.5); Neutrophils Absolute Auto 2.7 K/mm3 (1.3-6.7); Neutrophils Percent Auto 72.3 % (45.5-73.1); Platelet Count Result 171 k/mm3 (150-375); Red Blood Count 3.71 M/mm3 (4.6-6.20); Red Cell Distribution Width 14.1 % (11.5-14.5); White Blood Count 3.7 K/mm3 (4.5-10.0)
[2024-11-08 07:01] LABS: Alanine Aminotransferase 24 U/L (6-50); Albumin Level 2.5 g/dL (3.5-5.1); Alkaline Phosphatase 205 U/L (38-126); Anion Gap 2 mmol/L (4-12); Aspartate Amino Transferase 28 U/L (17-59); Bilirubin,Total 0.6 mg/dL (0.2-1.3); Blood Urea Nitrogen 13 mg/dL (9-20); Calcium 8.2 mg/dL (8.4-10.2); Carbon Dioxide 30 mmol/L (22-30); Chloride 98 mmol/L (98-107); Estimated CRCL calculation 86 ml/min; Estimated Glomerular Filt Rate > 60; Glucose 159 mg/dL (65-110); Magnesium 1.9 mg/dL (1.6-2.3); Potassium 3.7 mmol/L (3.4-5.0); Sodium 130 mmol/L (137-145)
[2024-11-08 08:27] LABS: Glucose Point of Care 157 mg/dl (65-105)
[2024-11-08] MEDS: SODIUM CHLORIDE 1 GM TABLET PO ×2 (08:50→17:54)
[2024-11-08] MEDS: amLODIPine BESYLATE 10 MG TABLET PO (08:50)
[2024-11-08] MEDS: polyethylene glycoL 3350 17 GM POWD.PACK PO (08:50)
[2024-11-08] MEDS: TAMSULOSIN HCL 0.4 MG CAPSULE PO (08:50)
[2024-11-08] MEDS: ENOXAPARIN 40 MG/0.4 ML SYRINGE SUB-Q (08:50)
--- NOTE | 2024-11-08 10:25 | PCNWS ---
Weekly nutritional screen. Patient is tolerating current diet with adequate intake, 75-100%. No weight loss reported. No nutritional needs at this time.
[2024-11-08 11:40] LABS: Glucose Point of Care 200 mg/dl (65-105)
[2024-11-08] MEDS: FUROSEMIDE INJ 40 MG/4 ML VIAL IV PUSH (13:47)
[2024-11-08 14:00] VITALS: PULSE 95; RESP 18; TEMP 36.1; O2SAT 98
--- NOTE | 2024-11-08 14:22 | PM.IMPN ---
Progress Note: A&P Assessment and Plan (1) Acute osteomyelitis of lumbar spine: Code(s): M46.26 - Osteomyelitis of vertebra, lumbar region Status: Acute (2) Discitis of lumbar region: Code(s): M46.46 - Discitis, unspecified, lumbar region Status: Acute (3) Lumbar radiculopathy: Code(s): M54.16 - Radiculopathy, lumbar region Status: Acute (4) Bacteremia: Code(s): R78.81 - Bacteremia Status: Acute Plan Lumbar Discitis/Osteomyelitis - F/U Dr Katey Paul for pain epidurals in sciatic nerve as well as x4 pain epidurals in his back for chronic back pain. -Abdominal/pelvic CT: Diskitis/osteomyelitis at L1-L2.Mild bilateral hydronephrosis and hydroureter, new from 10/15/2024, which may be secondary to the markedly distended bladder.Stool distends the rectum. Gallbladder distention, which may be secondary to fasting. Correlate with physical exam to exclude acute cholecystitis. -Lumbar spine CT:Severe degenerative spondylosis, as above, with multilevel spinal canal stenosis and neural foraminal narrowing.Probable mild chronic loss of height of L4. 6 mm anterolisthesis of L4 over L5. -Currently on cefepime and vancomycin -Ordered nasal MRSA -Accepted at [facility], pending bed -continue home pain med -no evidence of cord compression Bacteremia Peptomstreptococcus micros Possible contamination Since both sets are positive repeat blood culture negative HTN Started Amlodipine 10 mg PO QD Hydralazine 10 mg IV q 6hrs PRN Holding propranolol 80 mg, patient unable to verify Hypothyroid Levothyroxine 50 mcg po QD TSH 1.74 DVT prophylaxis on Sq Lovenox Awaiting transfer to [facility] Subjective Date/time seen: 11/08/24 14:22 Interval history: Comfortable at bedside Pending transfer to [facility] Review of Systems Review of Systems: All systems reviewed & are unremarkable except as noted in HPI and below Constitutional: Constitutional: Reports no additional constitutional complaints ENT: Reports system reviewed and no additional complaints, except as documented Cardiovascular: Cardiovascular: Reports no additional cardiovascular complaints Respiratory: Respiratory: Reports no additional respiratory complaints Gastrointestinal: Gastrointestinal: Reports no additional gastrointestinal complaints Musculoskeletal: Musculoskeletal: Reports no additional musculoskeletal complaints Exam Narrative: GENERAL: Uncomfortable-appearing, well-nourished, and in no acute distress. HEAD: Normocephalic, atraumatic. ENT: Mucous membranes moist. CHEST: Clear to auscultation. No respiratory distress. HEART: Tachycardic and regular. Normal peripheral pulses. ABDOMEN: Soft, nontender, nondistended Back: No midline tenderness the T/L-spine. Bilateral SI region tenderness the reproduces patient's pain improved no soft tissue tenderness in the paraspinal areas superior to the SI. EXTREMITIES: Normal range of motion. No edema. SKIN: Warm, dry, no rash. NEURO: Alert and oriented x3. PSYCH: Normal mood and affect. Objective Data Vital Signs Vital Signs: Vital Signs - 24 hr 11/07/24 21:35 11/08/24 00:34 11/08/24 06:00 Temperature 97.1 F L 97.1 F L 97.0 F L Pulse Rate 90 98 96 Respiratory Rate 17 16 16 Blood Pressure 145/87 H 158/77 H 143/78 H Pulse Oximetry 99 100 97 Intake/Output Intake/Output: Intake & Output 11/05/24 11/06/24 11/07/24 11/08/24 23:59 23:59 23:59 23:59 Intake Total 3425 3208 1748 950 Output Total 2550 4800 3800 1999 Balance 594 -[phone] -[phone] -0160 Meds/Results Medications: Active Medications Generic Name Dose Route Start Last Admin Trade Name Freq PRN Reason Stop Dose Admin Acetaminophen 650 mg 10/31/24 20:53 Acetaminophen 325 Mg Tablet PO Q4H PRN Mild Pain (1-3) or Fever Hydrocodone Bitart/Acetaminophen 1 tab 11/02/24 12:12 11/08/24 13:47 Hydrocodone/Acetaminophen (*Crx) 7.5-325 Mg Tablet PO 1 tab Q6H PRN Administration Pain Rated 4-6 Alteplase, Recombinant 2 mg 11/08/24 03:00 11/08/24 02:50 Alteplase 2 Mg Vial (Cathflo) IV PUSH 2 mg ONCE PRN Administration Line Occlusion Amlodipine Besylate 10 mg 10/29/24 09:00 11/08/24 08:50 Amlodipine Besylate 10 Mg Tablet PO 10 mg DAILY [place] Administration Dextrose 12.5 gm 11/03/24 17:55 Dextrose 50% 25 Gm/50 Ml Syringe IV PUSH PRN PRN Hypoglycemia Protocol Diazepam 5 mg 10/27/24 10:42 11/01/24 13:31 Diazepam (*Crx) 5 Mg Tablet PO 5 mg BID PRN Administration Anxiety Duloxetine HCl 60 mg 10/28/24 00:00 11/08/24 00:27 Duloxetine Hcl 60 Mg Capsule.Dr PO 60 mg Q24H [place] Administration Enoxaparin Sodium 40 mg 10/27/24 09:00 11/08/24 08:50 Enoxaparin 40 Mg/0.4 Ml Syringe SUB-Q 40 mg DAILY [place] Administration Glucagon 1 mg 11/03/24 17:55 Glucagon For Inj 1 Mg Vial IM PRN PRN Hypoglycemia Protocol Glucose 15 gm 11/03/24 17:55 Glucose Oral Gel 15 Gm Of Glucse In 37.5 Gm Tube PO PRN PRN Hypoglycemia Protocol Hydralazine HCl 10 mg 10/28/24 09:10 10/28/24 23:48 Hydralazine Hcl 20 Mg/Ml Vial IV PUSH 10 mg Q6H PRN Administration Blood Pressure - High Dextrose 1,000 mls @ 100 mls/hr 11/03/24 17:55 Dextrose 5% 1,000 Ml IVPB PRN PRN Hypoglycemia Protocol Cefepime HCl 2 gm in 50 mls @ 100 mls/hr 11/04/24 00:00 11/08/24 08:44 Maxipime 2 Gm/Ns 50 Ml IVPB 100 mls/hr Q8H [place] Administration Vancomycin HCl 1,250 mg in 250 mls @ 166.667 mls/hr 11/07/24 14:00 11/08/24 13:48 Vancomycin 1,250 Mg/Ns 250 Ml IVPB 166.67 mls/hr Q12H [place] Administration Insulin Aspart 2 - 5 units 11/04/24 08:00 11/07/24 19:21 Insulin Aspart (*Bkc) 100 Units/Ml SUB-Q Not Given TIDWM [facility] Protocol Insulin Aspart 1 - 2 units 11/03/24 21:00 11/07/24 20:38 Insulin Aspart (*Bkc) 100 Units/Ml SUB-Q 1 units HS [place] Administration Protocol Levothyroxine Sodium 50 mcg 10/29/24 06:30 11/08/24 05:43 Levothyroxine Sodium 50 Mcg Tablet PO 50 mcg DAILY@0630 [place] Administration Melatonin 5 mg 10/27/24 10:42 11/08/24 00:27 Melatonin 5 Mg Tablet PO 5 mg HS PRN Administration Sleep Morphine Sulfate 2 mg 10/31/24 20:53 11/07/24 20:29 Morphine Sulfate (*Crx) 2 Mg/Ml Inj IV PUSH 2 mg Q4H PRN Administration Pain Rated 7-10 Oxycodone/Acetaminophen 1 tablet 11/02/24 12:09 11/07/24 15:05 Oxycodone/Acetaminophen (*Crx) 5-325 Mg Tablet PO 1 tablet Q4H PRN Administration Breakthrough Pain Polyethylene Glycol 17 gm 10/29/24 09:00 11/08/24 08:50 Polyethylene Glycol 3350 17 Gm Powd.Pack PO 17 gm QAM [place] Administration Sodium Chloride 1 gm 10/31/24 09:35 11/08/24 08:50 Sodium Chloride 1 Gm Tablet PO 1 gm BID [place] Administration Sodium Chloride 10 ml 11/03/24 22:00 11/08/24 13:48 Central Line Flush IV PUSH 10 ml Q8HR [place] Administration Sodium Chloride 10 ml 11/03/24 14:50 Central Line Flush IV PUSH PRN PRN with TPN bag changes Sodium Chloride 20 ml 11/03/24 14:50 Central Line Flush IV PUSH PRN PRN after blood draws Tamsulosin HCl 0.4 mg 10/28/24 09:00 11/08/24 08:50 Tamsulosin Hcl 0.4 Mg Capsule PO 0.4 mg DAILY [place] Administration Radiology Results: ITS Impressions Chest X-Ray 10/26/24 13:56 Impression: 1: No acute cardiopulmonary disease. Abdomen/Pelvis CT 10/26/24 14:16 IMPRESSION: 1. Discitis/osteomyelitis at L1-L2. 2. Mild bilateral hydronephrosis and hydroureter, new from 10/15/2024, which may be secondary to the markedly distended bladder. 3. Stool distends the rectum. 4. Gallbladder distention, which may be secondary to fasting. Correlate with physical exam to exclude acute cholecystitis. Venous Doppler Study 11/04/24 12:00 Impression: Thrombosis involving the left cephalic vein. No other thromboses identified in the remaining visualized venous structures in the left upper extremity. Labs Labs: Laboratory Results - last 24 hr 11/07/24 11/07/24 11/08/24 16:55 20:14 06:38 WBC 3.7 L RBC 3.71 L Hgb 10.8 L Hct 33.1 L MCV 89.2 MCH 29.1 MCHC 32.6 RDW 14.1 Plt Count 171 MPV 10.2 Immature Gran % (Auto) 0.5 Neut % (Auto) 72.3 Lymph % (Auto) 13.6 L [place] % (Auto) 9.6 H Eos % (Auto) 3.5 Baso % (Auto) 0.5 Lymph # (Auto) 0.51 L [place] # (Auto) 0.4 Eos # (Auto) 0.1 Baso # (Auto) 0.0 Abs Immat Gran (auto) 0.02 Absolute Neuts (auto) 2.7 Absolute Nucleated RBC 0.000 Nucleated RBC % 0.0 Sodium 130 L Potassium 3.7 Chloride 98 Carbon Dioxide 30 Anion Gap 2 L BUN 13 Creatinine 0.67 L Estim Creat Clear Calc 86 Estimated GFR > 60 Glucose 159 H POC Capillary Glucose 179 H 221 H Calcium 8.2 L Magnesium 1.9 Total Bilirubin 0.6 AST 28 ALT 24 Alkaline Phosphatase 205 H Total Protein 6.0 L Albumin 2.5 L 11/08/24 11/08/24 07:54 11:37 WBC RBC Hgb Hct MCV MCH MCHC RDW Plt Count MPV Immature Gran % (Auto) Neut % (Auto) Lymph % (Auto) [place] % (Auto) Eos % (Auto) Baso % (Auto) Lymph # (Auto) [place] # (Auto) Eos # (Auto) Baso # (Auto) Abs Immat Gran (auto) Absolute Neuts (auto) Absolute Nucleated RBC Nucleated RBC % Sodium Potassium Chloride Carbon Dioxide Anion Gap BUN Creatinine Estim Creat Clear Calc Estimated GFR Glucose POC Capillary Glucose 157 H 200 H Calcium Magnesium Total Bilirubin AST ALT Alkaline Phosphatase Total Protein Albumin Quality VTE Prophylaxis VTE prophylaxis: pharmacologic ordered
[2024-11-08 15:01] LABS: NT Pro B Type Natriuretic Pept 366 pg/mL (19.9-100)
[2024-11-08] MEDS: oxyCODONE/ACETAMINOPHEN (*CRX) 5-325 MG TABLET 1 TABLET PO (15:08)
[2024-11-08 16:48] LABS: Glucose Point of Care 170 mg/dl (65-105)
[2024-11-08 20:40] LABS: Glucose Point of Care 216 mg/dl (65-105)
[2024-11-08] MEDS: INSULIN ASPART (*BKC) 100 UNITS/ML SUB-Q (21:06)
[2024-11-08 21:19] VITALS: BP 128/79; PULSE 102; RESP 18; TEMP 36.4; O2SAT 97
[2024-11-08 21:25] VITALS: O2SAT 97
[2024-11-09] MEDS: DULoxetine HCL 60 MG CAPSULE.DR PO ×2 (00:27→23:52)
[2024-11-09] MEDS: CEFEPIME 2 GM/NS 50 ML 2 GM/50 ML BAG IVPB ×4 (00:27→23:53)
[2024-11-09] MEDS: VANCOMYCIN 1,250 MG/NS 250 ML 1,250 MG/250 ML BAG 166.67 MG IVPB (02:15)
[2024-11-09] MEDS: HYDROcodone/acetaminophen (*CRX) 7.5-325 MG TABLET 1 TAB PO ×2 (03:13→21:51)
[2024-11-09 05:44] VITALS: BP 118/73; PULSE 98; RESP 18; TEMP 36.3; O2SAT 98
[2024-11-09] MEDS: oxyCODONE/ACETAMINOPHEN (*CRX) 5-325 MG TABLET 1 TABLET PO ×3 (06:20→23:52)
[2024-11-09] MEDS: LEVOTHYROXINE SODIUM 50 MCG TABLET PO (06:20)
[2024-11-09 06:49] LABS: Estimated CRCL calculation 84 ml/min; Estimated Glomerular Filt Rate > 60
[2024-11-09] MEDS: CENTRAL LINE FLUSH 10 ML IV PUSH ×3 (06:59→22:55)
[2024-11-09 07:57] LABS: Glucose Point of Care 156 mg/dl (65-105)
[2024-11-09] MEDS: ENOXAPARIN 40 MG/0.4 ML SYRINGE SUB-Q (08:53)
[2024-11-09] MEDS: TAMSULOSIN HCL 0.4 MG CAPSULE PO (08:54)
[2024-11-09] MEDS: amLODIPine BESYLATE 10 MG TABLET PO (08:54)
[2024-11-09] MEDS: polyethylene glycoL 3350 17 GM POWD.PACK PO (08:54)
[2024-11-09] MEDS: SODIUM CHLORIDE 1 GM TABLET PO ×2 (08:54→16:33)
[2024-11-09 12:00] LABS: Glucose Point of Care 201 mg/dl (65-105)
[2024-11-09] MEDS: INSULIN ASPART (*BKC) 100 UNITS/ML SUB-Q (12:14)
--- NOTE | 2024-11-09 12:17 | P.PNIM_ITS ---
Progress Note: A&P Assessment and Plan (1) Acute osteomyelitis of lumbar spine: Code(s): M46.26 - Osteomyelitis of vertebra, lumbar region Status: Acute (2) Discitis of lumbar region: Code(s): M46.46 - Discitis, unspecified, lumbar region Status: Acute (3) Lumbar radiculopathy: Code(s): M54.16 - Radiculopathy, lumbar region Status: Acute (4) Bacteremia: Code(s): R78.81 - Bacteremia Status: Acute Plan Lumbar Discitis/Osteomyelitis - F/U Dr Katey Paul for pain epidurals in sciatic nerve as well as x4 pain epidurals in his back for chronic back pain. -Abdominal/pelvic CT: Diskitis/osteomyelitis at L1-L2.Mild bilateral hydronephrosis and hydroureter, new from 10/15/2024, which may be secondary to the markedly distended bladder.Stool distends the rectum. Gallbladder distention, which may be secondary to fasting. Correlate with physical exam to exclude acute cholecystitis. -Lumbar spine CT:Severe degenerative spondylosis, as above, with multilevel spinal canal stenosis and neural foraminal narrowing.Probable mild chronic loss of height of L4. 6 mm anterolisthesis of L4 over L5. -Currently on cefepime and vancomycin -Ordered nasal MRSA -Accepted at [facility], pending bed -continue home pain med -no evidence of cord compression Bacteremia Peptomstreptococcus micros Possible contamination Since both sets are positive repeat blood culture negative HTN Started Amlodipine 10 mg PO QD Hydralazine 10 mg IV q 6hrs PRN Holding propranolol 80 mg, patient unable to verify Hypothyroid Levothyroxine 50 mcg po QD TSH 1.74 DVT prophylaxis on Sq Lovenox Awaiting transfer to [facility] Subjective Date/time seen: 11/09/24 12:17 Interval history: Comfortable at bedside Pending transfer to [facility] Review of Systems Review of Systems: All systems reviewed & are unremarkable except as noted in HPI and below Constitutional: Constitutional: Reports no additional constitutional complaints ENT: Reports system reviewed and no additional complaints, except as documented Cardiovascular: Cardiovascular: Reports no additional cardiovascular complaints Respiratory: Respiratory: Reports no additional respiratory complaints Gastrointestinal: Gastrointestinal: Reports no additional gastrointestinal complaints Musculoskeletal: Musculoskeletal: Reports no additional musculoskeletal complaints Exam Narrative: GENERAL: Uncomfortable-appearing, well-nourished, and in no acute distress. HEAD: Normocephalic, atraumatic. ENT: Mucous membranes moist. CHEST: Clear to auscultation. No respiratory distress. HEART: Tachycardic and regular. Normal peripheral pulses. ABDOMEN: Soft, nontender, nondistended Back: No midline tenderness the T/L-spine. Bilateral SI region tenderness the reproduces patient's pain improved no soft tissue tenderness in the paraspinal areas superior to the SI. EXTREMITIES: Normal range of motion. No edema. SKIN: Warm, dry, no rash. NEURO: Alert and oriented x3. PSYCH: Normal mood and affect. Objective Data Vital Signs Vital Signs: Vital Signs - 24 hr 11/08/24 14:00 11/08/24 21:19 11/08/24 21:25 Temperature 97.0 F L 97.5 F L Pulse Rate 95 102 H Respiratory Rate 18 18 Blood Pressure 128/79 Pulse Oximetry 98 97 97 Oxygen Delivery Room Air 11/09/24 05:44 11/09/24 09:00 Temperature 97.3 F L Pulse Rate 98 Respiratory Rate 18 Blood Pressure 118/73 Pulse Oximetry 98 Oxygen Delivery Room Air Intake/Output Intake/Output: Intake & Output 11/06/24 11/07/24 11/08/24 11/09/24 23:59 23:59 23:59 23:59 Intake Total 3208 1748 2020 940 Output Total 4800 3800 5875 950 [facility] -1592 -2052 -3855 -10 Meds/Results Medications: Active Medications Generic Name Dose Route Start Last Admin Trade Name Freq PRN Reason Stop Dose Admin Acetaminophen 650 mg 10/31/24 20:53 Acetaminophen 325 Mg Tablet PO Q4H PRN Mild Pain (1-3) or Fever Hydrocodone Bitart/Acetaminophen 1 tab 11/02/24 12:12 11/09/24 03:13 Hydrocodone/Acetaminophen (*Crx) 7.5-325 Mg Tablet PO 1 tab Q6H PRN Administration Pain Rated 4-6 Alteplase, Recombinant 2 mg 11/08/24 03:00 11/08/24 02:50 Alteplase 2 Mg Vial (Cathflo) IV PUSH 2 mg ONCE PRN Administration Line Occlusion Amlodipine Besylate 10 mg 10/29/24 09:00 11/09/24 08:54 Amlodipine Besylate 10 Mg Tablet PO 10 mg DAILY [place] Administration Dextrose 12.5 gm 11/03/24 17:55 Dextrose 50% 25 Gm/50 Ml Syringe IV PUSH PRN PRN Hypoglycemia Protocol Diazepam 5 mg 10/27/24 10:42 11/01/24 13:31 Diazepam (*Crx) 5 Mg Tablet PO 5 mg BID PRN Administration Anxiety Duloxetine HCl 60 mg 10/28/24 00:00 11/09/24 00:27 Duloxetine Hcl 60 Mg Capsule.Dr PO 60 mg Q24H [place] Administration Enoxaparin Sodium 40 mg 10/27/24 09:00 11/09/24 08:53 Enoxaparin 40 Mg/0.4 Ml Syringe SUB-Q 40 mg DAILY [place] Administration Glucagon 1 mg 11/03/24 17:55 Glucagon For Inj 1 Mg Vial IM PRN PRN Hypoglycemia Protocol Glucose 15 gm 11/03/24 17:55 Glucose Oral Gel 15 Gm Of Glucse In 37.5 Gm Tube PO PRN PRN Hypoglycemia Protocol Hydralazine HCl 10 mg 10/28/24 09:10 10/28/24 23:48 Hydralazine Hcl 20 Mg/Ml Vial IV PUSH 10 mg Q6H PRN Administration Blood Pressure - High Dextrose 1,000 mls @ 100 mls/hr 11/03/24 17:55 Dextrose 5% 1,000 Ml IVPB PRN PRN Hypoglycemia Protocol Cefepime HCl 2 gm in 50 mls @ 100 mls/hr 11/04/24 00:00 11/09/24 09:23 Maxipime 2 Gm/Ns 50 Ml IVPB Infused Q8H [place] Infusion Vancomycin HCl 1,250 mg in 250 mls @ 166.667 mls/hr 11/07/24 14:00 11/09/24 02:15 Vancomycin 1,250 Mg/Ns 250 Ml IVPB 166.67 mls/hr Q12H [place] Administration Insulin Aspart 2 - 5 units 11/04/24 08:00 11/09/24 08:47 Insulin Aspart (*Bkc) 100 Units/Ml SUB-Q Not Given TIDWM [place] Protocol Insulin Aspart 1 - 2 units 11/03/24 21:00 11/08/24 21:06 Insulin Aspart (*Bkc) 100 Units/Ml SUB-Q 1 units HS [place] Administration Protocol Levothyroxine Sodium 50 mcg 10/29/24 06:30 11/09/24 06:20 Levothyroxine Sodium 50 Mcg Tablet PO 50 mcg DAILY@0630 [place] Administration Melatonin 5 mg 10/27/24 10:42 11/08/24 00:27 Melatonin 5 Mg Tablet PO 5 mg HS PRN Administration Sleep Morphine Sulfate 2 mg 10/31/24 20:53 11/07/24 20:29 Morphine Sulfate (*Crx) 2 Mg/Ml Inj IV PUSH 2 mg Q4H PRN Administration Pain Rated 7-10 Oxycodone/Acetaminophen 1 tablet 11/02/24 12:09 11/09/24 06:20 Oxycodone/Acetaminophen (*Crx) 5-325 Mg Tablet PO 1 tablet Q4H PRN Administration Breakthrough Pain Polyethylene Glycol 17 gm 10/29/24 09:00 11/09/24 08:54 Polyethylene Glycol 3350 17 Gm Powd.Pack PO 17 gm QAM [place] Administration Sodium Chloride 1 gm 10/31/24 09:35 11/09/24 08:54 Sodium Chloride 1 Gm Tablet PO 1 gm BID [place] Administration Sodium Chloride 10 ml 11/03/24 22:00 11/09/24 06:59 Central Line Flush IV PUSH 10 ml Q8HR [place] Administration Sodium Chloride 10 ml 11/03/24 14:50 Central Line Flush IV PUSH PRN PRN with TPN bag changes Sodium Chloride 20 ml 11/03/24 14:50 Central Line Flush IV PUSH PRN PRN after blood draws Tamsulosin HCl 0.4 mg 10/28/24 09:00 11/09/24 08:54 Tamsulosin Hcl 0.4 Mg Capsule PO 0.4 mg DAILY [place] Administration Radiology Results: ITS Impressions Chest X-Ray 10/26/24 13:56 Impression: 1: No acute cardiopulmonary disease. Abdomen/Pelvis CT 10/26/24 14:16 IMPRESSION: 1. Discitis/osteomyelitis at L1-L2. 2. Mild bilateral hydronephrosis and hydroureter, new from 10/15/2024, which may be secondary to the markedly distended bladder. 3. Stool distends the rectum. 4. Gallbladder distention, which may be secondary to fasting. Correlate with physical exam to exclude acute cholecystitis. Venous Doppler Study 11/04/24 12:00 Impression: Thrombosis involving the left cephalic vein. No other thromboses identified in the remaining visualized venous structures in the left upper extremity. Labs Labs: Laboratory Results - last 24 hr 11/08/24 11/08/24 11/08/24 06:37 16:45 19:54 Creatinine Estim Creat Clear Calc Estimated GFR POC Capillary Glucose 170 H 216 H NT-Pro-B Natriuret Pep 366 H 11/09/24 11/09/24 11/09/24 06:32 07:45 11:54 Creatinine 0.68 L Estim Creat Clear Calc 84 Estimated GFR > 60 POC Capillary Glucose 156 H 201 H NT-Pro-B Natriuret Pep Quality VTE Prophylaxis VTE prophylaxis: pharmacologic ordered
[2024-11-09 12:51] LABS: Vancomycin Trough 20.9 ug/mL (10.0-20.0)
[2024-11-09 14:58] VITALS: BP 176/59; PULSE 94; RESP 16; TEMP 36.8; O2SAT 100
[2024-11-09 17:08] LABS: Glucose Point of Care 151 mg/dl (65-105)
[2024-11-09] MEDS: VANCOMYCIN 1,000 MG/NS 250 ML 1,000 MG/250 ML BAG 250 MG IVPB (17:28)
[2024-11-09 19:42] LABS: Glucose Point of Care 185 mg/dl (65-105)
[2024-11-09 21:40] VITALS: O2SAT 99
[2024-11-09 22:00] VITALS: BP 134/64; PULSE 102; RESP 16; TEMP 36.7; O2SAT 97
[2024-11-10 06:00] VITALS: BP 129/69; PULSE 100; RESP 16; TEMP 36.6; O2SAT 98
[2024-11-10] MEDS: LEVOTHYROXINE SODIUM 50 MCG TABLET PO (06:37)
[2024-11-10] MEDS: CENTRAL LINE FLUSH 10 ML IV PUSH ×3 (06:37→22:02)
[2024-11-10] MEDS: VANCOMYCIN 1,000 MG/NS 250 ML 1,000 MG/250 ML BAG 250 MG IVPB ×2 (06:37→18:21)
[2024-11-10 08:09] LABS: Glucose Point of Care 139 mg/dl (65-105)
[2024-11-10] MEDS: CEFEPIME 2 GM/NS 50 ML 2 GM/50 ML BAG IVPB ×3 (08:54→23:15)
[2024-11-10] MEDS: polyethylene glycoL 3350 17 GM POWD.PACK PO (08:54)
[2024-11-10] MEDS: TAMSULOSIN HCL 0.4 MG CAPSULE PO (08:54)
[2024-11-10] MEDS: ENOXAPARIN 40 MG/0.4 ML SYRINGE SUB-Q (08:54)
[2024-11-10] MEDS: amLODIPine BESYLATE 10 MG TABLET PO (08:54)
[2024-11-10] MEDS: SODIUM CHLORIDE 1 GM TABLET PO ×2 (08:54→18:12)
[2024-11-10] MEDS: HYDROcodone/acetaminophen (*CRX) 7.5-325 MG TABLET 1 TAB PO ×2 (11:15→18:12)
--- NOTE | 2024-11-10 11:33 | PM.IMPN ---
Progress Note: A&P Assessment and Plan (1) Acute osteomyelitis of lumbar spine: Code(s): M46.26 - Osteomyelitis of vertebra, lumbar region Status: Acute (2) Discitis of lumbar region: Code(s): M46.46 - Discitis, unspecified, lumbar region Status: Acute (3) Lumbar radiculopathy: Code(s): M54.16 - Radiculopathy, lumbar region Status: Acute (4) Bacteremia: Code(s): R78.81 - Bacteremia Status: Acute Plan Lumbar Discitis/Osteomyelitis - F/U Dr Katey Paul for pain epidurals in sciatic nerve as well as x4 pain epidurals in his back for chronic back pain. -Abdominal/pelvic CT: Diskitis/osteomyelitis at L1-L2.Mild bilateral hydronephrosis and hydroureter, new from 10/15/2024, which may be secondary to the markedly distended bladder.Stool distends the rectum. Gallbladder distention, which may be secondary to fasting. Correlate with physical exam to exclude acute cholecystitis. -Lumbar spine CT:Severe degenerative spondylosis, as above, with multilevel spinal canal stenosis and neural foraminal narrowing.Probable mild chronic loss of height of L4. 6 mm anterolisthesis of L4 over L5. -Currently on cefepime and vancomycin -Ordered nasal MRSA -Accepted at [facility], pending bed -continue home pain med -no evidence of cord compression Bacteremia Peptomstreptococcus micros Possible contamination Since both sets are positive repeat blood culture negative HTN Started Amlodipine 10 mg PO QD Hydralazine 10 mg IV q 6hrs PRN Holding propranolol 80 mg, patient unable to verify Hypothyroid Levothyroxine 50 mcg po QD TSH 1.74 DVT prophylaxis on Sq Lovenox Awaiting transfer to [facility] Subjective Date/time seen: 11/10/24 11:33 Interval history: Comfortable at bedside Pending transfer to [facility] Review of Systems Review of Systems: All systems reviewed & are unremarkable except as noted in HPI and below Constitutional: Constitutional: Reports no additional constitutional complaints ENT: Reports system reviewed and no additional complaints, except as documented Cardiovascular: Cardiovascular: Reports no additional cardiovascular complaints Respiratory: Respiratory: Reports no additional respiratory complaints Gastrointestinal: Gastrointestinal: Reports no additional gastrointestinal complaints Musculoskeletal: Musculoskeletal: Reports no additional musculoskeletal complaints Exam Narrative: GENERAL: Uncomfortable-appearing, well-nourished, and in no acute distress. HEAD: Normocephalic, atraumatic. ENT: Mucous membranes moist. CHEST: Clear to auscultation. No respiratory distress. HEART: Tachycardic and regular. Normal peripheral pulses. ABDOMEN: Soft, nontender, nondistended Back: No midline tenderness the T/L-spine. Bilateral SI region tenderness the reproduces patient's pain improved no soft tissue tenderness in the paraspinal areas superior to the SI. EXTREMITIES: Normal range of motion. No edema. SKIN: Warm, dry, no rash. NEURO: Alert and oriented x3. PSYCH: Normal mood and affect. Objective Data Vital Signs Vital Signs: Vital Signs - 24 hr 11/09/24 14:58 11/09/24 21:40 11/09/24 22:00 Temperature 98.3 F 98.0 F Pulse Rate 94 102 H Respiratory Rate 16 16 Blood Pressure 176/59 H 134/64 Pulse Oximetry 100 99 97 Oxygen Delivery Room Air 11/10/24 06:00 11/10/24 09:06 Temperature 97.9 F Pulse Rate 100 Respiratory Rate 16 Blood Pressure 129/69 Pulse Oximetry 98 Oxygen Delivery Room Air Intake/Output Intake/Output: Intake & Output 11/07/24 11/08/24 11/09/24 11/10/24 23:59 23:59 23:59 23:59 Intake Total 1748 2020 2270 570 Output Total 3800 5875 2100 525 Balance -2051 -3854 170 45 Meds/Results Medications: Active Medications Generic Name Dose Route Start Last Admin Trade Name Freq PRN Reason Stop Dose Admin Acetaminophen 650 mg 10/31/24 20:53 Acetaminophen 325 Mg Tablet PO Q4H PRN Mild Pain (1-3) or Fever Hydrocodone Bitart/Acetaminophen 1 tab 11/02/24 12:12 11/10/24 11:15 Hydrocodone/Acetaminophen (*Crx) 7.5-325 Mg Tablet PO 1 tab Q6H PRN Administration Pain Rated 4-6 Alteplase, Recombinant 2 mg 11/08/24 03:00 11/08/24 02:50 Alteplase 2 Mg Vial (Cathflo) IV PUSH 2 mg ONCE PRN Administration Line Occlusion Amlodipine Besylate 10 mg 10/29/24 09:00 11/10/24 08:54 Amlodipine Besylate 10 Mg Tablet PO 10 mg DAILY [place] Administration Dextrose 12.5 gm 11/03/24 17:55 Dextrose 50% 25 Gm/50 Ml Syringe IV PUSH PRN PRN Hypoglycemia Protocol Diazepam 5 mg 10/27/24 10:42 11/01/24 13:31 Diazepam (*Crx) 5 Mg Tablet PO 5 mg BID PRN Administration Anxiety Duloxetine HCl 60 mg 10/28/24 00:00 11/09/24 23:52 Duloxetine Hcl 60 Mg Capsule.Dr PO 60 mg Q24H [facility] Administration Enoxaparin Sodium 40 mg 10/27/24 09:00 11/10/24 08:54 Enoxaparin 40 Mg/0.4 Ml Syringe SUB-Q 40 mg DAILY [place] Administration Glucagon 1 mg 11/03/24 17:55 Glucagon For Inj 1 Mg Vial IM PRN PRN Hypoglycemia Protocol Glucose 15 gm 11/03/24 17:55 Glucose Oral Gel 15 Gm Of Glucse In 37.5 Gm Tube PO PRN PRN Hypoglycemia Protocol Hydralazine HCl 10 mg 10/28/24 09:10 10/28/24 23:48 Hydralazine Hcl 20 Mg/Ml Vial IV PUSH 10 mg Q6H PRN Administration Blood Pressure - High Dextrose 1,000 mls @ 100 mls/hr 11/03/24 17:55 Dextrose 5% 1,000 Ml IVPB PRN PRN Hypoglycemia Protocol Cefepime HCl 2 gm in 50 mls @ 100 mls/hr 11/04/24 00:00 11/10/24 08:54 Maxipime 2 Gm/Ns 50 Ml IVPB 100 mls/hr Q8H [facility] Administration Vancomycin HCl 1,000 mg in 250 mls @ 250 mls/hr 11/09/24 18:00 11/10/24 06:37 Vancomycin 1,000 Mg/Ns 250 Ml IVPB 250 mls/hr Q12H [facility] Administration Insulin Aspart 2 - 5 units 11/04/24 08:00 11/10/24 08:54 Insulin Aspart (*Bkc) 100 Units/Ml SUB-Q Not Given TIDWM [facility] Protocol Insulin Aspart 1 - 2 units 11/03/24 21:00 11/09/24 21:45 Insulin Aspart (*Bkc) 100 Units/Ml SUB-Q Not Given HS [facility] Protocol Levothyroxine Sodium 50 mcg 10/29/24 06:30 11/10/24 06:37 Levothyroxine Sodium 50 Mcg Tablet PO 50 mcg DAILY@0630 [facility] Administration Melatonin 5 mg 10/27/24 10:42 11/08/24 00:27 Melatonin 5 Mg Tablet PO 5 mg HS PRN Administration Sleep Miscellaneous Information 1 each 11/10/24 00:01 Order Clarification XX 12/10/24 00:00 [facility] Morphine Sulfate 2 mg 10/31/24 20:53 11/07/24 20:29 Morphine Sulfate (*Crx) 2 Mg/Ml Inj IV PUSH 2 mg Q4H PRN Administration Pain Rated 7-10 Oxycodone/Acetaminophen 1 tablet 11/02/24 12:09 11/09/24 23:52 Oxycodone/Acetaminophen (*Crx) 5-325 Mg Tablet PO 1 tablet Q4H PRN Administration Breakthrough Pain Polyethylene Glycol 17 gm 10/29/24 09:00 11/10/24 08:54 Polyethylene Glycol 3350 17 Gm Powd.Pack PO 17 gm QAM [place] Administration Sodium Chloride 1 gm 10/31/24 09:35 11/10/24 08:54 Sodium Chloride 1 Gm Tablet PO 1 gm BID [place] Administration Sodium Chloride 10 ml 11/03/24 22:00 11/10/24 06:37 Central Line Flush IV PUSH 10 ml Q8HR [place] Administration Sodium Chloride 10 ml 11/03/24 14:50 Central Line Flush IV PUSH PRN PRN with TPN bag changes Sodium Chloride 20 ml 11/03/24 14:50 Central Line Flush IV PUSH PRN PRN after blood draws Tamsulosin HCl 0.4 mg 10/28/24 09:00 11/10/24 08:54 Tamsulosin Hcl 0.4 Mg Capsule PO 0.4 mg DAILY [place] Administration Radiology Results: ITS Impressions Chest X-Ray 10/26/24 13:56 Impression: 1: No acute cardiopulmonary disease. Abdomen/Pelvis CT 10/26/24 14:16 IMPRESSION: 1. Discitis/osteomyelitis at L1-L2. 2. Mild bilateral hydronephrosis and hydroureter, new from 10/15/2024, which may be secondary to the markedly distended bladder. 3. Stool distends the rectum. 4. Gallbladder distention, which may be secondary to fasting. Correlate with physical exam to exclude acute cholecystitis. Venous Doppler Study 11/04/24 12:00 Impression: Thrombosis involving the left cephalic vein. No other thromboses identified in the remaining visualized venous structures in the left upper extremity. Labs Labs: Laboratory Results - last 24 hr 11/09/24 11/09/24 11/09/24 11:54 12:21 17:06 POC Capillary Glucose 201 H 151 H Vancomycin Trough 20.9 H 11/09/24 11/10/24 19:31 07:55 POC Capillary Glucose 185 H 139 H Vancomycin Trough Quality VTE Prophylaxis VTE prophylaxis: pharmacologic ordered
[2024-11-10 11:56] LABS: Glucose Point of Care 199 mg/dl (65-105)
[2024-11-10 14:00] VITALS: BP 129/54; PULSE 92; RESP 16; TEMP 36.7; O2SAT 98
[2024-11-10] MEDS: oxyCODONE/ACETAMINOPHEN (*CRX) 5-325 MG TABLET 1 TABLET PO ×2 (14:07→23:15)
[2024-11-10 16:20] LABS: Glucose Point of Care 187 mg/dl (65-105)
[2024-11-10 21:38] VITALS: BP 167/60; PULSE 95; RESP 18; TEMP 36.6; O2SAT 98
[2024-11-10 21:49] LABS: Glucose Point of Care 155 mg/dl (65-105)
[2024-11-10] MEDS: DULoxetine HCL 60 MG CAPSULE.DR PO (23:15)
--- NOTE | 2024-11-11 03:03 | PC.NURSE ---
DUE TO TIME CHANGE THERE IS NO [id number] ON 11/11/2024
[2024-11-11] MEDS: LEVOTHYROXINE SODIUM 50 MCG TABLET PO (05:20)
[2024-11-11] MEDS: CENTRAL LINE FLUSH 10 ML IV PUSH ×3 (05:21→21:56)
[2024-11-11 05:26] LABS: Estimated CRCL calculation 73 ml/min; Estimated Glomerular Filt Rate > 60
[2024-11-11 05:48] VITALS: BP 155/62; PULSE 94; RESP 18; TEMP 36.7; O2SAT 99
[2024-11-11 08:17] LABS: Glucose Point of Care 146 mg/dl (65-105)
[2024-11-11] MEDS: ENOXAPARIN 40 MG/0.4 ML SYRINGE SUB-Q (09:15)
[2024-11-11] MEDS: amLODIPine BESYLATE 10 MG TABLET PO (09:16)
[2024-11-11] MEDS: TAMSULOSIN HCL 0.4 MG CAPSULE PO (09:16)
[2024-11-11] MEDS: CEFEPIME 2 GM/NS 50 ML 2 GM/50 ML BAG IVPB ×3 (09:16→23:41)
[2024-11-11] MEDS: SODIUM CHLORIDE 1 GM TABLET PO ×2 (09:16→16:01)
[2024-11-11] MEDS: polyethylene glycoL 3350 17 GM POWD.PACK PO (09:17)
--- NOTE | 2024-11-11 11:05 | PC.NURSE ---
Patient resting in bed. Shade adjusted per his request. Patient [place] but can still communicate without much difficulty. No complaints of pain. Patient aware we are waiting for a bed at [facility] and that I just spoke with Isabella from [facility] transport and updated her he has had no status change. Double PICC flushed and abx administered. Patient finished with his breakfast and tray was moved from bedside table.
[2024-11-11 12:29] LABS: Glucose Point of Care 180 mg/dl (65-105)
--- NOTE | 2024-11-11 12:56 | PM.IMPN ---
Progress Note: A&P Assessment and Plan (1) Acute osteomyelitis of lumbar spine: Code(s): M46.26 - Osteomyelitis of vertebra, lumbar region Status: Acute (2) Discitis of lumbar region: Code(s): M46.46 - Discitis, unspecified, lumbar region Status: Acute (3) Lumbar radiculopathy: Code(s): M54.16 - Radiculopathy, lumbar region Status: Acute (4) Bacteremia: Code(s): R78.81 - Bacteremia Status: Acute Plan Lumbar Discitis/Osteomyelitis - F/U Dr Katey Paul for pain epidurals in sciatic nerve as well as x4 pain epidurals in his back for chronic back pain. -Abdominal/pelvic CT: Diskitis/osteomyelitis at L1-L2.Mild bilateral hydronephrosis and hydroureter, new from 10/15/2024, which may be secondary to the markedly distended bladder.Stool distends the rectum. Gallbladder distention, which may be secondary to fasting. Correlate with physical exam to exclude acute cholecystitis. -Lumbar spine CT:Severe degenerative spondylosis, as above, with multilevel spinal canal stenosis and neural foraminal narrowing.Probable mild chronic loss of height of L4. 6 mm anterolisthesis of L4 over L5. -Currently on cefepime and vancomycin -Ordered nasal MRSA -Accepted at [facility], pending bed -continue home pain med -no evidence of cord compression Bacteremia Peptomstreptococcus micros Possible contamination Since both sets are positive repeat blood culture negative HTN Started Amlodipine 10 mg PO QD Hydralazine 10 mg IV q 6hrs PRN Holding propranolol 80 mg, patient unable to verify Hypothyroid Levothyroxine 50 mcg po QD TSH 1.74 DVT prophylaxis on Sq Lovenox Awaiting transfer to [facility] Subjective Date/time seen: 11/11/24 12:56 Interval history: Comfortable at bedside Pending transfer to [facility] Review of Systems Review of Systems: All systems reviewed & are unremarkable except as noted in HPI and below Constitutional: Constitutional: Reports no additional constitutional complaints ENT: Reports system reviewed and no additional complaints, except as documented Cardiovascular: Cardiovascular: Reports no additional cardiovascular complaints Respiratory: Respiratory: Reports no additional respiratory complaints Gastrointestinal: Gastrointestinal: Reports no additional gastrointestinal complaints Musculoskeletal: Musculoskeletal: Reports no additional musculoskeletal complaints Exam Narrative: GENERAL: Uncomfortable-appearing, well-nourished, and in no acute distress. HEAD: Normocephalic, atraumatic. ENT: Mucous membranes moist. CHEST: Clear to auscultation. No respiratory distress. HEART: Tachycardic and regular. Normal peripheral pulses. ABDOMEN: Soft, nontender, nondistended Back: No midline tenderness the T/L-spine. Bilateral SI region tenderness the reproduces patient's pain improved no soft tissue tenderness in the paraspinal areas superior to the SI. EXTREMITIES: Normal range of motion. No edema. SKIN: Warm, dry, no rash. NEURO: Alert and oriented x3. PSYCH: Normal mood and affect. Objective Data Vital Signs Vital Signs: Vital Signs - 24 hr 11/10/24 14:00 11/10/24 20:00 11/10/24 21:38 Temperature 98.1 F 98 F Pulse Rate 92 95 Respiratory Rate 16 18 Blood Pressure 129/54 L 167/60 H Pulse Oximetry 98 98 Oxygen Delivery Room Air 11/11/24 05:48 Temperature 98.1 F Pulse Rate 94 Respiratory Rate 18 Blood Pressure 155/62 H Pulse Oximetry 99 Oxygen Delivery Intake/Output Intake/Output: Intake & Output 11/08/24 11/09/24 11/10/24 11/12/24 23:59 23:59 23:59 00:59 Intake Total 2020 2270 1330 390 Output Total 5875 2100 1850 275 Balance -3855 170 -520 115 Meds/Results Medications: Active Medications Generic Name Dose Route Start Last Admin Trade Name Freq PRN Reason Stop Dose Admin Acetaminophen 650 mg 10/31/24 20:53 Acetaminophen 325 Mg Tablet PO Q4H PRN Mild Pain (1-3) or Fever Hydrocodone Bitart/Acetaminophen 1 tab 11/02/24 12:12 11/10/24 18:12 Hydrocodone/Acetaminophen (*Crx) 7.5-325 Mg Tablet PO 11/21/24 23:59 1 tab Q6H PRN Administration Pain Rated 4-6 Alteplase, Recombinant 2 mg 11/08/24 03:00 11/08/24 02:50 Alteplase 2 Mg Vial (Cathflo) IV PUSH 2 mg ONCE PRN Administration Line Occlusion Amlodipine Besylate 10 mg 10/29/24 09:00 11/11/24 09:16 Amlodipine Besylate 10 Mg Tablet PO 10 mg DAILY [place] Administration Dextrose 12.5 gm 11/03/24 17:55 Dextrose 50% 25 Gm/50 Ml Syringe IV PUSH PRN PRN Hypoglycemia Protocol Diazepam 5 mg 10/27/24 10:42 11/01/24 13:31 Diazepam (*Crx) 5 Mg Tablet PO 5 mg BID PRN Administration Anxiety Duloxetine HCl 60 mg 10/28/24 00:00 11/10/24 23:15 Duloxetine Hcl 60 Mg Capsule.Dr PO 60 mg Q24H [facility] Administration Enoxaparin Sodium 40 mg 10/27/24 09:00 11/11/24 09:15 Enoxaparin 40 Mg/0.4 Ml Syringe SUB-Q 40 mg DAILY [place] Administration Glucagon 1 mg 11/03/24 17:55 Glucagon For Inj 1 Mg Vial IM PRN PRN Hypoglycemia Protocol Glucose 15 gm 11/03/24 17:55 Glucose Oral Gel 15 Gm Of Glucse In 37.5 Gm Tube PO PRN PRN Hypoglycemia Protocol Hydralazine HCl 10 mg 10/28/24 09:10 10/28/24 23:48 Hydralazine Hcl 20 Mg/Ml Vial IV PUSH 10 mg Q6H PRN Administration Blood Pressure - High Dextrose 1,000 mls @ 100 mls/hr 11/03/24 17:55 Dextrose 5% 1,000 Ml IVPB PRN PRN Hypoglycemia Protocol Cefepime HCl 2 gm in 50 mls @ 100 mls/hr 11/04/24 00:00 11/11/24 09:46 Maxipime 2 Gm/Ns 50 Ml IVPB Infused Q8H [facility] Infusion Vancomycin HCl 1,500 mg in 500 mls @ 250 mls/hr 11/11/24 12:00 Vancomycin 1,500 Mg/Ns 500 Ml IVPB Q24H [facility] Insulin Aspart 2 - 5 units 11/04/24 08:00 11/11/24 12:54 Insulin Aspart (*Bkc) 100 Units/Ml SUB-Q Not Given TIDWM [facility] Protocol Insulin Aspart 1 - 2 units 11/03/24 21:00 11/10/24 22:02 Insulin Aspart (*Bkc) 100 Units/Ml SUB-Q Not Given HS [facility] Protocol Levothyroxine Sodium 50 mcg 10/29/24 06:30 11/11/24 05:20 Levothyroxine Sodium 50 Mcg Tablet PO 50 mcg DAILY@0630 [facility] Administration Melatonin 5 mg 10/27/24 10:42 11/08/24 00:27 Melatonin 5 Mg Tablet PO 5 mg HS PRN Administration Sleep Oxycodone/Acetaminophen 1 tablet 11/02/24 12:09 11/10/24 23:15 Oxycodone/Acetaminophen (*Crx) 5-325 Mg Tablet PO 11/21/24 23:59 1 tablet Q4H PRN Administration Breakthrough Pain Polyethylene Glycol 17 gm 10/29/24 09:00 11/11/24 09:17 Polyethylene Glycol 3350 17 Gm Powd.Pack PO 17 gm QAM [facility] Administration Sodium Chloride 1 gm 10/31/24 09:35 11/11/24 09:16 Sodium Chloride 1 Gm Tablet PO 1 gm BID [facility] Administration Sodium Chloride 10 ml 11/03/24 22:00 11/11/24 05:21 Central Line Flush IV PUSH 10 ml Q8HR [facility] Administration Sodium Chloride 10 ml 11/03/24 14:50 Central Line Flush IV PUSH PRN PRN with TPN bag changes Sodium Chloride 20 ml 11/03/24 14:50 Central Line Flush IV PUSH PRN PRN after blood draws Tamsulosin HCl 0.4 mg 10/28/24 09:00 11/11/24 09:16 Tamsulosin Hcl 0.4 Mg Capsule PO 0.4 mg DAILY [place] Administration Radiology Results: ITS Impressions Chest X-Ray 10/26/24 13:56 Impression: 1: No acute cardiopulmonary disease. Abdomen/Pelvis CT 10/26/24 14:16 IMPRESSION: 1. Discitis/osteomyelitis at L1-L2. 2. Mild bilateral hydronephrosis and hydroureter, new from 10/15/2024, which may be secondary to the markedly distended bladder. 3. Stool distends the rectum. 4. Gallbladder distention, which may be secondary to fasting. Correlate with physical exam to exclude acute cholecystitis. Venous Doppler Study 11/04/24 12:00 Impression: Thrombosis involving the left cephalic vein. No other thromboses identified in the remaining visualized venous structures in the left upper extremity. Labs Labs: Laboratory Results - last 24 hr 11/10/24 11/10/24 11/10/24 11:45 16:11 21:25 Creatinine Estim Creat Clear Calc Estimated GFR POC Capillary Glucose 199 H 187 H 155 H Vancomycin Trough 11/11/24 11/11/24 11/11/24 05:06 08:07 12:25 Creatinine 0.79 Estim Creat Clear Calc 73 Estimated GFR > 60 POC Capillary Glucose 146 H 180 H Vancomycin Trough 21.0 H Quality VTE Prophylaxis VTE prophylaxis: pharmacologic ordered
[2024-11-11] MEDS: VANCOMYCIN 1,500 MG/NS 500 ML 1,500 MG/500 ML BAG 250 MG IVPB (13:41)
[2024-11-11] MEDS: HYDROcodone/acetaminophen (*CRX) 7.5-325 MG TABLET 1 TAB PO ×2 (13:48→21:55)
[2024-11-11 14:17] VITALS: BP 173/47; PULSE 102; RESP 18; TEMP 37; O2SAT 96
[2024-11-11 17:05] LABS: Glucose Point of Care 152 mg/dl (65-105)
[2024-11-11] MEDS: oxyCODONE/ACETAMINOPHEN (*CRX) 5-325 MG TABLET 1 TABLET PO ×2 (18:51→23:41)
[2024-11-11] MEDS: diazePAM (*CRX) 5 MG TABLET PO (18:56)
[2024-11-11 21:10] VITALS: BP 137/60; PULSE 103; RESP 20; TEMP 36.5; O2SAT 97
[2024-11-11 21:18] LABS: Glucose Point of Care 186 mg/dl (65-105)
[2024-11-11] MEDS: DULoxetine HCL 60 MG CAPSULE.DR PO (23:41)
[2024-11-12] MEDS: oxyCODONE/ACETAMINOPHEN (*CRX) 5-325 MG TABLET 1 TABLET PO ×3 (03:53→23:19)
[2024-11-12 04:40] VITALS: BP 148/84; PULSE 98; RESP 20; TEMP 36.4; O2SAT 97
[2024-11-12] MEDS: CENTRAL LINE FLUSH 10 ML IV PUSH ×3 (05:34→22:11)
[2024-11-12] MEDS: LEVOTHYROXINE SODIUM 50 MCG TABLET PO (05:34)
[2024-11-12] MEDS: HYDROcodone/acetaminophen (*CRX) 7.5-325 MG TABLET 1 TAB PO ×2 (08:18→15:56)
[2024-11-12] MEDS: TAMSULOSIN HCL 0.4 MG CAPSULE PO (08:18)
[2024-11-12] MEDS: SODIUM CHLORIDE 1 GM TABLET PO ×2 (08:18→15:55)
[2024-11-12] MEDS: amLODIPine BESYLATE 10 MG TABLET PO (08:18)
[2024-11-12] MEDS: ENOXAPARIN 40 MG/0.4 ML SYRINGE SUB-Q (08:18)
[2024-11-12] MEDS: CEFEPIME 2 GM/NS 50 ML 2 GM/50 ML BAG IVPB ×3 (08:18→23:20)
[2024-11-12] MEDS: polyethylene glycoL 3350 17 GM POWD.PACK PO (08:18)
[2024-11-12 08:35] LABS: Glucose Point of Care 159 mg/dl (65-105)
--- NOTE | 2024-11-12 08:55 | P.PNIM_ITS ---
Progress Note: A&P Assessment and Plan (1) Acute osteomyelitis of lumbar spine: Code(s): M46.26 - Osteomyelitis of vertebra, lumbar region Status: Acute (2) Discitis of lumbar region: Code(s): M46.46 - Discitis, unspecified, lumbar region Status: Acute (3) Lumbar radiculopathy: Code(s): M54.16 - Radiculopathy, lumbar region Status: Acute (4) Bacteremia: Code(s): R78.81 - Bacteremia Status: Acute Plan Lumbar Discitis/Osteomyelitis - F/U Dr Katey Paul for pain epidurals in sciatic nerve as well as x4 pain epidurals in his back for chronic back pain. -Abdominal/pelvic CT: Diskitis/osteomyelitis at L1-L2.Mild bilateral hydronephrosis and hydroureter, new from 10/15/2024, which may be secondary to the markedly distended bladder.Stool distends the rectum. Gallbladder distention, which may be secondary to fasting. Correlate with physical exam to exclude acute cholecystitis. -Lumbar spine CT:Severe degenerative spondylosis, as above, with multilevel spinal canal stenosis and neural foraminal narrowing.Probable mild chronic loss of height of L4. 6 mm anterolisthesis of L4 over L5. -Currently on cefepime and vancomycin -Ordered nasal MRSA -Accepted at [facility], pending bed -continue home pain med -no evidence of cord compression Bacteremia Peptomstreptococcus micros Possible contamination Since both sets are positive repeat blood culture negative HTN Started Amlodipine 10 mg PO QD Hydralazine 10 mg IV q 6hrs PRN Holding propranolol 80 mg, patient unable to verify Hypothyroid Levothyroxine 50 mcg po QD TSH 1.74 DVT prophylaxis on Sq Lovenox Awaiting transfer to [facility] Subjective Date/time seen: 11/12/24 08:55 Interval history: Comfortable at bedside Pending transfer to [facility] Review of Systems Review of Systems: All systems reviewed & are unremarkable except as noted in HPI and below Constitutional: Constitutional: Reports no additional constitutional complaints ENT: Reports system reviewed and no additional complaints, except as documented Cardiovascular: Cardiovascular: Reports no additional cardiovascular complaints Respiratory: Respiratory: Reports no additional respiratory complaints Gastrointestinal: Gastrointestinal: Reports no additional gastrointestinal complaints Musculoskeletal: Musculoskeletal: Reports no additional musculoskeletal complaints Exam Narrative: GENERAL: Uncomfortable-appearing, well-nourished, and in no acute distress. HEAD: Normocephalic, atraumatic. ENT: Mucous membranes moist. CHEST: Clear to auscultation. No respiratory distress. HEART: Tachycardic and regular. Normal peripheral pulses. ABDOMEN: Soft, nontender, nondistended Back: No midline tenderness the T/L-spine. Bilateral SI region tenderness the reproduces patient's pain improved no soft tissue tenderness in the paraspinal areas superior to the SI. EXTREMITIES: Normal range of motion. No edema. SKIN: Warm, dry, no rash. NEURO: Alert and oriented x3. PSYCH: Normal mood and affect. Objective Data Vital Signs Vital Signs: Vital Signs - 24 hr 11/11/24 14:17 11/11/24 20:00 11/11/24 21:10 Temperature 98.6 F 97.7 F Pulse Rate 102 H 103 H Respiratory Rate 18 20 Blood Pressure 173/47 H 137/60 Pulse Oximetry 96 97 Oxygen Delivery Room Air 11/12/24 04:40 Temperature 97.5 F L Pulse Rate 98 Respiratory Rate 20 Blood Pressure 148/84 H Pulse Oximetry 97 Oxygen Delivery Intake/Output Intake/Output: Intake & Output 11/09/24 11/10/24 11/12/24 11/12/24 23:59 23:59 00:59 23:59 Intake Total 2270 1330 1850 900 Output Total 2100 1850 1025 300 Balance 170 -520 825 600 Meds/Results Medications: Active Medications Generic Name Dose Route Start Last Admin Trade Name Freq PRN Reason Stop Dose Admin Acetaminophen 650 mg 10/31/24 20:53 Acetaminophen 325 Mg Tablet PO Q4H PRN Mild Pain (1-3) or Fever Hydrocodone Bitart/Acetaminophen 1 tab 11/02/24 12:12 11/12/24 08:18 Hydrocodone/Acetaminophen (*Crx) 7.5-325 Mg Tablet PO 11/21/24 23:59 1 tab Q6H PRN Administration Pain Rated 4-6 Alteplase, Recombinant 2 mg 11/08/24 03:00 11/08/24 02:50 Alteplase 2 Mg Vial (Cathflo) IV PUSH 2 mg ONCE PRN Administration Line Occlusion Amlodipine Besylate 10 mg 10/29/24 09:00 11/12/24 08:18 Amlodipine Besylate 10 Mg Tablet PO 10 mg DAILY [place] Administration Dextrose 12.5 gm 11/03/24 17:55 Dextrose 50% 25 Gm/50 Ml Syringe IV PUSH PRN PRN Hypoglycemia Protocol Diazepam 5 mg 10/27/24 10:42 11/11/24 18:56 Diazepam (*Crx) 5 Mg Tablet PO 5 mg BID PRN Administration Anxiety Duloxetine HCl 60 mg 10/28/24 00:00 11/11/24 23:41 Duloxetine Hcl 60 Mg Capsule.Dr PO 60 mg Q24H [place] Administration Enoxaparin Sodium 40 mg 10/27/24 09:00 11/12/24 08:18 Enoxaparin 40 Mg/0.4 Ml Syringe SUB-Q 40 mg DAILY [place] Administration Glucagon 1 mg 11/03/24 17:55 Glucagon For Inj 1 Mg Vial IM PRN PRN Hypoglycemia Protocol Glucose 15 gm 11/03/24 17:55 Glucose Oral Gel 15 Gm Of Glucse In 37.5 Gm Tube PO PRN PRN Hypoglycemia Protocol Hydralazine HCl 10 mg 10/28/24 09:10 10/28/24 23:48 Hydralazine Hcl 20 Mg/Ml Vial IV PUSH 10 mg Q6H PRN Administration Blood Pressure - High Dextrose 1,000 mls @ 100 mls/hr 11/03/24 17:55 Dextrose 5% 1,000 Ml IVPB PRN PRN Hypoglycemia Protocol Cefepime HCl 2 gm in 50 mls @ 100 mls/hr 11/04/24 00:00 11/12/24 08:18 Maxipime 2 Gm/Ns 50 Ml IVPB 100 mls/hr Q8H [place] Administration Vancomycin HCl 1,500 mg in 500 mls @ 250 mls/hr 11/11/24 12:00 11/11/24 15:41 Vancomycin 1,500 Mg/Ns 500 Ml IVPB Infused Q24H [facility] Infusion Insulin Aspart 2 - 5 units 11/04/24 08:00 11/12/24 08:19 Insulin Aspart (*Bkc) 100 Units/Ml SUB-Q Not Given TIDWM [facility] Protocol Insulin Aspart 1 - 2 units 11/03/24 21:00 11/11/24 21:56 Insulin Aspart (*Bkc) 100 Units/Ml SUB-Q Not Given HS [facility] Protocol Levothyroxine Sodium 50 mcg 10/29/24 06:30 11/12/24 05:34 Levothyroxine Sodium 50 Mcg Tablet PO 50 mcg DAILY@0630 [facility] Administration Melatonin 5 mg 10/27/24 10:42 11/08/24 00:27 Melatonin 5 Mg Tablet PO 5 mg HS PRN Administration Sleep Oxycodone/Acetaminophen 1 tablet 11/02/24 12:09 11/12/24 03:53 Oxycodone/Acetaminophen (*Crx) 5-325 Mg Tablet PO 11/21/24 23:59 1 tablet Q4H PRN Administration Breakthrough Pain Polyethylene Glycol 17 gm 10/29/24 09:00 11/12/24 08:18 Polyethylene Glycol 3350 17 Gm Powd.Pack PO 17 gm QAM [place] Administration Sodium Chloride 1 gm 10/31/24 09:35 11/12/24 08:18 Sodium Chloride 1 Gm Tablet PO 1 gm BID [place] Administration Sodium Chloride 10 ml 11/03/24 22:00 11/12/24 05:34 Central Line Flush IV PUSH 10 ml Q8HR [place] Administration Sodium Chloride 10 ml 11/03/24 14:50 Central Line Flush IV PUSH PRN PRN with TPN bag changes Sodium Chloride 20 ml 11/03/24 14:50 Central Line Flush IV PUSH PRN PRN after blood draws Tamsulosin HCl 0.4 mg 10/28/24 09:00 11/12/24 08:18 Tamsulosin Hcl 0.4 Mg Capsule PO 0.4 mg DAILY [place] Administration Radiology Results: ITS Impressions Chest X-Ray 10/26/24 13:56 Impression: 1: No acute cardiopulmonary disease. Abdomen/Pelvis CT 10/26/24 14:16 IMPRESSION: 1. Discitis/osteomyelitis at L1-L2. 2. Mild bilateral hydronephrosis and hydroureter, new from 10/15/2024, which may be secondary to the markedly distended bladder. 3. Stool distends the rectum. 4. Gallbladder distention, which may be secondary to fasting. Correlate with physical exam to exclude acute cholecystitis. Venous Doppler Study 11/04/24 12:00 Impression: Thrombosis involving the left cephalic vein. No other thromboses identified in the remaining visualized venous structures in the left upper extremity. Labs Labs: Laboratory Results - last 24 hr 11/11/24 11/11/24 11/11/24 12:25 16:59 21:14 POC Capillary Glucose 180 H 152 H 186 H 11/12/24 08:14 POC Capillary Glucose 159 H Quality VTE Prophylaxis VTE prophylaxis: pharmacologic ordered
[2024-11-12] MEDS: VANCOMYCIN 1,500 MG/NS 500 ML 1,500 MG/500 ML BAG 250 MG IVPB (11:32)
[2024-11-12 12:06] LABS: Glucose Point of Care 185 mg/dl (65-105)
[2024-11-12 13:32] VITALS: BP 141/72; PULSE 101; RESP 18; TEMP 37; O2SAT 98
--- NOTE | 2024-11-12 14:20 | PCOTNOTE ---
Attempted to see following PT this session. Patient could not tolerate to stay up in the chair due to increased complain of pain. Patient states, I'm done for the day, worn out. . Patient refused to participate in any activity this P.M.
[2024-11-12 17:22] LABS: Glucose Point of Care 178 mg/dl (65-105)
[2024-11-12 21:20] VITALS: BP 174/90; PULSE 115; RESP 20; TEMP 37.1; O2SAT 97
[2024-11-12 21:29] LABS: Glucose Point of Care 183 mg/dl (65-105)
[2024-11-12] MEDS: DULoxetine HCL 60 MG CAPSULE.DR PO (23:19)
[2024-11-13 00:38] VITALS: BP 129/60; PULSE 105; RESP 20; TEMP 36.2; O2SAT 98
[2024-11-13] MEDS: HYDROcodone/acetaminophen (*CRX) 7.5-325 MG TABLET 1 TAB PO ×2 (02:23→12:23)
[2024-11-13 06:00] VITALS: BP 129/58; PULSE 103; RESP 20; TEMP 36.2; O2SAT 98
[2024-11-13] MEDS: CENTRAL LINE FLUSH 10 ML IV PUSH ×2 (06:16→16:39)
[2024-11-13] MEDS: LEVOTHYROXINE SODIUM 50 MCG TABLET PO (06:16)
[2024-11-13 06:55] LABS: Hematocrit 30.9 % (42.0-52.0); Hemoglobin 10.1 g/dL (14.0-18.0); Mean Corpuscular HGB Conc 32.7 g/dl (32-36); Mean Corpuscular Hemoglobin 29.3 pg (26-34); Mean Corpuscular Volume 89.6 fl (80-100); Mean Platelet Volume 10.5 fl (7.4-10.4); Platelet Count Result 143 k/mm3 (150-375); Red Blood Count 3.45 M/mm3 (4.6-6.20); Red Cell Distribution Width 14.4 % (11.5-14.5); White Blood Count 3.7 K/mm3 (4.5-10.0)
[2024-11-13 07:08] LABS: Alanine Aminotransferase 18 U/L (6-50); Albumin Level 2.8 g/dL (3.5-5.1); Alkaline Phosphatase 196 U/L (38-126); Anion Gap 4 mmol/L (4-12); Aspartate Amino Transferase 22 U/L (17-59); Bilirubin,Total 0.8 mg/dL (0.2-1.3); Blood Urea Nitrogen 15 mg/dL (9-20); Calcium 8.2 mg/dL (8.4-10.2); Carbon Dioxide 29 mmol/L (22-30); Chloride 99 mmol/L (98-107); Estimated CRCL calculation 73 ml/min; Estimated Glomerular Filt Rate > 60; Glucose 145 mg/dL (65-110); Potassium 3.6 mmol/L (3.4-5.0); Sodium 132 mmol/L (137-145)
[2024-11-13 07:33] LABS: Vancomycin Trough 14.4 ug/mL (10.0-20.0)
[2024-11-13 07:54] LABS: Glucose Point of Care 146 mg/dl (65-105)
[2024-11-13] MEDS: CEFEPIME 2 GM/NS 50 ML 2 GM/50 ML BAG IVPB ×2 (07:55→16:39)
[2024-11-13 08:00] VITALS: O2SAT 98
[2024-11-13] MEDS: ENOXAPARIN 40 MG/0.4 ML SYRINGE SUB-Q (08:00)
[2024-11-13] MEDS: SODIUM CHLORIDE 1 GM TABLET PO ×2 (08:00→16:39)
[2024-11-13] MEDS: amLODIPine BESYLATE 10 MG TABLET PO (08:00)
[2024-11-13] MEDS: TAMSULOSIN HCL 0.4 MG CAPSULE PO (08:00)
[2024-11-13] MEDS: VANCOMYCIN 1,500 MG/NS 500 ML 1,500 MG/500 ML BAG 250 MG IVPB (11:39)
[2024-11-13 11:41] LABS: Glucose Point of Care 173 mg/dl (65-105)
[2024-11-13 13:54] VITALS: BP 147/66; PULSE 101; RESP 16; TEMP 36.2; O2SAT 98
--- NOTE | 2024-11-13 15:24 | PM.TDS ---
Transfer Discharge Sum: Prov Provider Date of admission: 10/27/24 11:04 Primary care physician: Nolan Marcos, Admitting clinician: Nickie Leija MD DS: Admitting Diagnosis Discharge Date 11/13/24 Admitting Diagnosis Back pain Transfer Discharge Sum: Med Medications Active and Home Medications: Home Medications diazepam 5 mg tablet 5 mg PO BID PRN Anxiety 10/22/19 [History Confirmed 10/27/24] naproxen 500 mg tablet 500 mg PO BID 10/22/19 [History Confirmed 10/27/24] propranolol 80 mg capsule,24 hr,extended release 80 mg PO DAILY 10/22/19 [History Confirmed 10/27/24] tamsulosin 0.4 mg capsule 0.4 mg PO DAILY 10/22/19 [History Confirmed 10/27/24] hydrocodone 7.5 mg-acetaminophen 325 mg tablet ([place]) 1 tablet PO Q8H PRN Pain 03/20/20 [History Confirmed 10/27/24] cyclosporine 0.05 % eye drops (Restasis MultiDose) 1 drp EACH EYE BID 12/22/22 [History Confirmed 10/28/24] duloxetine 60 mg capsule,delayed release 60 mg PO DAILY 12/22/22 [History Confirmed 10/27/24] melatonin 5 mg tablet 5 mg PO HS PRN Sleep 12/22/22 [History Confirmed 10/27/24] timolol maleate 0.25 % eye drops 1 drp EACH EYE QAM 12/22/22 [History Confirmed 10/28/24] levothyroxine 50 mcg tablet 50 mcg PO DAILY 10/28/24 [History Confirmed 10/28/24] Active Medications Acetaminophen (Acetaminophen 325 Mg Tablet) 650 mg PO Q4H PRN PRN Reason: Mild Pain (1-3) or Fever Hydrocodone Bitart/Acetaminophen (Hydrocodone/Acetaminophen (*Crx) 7.5-325 Mg Tablet) 1 tab PO Q6H PRN PRN Reason: Pain Rated 4-6 Stop: 11/21/24 23:59 Last Admin: 11/13/24 12:23 Dose: 1 tab Alteplase, Recombinant (Alteplase 2 Mg Vial (Cathflo)) 2 mg IV PUSH ONCE PRN PRN Reason: Line Occlusion Last Admin: 11/08/24 02:50 Dose: 2 mg Amlodipine Besylate (Amlodipine Besylate 10 Mg Tablet) 10 mg PO DAILY [facility] Last Admin: 11/13/24 08:00 Dose: 10 mg Dextrose (Dextrose 50% 25 Gm/50 Ml Syringe) 12.5 gm IV PUSH PRN PRN; Protocol PRN Reason: Hypoglycemia Diazepam (Diazepam (*Crx) 5 Mg Tablet) 5 mg PO BID PRN PRN Reason: Anxiety Last Admin: 11/11/24 18:56 Dose: 5 mg Duloxetine HCl (Duloxetine Hcl 60 Mg Capsule.Dr) 60 mg PO Q24H [facility] Last Admin: 11/12/24 23:19 Dose: 60 mg Enoxaparin Sodium (Enoxaparin 40 Mg/0.4 Ml Syringe) 40 mg SUB-Q DAILY [facility] Last Admin: 11/13/24 08:00 Dose: 40 mg Glucagon (Glucagon For Inj 1 Mg Vial) 1 mg IM PRN PRN; Protocol PRN Reason: Hypoglycemia Glucose (Glucose Oral Gel 15 Gm Of Glucse In 37.5 Gm Tube) 15 gm PO PRN PRN; Protocol PRN Reason: Hypoglycemia Hydralazine HCl (Hydralazine Hcl 20 Mg/Ml Vial) 10 mg IV PUSH Q6H PRN PRN Reason: Blood Pressure - High Last Admin: 10/28/24 23:48 Dose: 10 mg Dextrose (Dextrose 5% 1,000 Ml) 1,000 mls @ 100 mls/hr IVPB PRN PRN; Protocol PRN Reason: Hypoglycemia Cefepime HCl (Maxipime 2 Gm/Ns 50 Ml) 2 gm in 50 mls @ 100 mls/hr IVPB Q8H [facility] Last Admin: 11/13/24 07:55 Dose: 100 mls/hr Vancomycin HCl (Vancomycin 1,500 Mg/Ns 500 Ml) 1,500 mg in 500 mls @ 250 mls/hr IVPB Q18H [facility] Last Admin: 11/13/24 11:39 Dose: 250 mls/hr Insulin Aspart (Insulin Aspart (*Bkc) 100 Units/Ml) 2 - 5 units SUB-Q TIDWM [facility]; Protocol Last Admin: 11/13/24 11:44 Dose: Not Given Insulin Aspart (Insulin Aspart (*Bkc) 100 Units/Ml) 1 - 2 units SUB-Q HS [facility]; Protocol Last Admin: 11/12/24 22:11 Dose: Not Given Levothyroxine Sodium (Levothyroxine Sodium 50 Mcg Tablet) 50 mcg PO DAILY@0630 [facility] Last Admin: 11/13/24 06:16 Dose: 50 mcg Melatonin (Melatonin 5 Mg Tablet) 5 mg PO HS PRN PRN Reason: Sleep Last Admin: 11/08/24 00:27 Dose: 5 mg Oxycodone/Acetaminophen (Oxycodone/Acetaminophen (*Crx) 5-325 Mg Tablet) 1 tablet PO Q4H PRN PRN Reason: Breakthrough Pain Stop: 11/21/24 23:59 Last Admin: 11/12/24 23:19 Dose: 1 tablet Polyethylene Glycol (Polyethylene Glycol 3350 17 Gm Powd.Pack) 17 gm PO QAM [facility] Last Admin: 11/13/24 08:00 Dose: Not Given Sodium Chloride (Sodium Chloride 1 Gm Tablet) 1 gm PO BID [facility] Last Admin: 11/13/24 08:00 Dose: 1 gm Sodium Chloride (Central Line Flush) 10 ml IV PUSH Q8HR [facility] Last Admin: 11/13/24 06:16 Dose: 10 ml Sodium Chloride (Central Line Flush) 10 ml IV PUSH PRN PRN PRN Reason: with TPN bag changes Sodium Chloride (Central Line Flush) 20 ml IV PUSH PRN PRN PRN Reason: after blood draws Tamsulosin HCl (Tamsulosin Hcl 0.4 Mg Capsule) 0.4 mg PO DAILY [facility] Last Admin: 11/13/24 08:00 Dose: 0.4 mg Transfer Discharge Sum: Hosp Hospital Course Hospital course: Glenn Greer is a 84 year old male F/U Dr Katey Paul for pain epidurals in sciatic nerve as well as x4 pain epidurals in his back for chronic back pain. -Abdominal/pelvic CT: Diskitis/osteomyelitis at L1-L2.Mild bilateral hydronephrosis and hydroureter, new from 10/15/2024, which may be secondary to the markedly distended bladder.Stool distends the rectum. Gallbladder distention, which may be secondary to fasting. Correlate with physical exam to exclude acute cholecystitis. -Lumbar spine CT:Severe degenerative spondylosis, as above, with multilevel spinal canal stenosis and neural foraminal narrowing.Probable mild chronic loss of height of L4. 6 mm anterolisthesis of L4 over L5. -Currently on cefepime and vancomycin -Ordered nasal MRSA -Accepted at [facility], pending bed -continue home pain med -no evidence of cord compression today patient is accepted by the [facility] for further evaluation and treatment Time Spent with Patient Time attestation: Total time spent providing and/or coordinating transfer services: Exam Narrative: Patient is comfortable, NAD HEENT: eyes are clear and none icteric LUNGS:CTA HEART: RR S1S2 ABD: BS+, Soft and nontender Lower extremities: no edema SKIN: nonjaundiced Neuro: grossly intact. DS: Data Data Completed and Pending Labs on day of discharge: Labs from last 24 hours 11/13/24 11/13/24 11/13/24 11:35 07:44 06:30 WBC 3.7 L RBC 3.45 L Hgb 10.1 L Hct 30.9 L MCV 89.6 MCH 29.3 MCHC 32.7 RDW 14.4 Plt Count 143 L MPV 10.5 H Sodium 132 L Potassium 3.6 Chloride 99 Carbon Dioxide 29 Anion Gap 4 BUN 15 Creatinine 0.80 Estim Creat Clear Calc 73 Estimated GFR > 60 Glucose 145 H POC Capillary Glucose 173 H 146 H Calcium 8.2 L Total Bilirubin 0.8 AST 22 ALT 18 Alkaline Phosphatase 196 H Total Protein 6.0 L Albumin 2.8 L Vancomycin Trough 14.4 11/12/24 11/12/24 21:25 16:57 WBC RBC Hgb Hct MCV MCH MCHC RDW Plt Count MPV Sodium Potassium Chloride Carbon Dioxide Anion Gap BUN Creatinine Estim Creat Clear Calc Estimated GFR Glucose POC Capillary Glucose 183 H 178 H Calcium Total Bilirubin AST ALT Alkaline Phosphatase Total Protein Albumin Vancomycin Trough
[2024-11-13 16:25] LABS: Glucose Point of Care 164 mg/dl (65-105)
[2024-11-13] MEDS: oxyCODONE/ACETAMINOPHEN (*CRX) 5-325 MG TABLET 1 TABLET PO (16:39)
== END 2024-11-13 17:37 | disposition short-term general hospital (02) | DRG 540 ==
LOC: ANHED 19:52 → ANHIMU 10-27 10:32 → ANH3MEDSUR 10-30 13:42 → ANHIMU 11-14 09:34
PROVIDERS: General Practice; Admitting Provider Internal Medicine; Emergency Provider Emergency Medicine; PCP Internal Medicine; Visit Provider Family Medicine
DX: M46.26 Osteomyelitis of vertebra, lumbar region (principal); I82.612 Acute embolism and thrombosis of superficial veins of left upper extremity; R78.81 Bacteremia; M46.47 Discitis, unspecified, lumbosacral region; M48.061 Spinal stenosis, lumbar region without neurogenic claudication; B95.4 Other streptococcus as the cause of diseases classified elsewhere; M70.61 Trochanteric bursitis, right hip; I10 Essential (primary) hypertension; E03.9 Hypothyroidism, unspecified; F17.210 Nicotine dependence, cigarettes, uncomplicated; Z90.49 Acquired absence of other specified parts of digestive tract; Z96.651 Presence of right artificial knee joint
CPT/HCPCS: 36415; 36569; 36600; 71045; 74176; 80053; 80202; 81001; 82274; 82375; 82565; 82805; 82948; 83050; 83735; 83880; 85018; 85025; 85027; 87040; 87086; 87641; 93971; 97110; 97116; 97162; 97166; 97530; 97535; 99285; A9270; C1751; G0378; J0360; J0692; J1650; J1815; J1836; J1940; J2003; J2270; J2997; J3370; J7030